=== PATIENT | male | born 1955 | race Caucasian/White ===

== ENCOUNTER 2021-06-22 07:47 | Outpatient (CLI) | payer MEDICARE, SELFPAY ==
--- NOTE | ~2021-06-22 | CT_ITS ---
EXAMINATION: CTA abd aorta runoff EXAM DATE: 06/22/2021 08:42 INDICATION: Peripheral vascular disease. Bilateral leg pain, claudication. TECHNIQUE: Spiral CTA abd aorta runoff was performed following intravenous injection of 150 mL Omnipa que 350. Axial, coronal and sagittal images were reviewed. Maximum intensity projection 3-D reconstr uctions of the arteries were created by the technologist on dedicated workstation. The dose-length product (DLP) for this examination was 1179.05 mGy-cm. The exposure was tailored according to patien t size (auto mA exposure control), and iterative reconstruction (ASIR) was used as additional dose re duction technique. There is no prior study for comparison. FINDINGS: There are 2 left renal arteries. No renal artery, SMA or BELÉN stenosis. 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 Mild aortic arterial sclerosis. No a bdominal aortic aneurysm. Mild scattered arterial sclerosis of the superficial femoral and popliteal arteries. There is severe right anterior tibial scattered arterial sclerosis distally, and moderate t o severe left anterior tibial arterial sclerosis distally, but three-vessel runoff bilaterally. Incidental findings: Small right inguinal fat-containing hernia. Mildly enhancing bladder mucosa and mildly diffusely thickened wall, probably chronic cystitis. If there are acute symptoms consider urin alysis. Prostate normal in size. Corpora cavernosum and spongiosum calcifications. Cholelithiasis. No rmal appendix. IMPRESSION: 1. Anterior tibial predominant arteriosclerosis right greater than left, with three-vessel runoff bi laterally. No significant above-knee stenosis. 2. Chronic or possibly acute on chronic cystitis. 3. Small right inguinal hernia. 4. Cholelithiasis. Reviewed, dictated and finalized at location A. GLUE MACHINE TENDER IMPRESSION: 1. Anterior tibial predominant arteriosclerosis right greater than left, with three-vessel runoff bilaterally. No significant above-knee stenosis. 2. Chronic or possibly acute on chronic cystitis. 3. Small right inguinal hernia. 4. Cholelithiasis.
[2021-06-22 08:35] LABS: Estimated Glomerular Filt Rate > 60
== END 2021-06-22 07:48 | disposition home or self-care (01) ==
LOC: ANHIMG 07:50
PROVIDERS: PCP Internal Medicine; Visit Provider Internal Medicine
DX: I73.9 Peripheral vascular disease, unspecified (principal); M79.662 Pain in left lower leg; M79.661 Pain in right lower leg; N30.20 Other chronic cystitis without hematuria; K40.90 Unilateral inguinal hernia, without obstruction or gangrene, not specified as recurrent; K80.20 Calculus of gallbladder without cholecystitis without obstruction
CPT/HCPCS: 75635; Q9967

== ENCOUNTER 2024-01-25 08:01 | Outpatient (CLI) | payer MEDICARE, SELFPAY ==
--- NOTE | ~2024-01-25 | NM_ITS ---
EXAMINATION: NM barry stress w perfusion DATE: 01/25/2024 10:29 INDICATION: Abnormal electrocardiogram TECHNIQUE: Rest images were obtained following intravenous administration of 11 mCi Tc99m tetrofosmin (Myoview). The patient was infused intravenously with Lexiscan (Regadenoson). Then, 34 mCi Tc99m tet rofosmin (Myoview) was administered intravenously, and stress images were obtained. Data was reconstr ucted into short axis and horizontal and vertical long axis SPECT images. Gated SPECT images were als o obtained. COMPARISON: None. FINDINGS: There is no definite reversible or fixed perfusion abnormality to suggest ischemia or infar ction. There is normal left ventricular chamber size, wall motion and ejection fraction. Left ventr icular ejection fraction measures >70%. IMPRESSION: 1. Normal myocardial perfusion at rest and during stress. 2. Left ventricular ejection fraction measuring >70%. Reviewed, dictated and finalized at location A.
--- NOTE | 2024-01-25 08:07 | EST_ITS ---
Patient Info Name: Dylan Noel Age: 68 years : 1955 Gender: Male Ht: 65 in Wt: 184 lbs BSA: 1.98 m2 HR: 75 bpm BP: 135 / 63 mmHg Exam Date: 01/25/2024 9:16 AM Exam Location: Echo Lab Patient Status: Outpatient Admit Date: 01/25/2024 Staff Ordering Physician: Armando Larios MD Attending Provider: Armando Larios MD Exercise Technologist: Sherlyn Hou [facility] Exercise Physician: Drake Bergeron DO Exam Type: CA stress barry w NM Study Info A regadenoson stress test was performed. Summary 1. 1. Negative lexiscan stress test for ischemic ST changes by ECG criteria. 2. 2. Stable hemodynamics throughout the test. 3. 3. Nuclear scan to follow and will be reported separately. Please correlate with it. 4. 4. Patient informed of the above results. Protocol: Lexiscan Stress ECG Details Stage: REST Duration (min): 2 min : 33 sec HR (bpm): 76 SBP (mmHg): 135 DBP (mmHg): 63 Stage: REST Duration (min): 11 min : 29 sec HR (bpm): 75 SBP (mmHg): 135 DBP (mmHg): 63 Stage: STAGE 1 Duration (min): 1 min : 0 sec HR (bpm): 79 SBP (mmHg): 135 DBP (mmHg): 65 Stage: RECOVERY Duration (min): 1 min : 0 sec HR (bpm): 91 SBP (mmHg): 135 DBP (mmHg): 65 Stage: RECOVERY Duration (min): 2 min : 0 sec HR (bpm): 86 SBP (mmHg): 135 DBP (mmHg): 65 Stage: RECOVERY Duration (min): 3 min : 0 sec HR (bpm): 86 SBP (mmHg): 120 DBP (mmHg): 54 Stage: RECOVERY Duration (min): 3 min : 12 sec HR (bpm): 86 SBP (mmHg): 120 DBP (mmHg): 54 Rest HR: 75 bpm Peak HR: 92 bpm Rest Sys BP: 135 mmHg Peak Sys BP: 135 mmHg Max Pred HR: 150 bpm % Max Pred HR: 61 % Target HR: 128 bpm Max RPP: 12,420 bpm*mmHg Termination Reason: Completed protocol Cardiac Symptoms: None Total Time: 1 min : 0 sec Rest Lutz BP: 63 mmHg Peak Lutz BP: 65 mmHg Total Dose: 0.4 mg Resting ECG Sinus rhythm, PVC's, LAFB. Stress ECG No ST changes. Arrhythmias None. Report Signatures
== END 2024-01-25 08:02 | disposition home or self-care (01) ==
LOC: ANHCARD 08:05
PROVIDERS: PCP Internal Medicine; Visit Provider Internal Medicine
DX: R06.09 Other forms of dyspnea (principal); R94.31 Abnormal electrocardiogram [ECG] [EKG]
CPT/HCPCS: 78452; 93017; A9502; J2785

== ENCOUNTER 2024-07-06 10:08 | Observation (INO) | payer MEDICARE, SELFPAY ==
[2024-07-06] VITALS (9 sets, daily range): BP systolic 111–125; BP diastolic 50–65; PULSE 75–92; RESP 16–18; TEMP 35.8–36.7; O2SAT 90–100; BMI 31.1
--- NOTE | ~2024-07-06 | US_ITS ---
EXAM: RENAL ULTRASOUND HISTORY: acute kidney injury COMPARISON: Reference is made to a CTA of the abdomen dated 06/22/2021 FINDINGS: RIGHT KIDNEY: 11.6 x 5.7 x 5.3 cm. The parenchyma of the right kidney is unremarkable in echogenicity. No hydronephrosis or bulky renal calculi. LEFT KIDNEY: 10.6 x 5.5 x 5.4 cm The parenchyma of the left kidney is unremarkable in echogenicity. No hydronephrosis. Echogenic focus within the lower pole of the left kidney measuring 6 mm, likely corresponding to a CT A in 2021 which demonstrated an 8 mm left renal nonobstructing calcification. BLADDER: The bladder is distended, and otherwise unremarkable. A left ureteral jet was visualized. Despite prolonged interrogation, the right ureteral jet was not elicited. IMPRESSION: Left renal calculus. Reviewed, dictated and finalized at location A. [facility] SYSTEM ADMINISTRATOR IMPRESSION: Left renal calculus.
--- NOTE | ~2024-07-06 | XR_ITS ---
EXAMINATION: XR foot LT min 3V DATE: 07/06/2024 12:29 INDICATION: Lateral sided diabetic foot and severe at the left foot. TECHNIQUE: Dorsoplantar, oblique and lateral views of the left foot were obtained. COMPARISON: None. FINDINGS: Bone alignment is normal. No fracture. No cortical erosions, osteolysis or periosteal reaction to sug gest osteomyelitis. Mild polyarticular osteoarthritis at the calcaneocuboid, first metatarsophalangea l and multiple tarsometatarsal and interphalangeal joints. Small plantar calcaneal spur. There is asy mmetric mild soft tissue swelling about the lateral side of the foot. IMPRESSION: 1. 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 No acute osseous abnormality. Reviewed, dictated and finalized at location A. [place]
--- OUTSIDE RECORDS SUMMARY | 2024-07-06 10:09 | XMS_ITS | Continuity of Care Document ---
Author Organization [facility] Address [id number] [place] [address] [place] [address] Phone Care Team Providers Care Seo Strategist Name Role Phone Ed Grimm DO Unavailable Unavailable Advance Directives Directive Yes / No Effective Date File Name No Information Encounters Encounter Description Practice Location Reason(s) For Visit Diagnoses Date Provider Providers Copied on Encounter [facility], [id number] [place] [address] [address], [place], [place], [id number], tel:[phone] [facility] No Information Sirisha Romeo. [address] [facility], [place], [address], [place]. tel:[phone] Referring Provider: Armando Larios MD , [address] [address] [address], [place], [address]. tel:[phone] Family History Family Member Type Diagnosis Age At Onset No Information Payers Payer name Insurance type Covered libertarian ID Authoriza tion(s) No Information Social History [...]
--- OUTSIDE RECORDS SUMMARY | 2024-07-06 10:09 | XMS_ITS | Clinical Summary ---
Author Organization [facility] Address [address] [place] [address] Care Team Providers Care Long Goods Drier Name Role Phone Armando Larios MD Primary Care Provider [phone] Allergies No known active allergies Medications atorvastatin (LIPITOR) 20 mg tablet 2 Active ciprofloxacin (CIPRO) 500 mg tablet Take 500 mg by mouth every 12 (twelve) hours for 10 days 2 Active HumuLIN 70/30 100 unit/mL vial for injection 2 Active insulin syringe-needle U-100 0.5 mL 31 gauge x 5/16 syringe USE 1 SYRINGE TWICE DAILY 2 Active verapamil SR (CALAN SR) 180 mg CR tablet 2 Active losartan-hydroC HLOROthiazide (HYZAAR) 100-12.5 mg per tablet Take 1 tablet by mouth daily Active aspirin 81 mg enteric coated tablet Take 81 mg by mouth daily Active metFORMIN (GLUCOPHAGE) 1,000 mg tablet Take 1,000 mg by mouth 2 (two) times a day with meals Active empagliflozin (JARDIANCE) 25 mg tabletIndicatio ns:type 2 diabetes mellitus 25 mg Active semaglutide (RYBELSUS) 7 mg tablet Take 6 mg by mouth brand advocate before breakfast Active valsartan-hydro chlorothiazide (DIOVAN-HCT) 320-12.5 mg per tablet 2 Active omega 8-zrp-xpw-fish oil 1,200 (144-216) mg capsule Take by mouth Active Active Problems Problem Noted Date Diagnosed Date Atherosclerosis of [place] marianela of both lower extremities with intermittent claudication 07/19/2021 Assessment & Plan (10/17/2021 10:07 AM CDT): Patient is not having claudication symptoms except at long distances and says if he takes an enough water he does not have any symptoms at all. He can follow up as needed. Assessment & Plan (07/19/2021 9:51 AM SOLDER MAKING SUPERVISOR): Patient has peripheral arterial disease and likely falsely elevated ABIs due to noncompressible vessels. Does however have palpable pulses. His CT scan suggests scattered blockages but had does have flow all the way to his feet. Plan will be to have him follow up in 3 months with a repeat arterial Doppler. He is currently on an aspirin and a statin and is not a smoker. Mixed hyperlipidemia 07/19/2021 Assessment & Plan (10/17/2021 10:08 AM CDT): Followed by his PCP and chronic and stable. I recommend he continue his atorvastatin. Assessment & Plan (07/19/2021 9:53 AM SOLDER MAKING SUPERVISOR): Followed by his PCP chronic and stable. I recommend he continue his atorvastatin for lipid lowering medication which will also help with his peripheral arterial disease. Primary hypertension 07/19/2021 Assessment & Plan (10/17/2021 10:09 AM CDT): Followed by his PCP and chronic and stable. I recommend he continue his verapamil for blood pressure medication. Assessment & Plan (07/19/2021 9:53 AM SOLDER MAKING SUPERVISOR): Followed by his PCP chronic and stable. I recommend he continue his verapamil for blood pressure medication. Surgical History Surgery Date Site/Laterality Comments TONSILLECTOMY Family History Medical History Relation Name Comments No Known Problems Daughter Diabetes Father Heart disease Father Hypertension Father No Known Problems Maternal Grandfather Cancer Maternal Grandmother Diabetes Mother Heart disease Mother Hypertension Mother Stroke Paternal Grandfather No Known Problems Paternal Grandmother Diabetes Sister Relation Name Status Comments Daughter Father Maternal Grandfather Maternal Grandmother Mother Paternal Grandfather Paternal Grandmother Sister Social History Tobacco Use Types Packs/Day Years Used Date Smoking Tobacco: Never Smokeless Tobacco: Never Personal Safety Answer Date Recorded Getting School Help Needed Not on file 05/30 Sex and Gender Information Value Date Recorded Sex Assigned at Not on file Legal Sex Male 5:29 PM SOLDER MAKING SUPERVISOR Gender Identity Not on file Sexual Orientation Not on file Obstetrics History Last Filed Vital Signs Vital Sign Reading Time Taken Comments Blood Pressure 120/71 10/17/2021 8:46 AM CDT Pulse 81 10/17/2021 8:46 AM CDT Temperature - - Respiratory Rate - - Oxygen Saturation - - Inhaled Oxygen Concentration - - Weight 81.2 kg (179 lb) 10/17/2021 8:46 AM CDT Height 167.6 cm (5' 6 ) 10/17/2021 8:46 AM CDT Body Mass Index 28.89 10/17/2021 8:46 AM CDT Plan of Treatment Health Maintenance Due Date Last Done Comments Colon Cancer Screening-Colonoscopy 1955 Depression Screening 1955 Fall Risk Assessment 1955 Hepatitis C Screening 1955 DTaP/Tdap/Td Vaccine (1 - Tdap) 1964 Hepatitis B Screening 08/10/1971 Zoster Vaccine (1 of 2) 08/10/2003 Abdominal Aortic Aneurysm (A AA) Screen 2018 Pneumococcal vaccine 65+ (1 of 1 - PCV) 2018 Well Visit 65+ 2018 Covid-19 Vaccine ( season) 2024 04/29/2021, 08/31/2020, 08/10/2020 Influenza Vaccine (#1) 2024 Insurance [facility] HMO REF [facility] H[facility] REF Care Teams Long Goods Drier Relationship Specialty Start Date End Date Armando Larios MD [address] [facility] [address] [place], [place] [id number] PCP - General Internal Medicine 07/07/21
--- OUTSIDE RECORDS SUMMARY | 2024-07-06 10:09 | XMS_ITS | Clinical Summary ---
Author Organization [facility] Address [address] [place] [address] Care Team Providers Care Special Deputy Sheriff Name Role Phone Armando Larios MD Primary Care Provider [phone] Social History Tobacco Use Types Packs/Day Years Used Date Smoking Tobacco: Never Assessed Sex and Gender Information Value Date Recorded Sex Assigned at Not on file Legal Sex Male 11:55 AM ACROBATIC RIGGER Gender Identity Not on file Sexual Orientation Not on file Plan of Treatment Health Maintenance Due Date Last Done Comments Colorectal Cancer Screening Colonoscopy (10 Years) 1955 Hepatitis C 08/10/1971 DTaP, Tdap and Td Vaccines ( 1 - Tdap) 1972 Zoster Vaccines (1 of 2) 08/10/2003 Annual Medicare Wellness Visit 2018 Pneumococcal Vaccine: 65+ Years (1 of 1 - PCV) 2018 COVID-19 Vaccine (4 - 2023-2 5 season) 2024 04/29/2021, 08/31/2020, 08/10/2020 Influenza Adult (#1) 2024 RSV Immunization or 60+ Years (1 - 1-dose 75+ series) 2028 Meningococcal B Vaccine Aged Out No l onger eligible based on patient's age to complete this topic Meningococcal Vaccine Aged Out No arturo alpesh eligible based on patient's age to complete this topic RSV Immunizations Under 20 Months Aged Out No longer eligible b ased on patient's age to complete this topic Insurance [facility] Care Teams Special Deputy Sheriff Relationship Specialty Start Date End Date Armando Larios MD [address] [place] [address] PCP - General INTERNAL MEDICINE 04/26/21
--- OUTSIDE RECORDS SUMMARY | 2024-07-06 10:09 | XMS_ITS | Referral Summary ---
Author Organization [facility] Address [address] [place] [address] Care Team Providers Care Supervisor Photostat Name Role Phone Armando Larios MD Primary Care Provider [phone] Allergies No known active allergies Medications atorvastatin [...] mg tablet Take 6 mg by mouth drafter seismograph before breakfast Active valsartan-hydro chlorothiazide (DIOVAN-HCT) 320-12.5 mg per tablet 2 Active omega 2-ofd-hum-fish oil 1,200 (144-216) mg capsule Take by mouth Active Active Problems Problem Noted Date Diagnosed Date Atherosclerosis of lower [place] ar marianela of both lower extremities with intermittent claudication 07/19/2021 Assessment & Plan (10/17/2021 10:07 AM CDT): Patient is not having claudication symptoms except at long distances and says if he takes an enough water he does not have any symptoms at all. He can follow up as needed. Assessment & Plan (07/19/2021 9:51 AM DESK CLERK): Patient has peripheral arterial disease and likely [...] atorvastatin. Assessment & Plan (07/19/2021 9:53 AM DESK CLERK): Followed by his PCP chronic and stable. I recommend he continue his atorvastatin for lipid lowering medication which will also help with his peripheral arterial disease. Primary hypertension 07/19/2021 Assessment & Plan (10/17/2021 10:09 AM CDT): Followed by his PCP and chronic and stable. I recommend he continue his verapamil for blood pressure medication. Assessment & Plan (07/19/2021 9:53 AM DESK CLERK): Followed by his PCP chronic and stable. I recommend he continue his verapamil for blood pressure medication. Social History Tobacco Use Types Packs/Day Years Used Date Smoking Tobacco: Never Smokeless Tobacco: Never Personal Safety Answer Date Recorded Getting School Help Needed Not on file 05/30 Sex and Gender Information Value Date Recorded Sex Assigned at Not on file Legal Sex Male 5:29 PM DESK CLERK Gender Identity Not on file Sexual Orientation Not on file Last Filed Vital Signs Vital Sign Reading [...] 10/17/2021 8:46 AM CDT Plan of Treatment Not on file Insurance [facility] Address: [address] [address] [place] [address] [facility] Address[facility] [address] [address] [place] [address] Care Teams Supervisor Photostat Relationship Specialty Start Date End Date Armando Larios MD [address] [facility] [address] [facility] [address] [place] [address] PCP - General Internal Medicine 07/07/21
--- OUTSIDE RECORDS SUMMARY | 2024-07-06 10:29 | XMS_ITS | Continuity of Care Document ---
Author Organization [facility] Address [address] [place] [address] [place] [address] Phone Care Team Providers Care Clay Machine Operator Name Role Phone Ed Grimm DO Unavailable Unavailable Advance Directives Directive Yes / No Effective Date File Name No Information Encounters Encounter Description Practice Location Reason(s) For Visit Diagnoses Date Provider Providers Copied on Encounter [facility], [address] [place] [address] [address], [place], [place], [id number], tel:[phone] [facility] No Information Sirisha Romeo. [email or web address] [facility], [place], [address], [place]. tel:[phone] Referring Provider: Armando Larios MD , [address] [address] [address], [place], [address]. tel:[phone] Family History Family Member Type Diagnosis Age At Onset No Information Payers Payer name Insurance type Covered green party ID Authoriza tion(s) No Information Social [...]
--- NOTE | 2024-07-06 11:14 | ED_ITS ---
HPI - General Adult General Chief complaint: Extremity Problem,Nontraumatic Stated complaint: left foot pain Time Seen by Provider: 07/06/24 10:19 History of Present Illness HPI narrative: 68-year-old male with history of type 2 diabetes presenting the emergency department for evaluation for a worsening infection to his left foot. Patient states approximately 3 weeks ago started having infection secondary to some calluses on his left foot. Patient was started on antibiotics on 06/26 and patient did complete his entire dose of Bactrim. Patient states that the infection did began to improve after being on the Bactrim for a day or so but over the course of the last week it has continued to worsen. Patient did complete his Bactrim today. Patient denies any associated nausea vomiting diarrhea, body aches fatigue. Patient does complain of worsening left lateral foot pain erythema and tenderness. Patient states he is very active and is on his feet and work boots all day. Related Data Home Medications ?Medication ?Instructions ?Recorded ?Confirmed ?Last Taken ?Type aspirin 81 mg tablet,delayed 81 mg PO DAILY 07/08/19 07/06/24 07/06/24 History release (Adult Low Dose Aspirin) omega-3 fatty acids 1,000 mg 4,000 mg PO DAILY 07/08/19 07/06/24 07/06/24 History capsule (Fish Oil Concentrate) cholecalciferol (vitamin D3) 50 50 mcg PO DAILY 09/21/22 07/06/24 07/06/24 History mcg (2,000 unit) capsule semaglutide 3 mg tablet (Rybelsus) 6 mg PO DAILY 01/16/23 07/06/24 07/06/24 History empagliflozin 25 mg tablet 25 mg PO DAILY 03/13/24 07/06/24 07/06/24 History (Jardiance) linagliptin 5 mg tablet (Tradjenta) 5 mg PO QAM 03/13/24 07/06/24 07/06/24 History atorvastatin 10 mg tablet 5 mg PO DAILY 07/06/24 07/06/24 07/06/24 History Allergies Allergy/AdvReac Type Severity Reaction Status Date / Time No Known Allergies Allergy Unknown Verified 07/06/24 14:57 Review of Systems 2 Review of Systems: All systems reviewed & are unremarkable except as noted in HPI and below PMFSH Past Medical History Medical History (Updated 07/06/24 @ 15:06 by Alyssa Mc PA-C) Chronic kidney disease Peripheral vascular disease Mixed hyperlipidemia Insulin dependent type 2 diabetes mellitus BMI 31.0-31.9,adult Vitamin D deficiency Hearing loss Vitreous hemorrhage of left eye Abnormal ankle brachial index (LAMAR) Benign essential hypertension Surgical History Surgical History (Updated 07/06/24 @ 15:03 by Alyssa Mc PA-C) History of bilateral cataract extraction (2022) Social History Social History (Updated 07/06/24 @ 15:04 by Alyssa Mc PA-C) Social History: Surrogate medical decision maker: Karrie Noel, spouse ([phone]). Code status: Full code. Smoking status: Never smoker Second hand tobacco smoke exposure: No Alcohol intake: never Substance use: never Do You Feel Safe in your Home?: Yes Lack of Transportation: No Lack of Food: Never True Current Housing: I Have Housing Concerned About Future Housing: No Difficulty Paying Gas/Electric Bills: No Difficulty Paying for Meds: No Currently Unemployed: No Education: High School Diploma/GED Difficulty w/ Childcare or Family Care: No Spiritual care concerns: No Exam 2 Narrative: APPEARANCE: Well appearing, no pain, no distress, well-nourished. HEAD: normocephalic, atraumatic. EYES: PERRLA/EOMI, conjunctivae clear. NOSE: Normal no drainage EARS:TMS clear with good light reflex. THROAT: Pharynx clear, no exudate. NECK: Supple. No adenopathy, no masses. RESPIRATORY: Airway patent, respirations nonlabored. Clear to auscultation bilaterally, no rales, rhonchi, wheezing. CARDIOVASCULAR: Regular rate and rhythm without murmurs rubs or gallops. ABDOMINAL: Soft, nontender, nondistended, normal bowel sounds MUSCULOSKELETAL: Moves all extremities. Strength/ROM intact, No edema, No calf tenderness. NEURO: Alert. Cranial nerves II through XII intact. Grossly intact SKIN: Erythema of left lateral foot at both the heel and just lateral to the ball of the left foot. No purulent discharge, mild erythema Course Vital Signs Vital signs: Vital Signs Temperature 97.8 F 07/06/24 10:09 Pulse Rate 83 07/06/24 10:09 Respiratory Rate 16 07/06/24 10:09 Blood Pressure 125/56 L 07/06/24 10:09 Pulse Oximetry 100 07/06/24 10:09 Oxygen Delivery Room Air 07/06/24 10:09 Temperature 96.5 F L 07/06/24 15:00 Pulse Rate 82 07/06/24 15:00 Respiratory Rate 18 07/06/24 15:00 Blood Pressure 111/56 L 07/06/24 15:00 Pulse Oximetry 100 07/06/24 15:00 Oxygen Delivery Room Air 07/06/24 10:09 Medical Decision Making MDM Narrative Medical decision making narrative: 68-year-old male presents emergency department for evaluation for worsening diabetic foot ulcer. Patient does have type 2 diabetes and history of diabetic ulcers. Patient had been on Bactrim for the course of the last week but states that the infection continues to worsen. Patient did not want to try antibiotics for home and preferred to be admitted for this. Patient did fail outpatient treatment. Patient did have mild BRIANNE worsened than his chronic kidney disease. Patient had a mild hyperkalemia. Patient was treated by a L IV fluids. Patient was started on cefepime vanc and Flagyl, blood cultures are pending. Case was discussed with hospitalist patient was accepted. Patient was placed on telemetry due to potassium. Repeat BMP is ordered for 3:00 p.m.. Differential Diagnosis Differential Diagnosis: Osteomyelitis, abscess, diabetic ulcer Vital Signs Vital Signs: Vital Signs Temperature 97.8 F 07/06/24 10:09 Pulse Rate 83 07/06/24 10:09 Respiratory Rate 16 07/06/24 10:09 Blood Pressure 125/56 L 07/06/24 10:09 Pulse Oximetry 100 07/06/24 10:09 Oxygen Delivery Room Air 07/06/24 10:09 Temperature 96.5 F L 07/06/24 15:00 Pulse Rate 82 07/06/24 15:00 Respiratory Rate 18 07/06/24 15:00 Blood Pressure 111/56 L 07/06/24 15:00 Pulse Oximetry 100 07/06/24 15:00 Oxygen Delivery Room Air 07/06/24 10:09 Lab Data Lab results reviewed: Yes I reviewed the patient's lab results. 07/06/24 11:42 07/06/24 15:25 Labs: Lab Results 07/06/24 Range/Units 11:42 WBC 8.9 (4.5-10.0) K/mm3 RBC 4.93 (4.6-6.20) M/mm3 Hgb 14.9 (14.0-18.0) g/dL Hct 43.9 (42.0-52.0) % MCV 89.0 (80-100) fl MCH 30.2 (26-34) pg MCHC 33.9 (32-36) g/dl RDW 13.0 (11.5-14.5) % Plt Count 281 (150-375) k/mm3 MPV 9.4 (7.4-10.4) fl Immature Gran % (Auto) 0.7 H (0-0.5) % Neut % (Auto) 67.4 (45.5-73.1) % Lymph % (Auto) 20.4 (18.3-44.2) % [place] % (Auto) 9.0 H (2.6-8.5) % Eos % (Auto) 1.7 (0-4.4) % Baso % (Auto) 0.8 (0.2-1.2) % Lymph # (Auto) 1.81 (0.9-3.2) K/mm3 [place] # (Auto) 0.8 H (0.1-0.6) K/mm3 Eos # (Auto) 0.2 (0-0.3) K/mm3 Baso # (Auto) 0.1 (0.0-0.1) K/mm3 Abs Immat Gran (auto) 0.06 H (0.00-0.031) K/mm3 Absolute Neuts (auto) 6.0 (1.3-6.7) K/mm3 Absolute Nucleated RBC 0.000 (0.0-0.012) K/mm3 Nucleated RBC % 0.0 (0.0-0.2) % PT 13.7 (11.1-14.7) Seconds INR 1.0 APTT 28.5 (22.3-36.8) Seconds Sodium 134 L (137-145) mmol/L Potassium 5.3 H (3.4-5.0) mmol/L Chloride 105 (98-107) mmol/L Carbon Dioxide 15 L (22-30) mmol/L Anion Gap 14 H (4-12) mmol/L BUN 41 H (9-20) mg/dL Creatinine 1.77 H (0.7-1.3) mg/dL Estim Creat Clear Calc 34 ml/min Estimated GFR 38 L (59 - ) Glucose 154 H (65-110) mg/dL Hemoglobin A1c 7.2 H (<5.7) % Calcium 9.6 (8.4-10.2) mg/dL Magnesium 2.6 H (1.6-2.3) mg/dL Total Bilirubin 0.9 (0.2-1.3) mg/dL AST 21 (17-59) U/L ALT 21 (6-50) U/L Alkaline Phosphatase 116 (38-126) U/L Total Protein 8.0 (6.3-8.2) g/dL Albumin 4.2 (3.5-5.1) g/dL Imaging Data Radiologist's impression: Impressions Foot X-Ray 07/06/24 12:38 IMPRESSION: 1. 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 No acute osseous abnormality. Discharge Plan Discharge Clinical Impression: Diabetic foot ulcer, BRIANNE (acute kidney injury), Acute hyperkalemia Patient Disposition: Still a Patient Condition: Stable
[2024-07-06 11:52] LABS: Basophils Absolute Auto 0.1 K/mm3 (0.0-0.1); Basophils Percent Auto 0.8 % (0.2-1.2); Eosinophils Absolute Auto 0.2 K/mm3 (0-0.3); Eosinophils Percent Auto 1.7 % (0-4.4); Hematocrit 43.9 % (42.0-52.0); Hemoglobin 14.9 g/dL (14.0-18.0); Immature Granulocyte Absolute 0.06 K/mm3 (0.00-0.031); Immature Granulocyte Percent A 0.7 % (0-0.5); Lymphocytes Absolute Auto 1.81 K/mm3 (0.9-3.2); Lymphocytes Percent Auto 20.4 % (18.3-44.2); Mean Corpuscular HGB Conc 33.9 g/dl (32-36); Mean Corpuscular Hemoglobin 30.2 pg (26-34); Mean Platelet Volume 9.4 fl (7.4-10.4); Monocytes Absolute Auto 0.8 K/mm3 (0.1-0.6); Neutrophils Percent Auto 67.4 % (45.5-73.1); Platelet Count Result 281 k/mm3 (150-375); Red Blood Count 4.93 M/mm3 (4.6-6.20); White Blood Count 8.9 K/mm3 (4.5-10.0)
[2024-07-06] MEDS: CEFEPIME 2 GM/NS 50 ML 2 GM/50 ML BAG IVPB (11:59)
[2024-07-06 12:03] LABS: Alanine Aminotransferase 21 U/L (6-50); Albumin Level 4.2 g/dL (3.5-5.1); Alkaline Phosphatase 116 U/L (38-126); Anion Gap 14 mmol/L (4-12); Aspartate Amino Transferase 21 U/L (17-59); Bilirubin,Total 0.9 mg/dL (0.2-1.3); Blood Urea Nitrogen 41 mg/dL (9-20); Calcium 9.6 mg/dL (8.4-10.2); Carbon Dioxide 15 mmol/L (22-30); Chloride 105 mmol/L (98-107); Estimated CRCL calculation 34 ml/min; Estimated Glomerular Filt Rate 38; Glucose 154 mg/dL (65-110); Potassium 5.3 mmol/L (3.4-5.0); Prothrombin Time 13.7 Seconds (11.1-14.7); Sodium 134 mmol/L (137-145)
[2024-07-06 12:04] LABS: Partial Thromboplastin Time 28.5 Seconds (22.3-36.8)
[2024-07-06 12:36] LABS: Hemoglobin A1C 7.2 % (<5.7)
[2024-07-06] MEDS: metroNIDAZOLE 500 MG/ISO 100ML 500 MG/100 ML BAG 100 MG IVPB ×2 (12:40→21:21)
--- NOTE | 2024-07-06 13:02 | ECG_ITS ---
Test Date: 2024-07-06 13:15:21 Measurements Intervals [place] Rate: 79 P: 81 OR: 177 QRS: -65 QRSD: 117 T: 80 QT: 370 QTc: 425 Interpretive Statements SINUS RHYTHM LEFT ANTERIOR FASCICULAR BLOCK ABNORMAL ECG No previous ECG available for comparison Electronically Signed On 07-06-2024 14:30:14 [employer] by Drake Bergeron D.O.
[2024-07-06 13:12] LABS: Magnesium 2.6 mg/dL (1.6-2.3)
[2024-07-06] MEDS: SODIUM CHLORIDE 0.9% IV 1,000 ML 999 ML IV CONT (13:40)
[2024-07-06] MEDS: VANCOMYCIN 2,000 MG/NS 500 ML BAG 250 MG IVPB (13:54)
--- NOTE | 2024-07-06 14:20 | P.HP_ITS ---
H&P: HPI History of Present Illness Date/Time: 07/06/24 14:20 Chief Complaint: Worsening left foot infection. Narrative: This is a 68-year-old male with insulin-dependent type 2 diabetes mellitus, hypertension, hyperlipidemia, and peripheral vascular disease who presented to the emergency department for evaluation of worsening left foot infection. The patient provides the following history. Several weeks ago he developed redness and tenderness around a callus on his left foot and he was prescribed Bactrim on 06/26/2024 for suspected infection. Initially he noted some improvement however over the last several days he has noticed increasing erythema and tenderness at the site. Today he finished his last dose of Bactrim. Otherwise he feels fine and he denies fever, chills, sweats, nausea, and vomiting. In the ED: He was afebrile on arrival with stable vital signs. Labs were significant for sodium of 134, potassium 5.3, carbon dioxide 15, anion gap 14, BUN 41, creatinine 1.77, glucose 154. Left foot x-ray showed no acute osseous abnormality. He received cefepime, metronidazole, and vancomycin and he is being admitted in this setting for further treatment of an infected diabetic foot wound. Review of Systems Review of Systems: 12 systems were reviewed and are negativ e except for as per HPI. [facility] Past Medical History Medical History Chronic kidney disease Peripheral vascular disease Mixed hyperlipidemia Insulin dependent type 2 diabetes mellitus BMI 31.0-31.9,adult Vitamin D deficiency Hearing loss Vitreous hemorrhage of left eye Abnormal ankle brachial index (LAMAR) Benign essential hypertension Surgical History Surgical History History of bilateral cataract extraction (2022) Social History Social History Social History: Surrogate medical decision maker: Karrie Noel, spouse ([phone]). Code status: Full code. Smoking status: Never smoker Second hand tobacco smoke exposure: No Alcohol intake: never Substance use: never Do You Feel Safe in your Home?: Yes Lack of Transportation: No Lack of Food: Never True Current Housing: I Have Housing Concerned About Future Housing: No Difficulty Paying Gas/Electric Bills: No Difficulty Paying for Meds: No Currently Unemployed: No Education: High School Diploma/GED Difficulty w/ Childcare or Family Care: No Spiritual care concerns: No Meds Home Medications and Allergies Home Medications ?Medication ?Instructions ?Recorded ?Confirmed ?Type aspirin 81 mg tablet,delayed 81 mg PO DAILY 07/08/19 07/06/24 History release (Adult Low Dose Aspirin) omega-3 fatty acids 1,000 mg 4,000 mg PO DAILY 07/08/19 07/06/24 History capsule (Fish Oil Concentrate) cholecalciferol (vitamin D3) 50 50 mcg PO DAILY 09/21/22 07/06/24 History mcg (2,000 unit) capsule insulin syringe-needle U-100 1 mL #100 ea 01/02/23 07/06/24 Rx 31 gauge x 5/16 semaglutide 3 mg tablet (Rybelsus) 6 mg PO DAILY 01/16/23 07/06/24 History insulin syringe-needle U-100 0.5 #200 ea 06/21/23 07/06/24 Rx mL 31 gauge x 5/16 metformin 1,000 mg tablet See Rx Instructions .Route 12/07/23 07/06/24 Rx .COMPLEX #200 tabs valsartan 320 See Rx Instructions .Route 02/07/24 07/06/24 Rx mg-hydrochlorothiazide 12.5 mg .COMPLEX #100 tabs tablet empagliflozin 25 mg tablet 25 mg PO DAILY 03/13/24 07/06/24 History (Jardiance) linagliptin 5 mg tablet (Tradjenta) 5 mg PO QAM 03/13/24 07/06/24 History insulin human U-100 NPH-regulr See Rx Instructions .Route 05/22/24 07/06/24 Rx 70-30 mix 100 unit/mL subcutaneous .COMPLEX #70 mL susp (Humulin 70/30 U-100 Insulin) atorvastatin 10 mg tablet 5 mg PO DAILY 07/06/24 07/06/24 History Allergies Allergy/AdvReac Type Severity Reaction Status Date / Time No Known Allergies Allergy Unknown Verified 07/06/24 14:57 Vital Signs Vital Signs - 24 hr 07/06/24 10:09 07/06/24 11:54 07/06/24 13:30 Temperature 97.8 F Pulse Rate 83 79 75 Respiratory Rate 16 16 16 Blood Pressure 125/56 L 114/50 L 115/65 Pulse Oximetry 100 99 99 Oxygen Delivery Room Air Exam Narrative: General: Well-developed, nontoxic-appearing male supine in bed in no acute distress. Weight: 82.4 kg. BMI: 31.2. HEENT: PERRL, EOMI. Sclera anicteric. Oral mucosa moist. Oropharynx clear. Neck: Supple. Respiratory: Lungs are clear to auscultation bilaterally. Cardiovascular: Regular rate and rhythm with S1-S2. Gastrointestinal: Abdomen is soft, nontender, and nondistended with positive bowel sounds. Skin: Warm and dry. There are to regions on the lateral left foot, 1 near the ball of the foot and the other near the heel, with mild erythema and some fissuring. The 1 nearest the 5th toe has a dry eschar with surrounding erythema with mild tenderness to palpation and warmth. Extremities: No cyanosis, clubbing, or edema. Pedal pulses diminished but palpable. Neurological: Alert. Cranial nerves 2-12 are grossly intact. No gross focal deficits to casual conversation. Psychiatric: Pleasant and cooperative with normal mood and affect. Judgment and insight intact. H&P: Results Labs Labs: Short CBC 07/06/24 Range/Units 11:42 WBC 8.9 (4.5-10.0) K/mm3 Hgb 14.9 (14.0-18.0) g/dL Hct 43.9 (42.0-52.0) % Plt Count 281 (150-375) k/mm3 BMP 07/06/24 11:42 Sodium 134 L Potassium 5.3 H Chloride 105 Carbon Dioxide 15 L BUN 41 H Creatinine 1.77 H Glucose 154 H Calcium 9.6 Liver Function 07/06/24 Range/Units 11:42 Total Bilirubin 0.9 (0.2-1.3) mg/dL AST 21 (17-59) U/L ALT 21 (6-50) U/L Alkaline Phosphatase 116 (38-126) U/L Albumin 4.2 (3.5-5.1) g/dL Imaging Foot X-Ray 07/06/24 12:38 IMPRESSION: 1. 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 No acute osseous abnormality. Assessment and Plan Assessment and plan (1) Cellulitis in diabetic foot: Code(s): E11.628 - Type 2 diabetes mellitus with other skin complications; L03.119 - Cellulitis of unspecified part of limb Status: Acute (2) Diabetic foot ulcer: Code(s): E11.621 - Type 2 diabetes mellitus with foot ulcer; L97.509 - Non-pressure chronic ulcer of other part of unspecified foot with unspecified severity Status: Acute (3) Acute kidney injury: Code(s): N17.9 - Acute kidney failure, unspecified Status: Acute (4) Hyperkalemia: Code(s): E87.5 - Hyperkalemia Status: Acute (5) Insulin dependent type 2 diabetes mellitus: Code(s): E11.9 - Type 2 diabetes mellitus without complications; Z79.4 - joint terminal attack controller (current) use of insulin Status: Acute (6) Peripheral vascular disease: Code(s): I73.9 - Peripheral vascular disease, unspecified Status: Acute (7) Benign essential hypertension: Code(s): I10 - Essential (primary) hypertension Status: Acute (8) Mixed hyperlipidemia: Code(s): E78.2 - Mixed hyperlipidemia Status: Acute Plan The patient presented to the emergency department for evaluation of a worsening left diabetic foot infection despite having completed a course of Bactrim as detailed in HPI. Labs, imaging, EKG, and all reports were personally reviewed. He reports initial improvement for the 1st couple of days after starting Bactrim however the infection is now getting worse. Radiographs did not show evidence of osteomyelitis. He has been started on cefepime, metronidazole, and vancomycin per antibiotic stewardship recommendations. He has no peripheral vascular disease and will need outpatient follow-up with vascular surgery. He has acute on chronic kidney injury of unclear etiology. Possibly related to Bactrim. Renal ultrasound ordered. Bladder scan to rule out urinary retention. All medications will be renally dosed and nephrotoxic agents will be avoided. Potassium should improve with fluids and a repeat BMP is pending this evening. Blood pressures have been stable. Continue basal insulin. Initiate sliding scale insulin, Accu- Cheks, and hypoglycemic protocol. Hemoglobin A1c today was 7.2%. Findings and treatment plan were discussed with the patient. Questions were solicited and answered to satisfaction. The patient's medical management will be taken over by the hospitalist team in a.m. Quality VTE Prophylaxis VTE prophylaxis: pharmacologic ordered Hospitalist [facility] Advance Care Plan I have confirmed that the patient's Advanced Care Plan is present, code status is documented, or surrogate decision maker is listed in patient medical record.: Yes Medication Reconciliation I have utilized all available resources to obtain, update and review the patients current medications (includes all prescriptions, OTC, herbals, cannabis, and nutritional supplements).: Yes
--- NOTE | 2024-07-06 14:35 | ADMGEN ---
This patient, Dylan Noel, was admitted to [facility] Surg Room 322-02. Patient/family oriented to hospital policies and general routines including ID bracelet, bed and alarms, visiting hours, pain management, procedures, bathroom and other care routines, personal items, smoking policy, room service/diet, and visiting hours. Information on how to activate the Rapid Response Team has been discussed. Patient/Family are encouraged to report perceived risks to care and to ask questions if they do not understand what they are told or what they should do.
[2024-07-06 16:00] LABS: Anion Gap 12 mmol/L (4-12); Blood Urea Nitrogen 38 mg/dL (9-20); Calcium 9.2 mg/dL (8.4-10.2); Carbon Dioxide 16 mmol/L (22-30); Chloride 108 mmol/L (98-107); Estimated CRCL calculation 37 ml/min; Estimated Glomerular Filt Rate 43; Glucose 88 mg/dL (65-110); Potassium 5.3 mmol/L (3.4-5.0); Sodium 136 mmol/L (137-145)
[2024-07-06 16:04] LABS: Erythrocyte Sedimentation Rate 25 mm/hr (0-20)
[2024-07-06 16:14] LABS: CRP < 0.5 mg/dL (<1.0)
[2024-07-06 17:01] LABS: Glucose Point of Care 88 mg/dl (65-105)
[2024-07-06] MEDS: LACTATED RINGERS 1,000 ML 100 ML IV CONT (17:44)
[2024-07-06 18:02] LABS: Add Urine Microscopic? NO; Appearance Urine Clear (Clear); Bilirubin Urine Negative (Negative); Blood Urine Negative (Negative); Color Urine Yellow (Yellow); Glucose Urine UA 3+ mg/dL (Negative); Ketones Urine Negative (Negative); Leukocyte Esterase Ur Negative LEU/UL (Negative); Nitrate Urine Negative (Negative); Protein Urine Negative (Negative); Specific Grav Ur 1.014 (1.001-1.035); Urobilinogen Urine 0.2 mg/dL (<2.0); pH Urine 5.5 (5.0-9.0)
[2024-07-06 18:11] LABS: Creatinine Urine 37.9 mg/dL
[2024-07-06 18:14] LABS: Eosinophil Urine None Seen % (None Seen); Urine Eos QC 2nd Tech Confirmed
[2024-07-06 18:16] LABS: Potassium Urine Random 20.4 meq/L; Sodium Urine Random 76 meq/L
[2024-07-06 18:17] LABS: Creatinine Urine 37.8 mg/dL; Total Protein Urine Random 9 mg/dL; Ur Ttl Prot Creatinine Ratio 0.24 mg/mg (0-0.20)
[2024-07-06] MEDS: CEFEPIME 1 GM/NS 50 ML 1 GM/50 ML BAG IVPB (20:24)
[2024-07-06 21:23] LABS: Fractional Inspired Oxygen 21 %; HCO3 VBG 17.4 mEq/l (24.0-30.0); PO2 VBG 51.4 mmHg (35.0-45.0)
[2024-07-06 21:25] LABS: Device ROOM AIR
[2024-07-06 21:26] LABS: PCO2 VBG 27.6 mmHg (42.0-48.0); pH VBG 7.417 (7.300-7.400)
[2024-07-06 21:34] LABS: Anion Gap 10 mmol/L (4-12); Blood Urea Nitrogen 34 mg/dL (9-20); Calcium 9.2 mg/dL (8.4-10.2); Carbon Dioxide 18 mmol/L (22-30); Chloride 106 mmol/L (98-107); Estimated CRCL calculation 39 ml/min; Estimated Glomerular Filt Rate 45; Glucose 173 mg/dL (65-110); Potassium 5.4 mmol/L (3.4-5.0); Sodium 134 mmol/L (137-145)
[2024-07-06 21:40] LABS: Beta-Hydroxybutyrate/Acetoacetate 0.12 mmol/L (0.02-0.27)
[2024-07-06 22:42] LABS: Glucose Point of Care 165 mg/dl (65-105)
[2024-07-07] VITALS (9 sets, daily range): BP systolic 87–120; BP diastolic 44–58; PULSE 66–86; RESP 18; TEMP 37.1–37.2; O2SAT 98–100
[2024-07-07 01:10] LABS: Glucose Point of Care 164 mg/dl (65-105)
[2024-07-07] MEDS: metroNIDAZOLE 500 MG/ISO 100ML 500 MG/100 ML BAG 100 MG IVPB ×3 (06:17→21:26)
[2024-07-07 06:55] LABS: Hematocrit 42.3 % (42.0-52.0); Hemoglobin 13.9 g/dL (14.0-18.0); Mean Corpuscular HGB Conc 32.9 g/dl (32-36); Mean Corpuscular Hemoglobin 29.8 pg (26-34); Mean Corpuscular Volume 90.6 fl (80-100); Mean Platelet Volume 9.3 fl (7.4-10.4); Platelet Count Result 263 k/mm3 (150-375); Red Blood Count 4.67 M/mm3 (4.6-6.20); Red Cell Distribution Width 13.2 % (11.5-14.5); White Blood Count 6.9 K/mm3 (4.5-10.0)
[2024-07-07 07:04] LABS: Anion Gap 11 mmol/L (4-12); Blood Urea Nitrogen 31 mg/dL (9-20); Calcium 9.2 mg/dL (8.4-10.2); Carbon Dioxide 16 mmol/L (22-30); Chloride 107 mmol/L (98-107); Estimated CRCL calculation 42 ml/min; Estimated Glomerular Filt Rate 48; Glucose 159 mg/dL (65-110); Magnesium 2.5 mg/dL (1.6-2.3); Potassium 5.5 mmol/L (3.4-5.0); Sodium 134 mmol/L (137-145)
[2024-07-07 07:51] LABS: Glucose Point of Care 152 mg/dl (65-105)
--- NOTE | 2024-07-07 08:31 | P.PNIM_ITS ---
Progress Note: A&P Assessment and Plan (1) Cellulitis in diabetic foot: Code(s): E11.628 - Type 2 diabetes mellitus with other skin complications; L03.119 - Cellulitis of unspecified part of limb Status: Acute Assessment and Plan: Patient developed redness and tenderness around a callus on his left foot. Failed outpatient management with Bactrim on 06/26/2024 for suspected infection. Initially had improvement however he noticed increasing erythema and tenderness at the site. Completed Bactrim on 07/06. 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 No acute osseous abnormality. - Antibiotics: vancomycin, cefepime and flagyl started on 07/06 - Blood cultures obtained on 07/06: pending - Gentle IV fluids resuscitation - Monitor vital signs, I&Os, neuro status and patient is a fall risk - Monitor serum electrolytes, CBC, cultures, WBC and temp curve (2) Diabetic foot ulcer: Code(s): E11.621 - Type 2 diabetes mellitus with foot ulcer; L97.509 - Non-pressure chronic ulcer of other part of unspecified foot with unspecified severity Status: Acute Assessment and Plan: See plan above #1 (3) Acute kidney injury: Code(s): N17.9 - Acute kidney failure, unspecified Status: Acute Assessment and Plan: BUN/Cr 41/1.77 with GFR 38 on admission. Baseline appears WNL. - BUN/Cr 31/1.44 on am labs - IV LR 100 ml/hr - Renal US: Left renal calculus - Renally dose medications - Avoid nephrotoxic medications - Monitor I/O (4) Hyperkalemia: Code(s): E87.5 - Hyperkalemia Status: Acute Assessment and Plan: K 5.4 on admission - K 5.5 on am labs, repeat K - Valsartan-HCTZ on hold, blood pressures remain stable - LR IV 100 ml/hr - Tele - Monitor (5) Insulin dependent type 2 diabetes mellitus: Code(s): E11.9 - Type 2 diabetes mellitus without complications; Z79.4 - custodial (current) use of insulin Status: Acute Assessment and Plan: - hypoglycemia protocol - POC blood glucose ACHS - home medication - semaglutide 6 mg daily, metformin 1000 mg, linagliptin 5 mg daily, NPH 70-30 mix 35 units BID - correct regimen ordered - NPH 35 units BID and SSI TIDWM - A1C 7.2 (6) Peripheral vascular disease: Code(s): I73.9 - Peripheral vascular disease, unspecified Status: Acute Assessment and Plan: He has peripheral vascular disease and will need outpatient follow-up with vascular surgery. (7) Benign essential hypertension: Code(s): I10 - Essential (primary) hypertension Status: Acute Assessment and Plan: Chronic - holding valsartan-HCTZ secondary to hyperkalemia - blood pressures remain stable, continue to monitor (8) Mixed hyperlipidemia: Code(s): E78.2 - Mixed hyperlipidemia Status: Acute Assessment and Plan: Chronic continue atorvastatin 5 mg daily Time Spent With Patient Time with patient: 25 - 35 minutes Subjective Date/time seen: 07/07/24 08:31 Interval history: 68-year-old male with insulin-dependent type 2 diabetes mellitus, hypertension, hyperlipidemia, and peripheral vascular disease who presented to the emergency department for evaluation of worsening left foot infection. Patient is pleasant lying comfortably in bed. He states that his leg is feeling better today. He has no other complaints denying chest pain, shortness of breath, palpitations, nausea/vomiting and abdominal pain. Review of Systems Review of Systems: All systems reviewed & are unremarkable except as noted in HPI and below Exam Narrative: AF HR 67 RR 18 SpO2 100 BP 103/56 General: male in no acute respiratory distress who is nontoxic appearing, lying semi recumbent in bed. HEENT: Normocephalic. Atraumatic. Extraocular movement intact. Sclera clear and anicteric. No facial asymmetry. Chest: Lungs are clear to auscultation bilaterally. No wheezes or crackles. CV: Heart was regular rate and rhythm. S1/S2. No murmurs, gallops, or rubs. Abd: Abdomen was soft. Nontender. Nondistended. Positive bowel sounds. No organomegaly or masses. Ext: No clubbing, cyanosis. Two wounds to the lateral left foot with the largest being near the 5th toe and the other at the heel with slight tenderness to the area. No discharge. 2+ DP pulses bilaterally. Neuro: Patient is alert and oriented x4. Speech is clear. Skin: Warm and dry. No rashes noted. Objective Data Vital Signs Vital Signs: Vital Signs - 24 hr 07/06/24 10:09 07/06/24 11:54 07/06/24 13:30 Temperature 97.8 F Pulse Rate 83 79 75 Respiratory Rate 16 16 16 Blood Pressure 125/56 L 114/50 L 115/65 Pulse Oximetry 100 99 99 Oxygen Delivery Room Air Fraction of Inspired Oxygen 07/06/24 15:00 07/06/24 16:00 07/06/24 17:18 Temperature 96.5 F L Pulse Rate 82 80 Respiratory Rate 18 Blood Pressure 111/56 L Pulse Oximetry 100 Oxygen Delivery Room Air Fraction of Inspired Oxygen 07/06/24 20:00 07/06/24 20:32 07/06/24 20:32 Temperature Pulse Rate 81 92 Respiratory Rate 18 Blood Pressure Pulse Oximetry 90 Oxygen Delivery Room Air Fraction of Inspired Oxygen 21 07/06/24 20:42 07/06/24 22:00 07/07/24 00:00 Temperature 98.1 F Pulse Rate 90 81 76 Respiratory Rate 18 16 Blood Pressure 114/60 Pulse Oximetry 98 Oxygen Delivery Fraction of Inspired Oxygen 07/07/24 04:00 07/07/24 06:00 Temperature 98.9 F Pulse Rate 71 67 Respiratory Rate 18 Blood Pressure 103/56 L Pulse Oximetry 100 Oxygen Delivery Fraction of Inspired Oxygen Intake/Output Intake/Output: Intake & Output 07/04/24 07/05/24 07/06/24 07/07/24 23:59 23:59 23:59 23:59 Intake Total 540 300 Output Total 600 Balance -60 300 Meds/Results Medications: Active Medications Generic Name Dose Route Start Last Admin Trade Name Freq PRN Reason Stop Dose Admin Acetaminophen 650 mg 07/06/24 14:55 Acetaminophen 325 Mg Tablet PO Q6H PRN Mild Pain (1-3) or Fever Aspirin 81 mg 07/07/24 09:00 Aspirin 81 Mg Enteric Tablet PO DAILY [facility] Atorvastatin Calcium 5 mg 07/07/24 09:00 Atorvastatin 5 Mg Tablet PO DAILY [facility] Dextrose 12.5 gm 07/06/24 14:55 Dextrose 50% 25 Gm/50 Ml Syringe IV PUSH PRN PRN Hypoglycemia Protocol Empagliflozin 25 mg 07/07/24 09:00 Empagliflozin 25 Mg Tablet PO DAILY [facility] Enoxaparin Sodium 40 mg 07/07/24 09:00 Enoxaparin 40 Mg/0.4 Ml Syringe SUB-Q DAILY [facility] Fish Oil 4 gm 07/07/24 09:00 Parnell 3 Polyunsat Fatty Acids 1 Gm Cap PO DAILY [facility] Glucagon 1 mg 07/06/24 14:55 Glucagon For Inj 1 Mg Vial IM PRN PRN Hypoglycemia Protocol Glucose 15 gm 07/06/24 14:55 Glucose Oral Gel 15 Gm Of Glucse In 37.5 Gm Tube PO PRN PRN Hypoglycemia Protocol Cefepime HCl 1 gm in 50 mls @ 100 mls/hr 07/06/24 21:00 07/06/24 20:54 Maxipime 1 Gm/Ns 50 Ml IVPB Infused Q12H PATRICK Infusion Metronidazole 500 mg in 100 mls @ 100 mls/hr 07/06/24 22:00 07/07/24 06:17 Flagyl 500 Mg/Iso Soln 100 Ml IVPB 100 mls/hr Q8H PATRICK Administration Vancomycin HCl 1,500 mg in 500 mls @ 250 mls/hr 07/08/24 02:00 Vancomycin 1,500 Mg/Ns 500 Ml IVPB Q36H PATRICK Dextrose 1,000 mls @ 100 mls/hr 07/06/24 14:55 Dextrose 5% 1,000 Ml IVPB PRN PRN Hypoglycemia Protocol Lactated Ringer's 1,000 mls @ 100 mls/hr 07/06/24 17:00 07/07/24 06:20 Lr - Lactated Ringers Iv IV CONT Not Given .Q10H PATRICK Insulin Aspart 3 - 6 units 07/06/24 17:00 07/06/24 16:58 Insulin Aspart (*Bkc) 100 Units/Ml SUB-Q Not Given TIDWM [facility] Protocol Insulin Aspart 1 - 3 units 07/06/24 21:00 07/06/24 20:41 Insulin Aspart (*Bkc) 100 Units/Ml SUB-Q Not Given HS [facility] Protocol Insulin Human Isoph/Insulin Regular 35 units 07/07/24 09:00 Insulin Human Isophan/Regular 70/30 (*Bkc) 100 Units/Ml SUB-Q BID [facility] Miscellaneous Information 1 each 07/06/24 00:01 Rybelsus Is Nonformulary. Can He Use Home Supply? XX 08/05/24 00:00 CLARIFY [facility] Non-Formulary Medication 6 mg 07/07/24 09:00 Semaglutide [Rybelsus] PO 08/06/24 08:59 DAILY [facility] Sitagliptin Phosphate 100 mg 07/07/24 09:00 Sitagliptin Phosphate 100 Mg Tablet PO QAM PATRICK Vitamin D 2,000 units 07/07/24 09:00 Cholecalciferol 1,000 Units Tablet PO DAILY [facility] Radiology Results: ITS Impressions Foot X-Ray 07/06/24 12:38 IMPRESSION: 1. 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 No acute osseous abnormality. Renal Ultrasound 07/06/24 19:18 IMPRESSION: Left renal calculus. Labs Labs: Laboratory Results - last 24 hr 07/06/24 07/06/24 07/06/24 11:42 15:25 16:48 WBC 8.9 RBC 4.93 Hgb 14.9 Hct 43.9 MCV 89.0 MCH 30.2 MCHC 33.9 RDW 13.0 Plt Count 281 MPV 9.4 Immature Gran % (Auto) 0.7 H Neut % (Auto) 67.4 Lymph % (Auto) 20.4 [place] % (Auto) 9.0 H Eos % (Auto) 1.7 Baso % (Auto) 0.8 Lymph # (Auto) 1.81 [place] # (Auto) 0.8 H Eos # (Auto) 0.2 Baso # (Auto) 0.1 Abs Immat Gran (auto) 0.06 H Absolute Neuts (auto) 6.0 Absolute Nucleated RBC 0.000 Nucleated RBC % 0.0 ESR 25 H PT 13.7 INR 1.0 APTT 28.5 VBG pH VBG pCO2 VBG pO2 VBG HCO3 O2 Delivery Device O2 Liters/Min FiO2 Sodium 134 L 136 L Potassium 5.3 H 5.3 H Chloride 105 108 H Carbon Dioxide 15 L 16 L Anion Gap 14 H 12 BUN 41 H 38 H Creatinine 1.77 H 1.60 H Estim Creat Clear Calc 34 37 Estimated GFR 38 L 43 L Glucose 154 H 88 POC Capillary Glucose 88 Hemoglobin A1c 7.2 H Calcium 9.6 9.2 Magnesium 2.6 H Total Bilirubin 0.9 AST 21 ALT 21 Alkaline Phosphatase 116 C-Reactive Protein < 0.5 Total Protein 8.0 Albumin 4.2 Beta-Hydroxybutyrate/Acetoacetate Urine Color Urine Appearance Urine pH Ur Specific [place] Urine Protein Urine Glucose (UA) Urine Ketones Ur Blood (Man) Urine Nitrate Urine Bilirubin Urine Urobilinogen Leukocyte Esterase Rfl Urine Eosinophils U Random Total Protein Ur Random Sodium Ur Random Potassium Urine Creatinine Protein/Creat Ratio 2 07/06/24 07/06/2425 17:51 17:51 21:18 WBC RBC Hgb Hct MCV MCH MCHC RDW Plt Count MPV Immature Gran % (Auto) Neut % (Auto) Lymph % (Auto) [place] % (Auto) Eos % (Auto) Baso % (Auto) Lymph # (Auto) [place] # (Auto) Eos # (Auto) Baso # (Auto) Abs Immat Gran (auto) Absolute Neuts (auto) Absolute Nucleated RBC Nucleated RBC % ESR PT INR APTT VBG pH 7.417 H* VBG pCO2 27.6 L* VBG pO2 51.4 H VBG HCO3 17.4 L O2 Delivery Device Room air O2 Liters/Min Not Reportable FiO2 21 Sodium Potassium Chloride Carbon Dioxide Anion Gap BUN Creatinine Estim Creat Clear Calc Estimated GFR Glucose POC Capillary Glucose Hemoglobin A1c Calcium Magnesium Total Bilirubin AST ALT Alkaline Phosphatase C-Reactive Protein Total Protein Albumin Beta-Hydroxybutyrate/Acetoacetate Urine Color Yellow Urine Appearance Clear Urine pH 5.5 Ur Specific [place] 1.014 Urine Protein Negative Urine Glucose (UA) 3+ H Urine Ketones Negative Ur Blood (Man) Negative Urine Nitrate Negative Urine Bilirubin Negative Urine Urobilinogen 0.2 Leukocyte Esterase Rfl Negative Urine Eosinophils None seen U Random Total Protein 9 Ur Random Sodium 76 Ur Random Potassium 20.4 Urine Creatinine 37.9 37.8 Protein/Creat Ratio 2 0.24 H 07/06/24 07/06/24 07/07/24 21:20 21:37 01:08 WBC RBC Hgb Hct MCV MCH MCHC RDW Plt Count MPV Immature Gran % (Auto) Neut % (Auto) Lymph % (Auto) [place] % (Auto) Eos % (Auto) Baso % (Auto) Lymph # (Auto) [place] # (Auto) Eos # (Auto) Baso # (Auto) Abs Immat Gran (auto) Absolute Neuts (auto) Absolute Nucleated RBC Nucleated RBC % ESR PT INR APTT VBG pH VBG pCO2 VBG pO2 VBG HCO3 O2 Delivery Device O2 Liters/Min FiO2 Sodium 134 L Potassium 5.4 H Chloride 106 Carbon Dioxide 18 L Anion Gap 10 BUN 34 H Creatinine 1.53 H Estim Creat Clear Calc 39 Estimated GFR 45 L Glucose 173 H POC Capillary Glucose 165 H 164 H Hemoglobin A1c Calcium 9.2 Magnesium Total Bilirubin AST ALT Alkaline Phosphatase C-Reactive Protein Total Protein Albumin Beta-Hydroxybutyrate/Acetoacetate 0.12 Urine Color Urine Appearance Urine pH Ur Specific [place] Urine Protein Urine Glucose (UA) Urine Ketones Ur Blood (Man) Urine Nitrate Urine Bilirubin Urine Urobilinogen Leukocyte Esterase Rfl Urine Eosinophils U Random Total Protein Ur Random Sodium Ur Random Potassium Urine Creatinine Protein/Creat Ratio 2 07/07/24 07/07/24 06:27 07:43 WBC 6.9 RBC 4.67 Hgb 13.9 L Hct 42.3 MCV 90.6 MCH 29.8 MCHC 32.9 RDW 13.2 Plt Count 263 MPV 9.3 Immature Gran % (Auto) Neut % (Auto) Lymph % (Auto) [place] % (Auto) Eos % (Auto) Baso % (Auto) Lymph # (Auto) [place] # (Auto) Eos # (Auto) Baso # (Auto) Abs Immat Gran (auto) Absolute Neuts (auto) Absolute Nucleated RBC Nucleated RBC % ESR PT INR APTT VBG pH VBG pCO2 VBG pO2 VBG HCO3 O2 Delivery Device O2 Liters/Min FiO2 Sodium 134 L Potassium 5.5 H Chloride 107 Carbon Dioxide 16 L Anion Gap 11 BUN 31 H Creatinine 1.44 H Estim Creat Clear Calc 42 Estimated GFR 48 L Glucose 159 H POC Capillary Glucose 152 H Hemoglobin A1c Calcium 9.2 Magnesium 2.5 H Total Bilirubin AST ALT Alkaline Phosphatase C-Reactive Protein Total Protein Albumin Beta-Hydroxybutyrate/Acetoacetate Urine Color Urine Appearance Urine pH Ur Specific [place] Urine Protein Urine Glucose (UA) Urine Ketones Ur Blood (Man) Urine Nitrate Urine Bilirubin Urine Urobilinogen Leukocyte Esterase Rfl Urine Eosinophils U Random Total Protein Ur Random Sodium Ur Random Potassium Urine Creatinine Protein/Creat Ratio 2 Quality VTE Prophylaxis VTE prophylaxis: pharmacologic ordered
[2024-07-07] MEDS: OMEGA 3 POLYUNSAT FATTY ACIDS 1 GM CAP 4 GM PO (10:07)
[2024-07-07] MEDS: ASPIRIN 81 MG ENTERIC TABLET PO (10:08)
[2024-07-07] MEDS: CHOLECALCIFEROL 1,000 UNITS TABLET 2000 UNITS PO (10:08)
[2024-07-07] MEDS: EMPAGLIFLOZIN 25 MG TABLET PO (10:08)
[2024-07-07] MEDS: ATORVASTATIN 5 MG TABLET PO (10:09)
[2024-07-07] MEDS: CEFEPIME 1 GM/NS 50 ML 1 GM/50 ML BAG IVPB ×2 (10:09→20:29)
[2024-07-07] MEDS: SITagliptin PHOSPHATE 100 MG TABLET PO (10:09)
[2024-07-07] MEDS: ENOXAPARIN 40 MG/0.4 ML SYRINGE SUB-Q (10:09)
[2024-07-07] MEDS: INSULIN HUMAN ISOPHAN/REGULAR 70/30 (*BKC) 100 UNITS/ML 35 UNITS SUB-Q ×2 (10:10→17:48)
[2024-07-07 11:27] LABS: Glucose Point of Care 196 mg/dl (65-105)
[2024-07-07 16:31] LABS: Glucose Point of Care 135 mg/dl (65-105)
[2024-07-07 20:35] LABS: Glucose Point of Care 119 mg/dl (65-105)
[2024-07-08] VITALS: PULSE 69
[2024-07-08] MEDS: LACTATED RINGERS 1,000 ML 100 ML IV CONT (00:59)
[2024-07-08] MEDS: VANCOMYCIN 1,500 MG/NS 500 ML 1,500 MG/500 ML BAG 250 MG IVPB (03:01)
[2024-07-08 04:00] VITALS: PULSE 76
[2024-07-08] MEDS: metroNIDAZOLE 500 MG/ISO 100ML 500 MG/100 ML BAG 100 MG IVPB ×2 (05:30→14:06)
[2024-07-08 06:00] VITALS: BP 103/51; PULSE 72; RESP 16; TEMP 36.7; O2SAT 99
[2024-07-08 08:00] VITALS: PULSE 77
[2024-07-08] MEDS: ATORVASTATIN 5 MG TABLET PO (08:09)
[2024-07-08] MEDS: EMPAGLIFLOZIN 25 MG TABLET PO (08:09)
[2024-07-08] MEDS: CHOLECALCIFEROL 1,000 UNITS TABLET 2000 UNITS PO (08:09)
[2024-07-08] MEDS: OMEGA 3 POLYUNSAT FATTY ACIDS 1 GM CAP 4 GM PO (08:09)
[2024-07-08] MEDS: ASPIRIN 81 MG ENTERIC TABLET PO (08:09)
[2024-07-08] MEDS: SITagliptin PHOSPHATE 100 MG TABLET PO (08:10)
[2024-07-08] MEDS: ENOXAPARIN 40 MG/0.4 ML SYRINGE SUB-Q (08:17)
[2024-07-08] MEDS: CEFEPIME 1 GM/NS 50 ML 1 GM/50 ML BAG IVPB (08:20)
[2024-07-08] MEDS: INSULIN HUMAN ISOPHAN/REGULAR 70/30 (*BKC) 100 UNITS/ML 35 UNITS SUB-Q (08:26)
[2024-07-08 08:32] LABS: Glucose Point of Care 138 mg/dl (65-105)
[2024-07-08 08:50] LABS: Estimated CRCL calculation 50 ml/min; Estimated Glomerular Filt Rate 60
[2024-07-08 09:04] LABS: Hematocrit 42.5 % (42.0-52.0); Hemoglobin 13.9 g/dL (14.0-18.0); Mean Corpuscular HGB Conc 32.7 g/dl (32-36); Mean Corpuscular Hemoglobin 29.6 pg (26-34); Mean Corpuscular Volume 90.6 fl (80-100); Mean Platelet Volume 9.4 fl (7.4-10.4); Platelet Count Result 251 k/mm3 (150-375); Red Blood Count 4.69 M/mm3 (4.6-6.20); Red Cell Distribution Width 13.1 % (11.5-14.5); White Blood Count 6.6 K/mm3 (4.5-10.0)
[2024-07-08 09:16] LABS: Alanine Aminotransferase 17 U/L (6-50); Albumin Level 3.6 g/dL (3.5-5.1); Alkaline Phosphatase 92 U/L (38-126); Anion Gap 9 mmol/L (4-12); Aspartate Amino Transferase 19 U/L (17-59); Bilirubin,Total 1.1 mg/dL (0.2-1.3); Blood Urea Nitrogen 23 mg/dL (9-20); Calcium 9.2 mg/dL (8.4-10.2); Carbon Dioxide 20 mmol/L (22-30); Chloride 106 mmol/L (98-107); Estimated CRCL calculation 52 ml/min; Estimated Glomerular Filt Rate > 60; Glucose 139 mg/dL (65-110); Potassium 4.9 mmol/L (3.4-5.0); Sodium 135 mmol/L (137-145)
[2024-07-08 11:00] VITALS: BP 143/62
[2024-07-08 11:49] LABS: Glucose Point of Care 136 mg/dl (65-105)
--- NOTE | 2024-07-08 13:43 | P.DS_ITS ---
DS: Admitting Diagnosis Discharge Date 07/08/2023 Admitting Diagnosis Cellulitis and diabetic foot diabetic foot ulcer acute kidney injury hyperkalemia insulin-dependent type 2 diabetes PVD hypertension hyperlipidemia DS: Discharge Diagnosis Discharge Diagnosis (1) Cellulitis in diabetic foot: Code(s): E11.628 - Type 2 diabetes mellitus with other skin complications; L03.119 - Cellulitis of unspecified part of limb Status: Acute (2) Diabetic foot ulcer: Code(s): E11.621 - Type 2 diabetes mellitus with foot ulcer; L97.509 - Non-pressure chronic ulcer of other part of unspecified foot with unspecified severity Status: Acute (3) Acute kidney injury: Code(s): N17.9 - Acute kidney failure, unspecified Status: Acute (4) Hyperkalemia: Code(s): E87.5 - Hyperkalemia Status: Acute (5) Insulin dependent type 2 diabetes mellitus: Code(s): E11.9 - Type 2 diabetes mellitus without complications; Z79.4 - jail (current) use of insulin Status: Acute (6) Peripheral vascular disease: Code(s): I73.9 - Peripheral vascular disease, unspecified Status: Acute Assessment and Plan: He has peripheral vascular disease and will need outpatient follow-up with vascular surgery. (7) Benign essential hypertension: Code(s): I10 - Essential (primary) hypertension Status: Acute (8) Mixed hyperlipidemia: Code(s): E78.2 - Mixed hyperlipidemia Status: Acute DS: Summary Hospital Course Reason for hospitalization: Cellulitis and diabetic foot diabetic foot ulcer acute kidney injury hyperkalemia insulin-dependent type 2 diabetes PVD hypertension hyperlipidemia Hospital Course: 68-year-old male with insulin-dependent type 2 diabetes mellitus, hypertension, hyperlipidemia, and peripheral vascular disease who presented to the hospital for evaluation of worsening left foot infection. Patient developed redness and tenderness around a callus on his left foot. Failed outpatient management with Bactrim on 06/26/2024 for suspected infection. Initially had improvement however he noticed increasing erythema and tenderness at the site. Completed Bactrim on 07/06. Foot XR showed mild polyarticular osteoarthritis in the foot. No acute osse ous abnormality. Blood cultures obtained and patient started on IV antibiotics. Wound continued to improve and patient transitioned to oral antibiotics at time of discharge. On admission patient was noted to have an BRIANNE and be hyperkalemic. Both resolved with fluids. Patients valsartan-HCTZ was placed on hold for the BRIANNE and hyperkalemia, blood pressures remained stable without this medication. Valsartan dose was decreased at time of discharge. Discussed with patient that he needs to monitor his blood pressures at home and discuss this medication with his PCP at follow up. He stated understanding. At time of discharge patient has no complaints denying chest pain, shortness of breath, palpitations, nausea/vomiting and abdominal pain. He states that his foot is feeling much better and he is able to ambulate fine. Patient discharged home with family in a stable condition. He is to follow up with his PCP in 1 week. Status at Discharge Functional status at discharge: uses cane/walker Time Spent with Patient Time attestation: Total time spent providing and/or coordinating discharge services: Time spent: Greater than 30 minutes Exam Narrative: AF HR 88 RR 18 SpO2 100 BP 120/67 General: male in no acute respiratory distress who is nontoxic appearing, lying semi recumbent in bed. HEENT: Normocephalic. Atraumatic. Extraocular movement intact. Sclera clear and anicteric. No facial asymmetry. Chest: Lungs are clear to auscultation bilaterally. No wheezes or crackles. CV: Heart was regular rate and rhythm. S1/S2. No murmurs, gallops, or rubs. Abd: Abdomen was soft. Nontender. Nondistended. Positive bowel sounds. No organomegaly or masses. Ext: No clubbing, cyanosis. Two wounds to the lateral left foot with the largest being near the 5th toe and the other at the heel with slight tenderness to the area. No discharge. Improved redness. 2+ DP pulses bilaterally. Neuro: Patient is alert and oriented x4. Speech is clear. Skin: Warm and dry. No rashes noted. DS: Data Data Completed and Pending Completed studies during hospitalization: foot xr renal us Labs on day of discharge: Labs from last 24 hours 07/08/24 07/08/24 07/08/24 11:26 08:25 08:23 WBC 6.6 RBC 4.69 Hgb 13.9 L Hct 42.5 MCV 90.6 MCH 29.6 MCHC 32.7 RDW 13.1 Plt Count 251 MPV 9.4 Sodium 135 L Potassium 4.9 Chloride 106 Carbon Dioxide 20 L Anion Gap 9 BUN 23 H Creatinine 1.19 1.14 Estim Creat Clear Calc 50 52 Estimated GFR 60 > 60 Glucose 139 H POC Capillary Glucose 136 H Calcium 9.2 Total Bilirubin 1.1 AST 19 ALT 17 Alkaline Phosphatase 92 Total Protein 6.0 L Albumin 3.6 07/08/24 07/07/24 07/07/24 08:21 20:17 16:27 WBC RBC Hgb Hct MCV MCH MCHC RDW Plt Count MPV Sodium Potassium Chloride Carbon Dioxide Anion Gap BUN Creatinine Estim Creat Clear Calc Estimated GFR Glucose POC Capillary Glucose 138 H 119 H 135 H Calcium Total Bilirubin AST ALT Alkaline Phosphatase Total Protein Albumin 07/07/24 14:46 WBC RBC Hgb Hct MCV MCH MCHC RDW Plt Count MPV Sodium Potassium 5.0 Chloride Carbon Dioxide Anion Gap BUN Creatinine Estim Creat Clear Calc Estimated GFR Glucose POC Capillary Glucose Calcium Total Bilirubin AST ALT Alkaline Phosphatase Total Protein Albumin Preliminary micro results at discharge 07/06/24 11:55 Blood Culture - Preliminary Blood 07/06/24 11:42 Blood Culture - Preliminary Blood Discharge Plan Discharge Attending physician on discharge: Sky Licea Discharging Clinician: Radha Mckinnon Anticipated Discharge Date/Time: 07/08/24 13:24 Patient Disposition: Home, Self-Care Activity: as tolerated Diet: as tolerated, heart healthy and diabetic Discharge Instructions: Discharge disposition: Patient admitted to the hospital for a diabetic foot ulcer with cellulitis Take medications as prescribed, continue medications even if feeling better Doxycycline twice a day to start tonight Augmentin twice a day to start to night Attached is information on these medications Follow up with primary care provider Patient was noted to have a high potassium level which resolved during inpatient stay Obtain a blood draw in 1 week to reassess potassium level Continue valsartan-hydrochlorothiazide, dose has been decreased secondary to lower blood pressures during admission Monitor blood pressures, discuss dose changes with primary care provider Take caution while standing, rising, or moving Change positions slowly taking a break between each position change If you standing feel dizzy sit back down and take a break Monitor blood glucose levels Encouraged to continue with yearly vaccinations Return to the emergency department if he developed sudden shortness of breath, chest pain, nausea, vomiting, upset stomach or intractable diarrhea Return to the emergency department if you develop fever greater than 101.5 Follow-up with the primary care physician within 1-2 weeks Thank you for [facility] for your healthcare needs Patient Instructions: Antibiotic Form, Doxycycline (By mouth), Amoxicillin/Clavulanate Potassium (By mouth), Cellulitis (ED), Foot Ulcers in a Person with Diabetes (DC) Patient Language: Swedish Stand Alone Forms: General Discharge Information Follow-up/Referrals: Armando Larios MD [Primary Care Provider] - 1 Week Discharge Medications: New amoxicillin-pot clavulanate 875-125 mg tablet 1 tablet PO Q12H Qty: 15 0RF doxycycline hyclate 100 mg tablet,delayed release (DR/EC) 100 mg PO BID Qty: 15 0RF valsartan-hydrochlorothiazide 160-12.5 mg tablet 1 tablet PO DAILY Qty: 30 0RF Continued aspirin [Adult Low Dose Aspirin] 81 mg tablet,delayed release (DR/EC) 81 mg PO DAILY omega-3 fatty acids [Fish Oil Concentrate] 1,000 mg capsule 4,000 mg PO DAILY atorvastatin 10 mg tablet 5 mg PO DAILY Rx Instructions: 5mg daily cholecalciferol (vitamin D3) 50 mcg (2,000 unit) capsule 50 mcg PO DAILY (DME) insulin syringe-needle U-100 1 mL 31 gauge x 5/16 syringe See Rx Instructions .Route Qty: 100 1RF Rx Instructions: As directed Rybelsus 3 mg tablet 6 mg PO DAILY (DME) insulin syringe-needle U-100 0.5 mL 31 gauge x 5/16 syringe See Rx Instructions .ROUTE .COMPLEX Qty: 200 3RF Dose Instruction: USE DIRECTED TO INJECT INSULIN Rx Instructions: USE DIRECTED TO INJECT INSULIN metformin 1,000 mg tablet See Rx Instructions .ROUTE .COMPLEX Qty: 200 2RF Dose Instruction: TAKE 1 TABLET BY MOUTH TWICE DAILY Rx Instructions: TAKE 1 TABLET BY MOUTH TWICE DAILY Tradjenta 5 mg tablet 5 mg PO QAM Rx Instructions: pt. receives samples from office Jardiance 25 mg tablet 25 mg PO DAILY Humulin 70/30 U-100 Insulin 100 unit/mL (70-30) suspension See Rx Instructions .ROUTE .COMPLEX Qty: 70 1RF Dose Instruction: INJECT SUBCUTANEOUSLY 35 UNITS TWICE DAILY Rx Instructions: INJECT SUBCUTANEOUSLY 35 UNITS TWICE DAILY Held valsartan-hydrochlorothiazide 320-12.5 mg tablet See Rx Instructions .ROUTE .COMPLEX Qty: 100 0RF Hold Instructions: Resume on 07/26/24. Hold until follow up with PCP Dose Instruction: TAKE 1 TABLET BY MOUTH DAILY Rx Instructions: TAKE 1 TABLET BY MOUTH DAILY Other Ambulatory Orders: Basic Metabolic Panel (Routine) Timeframe: 1 Week Location: Determined by Patient Ordered By: Radha Mckinnon Date of admission: 07/06/24 12:55 Primary Care Provider: Armando Larios Admitting Provider: Juan Miguel Frias Attending physician on admission: Juan Miguel Frias Condition: Stable Hospitalist MIPS Heart Failure (Exclusion) Patient has history of Heart Transplant or Left Ventricular Assistive Device?: No IF YES, STOP HERE Heart Failure (Qualifier) Patient has current or prior documentation of LVEF less than or equal to 40%, or mod/servere depressed LVSF?: No IF NO, STOP HERE
[2024-07-08 14:00] VITALS: BP 120/67; PULSE 88; RESP 18; TEMP 36; O2SAT 100
== END 2024-07-08 16:10 | disposition home or self-care (01) ==
LOC: ANHED 12:44 → ANH3MEDSUR 07-08 08:55
PROVIDERS: Physician Assistant; Student in an Organized Health Care Education/Training Program; Admitting Provider Internal Medicine; Emergency Provider Emergency Medicine; PCP Internal Medicine; Visit Provider General Practice
DX: E11.621 Type 2 diabetes mellitus with foot ulcer (principal); L97.529 Non-pressure chronic ulcer of other part of left foot with unspecified severity; E11.628 Type 2 diabetes mellitus with other skin complications; L03.116 Cellulitis of left lower limb; N17.9 Acute kidney failure, unspecified; E87.5 Hyperkalemia; E11.22 Type 2 diabetes mellitus with diabetic chronic kidney disease; I12.9 Hypertensive chronic kidney disease with stage 1 through stage 4 chronic kidney disease, or unspecified chronic kidney disease; N18.9 Chronic kidney disease, unspecified; E11.51 Type 2 diabetes mellitus with diabetic peripheral angiopathy without gangrene; E78.2 Mixed hyperlipidemia; M19.072 Primary osteoarthritis, left ankle and foot; Z79.4 Long term (current) use of insulin; Z79.82 Long term (current) use of aspirin; Z79.84 Long term (current) use of oral hypoglycemic drugs; Z79.899 Other long term (current) drug therapy; Z98.42 Cataract extraction status, left eye; Z98.41 Cataract extraction status, right eye
CPT/HCPCS: 36415; 73630; 76775; 80048; 80053; 81003; 82010; 82565; 82570; 82803; 82948; 83036; 83735; 84132; 84133; 84156; 84300; 85025; 85027; 85610; 85652; 85730; 85999; 86140; 87040; 93005; 94640; 96365; 96366; 96367; 96372; 99285; A9270; G0378; J0692; J1650; J1815; J1836; J3370; J7030; J7120

== ENCOUNTER 2024-08-09 08:44 | Emergency (ER) | payer MEDICARE, SELFPAY ==
--- NOTE | ~2024-08-09 | XR_ITS ---
Left foot Technique: AP, oblique, and lateral views were obtained. Clinical History: Wound Findings: No acute fracture or dislocation is seen. Osseous alignment is anatomic. Joint spaces are p reserved without erosive or degenerative change. Soft tissues are unremarkable. Impression: Unremarkable left foot radiographs. Reviewed, dictated and finalized at location . Impression: Unremarkable left foot radiographs.
--- OUTSIDE RECORDS SUMMARY | 2024-08-09 08:47 | XMS_ITS | Referral Summary ---
Author Organization [facility] Address [address] [place] [address] Care Team Providers Care Heel Edge Inker Machine Name Role Phone Armando Larios MD Primary Care Provider [phone] Allergies No known active allergies Medications atorvastatin [...] mg tablet Take 6 mg by mouth display specialist before breakfast Active valsartan-hydro chlorothiazide (DIOVAN-HCT) 320-12.5 mg per tablet 2 Active omega 5-qbj-oxg-fish oil 1,200 (144-216) mg capsule Take by mouth Active Active Problems Problem Noted Date Diagnosed Date Atherosclerosis of [place] of both lower extremities with intermittent claudication 07/19/2021 Assessment & Plan (10/17/2021 10:07 AM CDT): Patient is not having claudication symptoms except at long distances and says if he takes an enough water he does not have any symptoms at all. He can follow up as needed. Assessment & Plan (07/19/2021 9:51 AM EARLY INTERVENTIONIST): Patient has peripheral arterial disease and likely [...] atorvastatin. Assessment & Plan (07/19/2021 9:53 AM EARLY INTERVENTIONIST): Followed by his PCP chronic and stable. I recommend he continue his atorvastatin for lipid lowering medication which will also help with his peripheral arterial disease. Primary hypertension 07/19/2021 Assessment & Plan (10/17/2021 10:09 AM CDT): Followed by his PCP and chronic and stable. I recommend he continue his verapamil for blood pressure medication. Assessment & Plan (07/19/2021 9:53 AM EARLY INTERVENTIONIST): Followed by his PCP chronic and stable. I recommend he continue his verapamil for blood pressure medication. Social History Tobacco Use Types Packs/Day Years Used Date Smoking Tobacco: Never Smokeless Tobacco: Never Personal Safety Answer Date Recorded Getting School Help Needed Not on file 05/30 Sex and Gender Information Value Date Recorded Sex Assigned at Not on file Legal Sex Male 5:29 PM EARLY INTERVENTIONIST Gender Identity Not on file Sexual Orientation [...] Plan of Treatment Not on file Insurance [facility] MEDIC[facility] Address: [address] [address] [place] [address] [facility] MEDICARE Address: [address] [address] [place] [address] Care Teams Heel Edge Inker Machine Relationship Specialty Start Date End Date Armando Larios MD [address] [facility] [address] [place] [address] PCP - General Internal Medicine 07/07/21
--- OUTSIDE RECORDS SUMMARY | 2024-08-09 08:47 | XMS_ITS | Continuity of Care Document ---
Author Organization [facility] Address [address] [place] [address] [place] [address] Phone Care Team Providers Care Supervisor Machine Setter Name Role Phone Ed Grimm DO Unavailable Unavailable Advance Directives Directive Yes / No Effective Date File Name No Information Encounters Encounter Description Practice Location Reason(s) For Visit Diagnoses Date Provider Providers Copied on Encounter [facility], [address], [place], [place], [id number], tel:[phone] [facility] No Information Sirisha Romeo. [address] [facility], [place], [address], [place]. tel:[phone] Referring Provider: Armando Larios MD , [address] [address] [address], [place], [address]. tel:[phone] Family History Family Member Type Diagnosis Age [...]
--- OUTSIDE RECORDS SUMMARY | 2024-08-09 08:47 | XMS_ITS | Clinical Summary ---
Author Organization [facility] Address [address] [place] [address] Care Team Providers Care Compound Finisher Name Role Phone Armando Larios MD Primary Care Provider [phone] Social History Tobacco Use Types Packs/Day Years Used Date Smoking Tobacco: Never Assessed Sex and Gender Information Value Date Recorded Sex Assigned at Not on file Legal Sex Male 11:55 AM CREDIT ASSOCIATE Gender Identity Not on file Sexual Orientation [...] patient's age to complete this topic Insurance [facility] Care Teams Compound Finisher Relationship Specialty Start Date End Date Armando Larios MD [address] [place] [address] PCP - General INTERNAL MEDICINE 04/26/21
--- OUTSIDE RECORDS SUMMARY | 2024-08-09 08:47 | XMS_ITS | Clinical Summary ---
Author Organization [facility] Address [address] [place] [address] Care Team Providers Care Cylinder Machine Operator Name Role Phone Armando Larios MD Primary Care Provider [phone] Allergies No known active allergies Medications atorvastatin [...] mg tablet Take 6 mg by mouth offset press assistant before breakfast Active valsartan-hydro chlorothiazide (DIOVAN-HCT) 320-12.5 mg per tablet 2 Active omega 7-rbd-xug-fish oil 1,200 (144-216) mg capsule Take by mouth Active Active Problems Problem Noted Date Diagnosed Date Atherosclerosis of [place] ar marianela of both lower extremities with intermittent claudication 07/19/2021 Assessment & Plan (10/17/2021 10:07 AM CDT): Patient is not having claudication symptoms except at long distances and says if he takes an enough water he does not have any symptoms at all. He can follow up as needed. Assessment & Plan (07/19/2021 9:51 AM FIRE SAFETY MANAGER): Patient has peripheral arterial disease and likely [...] atorvastatin. Assessment & Plan (07/19/2021 9:53 AM FIRE SAFETY MANAGER): Followed by his PCP chronic and stable. I recommend he continue his atorvastatin for lipid lowering medication which will also help with his peripheral arterial disease. Primary hypertension 07/19/2021 Assessment & Plan (10/17/2021 10:09 AM CDT): Followed by his PCP and chronic and stable. I recommend he continue his verapamil for blood pressure medication. Assessment & Plan (07/19/2021 9:53 AM FIRE SAFETY MANAGER): Followed by his PCP chronic and stable. [...] on file Legal Sex Male 5:29 PM FIRE SAFETY MANAGER Gender Identity Not on file Sexual Orientation [...] - Tdap) 1964 Hepatitis B Screening 08/10/1971 Pneumococcal vaccine 65+ (1 of 1 - PCV) 08/10/2003 Zoster Vaccine (1 of 2) 08/10/2003 Abdominal Aortic Aneurysm (A AA) Screen 2018 Well Visit 65+ 2018 Covid-19 Vaccine ( season) 2024 04/29/2021, 08/31/2020, 08/10/2020 Influenza Vaccine (#1) 2024 Insurance [facility] REF [facility] Care Teams Cylinder Machine Operator Relationship Specialty Start Date End Date Armando Larios MD [address] [facility] [address] [place], [place] [id number] PCP - General Internal Medicine 07/07/21
[2024-08-09 09:03] VITALS: BP 115/59; PULSE 91; RESP 20; TEMP 36.7; O2SAT 100
--- OUTSIDE RECORDS SUMMARY | 2024-08-09 11:00 | XMS_ITS | Continuity of Care Document ---
Author Organization [facility] Address [address] [place] [address] [place] [address] Phone Care Team Providers Care Property Insurance Claims Examiner Name Role Phone Ed Grimm DO Unavailable Unavailable Advance Directives Directive Yes / No Effective Date File Name No Information Encounters Encounter Description Practice Location Reason(s) For Visit Diagnoses Date Provider Providers Copied on Encounter [facility], [address], [place], [place], [id number], tel:[phone] [facility] No Information Sirisha Romeo. [address] [facility], [place], [address], [place]. tel:[phone] Referring Provider: Armando Larios MD , [address] [address] [address], [place], [address]. tel:[phone] Family History Family Member Type Diagnosis Age [...]
--- OUTSIDE RECORDS SUMMARY | 2024-08-09 11:00 | XMS_ITS | Clinical Summary ---
Author Organization [facility] Address [address] [place] [address] Care Team Providers Care Counseling Services Director Name Role Phone Armando Larios MD Primary Care Provider [phone] Social History Tobacco Use Types Packs/Day Years Used Date Smoking Tobacco: Never Assessed Sex and Gender Information Value Date Recorded Sex Assigned at Not on file Legal Sex Male 11:55 AM BLIND HANGER Gender Identity Not on file Sexual Orientation [...] patient's age to complete this topic Insurance [facility] Care Teams Counseling Services Director Relationship Specialty Start Date End Date Armando Larios MD [address] [place] [address] PCP - General INTERNAL MEDICINE 04/26/21
--- OUTSIDE RECORDS SUMMARY | 2024-08-09 11:00 | XMS_ITS | Referral Summary ---
Author Organization [facility] Address [address] [place] [address] Care Team Providers Care Drum Sander Name Role Phone Armando Larios MD Primary Care Provider [phone] Allergies No known active allergies Medications atorvastatin [...] mg tablet Take 6 mg by mouth health tech before breakfast Active valsartan-hydro chlorothiazide (DIOVAN-HCT) 320-12.5 mg per tablet 2 Active omega 9-lqs-oik-fish oil 1,200 (144-216) mg capsule Take by mouth Active Active Problems Problem Noted Date Diagnosed Date Atherosclerosis of [place] ar marianela of both lower extremities with intermittent claudication 07/19/2021 Assessment & Plan (10/17/2021 10:07 AM CDT): Patient is not having claudication symptoms except at long distances and says if he takes an enough water he does not have any symptoms at all. He can follow up as needed. Assessment & Plan (07/19/2021 9:51 AM CABLE INSPECTOR): Patient has peripheral arterial disease and likely [...] atorvastatin. Assessment & Plan (07/19/2021 9:53 AM CABLE INSPECTOR): Followed by his PCP chronic and stable. I recommend he continue his atorvastatin for lipid lowering medication which will also help with his peripheral arterial disease. Primary hypertension 07/19/2021 Assessment & Plan (10/17/2021 10:09 AM CDT): Followed by his PCP and chronic and stable. I recommend he continue his verapamil for blood pressure medication. Assessment & Plan (07/19/2021 9:53 AM CABLE INSPECTOR): Followed by his PCP chronic and stable. I recommend he continue his verapamil for blood pressure medication. Social History Tobacco Use Types Packs/Day Years Used Date Smoking Tobacco: Never Smokeless Tobacco: Never Personal Safety Answer Date Recorded Getting School Help Needed Not on file 05/30 Sex and Gender Information Value Date Recorded Sex Assigned at Not on file Legal Sex Male 5:29 PM CABLE INSPECTOR Gender Identity Not on file Sexual Orientation [...] Plan of Treatment Not on file [facility] Care Teams Drum Sander Relationship Specialty Start Date End Date Armando Larios MD [address] [facility] [address] [facility] [address] [place] [address] PCP - General Internal Medicine 07/07/21
--- OUTSIDE RECORDS SUMMARY | 2024-08-09 11:00 | XMS_ITS | Clinical Summary ---
Author Organization [facility] Address [address] [place] [address] Care Team Providers Care Paint Trimmer Pipe Bowls Name Role Phone Armando Larios MD Primary Care Provider [phone] Allergies No known active allergies Medications atorvastatin [...] mg tablet Take 6 mg by mouth journeyman wireman before breakfast Active valsartan-hydro chlorothiazide (DIOVAN-HCT) 320-12.5 mg per tablet 2 Active omega 0-exz-eil-fish oil 1,200 (144-216) mg capsule Take by mouth Active Active Problems Problem Noted Date Diagnosed Date Atherosclerosis of [place] ar marianela of both lower extremities with intermittent claudication 07/19/2021 Assessment & Plan (10/17/2021 10:07 AM CDT): Patient is not having claudication symptoms except at long distances and says if he takes an enough water he does not have any symptoms at all. He can follow up as needed. Assessment & Plan (07/19/2021 9:51 AM DIGITAL SALES PLANNER): Patient has peripheral arterial disease and likely [...] atorvastatin. Assessment & Plan (07/19/2021 9:53 AM DIGITAL SALES PLANNER): Followed by his PCP chronic and stable. I recommend he continue his atorvastatin for lipid lowering medication which will also help with his peripheral arterial disease. Primary hypertension 07/19/2021 Assessment & Plan (10/17/2021 10:09 AM CDT): Followed by his PCP and chronic and stable. I recommend he continue his verapamil for blood pressure medication. Assessment & Plan (07/19/2021 9:53 AM DIGITAL SALES PLANNER): Followed by his PCP chronic and stable. [...] on file Legal Sex Male 5:29 PM DIGITAL SALES PLANNER Gender Identity Not on file Sexual Orientation [...] 08/31/2020, 08/10/2020 Influenza Vaccine (#1) [address] [facility] HMO REF [facility] MEDIC[facility] Address: [address] [address] [place] [address] [facility] HMO REF [facility] MEDICARE Address: [address] [address] [place] [address] Care Teams Paint Trimmer Pipe Bowls Relationship Specialty Start Date End Date Armando Larios MD [address] [facility] [address] MED[address]INE [place], [place] [id number] PCP - General Internal Medicine 07/07/21
[2024-08-09 11:01] VITALS: BP 128/64; PULSE 70; RESP 16; O2SAT 98
[2024-08-09 11:26] LABS: Basophils Absolute Auto 0.1 K/mm3 (0.0-0.1); Basophils Percent Auto 0.7 % (0.2-1.2); Eosinophils Absolute Auto 0.1 K/mm3 (0-0.3); Eosinophils Percent Auto 1.8 % (0-4.4); Hemoglobin 14.5 g/dL (14.0-18.0); Immature Granulocyte Absolute 0.03 K/mm3 (0.00-0.031); Immature Granulocyte Percent A 0.4 % (0-0.5); Lymphocytes Absolute Auto 1.54 K/mm3 (0.9-3.2); Lymphocytes Percent Auto 21.1 % (18.3-44.2); Mean Corpuscular Hemoglobin 30.2 pg (26-34); Mean Corpuscular Volume 91.7 fl (80-100); Mean Platelet Volume 9.4 fl (7.4-10.4); Monocytes Absolute Auto 0.8 K/mm3 (0.1-0.6); Monocytes Percent Auto 10.7 % (2.6-8.5); Neutrophils Absolute Auto 4.8 K/mm3 (1.3-6.7); Neutrophils Percent Auto 65.3 % (45.5-73.1); Platelet Count Result 210 k/mm3 (150-375); Red Cell Distribution Width 13.1 % (11.5-14.5); White Blood Count 7.3 K/mm3 (4.5-10.0)
[2024-08-09 11:38] LABS: Alanine Aminotransferase 23 U/L (6-50); Albumin Level 4.2 g/dL (3.5-5.1); Alkaline Phosphatase 117 U/L (38-126); Anion Gap 10 mmol/L (4-12); Aspartate Amino Transferase 25 U/L (17-59); Bilirubin,Total 1.5 mg/dL (0.2-1.3); Blood Urea Nitrogen 29 mg/dL (9-20); CRP < 0.5 mg/dL (<1.0); Calcium 9.8 mg/dL (8.4-10.2); Carbon Dioxide 21 mmol/L (22-30); Chloride 106 mmol/L (98-107); Estimated CRCL calculation 52 ml/min; Estimated Glomerular Filt Rate > 60; Glucose 174 mg/dL (65-110); Potassium 5.1 mmol/L (3.4-5.0); Sodium 137 mmol/L (137-145)
--- NOTE | 2024-08-09 11:38 | ED.EXTPRO ---
HPI - Extremity Problem General Chief complaint: Extremity Problem,Nontraumatic Stated complaint: left foot injury Time Seen by Provider: 08/09/24 10:53 History of Present Illness HPI Narrative: 69-year-old male with a past medical history with insulin-dependent diabetes and peripheral vascular disease. He presents to the emergency room today for left leg pain. He states that yesterday in the middle the night during the store when he lost power he stubbed his foot in the middle night and has been having swelling since. Denies any fever chills. Did not fall or injure himself otherwise. No head trauma. 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 He was recently admitted last month for diabetic foot wound and cellulitis and has completed the antibiotic course at that time. Related Data Home Medications ?Medication ?Instructions ?Recorded ?Confirmed ?Last Taken ?Type aspirin 81 mg tablet,delayed 81 mg PO DAILY 07/08/19 07/10/24 07/06/24 History release (Adult Low Dose Aspirin) omega-3 fatty acids 1,000 mg 4,000 mg PO DAILY 07/08/19 07/10/24 07/06/24 History capsule (Fish Oil Concentrate) cholecalciferol (vitamin D3) 50 50 mcg PO DAILY 09/21/22 07/10/24 07/06/24 History mcg (2,000 unit) capsule semaglutide 3 mg tablet (Rybelsus) 6 mg PO DAILY 01/16/23 07/10/24 07/06/24 History empagliflozin 25 mg tablet 25 mg PO DAILY 03/13/24 07/10/24 07/06/24 History (Jardiance) linagliptin 5 mg tablet (Tradjenta) 5 mg PO QAM 03/13/24 07/10/24 07/06/24 History atorvastatin 10 mg tablet 5 mg PO DAILY 07/06/24 07/10/24 07/06/24 History Allergies Allergy/AdvReac Type Severity Reaction Status Date / Time amoxicillin AdvReac Severe Hives Verified 08/09/24 08:45 clavulanic acid (From AdvReac Severe Hives Verified 08/09/24 08:45 Augmentin) Penicillins AdvReac Severe Hives Verified 08/09/24 08:45 Review of Systems Review of Systems: [facility] Past Medical History Medical History Chronic kidney disease Peripheral vascular disease Mixed hyperlipidemia Insulin dependent type 2 diabetes mellitus BMI 31.0-31.9,adult Vitamin D deficiency Hearing loss Vitreous hemorrhage of left eye Abnormal ankle brachial index (LAMAR) Benign essential hypertension Surgical History Surgical History History of bilateral cataract extraction (2022) Social History Social History Social History: Surrogate medical decision maker: Karrie Noel, spouse ([phone]). Code status: Full code. Smoking status: Never smoker Second hand tobacco smoke exposure: No Alcohol intake: never Substance use: never Do You Feel Safe in your Home?: Yes Lack of Transportation: No Lack of Food: Never True Current Housing: I Have Housing Concerned About Future Housing: No Difficulty Paying Gas/Electric Bills: No Difficulty Paying for Meds: No Currently Unemployed: No Education: High School Diploma/GED Difficulty w/ Childcare or Family Care: No Spiritual care concerns: No Exam Narrative: GENERAL: [Well-appearing, well-nourished, and in no acute distress.] HEAD: [Normocephalic, atraumatic.] EYES: [PERRLA and EOMI.] ENT: Nares clear, no rhinorrhea or epistaxis. Mucous membranes moist. NECK: Supple. CHEST: [Clear to auscultation. No respiratory distress.] HEART: [Regular rate and rhythm]. No murmur heard. [Normal peripheral pulses.] ABDOMEN: [Soft, nondistended], [nontender], [No rigidity or guarding] EXTREMITIES: Normal range of motion. Plantar and dorsiflexion are full. No edema. SKIN: Left lateral aspect of the foot has chronic appearing ulcerations x2 1 near the heel and 1 near the left 5th MTP, without any active purulence, drainage or warmth, no tenderness to touch. They appear chronic without any active signs of cellulitis or overlying skin infection. NEURO: [No focal deficits]. Alert and oriented [x3.] PSYCH: [Normal mood and affect.] Course Vital Signs Vital signs: Vital Signs Temperature 36.7 C 08/09/24 09:03 Pulse Rate 91 08/09/24 09:03 Respiratory Rate 20 08/09/24 09:03 Blood Pressure 115/59 L 08/09/24 09:03 Pulse Oximetry 100 08/09/24 09:03 Oxygen Delivery Room Air 08/09/24 09:03 Temperature 36.7 C 08/09/24 09:03 Pulse Rate 70 08/09/24 11:01 Respiratory Rate 16 08/09/24 11:01 Blood Pressure 128/64 08/09/24 11:01 Pulse Oximetry 98 08/09/24 11:01 Oxygen Delivery Room Air 08/09/24 09:03 MDM - Extremity (Nontraumatic) MDM Narrative Medical decision making narrative: 69-year-old male with a past medical history including insulin-dependent diabetes and chronic diabetic foot ulcerations. Was recently admitted to the hospital for diabetic foot wounds in complete a course of antibiotics including Bactrim and was discharged home with outpatient follow-up in podiatry follow-up. Patient has been doing well. Overnight he stubbed his left foot into an object while they lost power at home and he has been having some pain in that foot since. Did not take anything prior to arrival. He otherwise appears well not any acute distress. His chronic appearing ulcerations do not appear infected, no swelling in the leg, no warmth, tenderness, erythema, drainage. He has full range of motion of the ankle and toes. Suspicion presently for minor injury from hitting his foot against furniture, occult fracture, low suspicion infectious pathology or related to his ulcerations on that foot. Will obtain x-rays, CRP, ESR, CBC and CMP and re-evaluated. He is hemodynamically stable with no tachycardia or fever. Workup shows no leukocytosis or platelet elevation. Normal hemoglobin. Electrolytes are largely unremarkable, baseline creatinine. Glucose within acceptable limits. Unremarkable LFTs. Negative C reactive protein. Mildly elevated ESR. Left foot x-ray without any acute findings. Patient does not have any signs of an active infection or any injury. He can be safely discharged home at this time with recommendations for Tylenol ibuprofen for pain control and referral back to his [employer] business for outpatient evaluation. Lab Data 08/09/24 11:20 08/09/24 11:20 Labs: Lab Results 08/09/24 08/09/24 Range/Units 11:20 12:15 WBC 7.3 (4.5-10.0) K/mm3 RBC 4.80 (4.6-6.20) M/mm3 Hgb 14.5 (14.0-18.0) g/dL Hct 44.0 (42.0-52.0) % MCV 91.7 (80-100) fl MCH 30.2 (26-34) pg MCHC 33.0 (32-36) g/dl RDW 13.1 (11.5-14.5) % Plt Count 210 (150-375) k/mm3 MPV 9.4 (7.4-10.4) fl Immature Gran % (Auto) 0.4 (0-0.5) % Neut % (Auto) 65.3 (45.5-73.1) % Lymph % (Auto) 21.1 (18.3-44.2) % [place] % (Auto) 10.7 H (2.6-8.5) % Eos % (Auto) 1.8 (0-4.4) % Baso % (Auto) 0.7 (0.2-1.2) % Lymph # (Auto) 1.54 (0.9-3.2) K/mm3 [place] # (Auto) 0.8 H (0.1-0.6) K/mm3 Eos # (Auto) 0.1 (0-0.3) K/mm3 Baso # (Auto) 0.1 (0.0-0.1) K/mm3 Abs Immat Gran (auto) 0.03 (0.00-0.031) K/mm3 Absolute Neuts (auto) 4.8 (1.3-6.7) K/mm3 Absolute Nucleated RBC 0.000 (0.0-0.012) K/mm3 Nucleated RBC % 0.0 (0.0-0.2) % ESR Cancelled 29 H Sodium 137 (137-145) mmol/L Potassium 5.1 H (3.4-5.0) mmol/L Chloride 106 (98-107) mmol/L Carbon Dioxide 21 L (22-30) mmol/L Anion Gap 10 (4-12) mmol/L BUN 29 H (9-20) mg/dL Creatinine 1.15 (0.7-1.3) mg/dL Estim Creat Clear Calc 52 ml/min Estimated GFR > 60 (59 - ) Glucose 174 H (65-110) mg/dL Calcium 9.8 (8.4-10.2) mg/dL Total Bilirubin 1.5 H (0.2-1.3) mg/dL AST 25 (17-59) U/L ALT 23 (6-50) U/L Alkaline Phosphatase 117 (38-126) U/L C-Reactive Protein < 0.5 (<1.0) mg/dL Total Protein 8.0 (6.3-8.2) g/dL Albumin 4.2 (3.5-5.1) g/dL Discharge Plan Discharge Clinical Impression: Injury of foot, History of diabetic ulcer of foot Patient Disposition: Home, Self-Care Condition: Stable Instructions: Antibiotic Form, Foot Care for People with Diabetes (DC), Chronic Wounds (ED) Additional Instructions: Your x-ray shows no acute injury or fracture. No signs of bone infection. Your ulcers appear chronic and do not appear actively infected. Recommendations are for Tylenol ibuprofen for any pain control. Follow-up with your foot doctor outpatient. Return with any new or worsening concerns at any time. Patient Language: Estonian Prescriptions: No Action aspirin [Adult Low Dose Aspirin] 81 mg tablet,delayed release (DR/EC) 81 mg PO DAILY omega-3 fatty acids [Fish Oil Concentrate] 1,000 mg capsule 4,000 mg PO DAILY atorvastatin 10 mg tablet 5 mg PO DAILY Rx Instructions: 5mg daily cholecalciferol (vitamin D3) 50 mcg (2,000 unit) capsule 50 mcg PO DAILY (DME) insulin syringe-needle U-100 1 mL 31 gauge x 5/16 syringe See Rx Instructions .Route Qty: 100 1RF Rx Instructions: As directed Rybelsus 3 mg tablet 6 mg PO DAILY (DME) insulin syringe-needle U-100 0.5 mL 31 gauge x 5/16 syringe See Rx Instructions .ROUTE .COMPLEX Qty: 200 3RF Dose Instruction: USE DIRECTED TO INJECT INSULIN Rx Instructions: USE DIRECTED TO INJECT INSULIN metformin 1,000 mg tablet See Rx Instructions .ROUTE .COMPLEX Qty: 200 2RF Dose Instruction: TAKE 1 TABLET BY MOUTH TWICE DAILY Rx Instructions: TAKE 1 TABLET BY MOUTH TWICE DAILY Tradjenta 5 mg tablet 5 mg PO QAM Rx Instructions: pt. receives samples from office Jardiance 25 mg tablet 25 mg PO DAILY Humulin 70/30 U-100 Insulin 100 unit/mL (70-30) suspension See Rx Instructions .ROUTE .COMPLEX Qty: 70 1RF Dose Instruction: INJECT SUBCUTANEOUSLY 35 UNITS TWICE DAILY Rx Instructions: INJECT SUBCUTANEOUSLY 35 UNITS TWICE DAILY valsartan-hydrochlorothiazide 320-12.5 mg tablet See Rx Instructions .ROUTE .COMPLEX Qty: 100 1RF Dose Instruction: TAKE 1 TABLET BY MOUTH DAILY Rx Instructions: TAKE 1 TABLET BY MOUTH DAILY doxycycline hyclate 100 mg tablet,delayed release (DR/EC) 100 mg PO BID Qty: 14 0RF hydroxyzine HCl 25 mg tablet 25 mg PO QID Qty: 30 0RF prednisone 20 mg tablet 40 mg PO DAILY Qty: 6 0RF methylprednisolone [Medrol (Trevor)] 4 mg tablets,dose pack See Rx Instructions PO PER PKG DIR Qty: 21 0RF Rx Instructions: PO PER PKG DIR Follow-up/Referrals: Armando Larios MD [Primary Care Provider] - Time of Disposition: 14:14
[2024-08-09 13:22] LABS: Erythrocyte Sedimentation Rate 29 mm/hr (0-20)
--- NOTE | 2024-08-09 15:17 | PC.NURSE ---
Dr. Paulino at bedside updating pt. and family.
[2024-08-09 15:29] VITALS: BP 122/67; PULSE 75; RESP 16; O2SAT 95
== END 2024-08-09 15:32 | disposition home or self-care (01) ==
PROVIDERS: Emergency Provider Student in an Organized Health Care Education/Training Program; PCP Internal Medicine
DX: S99.922A Unspecified injury of left foot, initial encounter (principal); E11.621 Type 2 diabetes mellitus with foot ulcer; L97.429 Non-pressure chronic ulcer of left heel and midfoot with unspecified severity; E11.51 Type 2 diabetes mellitus with diabetic peripheral angiopathy without gangrene; I73.9 Peripheral vascular disease, unspecified; E11.22 Type 2 diabetes mellitus with diabetic chronic kidney disease; I12.9 Hypertensive chronic kidney disease with stage 1 through stage 4 chronic kidney disease, or unspecified chronic kidney disease; N18.9 Chronic kidney disease, unspecified; E78.2 Mixed hyperlipidemia; E55.9 Vitamin D deficiency, unspecified; Z98.42 Cataract extraction status, left eye; Z98.41 Cataract extraction status, right eye; Z79.82 Long term (current) use of aspirin; Z79.4 Long term (current) use of insulin; Z79.84 Long term (current) use of oral hypoglycemic drugs; W22.8XXA Striking against or struck by other objects, initial encounter
CPT/HCPCS: 36415; 73630; 80053; 85025; 85652; 86140; 99283

== ENCOUNTER 2025-01-12 07:51 | Inpatient (IN) | payer MEDICARE, SELFPAY ==
[2025-01-12] VITALS (19 sets, daily range): BP systolic 92–124; BP diastolic 47–76; PULSE 91–173; RESP 12–20; TEMP 36.4–36.6; O2SAT 95–100; BMI 30.1
--- NOTE | 2025-01-12 | ECHO_ITS ---
Patient Info Name: Dylan Noel Age: 69 years : 1955 Gender: Male Ht: 66 in Wt: 186 lbs BSA: 2.01 m2 HR: 115 bpm BP: 121 / 70 mmHg Technical Quality: Good Exam Date: 01/12/2025 3:32 PM Patient Status: I Admit Date: 01/12/2025 Exam Type: CA echo doppler color flow Complete two-dimensional, color flow and Doppler transthoracic echocardiogram is performed. Staff Referring Physician: Juan Miguel Frias Ampoule Filler: Polly Hernandez Attending Provider: Sky Licea Summary 1. Complete two-dimensional, color flow and Doppler transthoracic echocardiogram is performed. 2. Left ventricular systolic function is normal, estimated at 60-65. 3. There is mildly increased left ventricular wall thickness. 4. Left atrial chamber dimension is mildly enlarged. 5. There is mild mitral valve regurgitation. 6. There is mild tricuspid valve regurgitation. 7. No pulmonary hypertension, estimated pulmonary arterial systolic pressure is 23 mmHg. Left Ventricle Left ventricular chamber dimension is normal. Left ventricular systolic function is normal, estimated at 60-65. There is mildly increased left ventricular wall thickness. Left ventricular septal wall motion is normal. The left ventricular diastolic function is abnormal. Right Ventricle Right ventricular chamber dimension is normal. Right ventricular systolic function is normal. Left Atria Left atrial chamber dimension is mildly enlarged. Right Atria Right atrial chamber dimension is normal. Aortic Valve The aortic valve is trileaflet. There is mild aortic valve sclerosis. There is no aortic valve stenosis. There is no aortic valve regurgitation. Pulmonic Valve The pulmonic valve is normal. There is no pulmonic valve stenosis. There is no pulmonic regurgitation. Mitral Valve The mitral valve has normal leaflets. There is no mitral valve stenosis. There is mild mitral valve regurgitation. There is mild mitral valve calcification. Tricuspid Valve The tricuspid valve leaflets are normal. There is no significant tricuspid valve stenosis. There is mild tricuspid valve regurgitation. No pulmonary hypertension, estimated pulmonary arterial systolic pressure is 23 mmHg. Pericardium/Pleural The pericardium appears normal. There is no pericardial effusion. Inferior Vena Cava Normal inferior vena cava with >50% collapse upon inspiration consistent with normal right atrial pressure, 5 mmHg. Aorta The aortic root size at the sinus of Valsalva is normal. The prox ascending aorta size is normal. Left Ventricular Outflow Tract Name Value Normal LVOT 2D LVOT Diameter 2.0 cm LVOT Doppler LVOT Peak Velocity 72 cm/s LVOT Peak Gradient 2 mmHg LVOT Mean Gradient 1 mmHg LVOT VTI 15 cm LVOT VTI/AV VTI Ratio 0.8 LVOT Stroke Volume 44 ml LVOT CO 9.6 l/min LVOT CI 4.8 l/min/m2 Pulmonic Valve Name Value Normal PV Doppler PV Peak Velocity 51 cm/s PV Peak Gradient 1 mmHg Mitral Valve Name Value Normal MV Diastolic Function MV E Peak Velocity 115 cm/s MV A Peak Velocity 4 cm/s MV E/A 25.8 MV Decel Time (PW) 172 ms MV Annular TDI MV E/e' (Septal) 11.0 MV E/e' (Lateral) 11.0 MV E/e' (Average) 11.0 Tricuspid Valve Name Value Normal TV Regurgitation Doppler TR Peak Velocity 210 cm/s TR Peak Gradient 18 mmHg Estimated PAP/RSVP RA Pressure 5 mmHg <=5 PA Systolic Pressure 23 mmHg <36 RV Systolic Pressure 23 mmHg <36 Aorta Name Value Normal Ascending Aorta Ao Root Diameter (MM) 3.2 cm Ao Root Diam Index (MM) 1.6 cm/m2 Aortic Valve Name Value Normal AV Doppler AV Peak Velocity 93 cm/s AV Peak Gradient 3 mmHg AV Mean Gradient 2 mmHg AV VTI 18 cm AV Area (Cont Eq VTI) 2.4 cm2 >=3.0 AV Area (Cont Eq Rakan) 2.3 cm2 AV DI (Rakan) 0.78 AV Regurgitation 2D LVOT Area 3.0 cm2 Ventricles Name Value Normal LV Dimensions 2D/MM IVS Diastolic Thickness (2D) 1.0 cm 0.6-1.0 LVID Diastole (2D) 4.3 cm 4.2-5.8 LVIW Diastolic Thickness (2D) 1.0 cm 0.6-1.0 LVID Systole (2D) 2.7 cm 2.5-4.0 LVOT Diameter 2.0 cm LV Mass (2D Cubed) 142.15 g 88.00-224.00 LV Mass Index (2D Cubed) 71 g/m2 49-115 Relative Wall Thickness (2D) 0.46 <=0.42 LV Fractional Shortening/Ejection Fraction 2D/MM LV Fractional Shortening (2D) 37 % 25-43 LV EF (2D Teichholz) 67 % LV Diastolic Volume (4C MOD) 68 ml LV EF (4C MOD) 52 % LV Diastolic Volume (2C MOD) 71 ml LV EF (2C MOD) 55 % LV Diastolic Volume (BP MOD) 71 ml 62-150 LV Diastolic Volume Index (BP MOD) 35 ml/m2 34-74 LV Systolic Volume (BP MOD) 34 ml 21-61 LV Systolic Volume Index (BP MOD) 17 ml/m2 11-31 LV EF (BP MOD) 52 % 52-72 LV Diastolic Length (4C) 7.1 cm LV Systolic Length (4C) 5.7 cm LV Stroke Volume (4C MOD) 36 ml RV Dimensions 2D/MM RVID Diastole (2D) 3.7 cm 2.1-3.5 Atria Name Value Normal LA Dimensions LA Dimension (MM) 4.2 cm 3.0-4.0 LA Volume (4C A-L) 63 ml LA Volume (BP A-L) 58 ml RA Dimensions RA Systolic Major [place] Length (4C) 5.2 cm 2.1-2.7 RA Area (4C) 20.1 cm2 <=18.0 Report Signatures
--- NOTE | ~2025-01-12 | US_ITS ---
US renal BI 01/12/2025 21:18 Procedure: Realtime transabdominal ultrasound of the kidneys and bladder. Indication: Renal failure Comparison: CTA chest dated 01/12/2025 Findings: There are multiple echogenic foci in the right kidney with areas of shadowing, suspicious f or nonobstructing nephrolithiasis. No hydronephrosis or renal mass. The right kidney measures 12.2 cm and left kidney measures 12.2 cm. Bladder within normal limits. Impression: 1: Possible right nephrolithiasis. Otherwise, unremarkable renal ultrasound. Reviewed, dictated and finalized at location A. Impression: 1: Possible right nephrolithiasis. Otherwise, unremarkable renal ultrasound.
--- NOTE | ~2025-01-12 | XR_ITS ---
EXAMINATION: XR chest 1V portable DATE: 01/12/2025 09:35 INDICATION: Arrhythmia TECHNIQUE: frontal view of the chest was obtained. COMPARISON: None FINDINGS: The lungs are clear with no focal airspace opacities, pulmonary edema, pleural effusion or pneumothor ax. The cardiomediastinal silhouette is normal. Mild thoracic spondylosis. IMPRESSION: 1. No acute cardiopulmonary disease. Reviewed, dictated and finalized at location A.
--- NOTE | ~2025-01-12 | XR_ITS ---
XR foot LT 2V 01/17/2025 17:54 Indication: Sores on foot. Diabetes. Procedure: 2 views left foot Comparison: 08/09/2024 Findings: No fracture, subluxation or dislocation. Lisfranc joint intact. There are vascular calcifications. No abnormalities to suggest osteomyelitis. Impression: 1: No acute bone or joint abnormality. Reviewed, dictated and finalized at location O. Impression: 1: No acute bone or joint abnormality.
--- NOTE | ~2025-01-12 | CT_ITS ---
EXAMINATION: CTA chest PE protocol DATE: 01/12/2025 10:46 CDT INDICATION: Shortness of breath with exertion. New A. fib TECHNIQUE: Computed tomographic angiography (CTA) of the chest was performed with intravenous contras t. The dose-length product was 617.17 mGy-cm. Maximum intensity projection 3D-reconstructions of the aorta and other arteries were constructed by the technologist on a separate workstation. COMPARISON: None. FINDINGS: There is a 1.9 cm low-density lesion in the left thyroid lobe. A thyroid ultrasound is recommended. No enlarged mediastinal or hilar lymph nodes. Heart is mildly enlarged. There are coronary artery abbe cifications. Thoracic aorta is not aneurysmal. No pulmonary embolism. Tracheobronchial tree is patent. No pneumothorax. No pleural effusion. No pulmonary mass. Mild multil evel degenerative change scattered throughout the visualized spine. IMPRESSION: 1. No pulmonary embolus identified. 2. No focal pulmonary consolidation. 3. No pulmonary mass. 4. There is a 1.9 cm low-density lesion in the left thyroid lobe. A thyroid ultrasound is recommended . Reviewed, dictated and finalized at location A. IMPRESSION: 1. No pulmonary embolus identified. 2. No focal pulmonary consolidation. 3. No pulmonary mass. 4. There is a 1.9 cm low-density lesion in the left thyroid lobe. A thyroid ult rasound is recommended.
--- OUTSIDE RECORDS SUMMARY | 2025-01-12 07:58 | XMS_ITS | Clinical Summary ---
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 Gender Identity Not on file Sexual Orientation Not on file Plan of Treatment Health Maintenance Due Date Last Done Comments Colorectal Cancer Screening Colonoscopy (10 Years) 1955 Hepatitis C 08/10/1971 DTaP, Tdap and Td Vaccines ( 1 - Tdap) 1972 Pneumococcal Vaccine: 50+ Years (1 of 1 - PCV) 08/10/2003 Zoster Vaccines (1 of 2) 08/10/2003 Annual Medicare Wellness Visit 2018 COVID-19 Vaccine (4 - 2023-2 5 season) 2024 04/29/2021, 08/31/2020, 08/10/2020 RSV Immunization or 60+ Years (1 - [...] patient's age to complete this topic Insurance [facility] Care Teams Material Dispatcher Relationship Specialty Start Date End Date Armando Larios MD [address] - [facility] [address] [place] [address] PCP - General INTERNAL MEDICINE 04/26/21
--- OUTSIDE RECORDS SUMMARY | 2025-01-12 07:58 | XMS_ITS | Clinical Summary ---
Author Organization [facility] Address [address] [place] [address] Care Team Providers Care Automobile Service Station Attendant Name Role Phone Armando Larios MD Primary Care Provider [phone] Allergies No known active allergies Medications atorvastatin [...] mg tablet Take 6 mg by mouth mounter saxophones before breakfast Active valsartan-hydro chlorothiazide (DIOVAN-HCT) 320-12.5 mg per tablet 2 Active omega 8-lez-whe-fish oil 1,200 (144-216) mg capsule Take by mouth Active Active Problems Problem Noted Date Diagnosed Date Atherosclerosis of [place] ar marianela of both lower extremities with intermittent claudication 07/19/2021 Assessment & Plan (10/17/2021 10:07 AM CDT): Patient is not having claudication symptoms except at long distances and says if he takes an enough water he does not have any symptoms at all. He can follow up as needed. Assessment & Plan (07/19/2021 9:51 AM WOOLEN SUITING SHRINKER): Patient has peripheral arterial disease and likely [...] atorvastatin. Assessment & Plan (07/19/2021 9:53 AM WOOLEN SUITING SHRINKER): Followed by his PCP chronic and stable. I recommend he continue his atorvastatin for lipid lowering medication which will also help with his peripheral arterial disease. Primary hypertension 07/19/2021 Assessment & Plan (10/17/2021 10:09 AM CDT): Followed by his PCP and chronic and stable. I recommend he continue his verapamil for blood pressure medication. Assessment & Plan (07/19/2021 9:53 AM WOOLEN SUITING SHRINKER): Followed by his PCP chronic and stable. [...] on file Legal Sex Male 5:29 PM WOOLEN SUITING SHRINKER Gender Identity Not on file Sexual Orientation [...] 8:46 AM CDT Height 167.6 cm (5' 6) 10/17/2021 8:46 AM CDT Body Mass Index [...] 2024 04/29/2021, 08/31/2020, 08/10/2020 Influenza Vaccine (#1) 2025 Insurance [facility] MDCR HMO REF [facility] MDCR HMO REF Care Teams Automobile Service Station Attendant Relationship Specialty Start Date End Date Armando Larios MD [address] [facility] [address] MEDICINE [place], [place] [id number] PCP - General Internal Medicine 07/07/21
--- OUTSIDE RECORDS SUMMARY | 2025-01-12 07:58 | XMS_ITS | Continuity of Care Document ---
Author Organization [facility] Address [address] [place] [address] [place] [address] Phone Care Team Providers Care Svp Monetization Name Role Phone Ed Grimm DO Unavailable Unavailable Advance Directives Directive Yes / No Effective Date File Name No Information Encounters Encounter Description Practice Location Reason(s) For Visit Diagnoses Date Provider Providers Copied on Encounter [facility], [address] [place] [address] [address], [place], [place], [id number], tel:[phone] [facility] (formerly [facility])[3] No Information Sirisha Romeo. [address] [facility], [place], [address], [place]. tel:[phone] Referring Provider: Armando Larios MD , [address] [address] [address], [place], [address]. tel:[phone] Family History Family Member Type Diagnosis Age At Onset No Information Payers Payer name Insurance type Covered democrat ID Authoriza tion(s) No Information Social History [...]
--- NOTE | 2025-01-12 08:09 | ECG_ITS ---
Test Date: 2025-01-12 08:01:22 Measurements Intervals [place] Rate: 166 P: 0 [place]: 0 QRS: -67 QRSD: 107 T: 87 QT: 258 QTc: 429 Interpretive Statements ATRIAL FIBRILLATION WITH RAPID VENTRICULAR RESPONSE LEFT ANTERIOR FASCICULAR BLOCK BORDERLINE ST-T WAVE ABNORMALITY- HIGH LATERAL LEADS ABNORMAL ECG Compared to ECG 07/06/2024 13:15:21 Sinus rhythm no longer present Electronically Signed On 01-12-2025 08:41:39 CDT by Drake Bergeron D.O.
[2025-01-12 08:45] LABS: Hematocrit 40.7 % (42.0-52.0); Hemoglobin 13.4 g/dL (14.0-18.0); Immature Granulocyte Percent A 0.9 % (0-0.5); Lymphocytes Absolute Auto 1.45 K/mm3 (0.9-3.2); Mean Corpuscular HGB Conc 32.9 g/dl (32-36); Mean Corpuscular Hemoglobin 29.0 pg (26-34); Mean Corpuscular Volume 88.1 fl (80-100); Nucleated Red Blood Cells Absolute Auto 0.000 K/mm3 (0.0-0.012); Nucleated Red Blood Cells Perc 0.0 % (0.0-0.2); Platelet Count Result 285 k/mm3 (150-375); Red Blood Count 4.62 M/mm3 (4.6-6.20); White Blood Count 9.6 K/mm3 (4.5-10.0)
--- OUTSIDE RECORDS SUMMARY | 2025-01-12 08:54 | XMS_ITS | Continuity of Care Document ---
Author Organization [facility] Address [address] [place] [address] [place] [address] Phone Care Team Providers Care Talend Developer Name Role Phone Ed Grimm DO Unavailable Unavailable Advance Directives Directive Yes / No Effective Date File Name No Information Encounters Encounter Description Practice Location Reason(s) For Visit Diagnoses Date Provider Providers Copied on Encounter [facility], [address] [place] [address] [address], [place], [place], [id number], tel:[phone] [facility] No Information Sirisha Romeo. [address] [facility], [place], [address], [place]. tel:[phone] Referring Provider: Armando Larios MD , [address] [address] [address], [place], [address]. tel:[phone] Family History Family Member Type Diagnosis Age [...]
--- OUTSIDE RECORDS SUMMARY | 2025-01-12 08:54 | XMS_ITS | Clinical Summary ---
Author Organization [facility] Address [address] [place] [address] Care Team Providers Care Supervisor Lead Burning Name Role Phone Armando Larios MD Primary Care Provider [phone] Allergies No known active allergies Medications atorvastatin [...] mg tablet Take 6 mg by mouth software systems architect before breakfast Active valsartan-hydro chlorothiazide (DIOVAN-HCT) 320-12.5 mg per tablet 2 Active omega 2-mkn-qdw-fish oil 1,200 (144-216) mg capsule Take by mouth Active Active Problems Problem Noted Date Diagnosed Date Atherosclerosis of [place] ar marianela of both lower extremities with intermittent claudication 07/19/2021 Assessment & Plan (10/17/2021 10:07 AM CDT): Patient is not having claudication symptoms except at long distances and says if he takes an enough water he does not have any symptoms at all. He can follow up as needed. Assessment & Plan (07/19/2021 9:51 AM SPIRAL BINDER): Patient has peripheral arterial disease and likely [...] atorvastatin. Assessment & Plan (07/19/2021 9:53 AM SPIRAL BINDER): Followed by his PCP chronic and stable. I recommend he continue his atorvastatin for lipid lowering medication which will also help with his peripheral arterial disease. Primary hypertension 07/19/2021 Assessment & Plan (10/17/2021 10:09 AM CDT): Followed by his PCP and chronic and stable. I recommend he continue his verapamil for blood pressure medication. Assessment & Plan (07/19/2021 9:53 AM SPIRAL BINDER): Followed by his PCP chronic and stable. [...] on file Legal Sex Male 5:29 PM SPIRAL BINDER Gender Identity Not on file Sexual Orientation [...] 08/31/2020, 08/10/2020 Influenza Vaccine (#1) 2025 Insurance [facility] MDCR HMO REF [facility] Address: [address] [address] [place] [address] [facility] MDCR HMO REF [facility] Address: [address] [address] [place] [address] Care Teams Supervisor Lead Burning Relationship Specialty Start Date End Date Armando Larios MD [address] [facility] [address] INTER[address] MEDICINE [place], [place] [phone] PCP - General Internal Medicine 07/07/21
--- OUTSIDE RECORDS SUMMARY | 2025-01-12 08:54 | XMS_ITS | Clinical Summary ---
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
[2025-01-12 08:55] LABS: INR 1.2; Prothrombin Time 14.8 Seconds (11.1-14.7)
[2025-01-12 08:56] LABS: Alanine Aminotransferase 23 U/L (6-50); Albumin Level 4.2 g/dL (3.5-5.1); Alkaline Phosphatase 97 U/L (38-126); Anion Gap 10 mmol/L (4-12); Aspartate Amino Transferase 29 U/L (17-59); Bilirubin,Total 1.2 mg/dL (0.2-1.3); Blood Urea Nitrogen 45 mg/dL (9-20); Calcium 10.0 mg/dL (8.4-10.2); Carbon Dioxide 14 mmol/L (22-30); Chloride 106 mmol/L (98-107); Estimated CRCL calculation 34 ml/min; Estimated Glomerular Filt Rate 36; Glucose 287 mg/dL (65-110); Magnesium 1.8 mg/dL (1.6-2.3); Partial Thromboplastin Time 28.7 Seconds (22.3-36.8); Potassium 5.6 mmol/L (3.4-5.0); Sodium 130 mmol/L (137-145); Total Protein 7.8 g/dL (6.3-8.2)
[2025-01-12 09:17] LABS: Troponin I < 0.012 ng/mL (0.000-0.034)
[2025-01-12] MEDS: dilTIAZem 100 MG/100 ML 100 MG/100 ML BAG 10 MG IV CONT (09:23)
[2025-01-12 09:26] LABS: Thyroid Stimulating Hormone Reflex 1.600 uIU/mL (0.465-4.68)
[2025-01-12 09:45] LABS: NT Pro B Type Natriuretic Pept 361 pg/mL (19.9-100)
[2025-01-12] MEDS: SODIUM CHLORIDE 0.9% IV 1,000 ML 999 ML IV CONT (09:47)
[2025-01-12] MEDS: CALCIUM GLUCONATE 1,000 MG/10 ML VIAL 1000 MG IV PUSH (09:48)
--- NOTE | 2025-01-12 10:13 | ED.RECABL ---
HPI - Recheck/Abnormal Lab/Rx General Chief Complaint: Recheck/Abnormal Lab/Rx Stated Complaint: sob w/ exertion, sent from pcp office Time Seen by Provider: 01/12/25 08:14 Source: patient and RN notes reviewed Mode of arrival: ambulatory Limitations: no limitations History of Present Illness HPI narrative: This is a 69 year old male who who presents from PCP for evaluation of new onset tachycardia. Nursing report that he was having routine follow up and he was found to have heart rate 180. Nursing triage reports shortness of breath on exertion. PAtient denies heart racing, dizziness, lightheadedness, nausea, vomiting, chest pain or shortness of breath. HE denies history of arrhythmia Symptoms since prior visit: no new symptoms Related Data Home Medications ?Medication ?Instructions ?Recorded ?Confirmed ?Last Taken ?Type aspirin 81 mg tablet,delayed 81 mg PO DAILY 07/08/19 01/12/25 07/06/24 History release (Adult Low Dose Aspirin) omega-3 fatty acids 1,000 mg 4,000 mg PO DAILY 07/08/19 01/12/25 07/06/24 History capsule (Fish Oil Concentrate) cholecalciferol (vitamin D3) 50 50 mcg PO DAILY 09/21/22 01/12/25 07/06/24 History mcg (2,000 unit) capsule semaglutide 3 mg tablet (Rybelsus) 6 mg PO DAILY 01/16/23 01/12/25 07/06/24 History empagliflozin 25 mg tablet 25 mg PO DAILY 03/13/24 01/12/25 07/06/24 History (Jardiance) silver sulfadiazine 1 % topical 1 applic topical BID 08/25/24 01/12/25 Unknown History cream (Silvadene) sitagliptin phosphate 100 mg 100 mg PO DAILY 08/25/24 01/12/25 Unknown History tablet (Januvia) cilostazol 100 mg tablet 100 mg PO DAILY 01/12/25 01/12/25 Unknown History tacrolimus 0.1 % topical ointment 1 applic topical Q12H 01/12/25 01/12/25 Unknown History Allergies Allergy/AdvReac Type Severity Reaction Status Date / Time amoxicillin AdvReac Severe Hives Verified 01/12/25 08:09 clavulanic acid (From AdvReac Severe Hives Verified 01/12/25 08:09 Augmentin) Penicillins AdvReac Severe Hives Verified 01/12/25 08:09 REPLACED BY [facility] Past Medical History Medical History BMI 29.0-29.9,adult Chronic kidney disease Peripheral vascular disease Mixed hyperlipidemia Insulin dependent type 2 diabetes mellitus BMI 31.0-31.9,adult Vitamin D deficiency Hearing loss Vitreous hemorrhage of left eye Abnormal ankle brachial index (LAMAR) Benign essential hypertension Surgical History Surgical History History of bilateral cataract extraction (2022) Family History Family History Mother Diabetes mellitus Hemochromatosis Father Diabetes mellitus Myocardial infarct Social History Social History Social History: Surrogate medical decision maker: Karrie Noel, spouse ([phone]). Code status: Full code. Smoking status: Never smoker Second hand tobacco smoke exposure: No Alcohol intake: never Substance use: never Do You Feel Safe in your Home?: Yes Lack of Transportation: No Lack of Food: Never True Current Housing: I Have Housing Concerned About Future Housing: No Difficulty Paying Gas/Electric Bills: No Difficulty Paying for Meds: No Currently Unemployed: No Education: High School Diploma/GED Difficulty w/ Childcare or Family Care: No Spiritual care concerns: No Exam Const: General: no acute distress and alert Nutritional Appearance: well nourished Orientation/consciousness: patient oriented x3 HENMT: Head: normal to inspection Eyes: EOM: EOMs intact bilaterally Resp: Effort & Inspection: normal respiratory effort Auscultation: clear to auscultation bilaterally Cardio: Rate: tachycardic Rhythm: abnormal rhythm Heart sounds: no murmurs GI: GI Palp: Yes Soft to palpation, No Tenderness to palpation present (GI), No Guarding due to palpation present (GI) and No Rigid due to palpation Auscultation: normal bowel sounds Skin: General skin exam: normal color Neuro: General: patient oriented x3, moves all extremities and CN's II-XI intact bilaterally Extrem: General: no pedal edema Psych: Mental Status: mental status grossly normal Affect: normal affect Attitude: cooperative Course Reevaluation(s) Reevaluation #1: I discussed with patient and family that he will need to be admitted to hospital for rate control of AFib which is new Date: 01/12/25 Time: 10:50 Consultations Consultation #1: I spoke with DR. Layton of cardiology. He recommend giving IV Fluids, digoxin 0.5mg IV once and they will consult Date: 01/12/25 Time: 10:21 Consultation #2: I spoke with hospitalist who accepts to IMU Date: 01/12/25 Time: 18:37 Vital Signs Vital signs: Vital Signs Temperature 97.6 F 01/12/25 08:05 Pulse Rate 155 H 01/12/25 08:05 Respiratory Rate 15 01/12/25 08:05 Blood Pressure 124/76 01/12/25 08:05 Pulse Oximetry 99 01/12/25 08:05 Oxygen Delivery Room Air 01/12/25 08:05 Temperature 97.8 F 01/12/25 16:00 Pulse Rate 106 H 01/12/25 18:00 Respiratory Rate 20 01/12/25 16:00 Blood Pressure 110/73 01/12/25 16:00 Pulse Oximetry 100 01/12/25 16:00 Oxygen Delivery Room Air 01/12/25 08:05 MDM - Recheck/Abnormal Lab/Rx MDM Narrative Medical decision making narrative: Patient sent in for afib with RVR. Patient asymptomatic. EKG and labs ordered. I ordered 10 mg IV diltiazem. No improvement so another 20 mg IV ordered with infusion. Patient's labs returned with elevated 1.8 creatinine potassium 5.6 . Patient was started on IV fluids. He had no improvement in heart rate so I consulted Reciprocating Drill Operator, Dr. Layton. He recommended giving dose of digoxin given patients BP decreased on diltiazem. He also agrees with IV fluids. Digoxin 0.5 mg IV ordered and diltiazem infusion discontinued. Patient is asymptomatic still. He is being admitted to IMU. Lovenox ordered. CTA negative for PE Medical Records Attestation: I reviewed the patient's medical records. Lab Data Attestation: I reviewed the patient's lab results. 01/12/25 08:35 01/12/25 13:31 Labs: Lab Results 01/12/25 01/12/25 Range/Units 08:35 13:31 WBC 9.6 (4.5-10.0) K/mm3 RBC 4.62 (4.6-6.20) M/mm3 Hgb 13.4 L (14.0-18.0) g/dL Hct 40.7 L (42.0-52.0) % MCV 88.1 (80-100) fl MCH 29.0 (26-34) pg MCHC 32.9 (32-36) g/dl RDW 14.4 (11.5-14.5) % Plt Count 285 (150-375) k/mm3 MPV 9.5 (7.4-10.4) fl Immature Gran % (Auto) 0.9 H (0-0.5) % Neut % (Auto) 73.4 H (45.5-73.1) % Lymph % (Auto) 15.1 L (18.3-44.2) % [place] % (Auto) 8.9 H (2.6-8.5) % Eos % (Auto) 1.1 (0-4.4) % Baso % (Auto) 0.6 (0.2-1.2) % Lymph # (Auto) 1.45 (0.9-3.2) K/mm3 [place] # (Auto) 0.9 H (0.1-0.6) K/mm3 Eos # (Auto) 0.1 (0-0.3) K/mm3 Baso # (Auto) 0.1 (0.0-0.1) K/mm3 Abs Immat Gran (auto) 0.09 H (0.00-0.031) K/mm3 Absolute Neuts (auto) 7.0 H (1.3-6.7) K/mm3 Absolute Nucleated RBC 0.000 (0.0-0.012) K/mm3 Nucleated RBC % 0.0 (0.0-0.2) % PT 14.8 H (11.1-14.7) Seconds INR 1.2 APTT 28.7 (22.3-36.8) Seconds Sodium 130 L 132 L (137-145) mmol/L Potassium 5.6 H 5.3 H (3.4-5.0) mmol/L Chloride 106 107 (98-107) mmol/L Carbon Dioxide 14 L 16 L (22-30) mmol/L Anion Gap 10 9 (4-12) mmol/L BUN 45 H D 41 H (9-20) mg/dL Creatinine 1.84 H 1.62 H (0.7-1.3) mg/dL Estim Creat Clear Calc 34 39 ml/min Estimated GFR 36 L 42 L (59 - ) Glucose 287 H 213 H (65-110) mg/dL Hemoglobin A1c Pending Calcium 10.0 9.8 (8.4-10.2) mg/dL Magnesium 1.8 (1.6-2.3) mg/dL Total Bilirubin 1.2 (0.2-1.3) mg/dL AST 29 (17-59) U/L ALT 23 (6-50) U/L Alkaline Phosphatase 97 (38-126) U/L Troponin I < 0.012 (0.000-0.034) ng/mL NT-Pro-B Natriuret Pep 361 H (19.9-100) pg/mL Total Protein 7.8 (6.3-8.2) g/dL Albumin 4.2 (3.5-5.1) g/dL TSH (Reflex) 1.600 (0.465-4.68) uIU/mL Imaging Data Radiologist's impression: ITS Impressions Chest X-Ray 01/12/25 09:40 IMPRESSION: 1. No acute cardiopulmonary disease. Chest CTA 01/12/25 10:45 IMPRESSION: 1. No pulmonary embolus identified. 2. No focal pulmonary consolidation. 3. No pulmonary mass. 4. There is a 1.9 cm low-density lesion in the left thyroid lobe. A thyroid ultrasound is recommended. ECG Data EKG #1: Attestation: I personally reviewed and interpreted this ECG as follows: ECG completion date: 01/12/25 ECG completion time: 08:01 EKG Interpretation: tachycardia (166), atrial fibrillation and left axis Discharge Plan Discharge Clinical Impression: Atrial fibrillation with rapid ventricular response Patient Disposition: Still a Patient Condition: Serious
[2025-01-12] MEDS: DIGOXIN INJ 250 MCG/ML 2 ML AMP (*BKC) 500 MCG IV PUSH (11:04)
[2025-01-12] MEDS: ENOXAPARIN 80 MG/0.8 ML SYRINGE SUB-Q (11:08)
[2025-01-12] MEDS: SODIUM CHLORIDE 0.9% IV 1,000 ML 125 ML IV CONT ×2 (12:52→21:42)
--- NOTE | 2025-01-12 13:49 | PC.NURSE ---
This patient, Dylan Noel, was admitted to IMU Room 210-01 at 1221. Patient/family oriented to hospital policies and general routines including ID bracelet, bed and alarms, visiting hours, pain management, procedures, bathroom and other care routines, personal items, smoking policy, room service/diet, and visiting hours. Information on how to activate the Rapid Response Team has been discussed. Patient/Family are encouraged to report perceived risks to care and to ask questions if they do not understand what they are told or what they should do.
[2025-01-12 14:06] LABS: Anion Gap 9 mmol/L (4-12); Blood Urea Nitrogen 41 mg/dL (9-20); Calcium 9.8 mg/dL (8.4-10.2); Carbon Dioxide 16 mmol/L (22-30); Chloride 107 mmol/L (98-107); Estimated CRCL calculation 39 ml/min; Estimated Glomerular Filt Rate 42; Glucose 213 mg/dL (65-110); Potassium 5.3 mmol/L (3.4-5.0); Sodium 132 mmol/L (137-145)
[2025-01-12] MEDS: METOPROLOL TARTRATE 25 MG TABLET PO ×2 (14:23→21:38)
--- NOTE | 2025-01-12 14:26 | PM.IMHP ---
H&P: HPI History of Present Illness Date/Time: 01/12/25 14:26 Chief Complaint: Elevated heart rate Narrative: This is a 69-year-old male who presents from the PCPs office for evaluation of elevated heart rate. He went in for annual wellness checkup today when he was found to have a heart rate of 180. He was referred to ED for evaluation. He reports no other symptoms no chest pain shortness of breath. In the ED he was noted to be tachycardic up to 100 and 50s. Laboratory workup revealed WBC of 9.6 hemoglobin of 13.4 platelet of 285 sodium of 130 potassium 5.6 chloride 106 bicarbonate 14 BUN 45 creatinine 1.84 his baseline is 1.2 blood glucose of 287. Calcium 10.0 magnesium 1.8 LFTs were normal troponin was negative with less than 0.012 BNP was 361. TSH was normal at 1.6. EKG showed atrial fibrillation with rapid ventricular response A received a dose of IV Cardizem. Blood pressure dropped to 90s. Due to persistent elevation of the heart rate he received a dose of IV digoxin. He has been admitted in this setting for further treatment. Review of Systems Review of Systems: - CONSTITUTIONAL: Denies weight loss, fever and chills. - HEENT: Denies changes in vision and hearing - RESPIRATORY: Denies SOB and cough. - CV: Denies palpitations and CP. - GI: Denies abdominal pain, nausea, vomiting and diarrhea. - : Denies dysuria and urinary frequency. - MSK: Denies myalgia and joint pain. - SKIN: Denies rash and pruritus. - NEUROLOGICAL: Denies headache and syncope. - PSYCHIATRIC: Denies recent changes in mood. Denies anxiety and depression. [facility] Past Medical History Medical History (Updated 01/12/25 @ 14:33 by Juan Miguel Frias MD) BMI 29.0-29.9,adult Chronic kidney disease Peripheral vascular disease Mixed hyperlipidemia Insulin dependent type 2 diabetes mellitus BMI 31.0-31.9,adult Vitamin D deficiency Hearing loss Vitreous hemorrhage of left eye Abnormal ankle brachial index (LAMAR) Benign essential hypertension Surgical History Surgical History History of bilateral cataract extraction (2022) Family History Family History (Updated 01/12/25 @ 13:02 by Tammi Burnett RN) Mother Diabetes mellitus Hemochromatosis Father Diabetes mellitus Myocardial infarct Social History Social History Social History: Surrogate medical decision maker: Karrie Noel, spouse ([phone]). Code status: Full code. Smoking status: Never smoker Second hand tobacco smoke exposure: No Alcohol intake: never Substance use: never Do You Feel Safe in your Home?: Yes Lack of Transportation: No Lack of Food: Never True Current Housing: I Have Housing Concerned About Future Housing: No Difficulty Paying Gas/Electric Bills: No Difficulty Paying for Meds: No Currently Unemployed: No Education: High School Diploma/GED Difficulty w/ Childcare or Family Care: No Spiritual care concerns: No Meds Home Medications and Allergies Home Medications ?Medication ?Instructions ?Recorded ?Confirmed ?Type aspirin 81 mg tablet,delayed 81 mg PO DAILY 07/08/19 01/12/25 History release (Adult Low Dose Aspirin) omega-3 fatty acids 1,000 mg 4,000 mg PO DAILY 07/08/19 01/12/25 History capsule (Fish Oil Concentrate) cholecalciferol (vitamin D3) 50 50 mcg PO DAILY 09/21/22 01/12/25 History mcg (2,000 unit) capsule insulin syringe-needle U-100 1 mL #100 ea 01/02/23 01/12/25 Rx 31 gauge x /16 semaglutide 3 mg tablet (Rybelsus) 6 mg PO DAILY 01/16/23 01/12/25 History empagliflozin 25 mg tablet 25 mg PO DAILY 03/13/24 01/12/25 History (Jardiance) valsartan 320 See Rx Instructions .Route 08/14/24 01/12/25 Rx mg-hydrochlorothiazide 12.5 mg .COMPLEX #100 tabs tablet doxycycline hyclate 100 mg 100 mg PO BID #14 tabs 08/25/24 01/12/25 Rx tablet,delayed release silver sulfadiazine 1 % topical 1 applic topical BID 08/25/24 01/12/25 History cream (Silvadene) sitagliptin phosphate 100 mg 100 mg PO DAILY 08/25/24 01/12/25 History tablet (Januvia) blood-glucose sensor ([place] G7 #1 ea 09/29/24 01/12/25 Rx Sensor device) blood-glucose,permit review assistant,cont #1 ea 09/29/24 01/12/25 Rx (Dexcom G7 Under Ground Miner) metformin 1,000 mg tablet See Rx Instructions .Route 10/08/24 01/12/25 Rx .COMPLEX #200 tabs insulin human U-100 NPH-regulr See Rx Instructions .Route 10/29/24 01/12/25 Rx 70-30 mix 100 unit/mL subcutaneous .COMPLEX #70 mL susp (Humulin 70/30 U-100 Insulin) atorvastatin 10 mg tablet 5 mg (1/2 x 10 mg) PO DAILY #90 12/01/24 01/12/25 Rx tabs insulin syringe-needle U-100 0.5 #200 ea 12/02/24 01/12/25 Rx mL 31 gauge x 16 cilostazol 100 mg tablet 100 mg PO DAILY 01/12/25 01/12/25 History tacrolimus 0.1 % topical ointment 1 applic topical Q12H 01/12/25 01/12/25 History Allergies Allergy/AdvReac Type Severity Reaction Status Date / Time amoxicillin AdvReac Severe Hives Verified 01/12/25 08:09 clavulanic acid (From AdvReac Severe Hives Verified 01/12/25 08:09 Augmentin) Penicillins AdvReac Severe Hives Verified 01/12/25 08:09 Vital Signs Vital Signs - 24 hr 01/12/25 08:05 01/12/25 08:11 01/12/25 08:12 Temperature 97.6 F Pulse Rate 155 H 173 H Respiratory Rate 15 12 Blood Pressure 124/76 Pulse Oximetry 99 100 Oxygen Delivery Room Air 01/12/25 09:09 01/12/25 09:23 01/12/25 10:20 Temperature Pulse Rate 151 H 123 H 132 H Respiratory Rate 13 19 Blood Pressure 122/66 122/66 92/47 L Pulse Oximetry 97 98 Oxygen Delivery 01/12/25 11:04 01/12/25 11:04 01/12/25 11:04 Temperature Pulse Rate 135 H 130 H 120 H Respiratory Rate 13 Blood Pressure 93/54 L 93/54 L Pulse Oximetry 99 Oxygen Delivery 01/12/25 11:40 01/12/25 11:41 01/12/25 12:12 Temperature 97.8 F Pulse Rate 143 H 147 H 137 H Respiratory Rate 13 12 Blood Pressure 106/58 L 106/58 L 105/58 L Pulse Oximetry 97 100 Oxygen Delivery 01/12/25 12:25 Temperature 97.5 F L Pulse Rate 124 H Respiratory Rate 16 Blood Pressure 121/70 Pulse Oximetry 100 Oxygen Delivery Exam Narrative: GENERAL: The patient is well developed, not in acute distress HEENT: Nonicteric sclerae, PERRLA, EOMI. Oropharynx clear. Moist mucous membranes. Conjunctivae appear well perfused. CHEST: Chest wall is nontender. HEART: Tachycardic irregularly regular rhythm on the monitor without murmur, rubs, or gallops LUNGS: Clear to auscultation bilaterally. no respiratory distress ABDOMEN: Soft, positive bowel sounds, non-tender, no organomegaly. SKIN: No rash, no excessive bruising, petechiae, or purpura. NEUROLOGIC: Cranial nerves II-XII intact, alert and oriented x 3, no gross motor deficits EXTREMITIES: no edema, cyanosis or clubbing H&P: Results Labs Labs: Short CBC 01/12/25 Range/Units 08:35 WBC 9.6 (4.5-10.0) K/mm3 Hgb 13.4 L (14.0-18.0) g/dL Hct 40.7 L (42.0-52.0) % Plt Count 285 (150-375) k/mm3 BMP 01/12/25 01/12/25 08:35 13:31 Sodium 130 L 132 L Potassium 5.6 H 5.3 H Chloride 106 107 Carbon Dioxide 14 L 16 L BUN 45 H D 41 H Creatinine 1.84 H 1.62 H Glucose 287 H 213 H Calcium 10.0 9.8 Cardiac Enzymes 01/12/25 Range/Units 08:35 Troponin I < 0.012 (0.000-0.034) ng/mL Liver Function 01/12/25 Range/Units 08:35 Total Bilirubin 1.2 (0.2-1.3) mg/dL AST 29 (17-59) U/L ALT 23 (6-50) U/L Alkaline Phosphatase 97 (38-126) U/L Albumin 4.2 (3.5-5.1) g/dL Assessment and Plan Assessment and plan (1) Benign essential hypertension: Code(s): I10 - Essential (primary) hypertension Status: Acute (2) PVD (peripheral vascular disease): Code(s): I73.9 - Peripheral vascular disease, unspecified Status: Acute (3) Type 2 diabetes mellitus with diabetic neuropathy, unspecified: Qualifiers: Diabetes mellitus assistant terminal manager insulin use: with assistant terminal manager use Qualified Code(s): E11.40 - Type 2 diabetes mellitus with diabetic neuropathy, unspecified; Z79.4 - superintendent container terminal (current) use of insulin Code(s): E11.40 - Type 2 diabetes mellitus with diabetic neuropathy, unspecified Status: Acute (4) Vitamin D deficiency: Code(s): E55.9 - Vitamin D deficiency, unspecified Status: Acute (5) BRIANNE (acute kidney injury): Code(s): N17.9 - Acute kidney failure, unspecified Status: Acute (6) Acute hyperkalemia: Code(s): E87.5 - Hyperkalemia Status: Acute (7) Atrial fibrillation with rapid ventricular response: Code(s): I48.91 - Unspecified atrial fibrillation Status: Acute Plan This is a 69-year-old male who presents from the PCPs office for evaluation of elevated heart rate. He went in for annual wellness checkup today when he was found to have a heart rate of 180. He was referred to ED for evaluation. He reports no other symptoms no chest pain shortness of breath. In the ED he was noted to be tachycardic up to 100 and 50s. Laboratory workup revealed WBC of 9.6 hemoglobin of 13.4 platelet of 285 sodium of 130 potassium 5.6 chloride 106 bicarbonate 14 BUN 45 creatinine 1.84 his baseline is 1.2 blood glucose of 287. Calcium 10.0 magnesium 1.8 LFTs were normal troponin was negative with less than 0.012 BNP was 361. TSH was normal at 1.6. EKG showed atrial fibrillation with rapid ventricular response A received a dose of IV Cardizem. Blood pressure dropped to 90s. Due to persistent elevation of the heart rate he received a dose of IV digoxin. He has been admitted in this setting for further treatment. Newly diagnosed atrial fibrillation with rapid ventricular rate cardiology on board. Received IV Cardizem and IV digoxin in the ER. Further management per Cardiology. His chads Vasc score is at least 4. He will need long-term anticoagulation BRIANNE on CKD stage 3 creatinine 1.8 baseline 1.2 continue IV fluids Hyponatremia likely dehydration continue to monitor within normal saline Hyperkalemia will give a dose of Lokelma Metabolic acidosis start bicarb oral Type 2 diabetes on insulin. SSI check A1c Hypertension cold medication Peripheral vascular disease Vitamin-D deficiency Code status full code DVT prophylaxis Lovenox received full dose in the ER Hospitalist MIPS Advance Care Plan I have confirmed that the patient's Advanced Care Plan is present, code status is documented, or surrogate decision maker is listed in patient medical record.: Yes Medication Reconciliation I have utilized all available resources to obtain, update and review the patients current medications (includes all prescriptions, OTC, herbals, cannabis, and nutritional supplements).: Yes
[2025-01-12] MEDS: SODIUM ZIRCONIUM CYCLOSILICATE 10 GM POWD.PACK PO (14:36)
[2025-01-12] MEDS: SODIUM BICARBONATE TAB 650 MG TABLET PO ×2 (14:36→21:38)
--- OUTSIDE RECORDS SUMMARY | 2025-01-12 14:48 | XMS_ITS | Clinical Summary ---
Author Organization [facility] Address [address] [place] [address] Care Team Providers Care Embossing Machine Tender Name Role Phone Armando Larios MD Primary Care Provider [phone] Allergies No known active allergies Medications atorvastatin [...] mg tablet Take 6 mg by mouth state federal relations deputy director before breakfast Active valsartan-hydro chlorothiazide (DIOVAN-HCT) 320-12.5 mg per tablet 2 Active omega 0-awl-ctn-fish oil 1,200 (144-216) mg capsule Take by mouth Active Active Problems Problem Noted Date Diagnosed Date Atherosclerosis of [place] of both lower extremities with intermittent claudication 07/19/2021 Assessment & Plan (10/17/2021 10:07 AM CDT): Patient is not having claudication symptoms except at long distances and says if he takes an enough water he does not have any symptoms at all. He can follow up as needed. Assessment & Plan (07/19/2021 9:51 AM LABEL SEWER): Patient has peripheral arterial disease and likely [...] atorvastatin. Assessment & Plan (07/19/2021 9:53 AM LABEL SEWER): Followed by his PCP chronic and stable. I recommend he continue his atorvastatin for lipid lowering medication which will also help with his peripheral arterial disease. Primary hypertension 07/19/2021 Assessment & Plan (10/17/2021 10:09 AM CDT): Followed by his PCP and chronic and stable. I recommend he continue his verapamil for blood pressure medication. Assessment & Plan (07/19/2021 9:53 AM LABEL SEWER): Followed by his PCP chronic and stable. [...] on file Legal Sex Male 5:29 PM LABEL SEWER Gender Identity Not on file Sexual Orientation [...] 08/31/2020, 08/10/2020 Influenza Vaccine (#1) 2025 Insurance [facility] [employer] HMO REF [facility] [employer] HMO REF Care Teams Embossing Machine Tender Relationship Specialty Start Date End Date Armando Larios MD [address] [facility] [address] [place], [place] [id number] PCP - General Internal Medicine 07/07/21
--- OUTSIDE RECORDS SUMMARY | 2025-01-12 14:48 | XMS_ITS | Clinical Summary ---
Author Organization [facility] Address [address] [place] [id number] Care Team Providers Care Link Trainer Teacher Name Role Phone Armando Larios MD Primary Care Provider Social History Tobacco Use Types Packs/Day Years Used Date Smoking Tobacco: Never Assessed Sex and Gender Information Value Date Recorded Sex Assigned at Not on file Legal Sex Male 11:55 AM NURSE ORTHO Gender Identity Not on file Sexual Orientation [...] patient's age to complete this topic Insurance [facility] Care Teams Link Trainer Teacher Relationship Specialty Start Date End Date Armando Larios MD [address] - [facility] [address] [place] [address] PCP - General INTERNAL MEDICINE 04/26/21
--- NOTE | 2025-01-12 15:00 | P.CONCA_ITS ---
<Statement entered by Viri Layton MD - 01/16/25 10:46> The service was provided by the the nurse practitioner independently. i was available in the hospital in case I was needed Assessment and Plan Assessment and plan (1) Atrial fibrillation with rapid ventricular response: Code(s): I48.91 - Unspecified atrial fibrillation Status: Acute Assessment and Plan: Presents with atrial fibrillation with rapid ventricular response. This is a new diagnosis. I discussed the diagnosis of atrial fibrillation including pathophysiology, management strategies, risks/complications of atrial fibrillation. Discussed rate control versus rhythm control. He is not overly enthusiastic about undergoing BIGG/DCCV. Therefore, for the time being we are going to proceed with rate control. * Will start diltiazem drip at 5 milligrams/hour * P.r.n. Lopressor for persistent tachycardia greater than 120 BPM * He has a CHADS2 Vasc score of at least 4 (age, hypertension, diabetes, peripheral vascular disease). Anticoagulation is indicated. He has been given therapeutic dose Lovenox. Can be shifted to though act, Xarelto 20 mg daily starting tomorrow. * If we have difficulty controlling his heart rate, will proceed with bigg/DCCV tomorrow. Will keep him NPO after midnight tonight for the possibility of proceeding with this tomorrow. * Check echocardiogram * TSH is normal * Check ApneaLink (2) Benign essential hypertension: Code(s): I10 - Essential (primary) hypertension Status: Acute Assessment and Plan: Blood pressure goal. (3) Mixed hyperlipidemia: Code(s): E78.2 - Mixed hyperlipidemia Status: Acute Assessment and Plan: Continue statin. History of Present Illness History of Present Illness Consult date/time: 01/12/25 15:00 Requesting physician: Zoe Cleary MD Consult reason: atrial fibrillation Reason For Visit: Afib With RVR Narrative: Dylan Noel is a 69-year-old male with type 2 diabetes mellitus, hypertension, hyperlipidemia, chronic kidney disease. This is a patient who was sent to the emergency department from his primary care doctor's office because of tachycardia. He presented to his primary care doctor's office for a routine wellness visit. He was found to be tachycardic. In the emergency department here, he was found to be in atrial fibrillation with rapid ventricular response. Patient denies having any symptoms whatsoever. He denies any palpitations, chest pain, shortness of breath, syncope, or presyncope. He has been given digoxin, diltiazem, and metoprolol and remains tachycardic with a heart rate in the 120s to 140s. At the time of my visit he remains asymptomatic and is lying comfortably in bed without complaints. Review of Systems 2 Review of Systems: All systems reviewed & are unremarkable except as noted in HPI and below PMFSH Past Medical History Medical History BMI 29.0-29.9,adult Chronic kidney disease Peripheral vascular disease Mixed hyperlipidemia Insulin dependent type 2 diabetes mellitus BMI 31.0-31.9,adult Vitamin D deficiency Hearing loss Vitreous hemorrhage of left eye Abnormal ankle brachial index (LAMAR) Benign essential hypertension Surgical History Surgical History History of bilateral cataract extraction (2022) Family History Family History Mother Diabetes mellitus Hemochromatosis Father Diabetes mellitus Myocardial infarct Social History Social History Social History: Surrogate medical decision maker: Karrie Noel, spouse ([phone]). Code status: Full code. Smoking status: Never smoker Second hand tobacco smoke exposure: No Alcohol intake: never Substance use: never Do You Feel Safe in your Home?: Yes Lack of Transportation: No Lack of Food: Never True Current Housing: I Have Housing Concerned About Future Housing: No Difficulty Paying Gas/Electric Bills: No Difficulty Paying for Meds: No Currently Unemployed: No Education: High School Diploma/GED Difficulty w/ Childcare or Family Care: No Spiritual care concerns: No Meds Home Medications and Allergies Home Medications ?Medication ?Instructions ?Recorded ?Confirmed ?Type aspirin 81 mg tablet,delayed 81 mg PO DAILY 07/08/19 01/12/25 History release (Adult Low Dose Aspirin) omega-3 fatty acids 1,000 mg 4,000 mg PO DAILY 07/08/19 01/12/25 History capsule (Fish Oil Concentrate) cholecalciferol (vitamin D3) 50 50 mcg PO DAILY 09/21/22 01/12/25 History mcg (2,000 unit) capsule insulin syringe-needle U-100 1 mL #100 ea 01/02/23 01/12/25 Rx 31 gauge x 516 semaglutide 3 mg tablet (Rybelsus) 6 mg PO DAILY 01/16/23 01/12/25 History empagliflozin 25 mg tablet 25 mg PO DAILY 03/13/24 01/12/25 History (Jardiance) valsartan 320 See Rx Instructions .Route 08/14/24 01/12/25 Rx mg-hydrochlorothiazide 12.5 mg .COMPLEX #100 tabs tablet doxycycline hyclate 100 mg 100 mg PO BID #14 tabs 08/25/24 01/12/25 Rx tablet,delayed release silver sulfadiazine 1 % topical 1 applic topical BID 08/25/24 01/12/25 History cream (Silvadene) sitagliptin phosphate 100 mg 100 mg PO DAILY 08/25/24 01/12/25 History tablet (Januvia) blood-glucose sensor (Dexcom G7 #1 ea 09/29/24 01/12/25 Rx Sensor device) blood-glucose,human resources officer,cont #1 ea 09/29/24 01/12/25 Rx (Dexcom G7 Moving Picture Producer) metformin 1,000 mg tablet See Rx Instructions .Route 10/08/24 01/12/25 Rx .COMPLEX #200 tabs insulin human U-100 NPH-regulr See Rx Instructions .Route 10/29/24 01/12/25 Rx 70-30 mix 100 unit/mL subcutaneous .COMPLEX #70 mL susp (Humulin 70/30 U-100 Insulin) atorvastatin 10 mg tablet 5 mg (1/2 x 10 mg) PO DAILY #90 12/01/24 01/12/25 Rx tabs insulin syringe-needle U-100 0.5 #200 ea 12/02/24 01/12/25 Rx mL 31 gauge x 16 cilostazol 100 mg tablet 100 mg PO DAILY 01/12/25 01/12/25 History tacrolimus 0.1 % topical ointment 1 applic topical Q12H 01/12/25 01/12/25 History Allergies Allergy/AdvReac Type Severity Reaction Status Date / Time amoxicillin AdvReac Severe Hives Verified 01/12/25 08:09 clavulanic acid (From AdvReac Severe Hives Verified 01/12/25 08:09 Augmentin) Penicillins AdvReac Severe Hives Verified 01/12/25 08:09 Vital Signs Vital Signs - 24 hr 01/12/25 08:05 01/12/25 08:11 01/12/25 08:12 Temperature 36.4 C Pulse Rate 155 H 173 H Respiratory Rate 15 12 Blood Pressure 124/76 Pulse Oximetry 99 100 Oxygen Delivery Room Air 01/12/25 09:09 01/12/25 09:23 01/12/25 10:20 Temperature Pulse Rate 151 H 123 H 132 H Respiratory Rate 13 19 Blood Pressure 122/66 122/66 92/47 L Pulse Oximetry 97 98 Oxygen Delivery 01/12/25 11:04 01/12/25 11:04 01/12/25 11:04 Temperature Pulse Rate 135 H 130 H 120 H Respiratory Rate 13 Blood Pressure 93/54 L 93/54 L Pulse Oximetry 99 Oxygen Delivery 01/12/25 11:40 01/12/25 11:41 01/12/25 12:12 Temperature 36.6 C Pulse Rate 143 H 147 H 137 H Respiratory Rate 13 12 Blood Pressure 106/58 L 106/58 L 105/58 L Pulse Oximetry 97 100 Oxygen Delivery 01/12/25 12:25 Temperature 36.4 C L Pulse Rate 124 H Respiratory Rate 16 Blood Pressure 121/70 Pulse Oximetry 100 Oxygen Delivery Exam 2 Const: General: comfortable, no acute distress, alert and awake O rientation/consciousness: patient oriented x3 HENMT: Head: normal to inspection Eyes: General: appearance normal, both eyes and all related structures P upils: Equal, round and reactive pupils present Neck: Neck: normal visual inspection, supple and no JVD Carotids: normal carotid upstroke Resp: Effort & Inspection: normal respiratory effort Auscultation: clear to auscultation bilaterally Cardio: Rate: tachycardic Rhythm: abnormal rhythm irregularly irregular Heart sounds: S1 normal heart sound present, S2 normal heart sound present and no murmurs GI: Auscultation: normal bowel sounds Skin: General skin exam: normal color Neuro: General: patient oriented x3 Cranial nerves: Yes Equal, round and reactive pupils present Extrem: General: normal to inspection Psych: Appearance: grossly normal Mental Status: mental status grossly normal Results Labs and Meds 01/12/25 08:35 01/12/25 13:31 Lab results: Cardiac Enzymes 01/12/25 Range/Units 08:35 AST 29 (17-59) U/L Troponin I < 0.012 (0.000-0.034) ng/mL Coagulation 01/12/25 Range/Units 08:35 PT 14.8 H (11.1-14.7) Seconds APTT 28.7 (22.3-36.8) Seconds CBC 01/12/25 Range/Units 08:35 WBC 9.6 (4.5-10.0) K/mm3 RBC 4.62 (4.6-6.20) M/mm3 Hgb 13.4 L (14.0-18.0) g/dL Hct 40.7 L (42.0-52.0) % Plt Count 285 (150-375) k/mm3 Lymph # (Auto) 1.45 (0.9-3.2) K/mm3 [place] # (Auto) 0.9 H (0.1-0.6) K/mm3 Eos # (Auto) 0.1 (0-0.3) K/mm3 Baso # (Auto) 0.1 (0.0-0.1) K/mm3 Comprehensive Metabolic Panel 01/12/25 01/12/25 Range/Units 08:35 13:31 Sodium 130 L 132 L (137-145) mmol/L Potassium 5.6 H 5.3 H (3.4-5.0) mmol/L Chloride 106 107 (98-107) mmol/L Carbon Dioxide 14 L 16 L (22-30) mmol/L BUN 45 H D 41 H (9-20) mg/dL Creatinine 1.84 H 1.62 H (0.7-1.3) mg/dL Glucose 287 H 213 H (65-110) mg/dL Calcium 10.0 9.8 (8.4-10.2) mg/dL AST 29 (17-59) U/L ALT 23 (6-50) U/L Alkaline Phosphatase 97 (38-126) U/L Total Protein 7.8 (6.3-8.2) g/dL Albumin 4.2 (3.5-5.1) g/dL Intake and Output 01/11/25 01/12/25 01/12/25 23:59 07:59 15:59 Intake Total 1016.8 Balance 1016.8 Intake: IV 1016.8 Sodium Chloride 0.9% IV 1,000 1000 ml @ 999 mls/hr IV CONT .Q1H1M STA Rx#:[id number] dilTIAZem 100 MG/100 ML 100 mg 16.8 In 100 ml @ 10 MG/HR 10 mls/hr IV CONT .Q10H STA Rx#:[id number] Patient Weight 01/12/25 23:59 Weight 84.6 kg
--- OUTSIDE RECORDS SUMMARY | 2025-01-12 15:37 | XMS_ITS | Clinical Summary ---
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 He can follow up as needed. Assessment & Plan (07/19/2021 9:51 AM TARPER): Patient has peripheral arterial disease and likely [...] atorvastatin. Assessment & Plan (07/19/2021 9:53 AM TARPER): Followed by his PCP chronic and stable. I recommend he continue his atorvastatin for lipid lowering medication which will also help with his peripheral arterial disease. Primary hypertension 07/19/2021 Assessment & Plan (10/17/2021 10:09 AM CDT): Followed by his PCP and chronic and stable. I recommend he continue his verapamil for blood pressure medication. Assessment & Plan (07/19/2021 9:53 AM TARPER): Followed by his PCP chronic and stable. [...] on file Legal Sex Male 5:29 PM TARPER Gender Identity Not on file Sexual Orientation [...] 08/31/2020, 08/10/2020 Influenza Vaccine (#1) 2025 Insurance [facility] H[facility] Address: [address] [address] [place] [address] [facility] H[facility] Address: [address] [address] [place] [address] Care Teams Imaging Aide Relationship Specialty Start Date End Date Armando Larios MD [address] [facility] [[email or web address]] [address] [place], [place] [id number] PCP - General Internal Medicine 07/07/21
--- OUTSIDE RECORDS SUMMARY | 2025-01-12 15:37 | XMS_ITS | Continuity of Care Document ---
Author Organization [facility] Address [address] [place] [address] [place] [address] Phone Care Team Providers Care Transfer Coordinator Name Role Phone dE Grimm DO Unavailable Unavailable Advance Directives Directive Yes / No Effective Date File Name No Information Encounters Encounter Description Practice Location Reason(s) For Visit Diagnoses Date Provider Providers Copied on Encounter [facility], [id number] [place] [address] [address], [place], [place], [id number], tel:[phone] [facility] No Information Sirisha Romeo. [address] [address] [facility], [place], [address], [place]. tel:[phone] Referring Provider: Armando Larios MD , [address] [address] [address], [place], [address]. tel:[phone] Family History Family Member Type Diagnosis Age [...]
--- OUTSIDE RECORDS SUMMARY | 2025-01-12 15:37 | XMS_ITS | Continuity of Care Document ---
Author Organization [facility] Address [id number] [place] [address] [place] [address] Phone Care Team Providers Care Music Industry Intern Name Role Phone Ed Grimm DO Unavailable Unavailable Advance Directives Directive Yes / No Effective Date File Name No Information Encounters Encounter Description Practice Location Reason(s) For Visit Diagnoses Date Provider Providers Copied on Encounter [facility], [id number] [place] [address] [address], [place], [place], [id number], tel:[phone] [facility] No Information Sirisha Romeo. [address] [facility], [place], [address], [place]. tel:[phone] Referring Provider: Armando Larios MD , [address] [address] [address], [place], [address]. tel:[phone] Family History Family Member Type Diagnosis Age [...]
[2025-01-12] MEDS: INSULIN HUMAN ISOPHAN/REGULAR 70/30 (*BKC) 100 UNITS/ML 28 UNITS SUB-Q (17:16)
[2025-01-12] MEDS: SILVER SULFADIAZINE 1% CR 50 GM JAR (*BKC) 1 APPLIC TOPICAL (17:17)
[2025-01-12] MEDS: INSULIN ASPART (*BKC) 100 UNITS/ML SUB-Q ×2 (17:21→21:47)
[2025-01-12 19:05] LABS: Hemoglobin A1C 6.7 % (<5.7)
[2025-01-12] MEDS: ENOXAPARIN 100 MG/ML SYRINGE 85 MG SUB-Q (21:38)
[2025-01-13] VITALS (19 sets, daily range): BP systolic 92–120; BP diastolic 41–78; PULSE 82–138; RESP 12–20; TEMP 36.4–36.8; O2SAT 96–100
[2025-01-13] MEDS: DEXTROSE 50% 25 GM/50 ML SYRINGE IV PUSH (01:13)
[2025-01-13] MEDS: METOPROLOL TARTRATE 25 MG TABLET PO ×3 (05:31→21:32)
[2025-01-13] MEDS: SODIUM CHLORIDE 0.9% IV 1,000 ML 125 ML IV CONT (06:04)
[2025-01-13 06:38] LABS: Hematocrit 39.1 % (42.0-52.0); Hemoglobin 12.9 g/dL (14.0-18.0); Immature Granulocyte Percent A 0.5 % (0-0.5); Lymphocytes Absolute Auto 1.46 K/mm3 (0.9-3.2); Mean Corpuscular HGB Conc 33.0 g/dl (32-36); Mean Corpuscular Hemoglobin 28.9 pg (26-34); Mean Corpuscular Volume 87.5 fl (80-100); Nucleated Red Blood Cells Absolute Auto 0.000 K/mm3 (0.0-0.012); Nucleated Red Blood Cells Perc 0.0 % (0.0-0.2); Platelet Count Result 251 k/mm3 (150-375); Red Blood Count 4.47 M/mm3 (4.6-6.20); White Blood Count 8.1 K/mm3 (4.5-10.0)
[2025-01-13 07:00] LABS: Alanine Aminotransferase 18 U/L (6-50); Albumin Level 3.5 g/dL (3.5-5.1); Alkaline Phosphatase 69 U/L (38-126); Anion Gap 7 mmol/L (4-12); Aspartate Amino Transferase 22 U/L (17-59); Bilirubin,Total 1.2 mg/dL (0.2-1.3); Blood Urea Nitrogen 28 mg/dL (9-20); Calcium 9.1 mg/dL (8.4-10.2); Carbon Dioxide 19 mmol/L (22-30); Chloride 110 mmol/L (98-107); Estimated CRCL calculation 52 ml/min; Estimated Glomerular Filt Rate > 60; Glucose 80 mg/dL (65-110); Magnesium 1.8 mg/dL (1.6-2.3); Potassium 4.3 mmol/L (3.4-5.0); Sodium 136 mmol/L (137-145); Total Protein 6.6 g/dL (6.3-8.2)
--- NOTE | 2025-01-13 08:25 | PM.IMPN ---
Progress Note: A&P Assessment and Plan (1) Benign essential hypertension: Code(s): I10 - Essential (primary) hypertension Status: Acute (2) PVD (peripheral vascular disease): Code(s): I73.9 - Peripheral vascular disease, unspecified Status: Acute (3) Type 2 diabetes mellitus with diabetic neuropathy, unspecified: Qualifiers: Diabetes mellitus exterminator insulin use: with custodial use Qualified Code(s): E11.40 - Type 2 diabetes mellitus with diabetic neuropathy, unspecified; Z79.4 - MCFP (current) use of insulin Code(s): E11.40 - Type 2 diabetes mellitus with diabetic neuropathy, unspecified Status: Acute (4) Vitamin D deficiency: Code(s): E55.9 - Vitamin D deficiency, unspecified Status: Acute (5) BRIANNE (acute kidney injury): Code(s): N17.9 - Acute kidney failure, unspecified Status: Acute (6) Acute hyperkalemia: Code(s): E87.5 - Hyperkalemia Status: Acute (7) Atrial fibrillation with rapid ventricular response: Code(s): I48.91 - Unspecified atrial fibrillation Status: Acute Plan This is a 69-year-old male who presents from the PCPs office for evaluation of elevated heart rate. He went in for annual wellness checkup today when he was found to have a heart rate of 180. He was referred to ED for evaluation. He reports no other symptoms no chest pain shortness of breath. In the ED he was noted to be tachycardic up to 100 and 50s. Laboratory workup revealed WBC of 9.6 hemoglobin of 13.4 platelet of 285 sodium of 130 potassium 5.6 chloride 106 bicarbonate 14 BUN 45 creatinine 1.84 his baseline is 1.2 blood glucose of 287. Calcium 10.0 magnesium 1.8 LFTs were normal troponin was negative with less than 0.012 BNP was 361. TSH was normal at 1.6. EKG showed atrial fibrillation with rapid ventricular response A received a dose of IV Cardizem. Blood pressure dropped to 90s. Due to persistent elevation of the heart rate he received a dose of IV digoxin. He has been admitted in this setting for further treatment. Newly diagnosed atrial fibrillation with rapid ventricular rate cardiology on board. Received IV Cardizem and IV digoxin in the ER. Further management per Cardiology. His chads Vasc score is at least 4. He will need long-term anticoagulation was placed on Lovenox twice a day. Currently on metoprolol per Cardiology. Tentative DAPHNE with cardioversion planned BRIANNE on CKD stage 3 creatinine 1.8 baseline 1.2 resolved with IV fluids. Stop IV fluids today Hyponatremia likely dehydration continue to monitor within normal saline. Resolved Hyperkalemia will give a dose of Lokelma and normalized today Metabolic acidosis start bicarb oral Type 2 diabetes on insulin. SSI A1c at 6.7. Will hold 70 30 Hypertension cold medication Peripheral vascular disease Vitamin-D deficiency Code status full code DVT prophylaxis Lovenox received full dose in the ER plan to switch to Xarelto Subjective Date/time seen: 01/13/25 08:25 Interval history: Heart rate fluctuating. Still in AFib. Denies any shortness of breath or chest pain. Blood sugar lowered to this a.m.. Exam Narrative: GENERAL: The patient is well developed, not in acute distress HEENT: Nonicteric sclerae, PERRLA, EOMI. Oropharynx clear. Moist mucous membranes. Conjunctivae appear well perfused. CHEST: Chest wall is nontender. HEART: Tachycardic irregularly regular rhythm on the monitor without murmur, rubs, or gallops LUNGS: Clear to auscultation bilaterally. no respiratory distress ABDOMEN: Soft, positive bowel sounds, non-tender, no organomegaly. SKIN: No rash, no excessive bruising, petechiae, or purpura. NEUROLOGIC: Cranial nerves II-XII intact, alert and oriented x 3, no gross motor deficits EXTREMITIES: no edema, cyanosis or clubbing Objective Data Vital Signs Vital Signs: Vital Signs - 24 hr 01/12/25 09:09 01/12/25 09:23 01/12/25 10:20 Temperature Pulse Rate 151 H 123 H 132 H Respiratory Rate 13 19 Blood Pressure 122/66 122/66 92/47 L Pulse Oximetry 97 98 Oxygen Delivery Fraction of Inspired Oxygen 01/12/25 11:04 01/12/25 11:04 01/12/25 11:04 Temperature Pulse Rate 135 H 130 H 120 H Respiratory Rate 13 Blood Pressure 93/54 L 93/54 L Pulse Oximetry 99 Oxygen Delivery Fraction of Inspired Oxygen 01/12/25 11:40 01/12/25 11:41 01/12/25 12:12 Temperature 97.8 F Pulse Rate 143 H 147 H 137 H Respiratory Rate 13 12 Blood Pressure 106/58 L 106/58 L 105/58 L Pulse Oximetry 97 100 Oxygen Delivery Fraction of Inspired Oxygen 01/12/25 12:25 01/12/25 14:00 01/12/25 16:00 Temperature 97.5 F L 97.8 F Pulse Rate 124 H 102 H 103 H Respiratory Rate 16 20 Blood Pressure 121/70 110/73 Pulse Oximetry 100 100 Oxygen Delivery Fraction of Inspired Oxygen 01/12/25 16:00 01/12/25 18:00 01/12/25 20:00 Temperature 97.8 F Pulse Rate 93 106 H 118 H Respiratory Rate 20 Blood Pressure 113/61 Pulse Oximetry 100 Oxygen Delivery Fraction of Inspired Oxygen 01/12/25 20:00 01/12/25 21:38 01/12/25 22:00 Temperature Pulse Rate 123 H 120 H 115 H Respiratory Rate Blood Pressure Pulse Oximetry Oxygen Delivery Fraction of Inspired Oxygen 01/12/25 22:03 01/12/25 23:51 01/13/25 00:00 Temperature 98 F Pulse Rate 91 120 H Respiratory Rate 20 Blood Pressure 120/74 Pulse Oximetry 95 98 Oxygen Delivery Room Air Fraction of Inspired Oxygen 21 01/13/25 02:00 01/13/25 04:00 01/13/25 05:00 Temperature 98 F Pulse Rate 113 H 122 H 138 H Respiratory Rate 20 Blood Pressure 120/63 Pulse Oximetry 100 Oxygen Delivery Fraction of Inspired Oxygen 01/13/25 05:31 01/13/25 06:00 01/13/25 08:00 Temperature 97.5 F L Pulse Rate 136 H 115 H 104 H Respiratory Rate 16 Blood Pressure 108/78 Pulse Oximetry 100 Oxygen Delivery Fraction of Inspired Oxygen Intake/Output Intake/Output: Intake & Output 01/10/25 01/11/25 01/12/25 01/13/25 23:59 23:59 23:59 23:59 Intake Total 2646.8 1000 Balance 2646.8 1000 Meds/Results Medications: Active Medications Generic Name Dose Route Start Last Admin Trade Name Freq PRN Reason Stop Dose Admin Aspirin 81 mg 01/13/25 09:00 Aspirin 81 Mg Enteric Tablet PO DAILY [facility] Atorvastatin Calcium 5 mg 01/13/25 09:00 Atorvastatin 5 Mg Tablet PO DAILY [facility] Cilostazol 100 mg 01/13/25 06:30 01/13/25 05:32 Cilostazol 100 Mg Tablet PO 100 mg DAILY@0630 PATRICK Administration Dextrose 12.5 gm 01/12/25 14:34 01/13/25 01:13 Dextrose 50% 25 Gm/50 Ml Syringe IV PUSH 12.5 gm PRN PRN Administration Hypoglycemia Protocol Empagliflozin 25 mg 01/13/25 09:00 Empagliflozin 25 Mg Tablet PO DAILY [facility] Enoxaparin Sodium 85 mg 01/12/25 22:00 01/12/25 21:38 Enoxaparin 100 Mg/Ml Syringe SUB-Q 85 mg Q12HR PATRICK Administration Fish Oil 4 gm 01/13/25 09:00 [place] 3 Polyunsat Fatty Acids 1 Gm Cap PO DAILY PATRICK Glucagon 1 mg 01/12/25 14:34 Glucagon For Inj 1 Mg Vial IM PRN PRN Hypoglycemia Protocol Glucose 15 gm 01/12/25 14:34 Glucose Oral Gel 15 Gm Of Glucse In 37.5 Gm Tube PO PRN PRN Hypoglycemia Protocol Sodium Chloride 1,000 mls @ 125 mls/hr 01/12/25 11:25 01/13/25 06:04 Normal Saline Iv IV CONT 125 mls/hr .Q8H PATRICK Administration Dextrose 1,000 mls @ 100 mls/hr 01/12/25 14:34 Dextrose 5% 1,000 Ml IVPB PRN PRN Hypoglycemia Protocol Insulin Aspart 2 - 5 units 01/12/25 17:00 01/12/25 17:21 Insulin Aspart (*Bkc) 100 Units/Ml SUB-Q 3 units TIDWM PATRICK Administration Protocol Insulin Aspart 1 - 2 units 01/12/25 21:00 01/12/25 21:47 Insulin Aspart (*Bkc) 100 Units/Ml SUB-Q 1 units HS [facility] Administration Protocol Insulin Human Isoph/Insulin Regular 28 units 01/12/25 16:30 01/13/25 07:51 Insulin Human Isophan/Regular 70/30 (*Bkc) 100 Units/Ml SUB-Q Not Given BIDAC [facility] Metoprolol Tartrate 5 mg 01/12/25 15:06 Metoprolol Tartrate Inj 5 Mg/5 Ml Vial IV PUSH Q2H PRN Tachycardia Metoprolol Tartrate 25 mg 01/12/25 22:00 01/13/25 05:31 Metoprolol Tartrate 25 Mg Tablet PO 25 mg Q8HR PATRICK Administration Miscellaneous Information 1 each 01/12/25 00:01 D/C Doxycycline? External Med History Shows This Was Filled On 07/10/24 Qty #10 For 5 Day XX 02/11/25 00:00 CLARIFY [facility] Miscellaneous Information 1 each 01/12/25 00:01 Ivannasus Is Nonformulary. Can He Use Home Supply? XX 02/11/25 00:00 CLARIFY [facility] Miscellaneous Information 1 each 01/12/25 00:01 Silver Sulfadiazine Order Needs Site Of Application XX 02/11/25 00:00 CLARIFY [facility] Non-Formulary Medication 100 mg 01/12/25 17:00 Doxycycline Hyclate PO 02/11/25 16:59 BID PATRICK Non-Formulary Medication 6 mg 01/13/25 09:00 Semaglutide [Rybelsus] PO 02/12/25 08:59 DAILY [facility] Ondansetron HCl 4 mg 01/12/25 11:23 Ondansetron Inj 4 Mg/2 Ml Vial IV PUSH Q4H PRN Nausea Perflutren Lipid Microsphere 0 ml 01/12/25 15:12 Perflutren Lipid Microspheres 1.5 Ml Vial Diluted To 10 Ml Total Volume IV PUSH 01/15/25 15:12 ONCE PRN adequate visualization Protocol Silver Sulfadiazine 1 applic 01/12/25 17:00 01/12/25 17:17 Silver Sulfadiazine 1% Cr 50 Gm Jar (*Bkc) TOPICAL 1 applic BID PATRICK Administration Sitagliptin Phosphate 100 mg 01/13/25 09:00 Sitagliptin Phosphate 100 Mg Tablet PO DAILY [facility] Sodium Bicarbonate 650 mg 01/12/25 14:25 01/12/25 21:38 Sodium Bicarbonate Tab 650 Mg Tablet PO 650 mg Q12HR [facility] Administration Tacrolimus 1 applic 01/12/25 21:00 01/12/25 21:39 Tacrolimus 0.1% 30 Gm Ointment TOPICAL Not Given Q12H [facility] Vitamin D 50 mcg 01/13/25 09:00 Cholecalciferol (Vitamin D3) 25 Mcg (1,000 Units) Tablet PO DAILY [facility] Radiology Results: ITS Impressions Chest X-Ray 01/12/25 09:40 IMPRESSION: 1. No acute cardiopulmonary disease. Chest CTA 01/12/25 10:45 IMPRESSION: 1. No pulmonary embolus identified. 2. No focal pulmonary consolidation. 3. No pulmonary mass. 4. There is a 1.9 cm low-density lesion in the left thyroid lobe. A thyroid ultrasound is recommended. Renal Ultrasound 01/12/25 21:32 Impression: 1: Possible right nephrolithiasis. Otherwise, unremarkable renal ultrasound. Labs Labs: Laboratory Results - last 24 hr 01/12/25 01/12/25 01/12/25 08:35 13:31 16:46 WBC 9.6 RBC 4.62 Hgb 13.4 L Hct 40.7 L MCV 88.1 MCH 29.0 MCHC 32.9 RDW 14.4 Plt Count 285 MPV 9.5 Immature Gran % (Auto) 0.9 H Neut % (Auto) 73.4 H Lymph % (Auto) 15.1 L [place] % (Auto) 8.9 H Eos % (Auto) 1.1 Baso % (Auto) 0.6 Lymph # (Auto) 1.45 [place] # (Auto) 0.9 H Eos # (Auto) 0.1 Baso # (Auto) 0.1 Abs Immat Gran (auto) 0.09 H Absolute Neuts (auto) 7.0 H Absolute Nucleated RBC 0.000 Nucleated RBC % 0.0 PT 14.8 H INR 1.2 APTT 28.7 Sodium 130 L 132 L Potassium 5.6 H 5.3 H Chloride 106 107 Carbon Dioxide 14 L 16 L Anion Gap 10 9 BUN 45 H D 41 H Creatinine 1.84 H 1.62 H Estim Creat Clear Calc 34 39 Estimated GFR 36 L 42 L Glucose 287 H 213 H POC Capillary Glucose 273 H Hemoglobin A1c 6.7 H Calcium 10.0 9.8 Magnesium 1.8 Total Bilirubin 1.2 AST 29 ALT 23 Alkaline Phosphatase 97 Troponin I < 0.012 NT-Pro-B Natriuret Pep 361 H Total Protein 7.8 Albumin 4.2 TSH (Reflex) 1.600 01/12/25 01/13/25 01/13/25 20:16 01:02 01:31 WBC RBC Hgb Hct MCV MCH MCHC RDW Plt Count MPV Immature Gran % (Auto) Neut % (Auto) Lymph % (Auto) [place] % (Auto) Eos % (Auto) Baso % (Auto) Lymph # (Auto) [place] # (Auto) Eos # (Auto) Baso # (Auto) Abs Immat Gran (auto) Absolute Neuts (auto) Absolute Nucleated RBC Nucleated RBC % PT INR APTT Sodium Potassium Chloride Carbon Dioxide Anion Gap BUN Creatinine Estim Creat Clear Calc Estimated GFR Glucose POC Capillary Glucose 213 H 51 L* 109 H Hemoglobin A1c Calcium Magnesium Total Bilirubin AST ALT Alkaline Phosphatase Troponin I NT-Pro-B Natriuret Pep Total Protein Albumin TSH (Reflex) 01/13/25 01/13/25 01/13/25 05:31 06:23 08:05 WBC 8.1 RBC 4.47 L Hgb 12.9 L Hct 39.1 L MCV 87.5 MCH 28.9 MCHC 33.0 RDW 14.2 Plt Count 251 MPV 9.2 Immature Gran % (Auto) 0.5 Neut % (Auto) 68.9 Lymph % (Auto) 18.0 L [place] % (Auto) 9.5 H Eos % (Auto) 2.2 Baso % (Auto) 0.9 Lymph # (Auto) 1.46 [place] # (Auto) 0.8 H Eos # (Auto) 0.2 Baso # (Auto) 0.1 Abs Immat Gran (auto) 0.04 H Absolute Neuts (auto) 5.6 Absolute Nucleated RBC 0.000 Nucleated RBC % 0.0 PT INR APTT Sodium 136 L Potassium 4.3 Chloride 110 H Carbon Dioxide 19 L Anion Gap 7 BUN 28 H D Creatinine 1.17 Estim Creat Clear Calc 52 Estimated GFR > 60 Glucose 80 POC Capillary Glucose 82 89 Hemoglobin A1c Calcium 9.1 Magnesium 1.8 Total Bilirubin 1.2 AST 22 ALT 18 Alkaline Phosphatase 69 Troponin I NT-Pro-B Natriuret Pep Total Protein 6.6 Albumin 3.5 TSH (Reflex)
[2025-01-13] MEDS: ATORVASTATIN 5 MG TABLET PO (08:51)
[2025-01-13] MEDS: ENOXAPARIN 100 MG/ML SYRINGE 85 MG SUB-Q ×2 (08:51→21:32)
[2025-01-13] MEDS: OMEGA 3 POLYUNSAT FATTY ACIDS 1 GM CAP 4 GM PO (08:52)
[2025-01-13] MEDS: CHOLECALCIFEROL (VITAMIN D3) 25 MCG (1,000 UNITS) TABLET 50 MCG PO (08:53)
[2025-01-13] MEDS: ASPIRIN 81 MG ENTERIC TABLET PO (08:53)
[2025-01-13] MEDS: TACROLIMUS 0.1% 30 GM OINTMENT 1 APPLIC TOPICAL (08:54)
[2025-01-13] MEDS: EMPAGLIFLOZIN 25 MG TABLET PO (08:54)
[2025-01-13] MEDS: SILVER SULFADIAZINE 1% CR 50 GM JAR (*BKC) 1 APPLIC TOPICAL (08:54)
[2025-01-13] MEDS: SODIUM BICARBONATE TAB 650 MG TABLET PO ×2 (08:57→21:33)
--- NOTE | 2025-01-13 09:26 | P.PNCA_ITS ---
<Statement entered by Viri Layton MD - 01/16/25 10:45> The service was provided by the the nurse practitioner independently. i was available in the hospital in case I was needed Progress Note: A&P Assessment and Plan (1) Atrial fibrillation with rapid ventricular response: Code(s): I48.91 - Unspecified atrial fibrillation <SHO Hernandez - Last Filed: 01/13/25 09:30> Status: Acute <SHO Hernandez - Last Filed: 01/13/25 09:30> Assessment and Plan: Presents with atrial fibrillation with rapid ventricular response. This is a new diagnosis. I discussed the diagnosis of atrial fibrillation including pathophysiology, management strategies, risks/complications of atrial fibri llation. Discussed rate control versus rhythm control. Heart rate remains uncontrolled, therefore will proceed with DAPHNE/DCCV today. * He has a CHADS2 Vasc score of at least 4 (age, hypertension, diabetes, peripheral vascular disease). Anticoagulation is indicated. He has been given therapeutic dose Lovenox. Can be shifted to though act, Xarelto 20 mg daily starting tonight * Further recommendations to follow DAPHNE/DCCV today * Echo pending * ApneaLink with AHI 26. Needs outpatient sleep study. <SHO Hernandez - Last Filed: 01/13/25 09:30> (2) Benign essential hypertension: Code(s): I10 - Essential (primary) hypertension <SHO Hernandez - Last Filed: 01/13/25 09:30> Status: Acute <SHO Hernandez - Last Filed: 01/13/25 09:30> Assessment and Plan: Blood pressure goal. <SHO Hernandez - Last Filed: 01/13/25 09:30> (3) Mixed hyperlipidemia: Code(s): E78.2 - Mixed hyperlipidemia <SHO Hernandez - Last Filed: 01/13/25 09:30> Status: Acute <SHO Hernandez - Last Filed: 01/13/25 09:30> Assessment and Plan: Continue statin. <SHO Hernandez - Last Filed: 01/13/25 09:30> Subjective Date/time seen: 01/13/25 09:26 <SHO Hernandez - Last Filed: 01/13/25 09:30> Interval history: Cardiology follow up visit Remains in atrial fibrillation with rapid ventricular response. He remains asymptomatic. <SHO Hernandez - Last Filed: 01/13/25 09:30> Review of Systems Review of Systems: - CONSTITUTIONAL: Denies weight loss, fe gerald and chills. - HEENT: Denies changes in vision and he aring - RESPIRATORY: Denies SOB and cough. - CV: Denies palpitations and CP. - GI: Denies abdominal pain, nausea, vom iting and diarrhea. - : Denies dysuria and urinary frequen cy. - MSK: Denies myalgia and joint pain. - SKIN: Denies rash and pruritus. - NEUROLOGICAL: Denies headache and sync ope. - PSYCHIATRIC: Denies recent changes in mood. Denies anxiety and depression. <Viri Layton MD - Last Filed: 01/16/25 08:43> All systems reviewed & are unremarkable except as noted in HPI and below <SHO Hernandez - Last Filed: 01/13/25 09:30> Exam Narrative: GENERAL: The patient is well developed, not in acute distress HEENT: Nonicteric sclerae, PERRLA, EOMI. Oropharynx clear. Moist mucous membranes. Conjunctivae appear well perfused. CHEST: Chest wall is nontender. HEART: Tachycardic irregularly regular rhythm on the monitor without murmur, rubs, or gallops LUNGS: Clear to auscultation bilaterally. no respiratory distress ABDOMEN: Soft, positive bowel sounds, non-tender, no organomegaly. SKIN: No rash, no excessive bruising, petechiae, or purpura. NEUROLOGIC: Cranial nerves II-XII intact, alert and oriented x 3, no gross motor deficits EXTREMITIES: no edema, cyanosis or clubbing <Viri Layton MD - Last Filed: 01/16/25 08:43> Const: General: comfortable, no acute distress, alert and awake <SHO Hernandez - Last Filed: 01/13/25 09:30> Orientation/consciousness: patient oriented x3 <WALI HernandezC - Last Filed: 01/13/25 09:30> HENMT: Head: normal to inspection <WALI HernandezC - Last Filed: 01/13/25 09:30> Eyes: General: appearance normal, both eyes and all related structures <WALI HernandezC - Last Filed: 01/13/25 09:30> Pupils: Equal, round and reactive pupils present <WALI HernandezC - Last Filed: 01/13/25 09:30> Neck: Neck: normal visual inspection, supple and no JVD <WALI Hernandez - Last Filed: 01/13/25 09:30> Carotids: normal carotid upstroke <SHO Hernandez - Last Filed: 01/13/25 09:30> Resp: Effort & Inspection: normal respiratory effort <WALI Hernandez C - Last Filed: 01/13/25 09:30> Auscultation: clear to auscultation bilaterally <SHO Hernandez - Last Filed: 01/13/25 09:30> Cardio: Rate: tachycardic <SHO Hernandez - Last Filed: 01/13/25 09:30> Rhythm: abnormal rhythm irregularly irregular <SHO Hernandez - Last Filed: 01/13/25 09:30> Heart sounds: S1 normal heart sound present, S2 normal heart sound present and no murmurs <SHO Hernandez - Last Filed: 01/13/25 09:30> GI: Auscultation: normal bowel sounds <SHO Hernandez - Last Filed: 01/13/25 09:30> Skin: General skin exam: normal color <SHO Hernandez - Last Filed: 01/13/25 09:30> Neuro: General: patient oriented x3 <SHO Hernandez - Last Filed: 01/13/25 09:30> Cranial nerves: Yes Equal, round and reactive pupils present <SHO Hernandez - Last Filed: 01/13/25 09:30> Extrem: General: normal to inspection <SHO Hernandez - Last Filed: 01/13/25 09:30> Psych: Appearance: grossly normal <SHO Hernandez - Last Filed: 01/13/25 09:30> Mental Status: mental status grossly normal <SHO Hernandez - Last Filed: 01/13/25 09:30> Objective Data Vital Signs Vital Signs: Vital Signs - 24 hr 01/12/25 10:20 01/12/25 11:04 01/12/25 11:04 Temperature Pulse Rate 132 H 135 H 130 H Respiratory Rate 19 13 Blood Pressure 92/47 L 93/54 L Pulse Oximetry 98 99 Oxygen Delivery Fraction of Inspired Oxygen 01/12/25 11:04 01/12/25 11:40 01/12/25 11:41 Temperature Pulse Rate 120 H 143 H 147 H Respiratory Rate 13 Blood Pressure 93/54 L 106/58 L 106/58 L Pulse Oximetry 97 Oxygen Delivery Fraction of Inspired Oxygen 01/12/25 12:12 01/12/25 12:25 01/12/25 14:00 Temperature 36.6 C 36.4 C L Pulse Rate 137 H 124 H 102 H Respiratory Rate 12 16 Blood Pressure 105/58 L 121/70 Pulse Oximetry 100 100 Oxygen Delivery Fraction of Inspired Oxygen 01/12/25 16:00 01/12/25 16:00 01/12/25 18:00 Temperature 36.6 C Pulse Rate 103 H 93 106 H Respiratory Rate 20 Blood Pressure 110/73 Pulse Oximetry 100 Oxygen Delivery Fraction of Inspired Oxygen 01/12/25 20:00 01/12/25 20:00 01/12/25 21:38 Temperature 36.6 C Pulse Rate 118 H 123 H 120 H Respiratory Rate 20 Blood Pressure 113/61 Pulse Oximetry 100 Oxygen Delivery Fraction of Inspired Oxygen 01/12/25 22:00 01/12/25 22:03 01/12/25 23:51 Temperature 36.6 C Pulse Rate 115 H 91 Respiratory Rate 20 Blood Pressure 120/74 Pulse Oximetry 95 98 Oxygen Delivery Room Air Fraction of Inspired Oxygen 21 01/13/25 00:00 01/13/25 02:00 01/13/25 04:00 Temperature Pulse Rate 120 H 113 H 122 H Respiratory Rate Blood Pressure Pulse Oximetry Oxygen Delivery Fraction of Inspired Oxygen 01/13/25 05:00 01/13/25 05:31 01/13/25 06:00 Temperature 36.6 C Pulse Rate 138 H 136 H 115 H Respiratory Rate 20 Blood Pressure 120/63 Pulse Oximetry 100 Oxygen Delivery Fraction of Inspired Oxygen 01/13/25 08:00 Temperature 36.4 C L Pulse Rate 104 H Respiratory Rate 16 Blood Pressure 108/78 Pulse Oximetry 100 Oxygen Delivery Fraction of Inspired Oxygen <SHO Hernandez - Last Filed: 01/13/25 09:30> Intake/Output Intake/Output: Intake & Output 01/10/25 01/11/25 01/12/25 01/13/25 23:59 23:59 23:59 23:59 Intake Total 2646.8 1000 Balance 2646.8 1000 <SHO Hernandez - Last Filed: 01/13/25 09:30> Meds/Results Medications: Active Medications Generic Name Dose Route Start Last Admin Trade Name Freq PRN Reason Stop Dose Admin Aspirin 81 mg 01/13/25 09:00 01/13/25 08:53 Aspirin 81 Mg Enteric Tablet PO 81 mg DAILY PATRICK Administration Atorvastatin Calcium 5 mg 01/13/25 09:00 01/13/25 08:51 Atorvastatin 5 Mg Tablet PO 5 mg DAILY PATRICK Administration Cilostazol 100 mg 01/13/25 06:30 01/13/25 05:32 Cilostazol 100 Mg Tablet PO 100 mg DAILY@0630 PATRICK Administration Dextrose 12.5 gm 01/12/25 14:34 01/13/25 01:13 Dextrose 50% 25 Gm/50 Ml Syringe IV PUSH 12.5 gm PRN PRN Administration Hypoglycemia Protocol Empagliflozin 25 mg 01/13/25 09:00 01/13/25 08:54 Empagliflozin 25 Mg Tablet PO 25 mg DAILY PATRICK Administration Enoxaparin Sodium 85 mg 01/12/25 22:00 01/13/25 08:51 Enoxaparin 100 Mg/Ml Syringe SUB-Q 85 mg Q12HR PATRICK Administration Fish Oil 4 gm 01/13/25 09:00 01/13/25 08:52 [place] 3 Polyunsat Fatty Acids 1 Gm Cap PO 4 gm DAILY PATRICK Administration Glucagon 1 mg 01/12/25 14:34 Glucagon For Inj 1 Mg Vial IM PRN PRN Hypoglycemia Protocol Glucose 15 gm 01/12/25 14:34 Glucose Oral Gel 15 Gm Of Glucse In 37.5 Gm Tube PO PRN PRN Hypoglycemia Protocol Sodium Chloride 1,000 mls @ 125 mls/hr 01/12/25 11:25 01/13/25 06:04 Normal Saline Iv IV CONT 125 mls/hr .Q8H PATRICK Administration Dextrose 1,000 mls @ 100 mls/hr 01/12/25 14:34 Dextrose 5% 1,000 Ml IVPB PRN PRN Hypoglycemia Protocol Insulin Aspart 2 - 5 units 01/12/25 17:00 01/13/25 08:38 Insulin Aspart (*Bkc) 100 Units/Ml SUB-Q Not Given TIDWM [facility] Protocol Insulin Aspart 1 - 2 units 01/12/25 21:00 01/12/25 21:47 Insulin Aspart (*Bkc) 100 Units/Ml SUB-Q 1 units HS PATRICK Administration Protocol Insulin Human Isoph/Insulin Regular 28 units 01/12/25 16:30 01/13/25 07:51 Insulin Human Isophan/Regular 70/30 (*Bkc) 100 Units/Ml SUB-Q Not Given BIDAC [facility] Metoprolol Tartrate 5 mg 01/12/25 15:06 Metoprolol Tartrate Inj 5 Mg/5 Ml Vial IV PUSH Q2H PRN Tachycardia Metoprolol Tartrate 25 mg 01/12/25 22:00 01/13/25 05:31 Metoprolol Tartrate 25 Mg Tablet PO 25 mg Q8HR PATRICK Administration Miscellaneous Information 1 each 01/12/25 00:01 D/C Doxycycline? External Med History Shows This Was Filled On 07/10/24 Qty #10 For 5 Day XX 02/11/25 00:00 CLARIFY [facility] Miscellaneous Information 1 each 01/12/25 00:01 Rybelsus Is Nonformulary. Can He Use Home Supply? XX 02/11/25 00:00 CLARIFY [facility] Miscellaneous Information 1 each 01/12/25 00:01 Silver Sulfadiazine Order Needs Site Of Application XX 02/11/25 00:00 CLARIFY PATRICK Non-Formulary Medication 100 mg 01/12/25 17:00 Doxycycline Hyclate PO 02/11/25 16:59 BID PATRICK Non-Formulary Medication 6 mg 01/13/25 09:00 Semaglutide [Rybelsus] PO 02/12/25 08:59 DAILY PATRICK Ondansetron HCl 4 mg 01/12/25 11:23 Ondansetron Inj 4 Mg/2 Ml Vial IV PUSH Q4H PRN Nausea Perflutren Lipid Microsphere 0 ml 01/12/25 15:12 Perflutren Lipid Microspheres 1.5 Ml Vial Diluted To 10 Ml Total Volume IV PUSH 01/15/25 15:12 ONCE PRN adequate visualization Protocol Silver Sulfadiazine 1 applic 01/12/25 17:00 01/13/25 08:54 Silver Sulfadiazine 1% Cr 50 Gm Jar (*Bkc) TOPICAL 1 applic BID PATRICK Administration Sitagliptin Phosphate 100 mg 01/13/25 09:00 01/13/25 08:53 Sitagliptin Phosphate 100 Mg Tablet PO 100 mg DAILY PATRICK Administration Sodium Bicarbonate 650 mg 01/12/25 14:25 01/13/25 08:57 Sodium Bicarbonate Tab 650 Mg Tablet PO 650 mg Q12HR PATRICK Administration Tacrolimus 1 applic 01/12/25 21:00 01/13/25 08:54 Tacrolimus 0.1% 30 Gm Ointment TOPICAL 1 applic Q12H PATRICK Administration Vitamin D 50 mcg 01/13/25 09:00 01/13/25 08:53 Cholecalciferol (Vitamin D3) 25 Mcg (1,000 Units) Tablet PO 50 mcg DAILY PATRICK Administration <SHO Hernandez - Last Filed: 01/13/25 09:30> Radiology Results: ITS Impressions Chest X-Ray 01/12/25 09:40 IMPRESSION: 1. No acute cardiopulmonary disease. Chest CTA 01/12/25 10:45 IMPRESSION: 1. No pulmonary embolus identified. 2. No focal pulmonary consolidation. 3. No pulmonary mass. 4. There is a 1.9 cm low-density lesion in the left thyroid lobe. A thyroid ultrasound is recommended. Renal Ultrasound 01/12/25 21:32 Impression: 1: Possible right nephrolithiasis. Otherwise, unremarkable renal ultrasound. <SHO Hernandez - Last Filed: 01/13/25 09:30> Labs Labs: Laboratory Results - last 24 hr 01/12/25 01/12/25 01/12/25 08:35 13:31 16:46 WBC RBC Hgb Hct MCV MCH MCHC RDW Plt Count MPV Immature Gran % (Auto) Neut % (Auto) Lymph % (Auto) [place] % (Auto) Eos % (Auto) Baso % (Auto) Lymph # (Auto) [place] # (Auto) Eos # (Auto) Baso # (Auto) Abs Immat Gran (auto) Absolute Neuts (auto) Absolute Nucleated RBC Nucleated RBC % Sodium 132 L Potassium 5.3 H Chloride 107 Carbon Dioxide 16 L Anion Gap 9 BUN 41 H Creatinine 1.62 H Estim Creat Clear Calc 39 Estimated GFR 42 L Glucose 213 H POC Capillary Glucose 273 H Hemoglobin A1c 6.7 H Calcium 9.8 Magnesium Total Bilirubin AST ALT Alkaline Phosphatase NT-Pro-B Natriuret Pep 361 H Total Protein Albumin TSH (Reflex) 1.600 01/12/25 01/13/25 01/13/25 20:16 01:02 01:31 WBC RBC Hgb Hct MCV MCH MCHC RDW Plt Count MPV Immature Gran % (Auto) Neut % (Auto) Lymph % (Auto) [place] % (Auto) Eos % (Auto) Baso % (Auto) Lymph # (Auto) [place] # (Auto) Eos # (Auto) Baso # (Auto) Abs Immat Gran (auto) Absolute Neuts (auto) Absolute Nucleated RBC Nucleated RBC % Sodium Potassium Chloride Carbon Dioxide Anion Gap BUN Creatinine Estim Creat Clear Calc Estimated GFR Glucose POC Capillary Glucose 213 H 51 L* 109 H Hemoglobin A1c Calcium Magnesium Total Bilirubin AST ALT Alkaline Phosphatase NT-Pro-B Natriuret Pep Total Protein Albumin TSH (Reflex) 01/13/25 01/13/25 01/13/25 05:31 06:23 08:05 WBC 8.1 RBC 4.47 L Hgb 12.9 L Hct 39.1 L MCV 87.5 MCH 28.9 MCHC 33.0 RDW 14.2 Plt Count 251 MPV 9.2 Immature Gran % (Auto) 0.5 Neut % (Auto) 68.9 Lymph % (Auto) 18.0 L [place] % (Auto) 9.5 H Eos % (Auto) 2.2 Baso % (Auto) 0.9 Lymph # (Auto) 1.46 [place] # (Auto) 0.8 H Eos # (Auto) 0.2 Baso # (Auto) 0.1 Abs Immat Gran (auto) 0.04 H Absolute Neuts (auto) 5.6 Absolute Nucleated RBC 0.000 Nucleated RBC % 0.0 Sodium 136 L Potassium 4.3 Chloride 110 H Carbon Dioxide 19 L Anion Gap 7 BUN 28 H D Creatinine 1.17 Estim Creat Clear Calc 52 Estimated GFR > 60 Glucose 80 POC Capillary Glucose 82 89 Hemoglobin A1c Calcium 9.1 Magnesium 1.8 Total Bilirubin 1.2 AST 22 ALT 18 Alkaline Phosphatase 69 NT-Pro-B Natriuret Pep Total Protein 6.6 Albumin 3.5 TSH (Reflex) <Glo Reagan [employer] - Last Filed: 01/13/25 09:30>
[2025-01-13] MEDS: dilTIAZem 100 MG/100 ML 100 MG/100 ML BAG IV CONT (11:07)
--- NOTE | 2025-01-13 11:46 | PC.NURSE ---
Per patient and family request, train planner contacted to see the patient for further education on Dexcom monitor. The patient family state they can have the monitor here tonight or definitely tomorrow and ask that he/she come and see them tomorrow 01/14/2025. This RN did leave a message with the educator to see the patient tomorrow.
--- NOTE | 2025-01-13 13:55 | PHAR ---
The patient's home med of Rybelsus 3mg (dose = 6mg) has been verified.
[2025-01-13] MEDS: DOXYCYCLINE HYCLATE 100 MG TABLET PO ×2 (14:36→21:33)
[2025-01-13] MEDS: INSULIN ASPART (*BKC) 100 UNITS/ML SUB-Q (15:55)
[2025-01-13] MEDS: INSULIN HUMAN ISOPHAN/REGULAR 70/30 (*BKC) 100 UNITS/ML 28 UNITS SUB-Q (15:57)
[2025-01-14] VITALS (34 sets, daily range): BP systolic 73–141; BP diastolic 40–95; PULSE 77–137; RESP 12–20; TEMP 36.4–36.7; O2SAT 96–100
--- NOTE | 2025-01-14 | ECHO_ITS ---
Patient Info Name: Dylan Noel Age: 69 years : 1955 Gender: Male HR: 122 bpm Technical Quality: Good Exam Date: 01/14/2025 7:35 AM Patient Status: I Admit Date: 01/13/2025 Exam Type: CA echo transesophageal Complete two-dimensional, color flow and Doppler transesophageal study is performed. Staff Referring Physician: Juan Miguel Frias Switchboard Operator Supervisor: Polly Hernandez Attending Provider: Sky Licea Recommendations * Cancel cardioversion. * AV maria d agents for rate control. * repeat DAPHNE after 4-6 weeks of anticoagulation. Report Signatures
[2025-01-14] MEDS: SODIUM CHLORIDE 0.9% IV 500 ML IV CONT (01:14)
[2025-01-14 03:54] LABS: Hematocrit 39.0 % (42.0-52.0); Hemoglobin 12.7 g/dL (14.0-18.0); Immature Granulocyte Percent A 0.7 % (0-0.5); Lymphocytes Absolute Auto 1.75 K/mm3 (0.9-3.2); Mean Corpuscular HGB Conc 32.6 g/dl (32-36); Mean Corpuscular Hemoglobin 28.5 pg (26-34); Mean Corpuscular Volume 87.6 fl (80-100); Nucleated Red Blood Cells Absolute Auto 0.000 K/mm3 (0.0-0.012); Nucleated Red Blood Cells Perc 0.0 % (0.0-0.2); Platelet Count Result 229 k/mm3 (150-375); Red Blood Count 4.45 M/mm3 (4.6-6.20); White Blood Count 7.6 K/mm3 (4.5-10.0)
[2025-01-14 04:10] LABS: Alanine Aminotransferase 19 U/L (6-50); Albumin Level 3.3 g/dL (3.5-5.1); Alkaline Phosphatase 71 U/L (38-126); Anion Gap 6 mmol/L (4-12); Aspartate Amino Transferase 24 U/L (17-59); Bilirubin,Total 0.9 mg/dL (0.2-1.3); Blood Urea Nitrogen 24 mg/dL (9-20); Calcium 9.1 mg/dL (8.4-10.2); Carbon Dioxide 19 mmol/L (22-30); Chloride 110 mmol/L (98-107); Estimated CRCL calculation 48 ml/min; Estimated Glomerular Filt Rate 56; Glucose 124 mg/dL (65-110); Magnesium 1.9 mg/dL (1.6-2.3); Potassium 4.0 mmol/L (3.4-5.0); Sodium 135 mmol/L (137-145); Total Protein 6.2 g/dL (6.3-8.2)
[2025-01-14] MEDS: METOPROLOL TARTRATE 25 MG TABLET PO ×3 (05:07→17:20)
--- NOTE | 2025-01-14 07:56 | PC.NURSE ---
This RN spoke with Dr. Layton for clarification of medications to be given this AM. Give cardiac medications as well as the Lovenox. Hold all other medications until after procedure.
--- NOTE | 2025-01-14 08:07 | PM.IMPN ---
Progress Note: A&P Assessment and Plan (1) Benign essential hypertension: Code(s): I10 - Essential (primary) hypertension Status: Acute (2) PVD (peripheral vascular disease): Code(s): I73.9 - Peripheral vascular disease, unspecified Status: Acute (3) Type 2 diabetes mellitus with diabetic neuropathy, unspecified: Qualifiers: Diabetes mellitus termite treater insulin use: with custodial use Qualified Code(s): E11.40 - Type 2 diabetes mellitus with diabetic neuropathy, unspecified; Z79.4 - [facility] (current) use of insulin Code(s): E11.40 - Type 2 diabetes mellitus with diabetic neuropathy, unspecified Status: Acute (4) Vitamin D deficiency: Code(s): E55.9 - Vitamin D deficiency, unspecified Status: Acute (5) BRIANNE (acute kidney injury): Code(s): N17.9 - Acute kidney failure, unspecified Status: Acute (6) Acute hyperkalemia: Code(s): E87.5 - Hyperkalemia Status: Acute (7) Atrial fibrillation with rapid ventricular response: Code(s): I48.91 - Unspecified atrial fibrillation Status: Acute Plan This is a 69-year-old male who presents from the PCPs office for evaluation of elevated heart rate. He went in for annual wellness checkup today when he was found to have a heart rate of 180. He was referred to ED for evaluation. He reports no other symptoms no chest pain shortness of breath. In the ED he was noted to be tachycardic up to 100 and 50s. Laboratory workup revealed WBC of 9.6 hemoglobin of 13.4 platelet of 285 sodium of 130 potassium 5.6 chloride 106 bicarbonate 14 BUN 45 creatinine 1.84 his baseline is 1.2 blood glucose of 287. Calcium 10.0 magnesium 1.8 LFTs were normal troponin was negative with less than 0.012 BNP was 361. TSH was normal at 1.6. EKG showed atrial fibrillation with rapid ventricular response A received a dose of IV Cardizem. Blood pressure dropped to 90s. Due to persistent elevation of the heart rate he received a dose of IV digoxin. He has been admitted in this setting for further treatment. Newly diagnosed atrial fibrillation with rapid ventricular rate cardiology on board. Received IV Cardizem and IV digoxin in the ER. Further management per Cardiology. His chads Vasc score is at least 4. He will need long-term anticoagulation was placed on Lovenox twice a day. Currently on metoprolol per Cardiology. Tentative DAPHNE with cardioversion planned for today. BRIANNE on CKD stage 3 creatinine 1.8 baseline 1.2 resolved with IV fluids. Stop IV fluids Hyponatremia likely dehydration continue to monitor within normal saline. Resolved Hyperkalemia will give a dose of Lokelma and normalized today Metabolic acidosis start bicarb oral Type 2 diabetes on insulin. SSI A1c at 6.7. Will hold 70 30 Hypertension cold medication Peripheral vascular disease Vitamin-D deficiency Code status full code DVT prophylaxis Lovenox received full dose in the ER plan to switch to Xarelto Subjective Date/time seen: 01/14/25 08:07 Interval history: no overnight events, patient remains on afib with rvr. patient denies any sob or chest pain. Review of Systems Review of Systems: All systems reviewed & are unremarkable except as noted in HPI and below Exam Narrative: GENERAL: The patient is well developed, not in acute distress HEENT: Nonicteric sclerae, PERRLA, EOMI. Oropharynx clear. Moist mucous membranes. Conjunctivae appear well perfused. CHEST: Chest wall is nontender. HEART: Tachycardic irregularly regular rhythm on the monitor without murmur, rubs, or gallops LUNGS: Clear to auscultation bilaterally. no respiratory distress ABDOMEN: Soft, positive bowel sounds, non-tender, no organomegaly. SKIN: No rash, no excessive bruising, petechiae, or purpura. NEUROLOGIC: Cranial nerves II-XII intact, alert and oriented x 3, no gross motor deficits EXTREMITIES: no edema, cyanosis or clubbing Objective Data Vital Signs Vital Signs: Vital Signs - 24 hr 01/13/25 10:00 01/13/25 11:07 01/13/25 11:27 Temperature 98.1 F Pulse Rate 137 H 137 H 137 H Respiratory Rate 12 Blood Pressure 103/73 103/73 Pulse Oximetry 100 Oxygen Delivery Fraction of Inspired Oxygen 01/13/25 12:00 01/13/25 12:00 01/13/25 14:00 Temperature 97.7 F Pulse Rate 130 H 130 H 117 H Respiratory Rate 12 16 Blood Pressure 110/73 Pulse Oximetry 100 98 Oxygen Delivery Room Air Fraction of Inspired Oxygen 21 01/13/25 14:00 01/13/25 14:37 01/13/25 14:39 Temperature Pulse Rate 120 H 131 H 131 H Respiratory Rate Blood Pressure 98/55 L Pulse Oximetry Oxygen Delivery Fraction of Inspired Oxygen 01/13/25 16:00 01/13/25 16:00 01/13/25 16:00 Temperature 98.2 F Pulse Rate 127 H 129 H 129 H Respiratory Rate 12 12 Blood Pressure 102/50 L Pulse Oximetry 96 96 Oxygen Delivery Room Air Fraction of Inspired Oxygen 21 01/13/25 18:00 01/13/25 18:00 01/13/25 20:00 Temperature 98.1 F 98.0 F Pulse Rate 104 H 115 H 100 Respiratory Rate 20 20 Blood Pressure 92/49 L 100/41 L Pulse Oximetry 100 98 Oxygen Delivery Fraction of Inspired Oxygen 01/13/25 20:00 01/13/25 20:00 01/13/25 21:32 Temperature Pulse Rate 120 H 108 H 103 H Respiratory Rate Blood Pressure 100/41 L Pulse Oximetry Oxygen Delivery Fraction of Inspired Oxygen 01/13/25 22:00 01/13/25 22:00 01/13/25 22:00 Temperature Pulse Rate 90 82 118 H Respiratory Rate 20 Blood Pressure 96/62 L 96/62 L Pulse Oximetry 98 Oxygen Delivery Fraction of Inspired Oxygen 01/14/25 00:00 01/14/25 00:00 01/14/25 00:00 Temperature Pulse Rate 81 100 Respiratory Rate Blood Pressure 79/48 L 73/48 L Pulse Oximetry Oxygen Delivery Fraction of Inspired Oxygen 01/14/25 00:09 01/14/25 00:15 01/14/25 00:35 Temperature 97.8 F Pulse Rate 77 86 Respiratory Rate 20 Blood Pressure 73/58 L 84/45 L 79/53 L Pulse Oximetry 100 Oxygen Delivery Fraction of Inspired Oxygen 01/14/25 00:37 01/14/25 02:00 01/14/25 02:00 Temperature Pulse Rate 88 102 H 82 Respiratory Rate 20 20 Blood Pressure 73/58 L 97/53 L Pulse Oximetry 98 98 Oxygen Delivery Room Air Fraction of Inspired Oxygen 01/14/25 03:37 01/14/25 04:00 01/14/25 05:07 Temperature 97.7 F Pulse Rate 111 H 92 110 H Respiratory Rate 20 Blood Pressure 86/44 L Pulse Oximetry 96 Oxygen Delivery Fraction of Inspired Oxygen 01/14/25 05:11 01/14/25 06:00 01/14/25 07:40 Temperature 97.7 F Pulse Rate 115 H 130 H Respiratory Rate 16 Blood Pressure 97/41 L 119/75 Pulse Oximetry 100 Oxygen Delivery Fraction of Inspired Oxygen Intake/Output Intake/Output: Intake & Output 01/11/25 01/12/25 01/13/25 01/14/25 23:59 23:59 23:59 23:59 Intake Total 2646.8 2012.7 512.9 Balance 2646.8 7 512.9 Meds/Results Medications: Active Medications Generic Name Dose Route Start Last Admin Trade Name Freq PRN Reason Stop Dose Admin Aspirin 81 mg 01/13/25 09:00 01/13/25 08:53 Aspirin 81 Mg Enteric Tablet PO 81 mg DAILY PATRICK Administration Atorvastatin Calcium 5 mg 01/13/25 09:00 01/13/25 08:51 Atorvastatin 5 Mg Tablet PO 5 mg DAILY PATRICK Administration Cilostazol 100 mg 01/13/25 06:30 01/14/25 05:07 Cilostazol 100 Mg Tablet PO 100 mg DAILY@0630 PATRICK Administration Dextrose 12.5 gm 01/12/25 14:34 01/13/25 01:13 Dextrose 50% 25 Gm/50 Ml Syringe IV PUSH 12.5 gm PRN PRN Administration Hypoglycemia Protocol Doxycycline Hyclate 100 mg 01/13/25 13:00 01/13/25 21:33 Doxycycline Hyclate 100 Mg Tablet PO 100 mg Q12HR PATRICK Administration Empagliflozin 25 mg 01/13/25 09:00 01/13/25 08:54 Empagliflozin 25 Mg Tablet PO 25 mg DAILY PATRICK Administration Enoxaparin Sodium 85 mg 01/12/25 22:00 01/13/25 21:32 Enoxaparin 100 Mg/Ml Syringe SUB-Q 85 mg Q12HR PATRICK Administration Fish Oil 4 gm 01/13/25 09:00 01/13/25 08:52 [place] 3 Polyunsat Fatty Acids 1 Gm Cap PO 4 gm DAILY PATRICK Administration Glucagon 1 mg 01/12/25 14:34 Glucagon For Inj 1 Mg Vial IM PRN PRN Hypoglycemia Protocol Glucose 15 gm 01/12/25 14:34 Glucose Oral Gel 15 Gm Of Glucse In 37.5 Gm Tube PO PRN PRN Hypoglycemia Protocol Dextrose 1,000 mls @ 100 mls/hr 01/12/25 14:34 Dextrose 5% 1,000 Ml IVPB PRN PRN Hypoglycemia Protocol Insulin Aspart 2 - 5 units 01/12/25 17:00 01/13/25 15:55 Insulin Aspart (*Bkc) 100 Units/Ml SUB-Q 2 units TIDWM PATRICK Administration Protocol Insulin Aspart 1 - 2 units 01/12/25 21:00 01/13/25 23:10 Insulin Aspart (*Bkc) 100 Units/Ml SUB-Q Not Given HS PATRICK Protocol Insulin Human Isoph/Insulin Regular 28 units 01/12/25 16:30 01/13/25 15:57 Insulin Human Isophan/Regular 70/30 (*Bkc) 100 Units/Ml SUB-Q 28 units BIDAC PATRICK Administration Metoprolol Tartrate 5 mg 01/12/25 15:06 Metoprolol Tartrate Inj 5 Mg/5 Ml Vial IV PUSH Q2H PRN Tachycardia Metoprolol Tartrate 25 mg 01/12/25 22:00 01/14/25 05:07 Metoprolol Tartrate 25 Mg Tablet PO 25 mg Q8HR PATRICK Administration Non-Formulary Medication 0 mg 01/13/25 13:55 01/13/25 14:31 Semaglutide [Rybelsus] PO 02/12/25 13:54 Not Given DAILY PATRICK Ondansetron HCl 4 mg 01/12/25 11:23 Ondansetron Inj 4 Mg/2 Ml Vial IV PUSH Q4H PRN Nausea Perflutren Lipid Microsphere 0 ml 01/12/25 15:12 Perflutren Lipid Microspheres 1.5 Ml Vial Diluted To 10 Ml Total Volume IV PUSH 01/15/25 15:12 ONCE PRN adequate visualization Protocol Sitagliptin Phosphate 100 mg 01/13/25 09:00 01/13/25 08:53 Sitagliptin Phosphate 100 Mg Tablet PO 100 mg DAILY PATRICK Administration Sodium Bicarbonate 650 mg 01/12/25 14:25 01/13/25 21:33 Sodium Bicarbonate Tab 650 Mg Tablet PO 650 mg Q12HR PATRICK Administration Tacrolimus 1 applic 01/12/25 21:00 01/13/25 23:11 Tacrolimus 0.1% 30 Gm Ointment TOPICAL Not Given Q12H PATRICK Vitamin D 50 mcg 01/13/25 09:00 01/13/25 08:53 Cholecalciferol (Vitamin D3) 25 Mcg (1,000 Units) Tablet PO 50 mcg DAILY PATRICK Administration Radiology Results: ITS Impressions Chest X-Ray 01/12/25 09:40 IMPRESSION: 1. No acute cardiopulmonary disease. Chest CTA 01/12/25 10:45 IMPRESSION: 1. No pulmonary embolus identified. 2. No focal pulmonary consolidation. 3. No pulmonary mass. 4. There is a 1.9 cm low-density lesion in the left thyroid lobe. A thyroid ultrasound is recommended. Renal Ultrasound 01/12/25 21:32 Impression: 1: Possible right nephrolithiasis. Otherwise, unremarkable renal ultrasound. Labs Labs: Laboratory Results - last 24 hr 01/13/25 01/13/25 01/13/25 08:05 11:29 15:25 WBC RBC Hgb Hct MCV MCH MCHC RDW Plt Count MPV Immature Gran % (Auto) Neut % (Auto) Lymph % (Auto) [place] % (Auto) Eos % (Auto) Baso % (Auto) Lymph # (Auto) [place] # (Auto) Eos # (Auto) Baso # (Auto) Abs Immat Gran (auto) Absolute Neuts (auto) Absolute Nucleated RBC Nucleated RBC % Sodium Potassium Chloride Carbon Dioxide Anion Gap BUN Creatinine Estim Creat Clear Calc Estimated GFR Glucose POC Capillary Glucose 89 101 216 H Calcium Magnesium Total Bilirubin AST ALT Alkaline Phosphatase Total Protein Albumin 01/13/25 01/14/25 01/14/25 19:42 03:48 07:23 WBC 7.6 RBC 4.45 L Hgb 12.7 L Hct 39.0 L MCV 87.6 MCH 28.5 MCHC 32.6 RDW 14.1 Plt Count 229 MPV 8.9 Immature Gran % (Auto) 0.7 H Neut % (Auto) 61.8 Lymph % (Auto) 22.9 [place] % (Auto) 11.0 H Eos % (Auto) 2.7 Baso % (Auto) 0.9 Lymph # (Auto) 1.75 [place] # (Auto) 0.8 H Eos # (Auto) 0.2 Baso # (Auto) 0.1 Abs Immat Gran (auto) 0.05 H Absolute Neuts (auto) 4.7 Absolute Nucleated RBC 0.000 Nucleated RBC % 0.0 Sodium 135 L Potassium 4.0 Chloride 110 H Carbon Dioxide 19 L Anion Gap 6 BUN 24 H Creatinine 1.27 Estim Creat Clear Calc 48 Estimated GFR 56 L Glucose 124 H POC Capillary Glucose 232 H 119 H Calcium 9.1 Magnesium 1.9 Total Bilirubin 0.9 AST 24 ALT 19 Alkaline Phosphatase 71 Total Protein 6.2 L Albumin 3.3 L
[2025-01-14] MEDS: ENOXAPARIN 100 MG/ML SYRINGE 85 MG SUB-Q ×2 (08:13→21:05)
[2025-01-14] MEDS: EMPAGLIFLOZIN 25 MG TABLET PO (08:13)
[2025-01-14] MEDS: ASPIRIN 81 MG ENTERIC TABLET PO (08:13)
--- NOTE | 2025-01-14 08:16 | PC.NURSE ---
Pt to cleaning laborer for DAPHNE w/ Cardioversion. Family at bedside
--- NOTE | 2025-01-14 08:30 | ECG_ITS ---
Test Date: 2025-01-14 08:22:38 Measurements Intervals Pep Rate: 110 P: 0 DC: 0 QRS: -59 QRSD: 113 T: 95 QT: 319 QTc: 432 Interpretive Statements ATRIAL FIBRILLATION WITH RAPID VENTRICULAR RESPONSE LEFT ANTERIOR FASCICULAR BLOCK BORDERLINE ST-T WAVE ABNORMALITY- HIGH LATERAL LEADS ABNORMAL ECG Compared to ECG 01/12/2025 08:01:22 HEART RATE HAS DECREASED Electronically Signed On 01-14-2025 08:58:37 CDT by Drake Bergeron D.O.
[2025-01-14] MEDS: fentaNYL CITRATE INJ (*CRX) 100 MCG/2 ML VIAL 50 MCG IV PUSH (09:05)
[2025-01-14] MEDS: MIDAZOLAM HCL (*CRX) 2 MG/2 ML VIAL IV PUSH (09:05)
[2025-01-14] MEDS: ATORVASTATIN 5 MG TABLET PO (11:09)
[2025-01-14] MEDS: OMEGA 3 POLYUNSAT FATTY ACIDS 1 GM CAP 4 GM PO (11:10)
[2025-01-14] MEDS: CHOLECALCIFEROL (VITAMIN D3) 25 MCG (1,000 UNITS) TABLET 50 MCG PO (11:10)
[2025-01-14] MEDS: SODIUM BICARBONATE TAB 650 MG TABLET PO ×2 (11:10→21:05)
[2025-01-14] MEDS: DOXYCYCLINE HYCLATE 100 MG TABLET PO ×2 (11:10→21:05)
[2025-01-14] MEDS: DIGOXIN INJ 250 MCG/ML 2 ML AMP (*BKC) 500 MCG IV PUSH ×2 (11:11→17:20)
[2025-01-14] MEDS: SEMAGLUTIDE 3 MG PO (11:12)
[2025-01-14] MEDS: [UNRECOGNIZED DRUG - OTHER] PO (11:12)
--- NOTE | 2025-01-14 16:56 | WPDTEECHO ---
DAPHNE TransEsophageal Echocardiogram Date of procedure: 01/14/25 Procedure Type: Transthoracic echocardiogram Diagnosis: Atrial fibrillation with RVR Indications: Controlled atrial fibrillation with RVR Image Quality: Fair Findings: -smoke in the left atrium and left atrial appendage -lower loss at the in the left atrial appendage -suspected thrombus in the left atrial appendage Conclusions: -cancel cardioversion -continue rate control with AV maria d blocking agents -continue anticoagulation, can be transitioned to on oral DOAC -REPEAT DAPHNE IN 4-6 WEEKS FOR A REPEAT ATTEMPT AT CARDIOVERSION IF STILL IN ATRIAL FIBRILLATION
[2025-01-14] MEDS: INSULIN HUMAN ISOPHAN/REGULAR 70/30 (*BKC) 100 UNITS/ML 28 UNITS SUB-Q (17:20)
[2025-01-15] VITALS (23 sets, daily range): BP systolic 101–138; BP diastolic 49–79; PULSE 80–133; RESP 14–18; TEMP 36.6–37; O2SAT 97–100
[2025-01-15] MEDS: METOPROLOL TARTRATE 25 MG TABLET PO ×5 (00:07→23:07)
--- NOTE | 2025-01-15 08:32 | P.PNIM_ITS ---
Progress Note: A&P Assessment and Plan (1) Benign essential hypertension: Code(s): I10 - Essential (primary) hypertension Status: Acute (2) PVD (peripheral vascular disease): Code(s): I73.9 - Peripheral vascular disease, unspecified Status: Acute (3) Type 2 diabetes mellitus with diabetic neuropathy, unspecified: Qualifiers: Diabetes mellitus exterminator termite insulin use: with custodial use Qualified Code(s): E11.40 - Type 2 diabetes mellitus with diabetic neuropathy, unspecified; Z79.4 - senior living (current) use of insulin Code(s): E11.40 - Type 2 diabetes mellitus with diabetic neuropathy, unspecified Status: Acute (4) Vitamin D deficiency: Code(s): E55.9 - Vitamin D deficiency, unspecified Status: Acute (5) BRIANNE (acute kidney injury): Code(s): N17.9 - Acute kidney failure, unspecified Status: Acute (6) Acute hyperkalemia: Code(s): E87.5 - Hyperkalemia Status: Acute (7) Atrial fibrillation with rapid ventricular response: Code(s): I48.91 - Unspecified atrial fibrillation Status: Acute Plan This is a 69-year-old male who presents from the PCPs office for evaluation of elevated heart rate. He went in for annual wellness checkup today when he was found to have a heart rate of 180. He was referred to ED for evaluation. He reports no other symptoms no chest pain shortness of breath. In the ED he was noted to be tachycardic up to 100 and 50s. Laboratory workup revealed WBC of 9.6 hemoglobin of 13.4 platelet of 285 sodium of 130 potassium 5.6 chloride 106 bicarbonate 14 BUN 45 creatinine 1.84 his baseline is 1.2 blood glucose of 287. Calcium 10.0 magnesium 1.8 LFTs were normal troponin was negative with less than 0.012 BNP was 361. TSH was normal at 1.6. EKG showed atrial fibrillation with rapid ventricular response A received a dose of IV Cardizem. Blood pressure dropped to 90s. Due to persistent elevation of the heart rate he received a dose of IV digoxin. He has been admitted in this setting for further treatment. Newly diagnosed atrial fibrillation with rapid ventricular rate cardiology on board. Received IV Cardizem and IV digoxin in the ER. Further management per Cardiology. His chads Vasc score is at least 4. He will need long-term anticoagulation was placed on Lovenox twice a day. Currently on metoprolol per Cardiology. Underwent DAPHNE 01/14/2025 which showed smoking left atrium and left atrial appendage suspected thrombus in left atrial appendage. Plan DAPHNE in 4-6 weeks for repeat attempt at cardioversion if still in atrial fibrillation. BRIANNE on CKD stage 3 creatinine 1.8 baseline 1.2 resolved with IV fluids. Stop IV fluids Hyponatremia likely dehydration continue to monitor within normal saline. Resolved Hyperkalemia will give a dose of Lokelma and normalized Metabolic acidosis start bicarb oral Type 2 diabetes on insulin. SSI A1c at 6.7. Will hold 70 30 Hypertension: Home Medication. Valsartan hydrochlorothiazide on hold Peripheral vascular disease Vitamin-D deficiency Code status full code DVT prophylaxis Lovenox received full dose in the ER plan to switch to Xarelto Subjective Date/time seen: 01/15/25 08:32 Interval history: DAPHNE finding reviewed. No other complaints. Still in AFib with RVR. Discussed with the nursing staff. Review of Systems Review of Systems: All systems reviewed & are unremarkable except as noted in HPI and below Exam Narrative: GENERAL: The patient is well developed, not in acute distress HEENT: Nonicteric sclerae, PERRLA, EOMI. Oropharynx clear. Moist mucous membranes. Conjunctivae appear well perfused. CHEST: Chest wall is nontender. HEART: Tachycardic irregularly regular rhythm on the monitor without murmur, rubs, or gallops LUNGS: Clear to auscultation bilaterally. no respiratory distress ABDOMEN: Soft, positive bowel sounds, non-tender, no organomegaly. SKIN: No rash, no excessive bruising, petechiae, or purpura. NEUROLOGIC: Cranial nerves II-XII intact, alert and oriented x 3, no gross motor deficits EXTREMITIES: no edema, cyanosis or clubbing Objective Data Vital Signs Vital Signs: Vital Signs - 24 hr 01/14/25 09:00 01/14/25 09:05 01/14/25 09:10 Temperature Pulse Rate 114 H 105 H 111 H Respiratory Rate 14 14 13 Blood Pressure 115/75 97/68 L 112/78 Pulse Oximetry 99 100 99 Oxygen Delivery Oxygen Flow Rate 2 2 2 Fraction of Inspired Oxygen 01/14/25 09:15 01/14/25 09:30 01/14/25 09:45 Temperature Pulse Rate 123 H 121 H 112 H Respiratory Rate 14 13 16 Blood Pressure 97/64 L 81/55 L 95/53 L Pulse Oximetry 96 96 96 Oxygen Delivery Room Air Room Air Room Air Oxygen Flow Rate Fraction of Inspired Oxygen 01/14/25 10:00 01/14/25 10:00 01/14/25 10:30 Temperature Pulse Rate 116 H 108 H 101 H Respiratory Rate 15 15 Blood Pressure 90/55 L 90/63 L Pulse Oximetry 96 97 Oxygen Delivery Room Air Room Air Oxygen Flow Rate Fraction of Inspired Oxygen 01/14/25 11:11 01/14/25 11:42 01/14/25 12:00 Temperature 97.5 F L Pulse Rate 132 H 116 H 116 H Respiratory Rate 16 16 Blood Pressure 111/72 Pulse Oximetry 100 100 Oxygen Delivery Room Air Oxygen Flow Rate Fraction of Inspired Oxygen 01/14/25 12:00 01/14/25 14:00 01/14/25 14:02 Temperature Pulse Rate 118 H 114 H 136 H Respiratory Rate Blood Pressure Pulse Oximetry Oxygen Delivery Oxygen Flow Rate Fraction of Inspired Oxygen 01/14/25 14:02 01/14/25 16:00 01/14/25 16:00 Temperature 98.1 F Pulse Rate 108 H 108 H Respiratory Rate 12 12 Blood Pressure 141/95 H 115/51 L Pulse Oximetry 96 96 Oxygen Delivery Room Air Oxygen Flow Rate Fraction of Inspired Oxygen 01/14/25 16:00 01/14/25 17:20 01/14/25 17:20 Temperature Pulse Rate 104 H 135 H 135 H Respiratory Rate Blood Pressure Pulse Oximetry Oxygen Delivery Oxygen Flow Rate Fraction of Inspired Oxygen 01/14/25 17:24 01/14/25 18:00 01/14/25 20:00 Temperature 98.0 F Pulse Rate 104 H 101 H Respiratory Rate 14 Blood Pressure 112/62 95/40 L Pulse Oximetry 100 Oxygen Delivery Oxygen Flow Rate Fraction of Inspired Oxygen 01/14/25 20:00 01/14/25 20:00 01/14/25 21:30 Temperature Pulse Rate 92 118 H Respiratory Rate Blood Pressure Pulse Oximetry 98 96 Oxygen Delivery Room Air Room Air Oxygen Flow Rate Fraction of Inspired Oxygen 21 01/14/25 22:00 01/14/25 23:53 01/15/25 00:00 Temperature Pulse Rate 87 85 108 H Respiratory Rate Blood Pressure Pulse Oximetry 98 Oxygen Delivery Room Air Oxygen Flow Rate Fraction of Inspired Oxygen 01/15/25 00:07 01/15/25 00:23 01/15/25 02:00 Temperature 98 F Pulse Rate 90 94 104 H Respiratory Rate 14 Blood Pressure 107/52 L Pulse Oximetry 98 Oxygen Delivery Oxygen Flow Rate Fraction of Inspired Oxygen 01/15/25 03:58 01/15/25 04:00 01/15/25 04:00 Temperature 98 F Pulse Rate 94 92 86 Respiratory Rate 14 Blood Pressure 138/77 Pulse Oximetry 97 98 Oxygen Delivery Room Air Oxygen Flow Rate Fraction of Inspired Oxygen 01/15/25 05:29 01/15/25 06:00 01/15/25 07:34 Temperature 98.1 F Pulse Rate 108 H 89 123 H Respiratory Rate 18 Blood Pressure 132/79 Pulse Oximetry 99 Oxygen Delivery Oxygen Flow Rate Fraction of Inspired Oxygen Intake/Output Intake/Output: Intake & Output 01/12/25 01/13/25 01/14/25 01/15/25 23:59 23:59 23:59 23:59 Intake Total 2646.8 2012.7 992.9 Balance 2646.8 2012.7 992.9 Meds/Results Medications: Active Medications Generic Name Dose Route Start Last Admin Trade Name Freq PRN Reason Stop Dose Admin Aspirin 81 mg 01/13/25 09:00 01/14/25 08:13 Aspirin 81 Mg Enteric Tablet PO 81 mg DAILY PATRICK Administration Atorvastatin Calcium 5 mg 01/13/25 09:00 01/14/25 11:09 Atorvastatin 5 Mg Tablet PO 5 mg DAILY PATRICK Administration Cilostazol 100 mg 01/13/25 06:30 01/15/25 05:29 Cilostazol 100 Mg Tablet PO 100 mg DAILY@0630 PATRICK Administration Dextrose 12.5 gm 01/12/25 14:34 01/13/25 01:13 Dextrose 50% 25 Gm/50 Ml Syringe IV PUSH 12.5 gm PRN PRN Administration Hypoglycemia Protocol Doxycycline Hyclate 100 mg 01/13/25 13:00 01/14/25 21:05 Doxycycline Hyclate 100 Mg Tablet PO 100 mg Q12HR PATRICK Administration Empagliflozin 25 mg 01/13/25 09:00 01/14/25 08:13 Empagliflozin 25 Mg Tablet PO 25 mg DAILY PATRICK Administration Enoxaparin Sodium 85 mg 01/12/25 22:00 01/14/25 21:05 Enoxaparin 100 Mg/Ml Syringe SUB-Q 85 mg Q12HR PATRICK Administration Fish Oil 4 gm 01/13/25 09:00 01/14/25 11:10 [place] 3 Polyunsat Fatty Acids 1 Gm Cap PO 4 gm DAILY PATRICK Administration Glucagon 1 mg 01/12/25 14:34 Glucagon For Inj 1 Mg Vial IM PRN PRN Hypoglycemia Protocol Glucose 15 gm 01/12/25 14:34 Glucose Oral Gel 15 Gm Of Glucse In 37.5 Gm Tube PO PRN PRN Hypoglycemia Protocol Dextrose 1,000 mls @ 100 mls/hr 01/12/25 14:34 Dextrose 5% 1,000 Ml IVPB PRN PRN Hypoglycemia Protocol Insulin Aspart 2 - 5 units 01/12/25 17:00 01/15/25 08:02 Insulin Aspart (*Bkc) 100 Units/Ml SUB-Q Not Given TIDWM PATRICK Protocol Insulin Aspart 1 - 2 units 01/12/25 21:00 01/14/25 20:08 Insulin Aspart (*Bkc) 100 Units/Ml SUB-Q Not Given HS [facility] Protocol Insulin Human Isoph/Insulin Regular 28 units 01/12/25 16:30 01/15/25 08:02 Insulin Human Isophan/Regular 70/30 (*Bkc) 100 Units/Ml SUB-Q Not Given BIDAC [facility] Metoprolol Tartrate 5 mg 01/12/25 15:06 Metoprolol Tartrate Inj 5 Mg/5 Ml Vial IV PUSH Q2H PRN Tachycardia Metoprolol Tartrate 25 mg 01/14/25 18:00 01/15/25 05:29 Metoprolol Tartrate 25 Mg Tablet PO 25 mg Q6HR [facility] Administration Non-Formulary Medication 0 mg 01/13/25 13:55 01/14/25 11:12 Semaglutide [Rybelsus] PO 02/12/25 13:54 6 mg DAILY [facility] Administration Ondansetron HCl 4 mg 01/12/25 11:23 Ondansetron Inj 4 Mg/2 Ml Vial IV PUSH Q4H PRN Nausea Perflutren Lipid Microsphere 0 ml 01/12/25 15:12 Perflutren Lipid Microspheres 1.5 Ml Vial Diluted To 10 Ml Total Volume IV PUSH 01/15/25 15:12 ONCE PRN adequate visualization Protocol Sitagliptin Phosphate 100 mg 01/13/25 09:00 01/14/25 08:13 Sitagliptin Phosphate 100 Mg Tablet PO 100 mg DAILY PATRICK Administration Sodium Bicarbonate 650 mg 01/12/25 14:25 01/14/25 21:05 Sodium Bicarbonate Tab 650 Mg Tablet PO 650 mg Q12HR PATRICK Administration Tacrolimus 1 applic 01/12/25 21:00 01/15/25 04:44 Tacrolimus 0.1% 30 Gm Ointment TOPICAL Not Given Q12H PATRICK Vitamin D 50 mcg 01/13/25 09:00 01/14/25 11:10 Cholecalciferol (Vitamin D3) 25 Mcg (1,000 Units) Tablet PO 50 mcg DAILY PATRICK Administration Radiology Results: ITS Impressions Chest X-Ray 01/12/25 09:40 IMPRESSION: 1. No acute cardiopulmonary disease. Chest CTA 01/12/25 10:45 IMPRESSION: 1. No pulmonary embolus identified. 2. No focal pulmonary consolidation. 3. No pulmonary mass. 4. There is a 1.9 cm low-density lesion in the left thyroid lobe. A thyroid ultrasound is recommended. Renal Ultrasound 01/12/25 21:32 Impression: 1: Possible right nephrolithiasis. Otherwise, unremarkable renal ultrasound. Labs Labs: Laboratory Results - last 24 hr 01/14/25 01/14/25 01/14/25 11:08 16:07 19:41 POC Capillary Glucose 106 H 175 H 197 H 01/15/25 07:32 POC Capillary Glucose 125 H
[2025-01-15] MEDS: DOXYCYCLINE HYCLATE 100 MG TABLET PO ×2 (08:54→20:17)
[2025-01-15] MEDS: ATORVASTATIN 5 MG TABLET PO (08:54)
[2025-01-15] MEDS: EMPAGLIFLOZIN 25 MG TABLET PO (08:54)
[2025-01-15] MEDS: OMEGA 3 POLYUNSAT FATTY ACIDS 1 GM CAP 4 GM PO (08:54)
[2025-01-15] MEDS: SODIUM BICARBONATE TAB 650 MG TABLET PO ×2 (08:54→20:17)
[2025-01-15] MEDS: ENOXAPARIN 100 MG/ML SYRINGE 85 MG SUB-Q ×2 (08:54→20:17)
[2025-01-15] MEDS: CHOLECALCIFEROL (VITAMIN D3) 25 MCG (1,000 UNITS) TABLET 50 MCG PO (08:54)
[2025-01-15] MEDS: ASPIRIN 81 MG ENTERIC TABLET PO (08:54)
[2025-01-15] MEDS: SEMAGLUTIDE 3 MG PO (08:55)
[2025-01-15] MEDS: [UNRECOGNIZED DRUG - OTHER] PO (08:55)
[2025-01-15] MEDS: TACROLIMUS 0.1% 30 GM OINTMENT 1 APPLIC TOPICAL (08:55)
--- NOTE | 2025-01-15 10:06 | P.PNCA_ITS ---
Progress Note: A&P Assessment and Plan (1) Atrial fibrillation with rapid ventricular response: Code(s): I48.91 - Unspecified atrial fibrillation Status: Acute Assessment and Plan: * He has a CHADS2 Vasc score of at least 4 (age, hypertension, diabetes, peripheral vascular disease). Continue anticoagulation * ApneaLink with AHI 26. Needs outpatient sleep study. * Continue metoprolo,25 QID- Will give onde of IV digoxin today as weel * Dig level in the morning (2) Benign essential hypertension: Code(s): I10 - Essential (primary) hypertension Status: Acute Assessment and Plan: Blood pressure goal. (3) Mixed hyperlipidemia: Code(s): E78.2 - Mixed hyperlipidemia Status: Acute Assessment and Plan: Continue statin. Subjective Date/time seen: 01/15/25 10:06 Interval history: DAPHNE finding reviewed. No other complaints. Still in AFib, rate still not controlled Exam Const: General: comfortable, no acute distress, alert and awake Orientation/consciousness: patient oriented x3 HENMT: Head: normal to inspection Eyes: General: appearance normal, both eyes and all related structures Pupils: Equal, round and reactive pupils present Neck: Neck: normal visual inspection, supple and no JVD Carotids: normal carotid upstroke Resp: Effort & Inspection: normal respiratory effort Auscultation: clear to auscultation bilaterally Cardio: Rate: tachycardic Rhythm: abnormal rhythm irregularly irregular Heart sounds: S1 normal heart sound present, S2 normal heart sound present and no murmurs GI: Auscultation: normal bowel sounds Skin: General skin exam: normal color Neuro: General: patient oriented x3 Cranial nerves: Yes Equal, round and reactive pupils present Extrem: General: normal to inspection Psych: Appearance: grossly normal Mental Status: mental status grossly normal Objective Data Vital Signs Vital Signs: Vital Signs - 24 hr 01/14/25 10:30 01/14/25 11:11 01/14/25 11:42 Temperature 36.4 C L Pulse Rate 101 H 132 H 116 H Respiratory Rate 15 16 Blood Pressure 90/63 L 111/72 Pulse Oximetry 97 100 Oxygen Delivery Room Air Fraction of Inspired Oxygen 01/14/25 12:00 01/14/25 12:00 01/14/25 14:00 Temperature Pulse Rate 116 H 118 H 114 H Respiratory Rate 16 Blood Pressure Pulse Oximetry 100 Oxygen Delivery Room Air Fraction of Inspired Oxygen 01/14/25 14:02 01/14/25 14:02 01/14/25 16:00 Temperature 36.7 C Pulse Rate 136 H 108 H Respiratory Rate 12 Blood Pressure 141/95 H 115/51 L Pulse Oximetry 96 Oxygen Delivery Fraction of Inspired Oxygen 01/14/25 16:00 01/14/25 16:00 01/14/25 17:20 Temperature Pulse Rate 108 H 104 H 135 H Respiratory Rate 12 Blood Pressure Pulse Oximetry 96 Oxygen Delivery Room Air Fraction of Inspired Oxygen 01/14/25 17:20 01/14/25 17:24 01/14/25 18:00 Temperature Pulse Rate 135 H 104 H Respiratory Rate Blood Pressure 112/62 Pulse Oximetry Oxygen Delivery Fraction of Inspired Oxygen 01/14/25 20:00 01/14/25 20:00 01/14/25 20:00 Temperature 36.7 C Pulse Rate 101 H 92 118 H Respiratory Rate 14 Blood Pressure 95/40 L Pulse Oximetry 100 98 Oxygen Delivery Room Air Fraction of Inspired Oxygen 01/14/25 21:30 01/14/25 22:00 01/14/25 23:53 Temperature Pulse Rate 87 85 Respiratory Rate Blood Pressure Pulse Oximetry 96 98 Oxygen Delivery Room Air Room Air Fraction of Inspired Oxygen 21 01/15/25 00:00 01/15/25 00:07 01/15/25 00:23 Temperature 36.6 C Pulse Rate 108 H 90 94 Respiratory Rate 14 Blood Pressure 107/52 L Pulse Oximetry 98 Oxygen Delivery Fraction of Inspired Oxygen 01/15/25 02:00 01/15/25 03:58 01/15/25 04:00 Temperature 36.6 C Pulse Rate 104 H 94 92 Respiratory Rate 14 Blood Pressure 138/77 Pulse Oximetry 97 98 Oxygen Delivery Room Air Fraction of Inspired Oxygen 01/15/25 04:00 01/15/25 05:29 01/15/25 06:00 Temperature Pulse Rate 86 108 H 89 Respiratory Rate Blood Pressure Pulse Oximetry Oxygen Delivery Fraction of Inspired Oxygen 01/15/25 07:34 Temperature 36.7 C Pulse Rate 123 H Respiratory Rate 18 Blood Pressure 132/79 Pulse Oximetry 99 Oxygen Delivery Fraction of Inspired Oxygen Intake/Output Intake/Output: Intake & Output 01/12/25 01/13/25 01/14/25 01/15/25 23:59 23:59 23:59 23:59 Intake Total 2646.8 2012.7 992.9 240 Balance 2646.8 7 992.9 240 Meds/Results Medications: Active Medications Generic Name Dose Route Start Last Admin Trade Name Antoni PRN Reason Stop Dose Admin Aspirin 81 mg 01/13/25 09:00 01/15/25 08:54 Aspirin 81 Mg Enteric Tablet PO 81 mg DAILY PATRICK Administration Atorvastatin Calcium 5 mg 01/13/25 09:00 01/15/25 08:54 Atorvastatin 5 Mg Tablet PO 5 mg DAILY PATRICK Administration Cilostazol 100 mg 01/13/25 06:30 01/15/25 05:29 Cilostazol 100 Mg Tablet PO 100 mg DAILY@0630 PATRICK Administration Dextrose 12.5 gm 01/12/25 14:34 01/13/25 01:13 Dextrose 50% 25 Gm/50 Ml Syringe IV PUSH 12.5 gm PRN PRN Administration Hypoglycemia Protocol Doxycycline Hyclate 100 mg 01/13/25 13:00 01/15/25 08:54 Doxycycline Hyclate 100 Mg Tablet PO 100 mg Q12HR PATRICK Administration Empagliflozin 25 mg 01/13/25 09:00 01/15/25 08:54 Empagliflozin 25 Mg Tablet PO 25 mg DAILY PATRICK Administration Enoxaparin Sodium 85 mg 01/12/25 22:00 01/15/25 08:54 Enoxaparin 100 Mg/Ml Syringe SUB-Q 85 mg Q12HR PATRIKC Administration Fish Oil 4 gm 01/13/25 09:00 01/15/25 08:54 [place] 3 Polyunsat Fatty Acids 1 Gm Cap PO 4 gm DAILY PATRICK Administration Glucagon 1 mg 01/12/25 14:34 Glucagon For Inj 1 Mg Vial IM PRN PRN Hypoglycemia Protocol Glucose 15 gm 01/12/25 14:34 Glucose Oral Gel 15 Gm Of Glucse In 37.5 Gm Tube PO PRN PRN Hypoglycemia Protocol Dextrose 1,000 mls @ 100 mls/hr 01/12/25 14:34 Dextrose 5% 1,000 Ml IVPB PRN PRN Hypoglycemia Protocol Insulin Aspart 2 - 5 units 01/12/25 17:00 01/15/25 08:02 Insulin Aspart (*Bkc) 100 Units/Ml SUB-Q Not Given TIDWM PATRICK Protocol Insulin Aspart 1 - 2 units 01/12/25 21:00 01/14/25 20:08 Insulin Aspart (*Bkc) 100 Units/Ml SUB-Q Not Given HS PATRICK Protocol Insulin Human Isoph/Insulin Regular 28 units 01/12/25 16:30 01/15/25 08:02 Insulin Human Isophan/Regular 70/30 (*Bkc) 100 Units/Ml SUB-Q Not Given On Hold: 01/15/25 08:35 BIDAC PATRICK Metoprolol Tartrate 5 mg 01/12/25 15:06 Metoprolol Tartrate Inj 5 Mg/5 Ml Vial IV PUSH Q2H PRN Tachycardia Metoprolol Tartrate 25 mg 01/14/25 18:00 01/15/25 05:29 Metoprolol Tartrate 25 Mg Tablet PO 25 mg Q6HR PATRICK Administration Non-Formulary Medication 0 mg 01/13/25 13:55 01/15/25 08:55 Semaglutide [Rybelsus] PO 02/12/25 13:54 3 mg DAILY PATRICK Administration Ondansetron HCl 4 mg 01/12/25 11:23 Ondansetron Inj 4 Mg/2 Ml Vial IV PUSH Q4H PRN Nausea Perflutren Lipid Microsphere 0 ml 01/12/25 15:12 Perflutren Lipid Microspheres 1.5 Ml Vial Diluted To 10 Ml Total Volume IV PUSH 01/15/25 15:12 ONCE PRN adequate visualization Protocol Sitagliptin Phosphate 100 mg 01/13/25 09:00 01/15/25 08:54 Sitagliptin Phosphate 100 Mg Tablet PO 100 mg DAILY PATRICK Administration Sodium Bicarbonate 650 mg 01/12/25 14:25 01/15/25 08:54 Sodium Bicarbonate Tab 650 Mg Tablet PO 650 mg Q12HR PATRICK Administration Tacrolimus 1 applic 01/12/25 21:00 01/15/25 08:55 Tacrolimus 0.1% 30 Gm Ointment TOPICAL 1 applic Q12H PATRICK Administration Vitamin D 50 mcg 01/13/25 09:00 01/15/25 08:54 Cholecalciferol (Vitamin D3) 25 Mcg (1,000 Units) Tablet PO 50 mcg DAILY PATRICK Administration Radiology Results: ITS Impressions Chest X-Ray 01/12/25 09:40 IMPRESSION: 1. No acute cardiopulmonary disease. Chest CTA 01/12/25 10:45 IMPRESSION: 1. No pulmonary embolus identified. 2. No focal pulmonary consolidation. 3. No pulmonary mass. 4. There is a 1.9 cm low-density lesion in the left thyroid lobe. A thyroid ultrasound is recommended. Renal Ultrasound 01/12/25 21:32 Impression: 1: Possible right nephrolithiasis. Otherwise, unremarkable renal ultrasound. Labs Labs: Laboratory Results - last 24 hr 01/14/25 01/14/25 01/14/25 11:08 16:07 19:41 POC Capillary Glucose 106 H 175 H 197 H 01/15/25 07:32 POC Capillary Glucose 125 H
[2025-01-15] MEDS: DIGOXIN INJ 250 MCG/ML 2 ML AMP (*BKC) 500 MCG IV PUSH (10:52)
[2025-01-15] MEDS: INSULIN ASPART (*BKC) 100 UNITS/ML SUB-Q ×2 (11:52→16:54)
[2025-01-16] VITALS (21 sets, daily range): BP systolic 111–151; BP diastolic 57–98; PULSE 77–135; RESP 16–18; TEMP 36.6–36.8; O2SAT 95–100
[2025-01-16 04:15] LABS: Hematocrit 41.4 % (42.0-52.0); Hemoglobin 13.3 g/dL (14.0-18.0); Immature Granulocyte Percent A 0.8 % (0-0.5); Lymphocytes Absolute Auto 1.49 K/mm3 (0.9-3.2); Mean Corpuscular HGB Conc 32.1 g/dl (32-36); Mean Corpuscular Hemoglobin 28.6 pg (26-34); Mean Corpuscular Volume 89.0 fl (80-100); Nucleated Red Blood Cells Absolute Auto 0.000 K/mm3 (0.0-0.012); Nucleated Red Blood Cells Perc 0.0 % (0.0-0.2); Platelet Count Result 218 k/mm3 (150-375); Red Blood Count 4.65 M/mm3 (4.6-6.20); White Blood Count 7.5 K/mm3 (4.5-10.0)
[2025-01-16 04:23] LABS: Alanine Aminotransferase 37 U/L (6-50); Albumin Level 3.5 g/dL (3.5-5.1); Alkaline Phosphatase 82 U/L (38-126); Anion Gap 8 mmol/L (4-12); Aspartate Amino Transferase 42 U/L (17-59); Bilirubin,Total 1.5 mg/dL (0.2-1.3); Blood Urea Nitrogen 24 mg/dL (9-20); Calcium 9.0 mg/dL (8.4-10.2); Carbon Dioxide 19 mmol/L (22-30); Chloride 105 mmol/L (98-107); Estimated CRCL calculation 47 ml/min; Estimated Glomerular Filt Rate 54; Glucose 207 mg/dL (65-110); Magnesium 1.9 mg/dL (1.6-2.3); Potassium 4.4 mmol/L (3.4-5.0); Sodium 132 mmol/L (137-145); Total Protein 6.6 g/dL (6.3-8.2)
[2025-01-16 04:31] LABS: Digoxin 2.3 ng/mL (0.8-2.0)
[2025-01-16] MEDS: METOPROLOL TARTRATE 25 MG TABLET PO (05:37)
--- NOTE | 2025-01-16 08:44 | P.PNCA_ITS ---
<Statement entered by Viri Layton MD - 01/16/25 10:44> The service was provided by the the nurse practitioner independently. i was available in case I was needed Progress Note: A&P Assessment and Plan (1) Atrial fibrillation with rapid ventricular response: Code(s): I48.91 - Unspecified atrial fibrillation Status: Acute Assessment and Plan: Presents with atrial fibrillation with rapid ventricular response. This is a new diagnosis. I discussed the diagnosis of atrial fibrillation including pathophysiology, management strategies, risks/complications of atrial fibrillation. Discussed rate control versus rhythm control. Heart rate remains uncontrolled, therefore will proceed with DAPHNE/DCCV today. * He has a CHADS2 Vasc score of at least 4 (age, hypertension, diabetes, kevin pheral vascular disease). Anticoagulation is indicated. He has been given therapeutic dose Lovenox. Can be shifted to though act, Xarelto 20 mg daily starting tonight * Further recommendations to follow DAPHNE/DCCV today * Echo pending * ApneaLink with AHI 26. Needs outpatient sleep study. (2) Benign essential hypertension: Code(s): I10 - Essential (primary) hypertension Status: Acute Assessment and Plan: Blood pressure goal. (3) Mixed hyperlipidemia: Code(s): E78.2 - Mixed hyperlipidemia Status: Acute Assessment and Plan: Continue statin. Subjective Date/time seen: 01/16/25 08:44 Interval history: DAPHNE finding reviewed. No other complaints. Still in AFib, rate still not controlled Review of Systems Review of Systems: - CONSTITUTIONAL: Denies weight loss, fe gerald and chills. - HEENT: Denies changes in vision and he aring - RESPIRATORY: Denies SOB and cough. - CV: Denies palpitations and CP. - GI: Denies abdominal pain, nausea, vom iting and diarrhea. - : Denies dysuria and urinary frequen cy. - MSK: Denies myalgia and joint pain. - SKIN: Denies rash and pruritus. - NEUROLOGICAL: Denies headache and sync ope. - PSYCHIATRIC: Denies recent changes in mood. Denies anxiety and depression. All systems reviewed & are unremarkable except as noted in HPI and below Exam Narrative: GENERAL: The patient is well developed, not in acute distress HEENT: Nonicteric sclerae, PERRLA, EOMI. Oropharynx clear. Moist mucous membranes. Conjunctivae appear well perfused. CHEST: Chest wall is nontender. HEART: Tachycardic irregularly regular rhythm on the monitor without murmur, rubs, or gallops LUNGS: Clear to auscultation bilaterally. no respiratory distress ABDOMEN: Soft, positive bowel sounds, non-tender, no organomegaly. SKIN: No rash, no excessive bruising, petechiae, or purpura. NEUROLOGIC: Cranial nerves II-XII intact, alert and oriented x 3, no gross motor deficits EXTREMITIES: no edema, cyanosis or clubbing Objective Data Vital Signs Vital Signs: Vital Signs - 24 hr 01/15/25 10:00 01/15/25 10:52 01/15/25 11:31 Temperature 36.8 C Pulse Rate 119 H 104 H 101 H Respiratory Rate 16 Blood Pressure 106/51 L Pulse Oximetry 98 Oxygen Delivery 01/15/25 12:00 01/15/25 12:00 01/15/25 12:00 Temperature Pulse Rate 113 H 120 H 107 H Respiratory Rate 16 Blood Pressure Pulse Oximetry 97 Oxygen Delivery Room Air 01/15/25 14:00 01/15/25 16:00 01/15/25 16:00 Temperature 36.7 C Pulse Rate 115 H 106 H 108 H Respiratory Rate 18 18 Blood Pressure 101/65 Pulse Oximetry 97 98 Oxygen Delivery Room Air 01/15/25 16:00 01/15/25 16:55 01/15/25 18:00 Temperature Pulse Rate 133 H 117 H 103 H Respiratory Rate Blood Pressure Pulse Oximetry Oxygen Delivery 01/15/25 20:00 01/15/25 20:00 01/15/25 20:00 Temperature 37.0 C Pulse Rate 112 H 98 117 H Respiratory Rate 16 18 Blood Pressure 112/49 L Pulse Oximetry 98 98 Oxygen Delivery Room Air 01/15/25 22:00 01/15/25 23:07 01/15/25 23:11 Temperature Pulse Rate 98 109 H 80 Respiratory Rate 18 Blood Pressure Pulse Oximetry 98 Oxygen Delivery Room Air 01/15/25 23:58 01/16/25 00:00 01/16/25 02:00 Temperature 36.9 C Pulse Rate 104 H 126 H 108 H Respiratory Rate 18 Blood Pressure 121/67 Pulse Oximetry 100 Oxygen Delivery 01/16/25 03:41 01/16/25 03:56 01/16/25 04:00 Temperature 36.6 C Pulse Rate 93 101 H 94 Respiratory Rate 18 18 Blood Pressure 133/69 Pulse Oximetry 98 99 Oxygen Delivery Room Air 01/16/25 05:37 01/16/25 06:00 01/16/25 07:21 Temperature 36.6 C Pulse Rate 135 H 98 96 Respiratory Rate 18 Blood Pressure 111/63 Pulse Oximetry 100 Oxygen Delivery Intake/Output Intake/Output: Intake & Output 01/13/25 01/14/25 01/15/25 01/16/25 23:59 23:59 23:59 23:59 Intake Total 2012.7 992.9 1270 790 Output Total 1 Balance 2012.7 992.9 1270 789 Meds/Results Medications: Active Medications Generic Name Dose Route Start Last Admin Trade Name Freq PRN Reason Stop Dose Admin Aspirin 81 mg 01/13/25 09:00 01/15/25 08:54 Aspirin 81 Mg Enteric Tablet PO 81 mg DAILY PATRICK Administration Atorvastatin Calcium 5 mg 01/13/25 09:00 01/15/25 08:54 Atorvastatin 5 Mg Tablet PO 5 mg DAILY PATRICK Administration Cilostazol 100 mg 01/13/25 06:30 01/16/25 05:37 Cilostazol 100 Mg Tablet PO 100 mg DAILY@0630 PATRICK Administration Dextrose 12.5 gm 01/12/25 14:34 01/13/25 01:13 Dextrose 50% 25 Gm/50 Ml Syringe IV PUSH 12.5 gm PRN PRN Administration Hypoglycemia Protocol Doxycycline Hyclate 100 mg 01/13/25 13:00 01/15/25 20:17 Doxycycline Hyclate 100 Mg Tablet PO 100 mg Q12HR PATRICK Administration Empagliflozin 25 mg 01/13/25 09:00 01/15/25 08:54 Empagliflozin 25 Mg Tablet PO 25 mg DAILY PATRICK Administration Enoxaparin Sodium 85 mg 01/12/25 22:00 01/15/25 20:17 Enoxaparin 100 Mg/Ml Syringe SUB-Q 85 mg Q12HR PATRICK Administration Fish Oil 4 gm 01/13/25 09:00 01/15/25 08:54 [place] 3 Polyunsat Fatty Acids 1 Gm Cap PO 4 gm DAILY PATRICK Administration Glucagon 1 mg 01/12/25 14:34 Glucagon For Inj 1 Mg Vial IM PRN PRN Hypoglycemia Protocol Glucose 15 gm 01/12/25 14:34 Glucose Oral Gel 15 Gm Of Glucse In 37.5 Gm Tube PO PRN PRN Hypoglycemia Protocol Dextrose 1,000 mls @ 100 mls/hr 01/12/25 14:34 Dextrose 5% 1,000 Ml IVPB PRN PRN Hypoglycemia Protocol Insulin Aspart 2 - 5 units 01/12/25 17:00 01/16/25 08:18 Insulin Aspart (*Bkc) 100 Units/Ml SUB-Q Not Given TIDWM [facility] Protocol Insulin Aspart 1 - 2 units 01/12/25 21:00 01/15/25 22:02 Insulin Aspart (*Bkc) 100 Units/Ml SUB-Q Not Given HS [facility] Protocol Insulin Human Isoph/Insulin Regular 28 units 01/12/25 16:30 01/15/25 08:02 Insulin Human Isophan/Regular 70/30 (*Bkc) 100 Units/Ml SUB-Q Not Given On Hold: 01/15/25 08:35 BIDAC [facility] Metoprolol Tartrate 5 mg 01/12/25 15:06 Metoprolol Tartrate Inj 5 Mg/5 Ml Vial IV PUSH Q2H PRN Tachycardia Metoprolol Tartrate 50 mg 01/16/25 09:00 Metoprolol Tartrate 50 Mg Tab PO Q12HR [facility] Non-Formulary Medication 0 mg 01/13/25 13:55 01/15/25 08:55 Semaglutide [Rybelsus] PO 02/12/25 13:54 3 mg DAILY [facility] Administration Ondansetron HCl 4 mg 01/12/25 11:23 Ondansetron Inj 4 Mg/2 Ml Vial IV PUSH Q4H PRN Nausea Sitagliptin Phosphate 100 mg 01/13/25 09:00 01/15/25 08:54 Sitagliptin Phosphate 100 Mg Tablet PO 100 mg DAILY [facility] Administration Sodium Bicarbonate 650 mg 01/12/25 14:25 01/15/25 20:17 Sodium Bicarbonate Tab 650 Mg Tablet PO 650 mg Q12HR [facility] Administration Tacrolimus 1 applic 01/12/25 21:00 01/15/25 22:02 Tacrolimus 0.1% 30 Gm Ointment TOPICAL Not Given Q12H [facility] Vitamin D 50 mcg 01/13/25 09:00 01/15/25 08:54 Cholecalciferol (Vitamin D3) 25 Mcg (1,000 Units) Tablet PO 50 mcg DAILY PATRICK Administration Radiology Results: ITS Impressions Chest X-Ray 01/12/25 09:40 IMPRESSION: 1. No acute cardiopulmonary disease. Chest CTA 08/18/25 10:45 IMPRESSION: 1. No pulmonary embolus identified. 2. No focal pulmonary consolidation. 3. No pulmonary mass. 4. There is a 1.9 cm low-density lesion in the left thyroid lobe. A thyroid ultrasound is recommended. Renal Ultrasound 01/12/25 21:32 Impression: 1: Possible right nephrolithiasis. Otherwise, unremarkable renal ultrasound. Labs Labs: Laboratory Results - last 24 hr 01/15/25 01/15/25 01/15/25 11:21 16:05 19:45 WBC RBC Hgb Hct MCV MCH MCHC RDW Plt Count MPV Immature Gran % (Auto) Neut % (Auto) Lymph % (Auto) [place] % (Auto) Eos % (Auto) Baso % (Auto) Lymph # (Auto) [place] # (Auto) Eos # (Auto) Baso # (Auto) Abs Immat Gran (auto) Absolute Neuts (auto) Absolute Nucleated RBC Nucleated RBC % Sodium Potassium Chloride Carbon Dioxide Anion Gap BUN Creatinine Estim Creat Clear Calc Estimated GFR Glucose POC Capillary Glucose 254 H 223 H 291 H Calcium Magnesium Total Bilirubin AST ALT Alkaline Phosphatase Total Protein Albumin Digoxin 01/15/25 01/16/25 01/16/25 22:47 03:58 07:29 WBC 7.5 RBC 4.65 Hgb 13.3 L Hct 41.4 L MCV 89.0 MCH 28.6 MCHC 32.1 RDW 13.5 Plt Count 218 MPV 9.6 Immature Gran % (Auto) 0.8 H Neut % (Auto) 66.5 Lymph % (Auto) 19.9 [place] % (Auto) 10.2 H Eos % (Auto) 1.9 Baso % (Auto) 0.7 Lymph # (Auto) 1.49 [place] # (Auto) 0.8 H Eos # (Auto) 0.1 Baso # (Auto) 0.1 Abs Immat Gran (auto) 0.06 H Absolute Neuts (auto) 5.0 Absolute Nucleated RBC 0.000 Nucleated RBC % 0.0 Sodium 132 L Potassium 4.4 Chloride 105 Carbon Dioxide 19 L Anion Gap 8 BUN 24 H Creatinine 1.31 H Estim Creat Clear Calc 47 Estimated GFR 54 L Glucose 207 H POC Capillary Glucose 214 H 197 H Calcium 9.0 Magnesium 1.9 Total Bilirubin 1.5 H AST 42 ALT 37 Alkaline Phosphatase 82 Total Protein 6.6 Albumin 3.5 Digoxin 2.3 H*
[2025-01-16] MEDS: OMEGA 3 POLYUNSAT FATTY ACIDS 1 GM CAP 4 GM PO (09:21)
[2025-01-16] MEDS: DOXYCYCLINE HYCLATE 100 MG TABLET PO ×2 (09:22→20:52)
[2025-01-16] MEDS: ENOXAPARIN 100 MG/ML SYRINGE 85 MG SUB-Q (09:22)
[2025-01-16] MEDS: METOPROLOL TARTRATE 50 MG TAB PO ×2 (09:22→20:52)
[2025-01-16] MEDS: ASPIRIN 81 MG ENTERIC TABLET PO (09:22)
[2025-01-16] MEDS: ATORVASTATIN 5 MG TABLET PO (09:23)
[2025-01-16] MEDS: EMPAGLIFLOZIN 25 MG TABLET PO (09:23)
[2025-01-16] MEDS: CHOLECALCIFEROL (VITAMIN D3) 25 MCG (1,000 UNITS) TABLET 50 MCG PO (09:23)
[2025-01-16] MEDS: SODIUM BICARBONATE TAB 650 MG TABLET PO ×2 (09:23→20:53)
[2025-01-16] MEDS: [UNRECOGNIZED DRUG - OTHER] PO (09:29)
[2025-01-16] MEDS: SEMAGLUTIDE 3 MG PO (09:29)
--- NOTE | 2025-01-16 11:41 | ECG_ITS ---
Test Date: 2025-01-16 12:11:46 Measurements Intervals [place] Rate: 105 P: 0 HI: 0 QRS: -62 QRSD: 114 T: 99 QT: 316 QTc: 418 Interpretive Statements ATRIAL FIBRILLATION WITH RAPID VENTRICULAR RESPONSE LEFT ANTERIOR FASCICULAR BLOCK ST-T WAVE ABNORMALITY IN HIGH LATERAL LEADS- CONSIDER ISCHEMIA ABNORMAL ECG Compared to ECG 01/14/2025 08:22:38 POSSIBLE ISCHEMIA NOW PRESENT Electronically Signed On 01-16-2025 12:54:35 CDT by Drake Bergeron D.O.
[2025-01-16] MEDS: INSULIN ASPART (*BKC) 100 UNITS/ML SUB-Q ×3 (11:48→20:52)
--- NOTE | 2025-01-16 18:55 | P.PNIM_ITS ---
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 Qualified Code(s): E11.40 - Type 2 diabetes mellitus with diabetic neuropathy, unspecified; Z79.4 - nursing home (current) use of insulin Code(s): E11.40 - Type 2 diabetes mellitus with diabetic neuropathy, unspecified Status: Acute Assessment and Plan: A1c 01/12/2025, 6.7 % Continue Jardiance, and Alisa SSI, POCT, hyperglycemia protocol he will continue his Rybelsus if he brings it here (4) Vitamin D deficiency: Code(s): E55.9 - Vitamin D deficiency, unspecified Status: Acute (5) BRIANNE (acute kidney injury): Code(s): N17.9 - Acute kidney failure, unspecified Status: Acute Assessment and Plan: Likely secondary to prerenal Improved Continue to monitor (6) Acute hyperkalemia: Code(s): E87.5 - Hyperkalemia Status: Acute Assessment and Plan: Resolved (7) Atrial fibrillation with rapid ventricular response: Code(s): I48.91 - Unspecified atrial fibrillation Status: Acute Assessment and Plan: FADY VASc score 4 Switch Lovenox to Xarelto tonight Continue metoprolol 50 mg b.i.d. (8) Elevated digoxin level: Code(s): R78.89 - Finding of other specified substances, not normally found in blood Status: Acute Assessment and Plan: Dig today is 2.3, discontinue dig check in the AM Subjective Date/time seen: 01/16/25 18:55 Interval history: Patient is doing well. He denies chest tightness. he has more energy now. He is not getting winded easily anymore. Exam HENMT: Mouth: Normal oral and palatal mucosa present Eyes: Pupils: Yes Equal, round and reactive pupils present Neck: General: Yes full ROM Chest: Palpation/Inspection: normal inspection of the chest Resp: Effort/Inspection: normal respiratory effort and able to speak in complete sentences Auscultation: clear to auscultation bilaterally Cardio: Jugular Venous Distension: no JVD Rhythm: other (Afib, rate controlled) Heart Sounds: Yes S1 normal heart sound present and Yes S2 normal heart sound present Peripheral Pulses: Peripheral pulses 2+ throughout GI: Auscultation: normal bowel sounds Palpation/Percussion: Yes non-tender and Yes no guarding Skin: Other: Spider vein Objective Data Vital Signs Vital Signs: Vital Signs - 24 hr 01/15/25 20:00 01/15/25 20:00 01/15/25 20:00 Temperature 37.0 C Pulse Rate 112 H 98 117 H Respiratory Rate 16 18 Blood Pressure 112/49 L Pulse Oximetry 98 98 Oxygen Delivery Room Air 01/15/25 22:00 01/15/25 23:07 01/15/25 23:11 Temperature Pulse Rate 98 109 H 80 Respiratory Rate 18 Blood Pressure Pulse Oximetry 98 Oxygen Delivery Room Air 01/15/25 23:58 01/16/25 00:00 01/16/25 02:00 Temperature 36.9 C Pulse Rate 104 H 126 H 108 H Respiratory Rate 18 Blood Pressure 121/67 Pulse Oximetry 100 Oxygen Delivery 01/16/25 03:41 01/16/25 03:56 01/16/25 04:00 Temperature 36.6 C Pulse Rate 93 101 H 94 Respiratory Rate 18 18 Blood Pressure 133/69 Pulse Oximetry 98 99 Oxygen Delivery Room Air 01/16/25 05:37 01/16/25 06:00 01/16/25 07:21 Temperature 36.6 C Pulse Rate 135 H 98 96 Respiratory Rate 18 Blood Pressure 111/63 Pulse Oximetry 100 Oxygen Delivery 01/16/25 08:00 01/16/25 08:00 01/16/25 10:00 Temperature Pulse Rate 124 H 106 H Respiratory Rate Blood Pressure Pulse Oximetry Oxygen Delivery Room Air 01/16/25 11:34 01/16/25 12:00 01/16/25 12:00 Temperature 36.7 C Pulse Rate 108 H 110 H Respiratory Rate 16 Blood Pressure 125/70 Pulse Oximetry 100 Oxygen Delivery Room Air 01/16/25 14:00 01/16/25 15:30 01/16/25 16:00 Temperature 36.8 C Pulse Rate 114 H 101 H Respiratory Rate 18 Blood Pressure 118/60 Pulse Oximetry 98 Oxygen Delivery Room Air 01/16/25 16:00 01/16/25 18:00 Temperature Pulse Rate 103 H 105 H Respiratory Rate Blood Pressure Pulse Oximetry Oxygen Delivery Intake/Output Intake/Output: Intake & Output 01/13/25 01/14/25 01/15/25 01/16/25 23:59 23:59 23:59 23:59 Intake Total 2012.7 992.9 1270 2370 Output Total 1 Balance 2012.7 992.9 1270 2369 Meds/Results Medications: Active Medications Generic Name Dose Route Start Last Admin Trade Name Freq PRN Reason Stop Dose Admin Aspirin 81 mg 01/13/25 09:00 01/16/25 09:22 Aspirin 81 Mg Enteric Tablet PO 81 mg DAILY PATRICK Administration Atorvastatin Calcium 5 mg 01/13/25 09:00 01/16/25 09:23 Atorvastatin 5 Mg Tablet PO 5 mg DAILY PATRICK Administration Cilostazol 100 mg 01/13/25 06:30 01/16/25 05:37 Cilostazol 100 Mg Tablet PO 100 mg DAILY@0630 PATRICK Administration Dextrose 12.5 gm 01/12/25 14:34 01/13/25 01:13 Dextrose 50% 25 Gm/50 Ml Syringe IV PUSH 12.5 gm PRN PRN Administration Hypoglycemia Protocol Doxycycline Hyclate 100 mg 01/13/25 13:00 01/16/25 09:22 Doxycycline Hyclate 100 Mg Tablet PO 100 mg Q12HR PATRICK Administration Empagliflozin 25 mg 01/13/25 09:00 01/16/25 09:23 Empagliflozin 25 Mg Tablet PO 25 mg DAILY PATRICK Administration Enoxaparin Sodium 85 mg 01/12/25 22:00 01/16/25 09:22 Enoxaparin 100 Mg/Ml Syringe SUB-Q 85 mg Q12HR PATRICK Administration Fish Oil 4 gm 01/13/25 09:00 01/16/25 09:21 [place] 3 Polyunsat Fatty Acids 1 Gm Cap PO 4 gm DAILY PATRICK Administration Glucagon 1 mg 01/12/25 14:34 Glucagon For Inj 1 Mg Vial IM PRN PRN Hypoglycemia Protocol Glucose 15 gm 01/12/25 14:34 Glucose Oral Gel 15 Gm Of Glucse In 37.5 Gm Tube PO PRN PRN Hypoglycemia Protocol Dextrose 1,000 mls @ 100 mls/hr 01/12/25 14:34 Dextrose 5% 1,000 Ml IVPB PRN PRN Hypoglycemia Protocol Insulin Aspart 2 - 5 units 01/12/25 17:00 01/16/25 16:52 Insulin Aspart (*Bkc) 100 Units/Ml SUB-Q 3 units TIDWM PATRICK Administration Protocol Insulin Aspart 1 - 2 units 01/12/25 21:00 01/15/25 22:02 Insulin Aspart (*Bkc) 100 Units/Ml SUB-Q Not Given HS PATRICK Protocol Insulin Human Isoph/Insulin Regular 28 units 01/12/25 16:30 01/15/25 08:02 Insulin Human Isophan/Regular 70/30 (*Bkc) 100 Units/Ml SUB-Q Not Given On Hold: 01/15/25 08:35 BIDAC PATRICK Metoprolol Tartrate 5 mg 01/12/25 15:06 Metoprolol Tartrate Inj 5 Mg/5 Ml Vial IV PUSH Q2H PRN Tachycardia Metoprolol Tartrate 50 mg 01/16/25 09:00 01/16/25 09:22 Metoprolol Tartrate 50 Mg Tab PO 50 mg Q12HR [facility] Administration Non-Formulary Medication 0 mg 01/13/25 13:55 01/16/25 09:29 Semaglutide [Rybelsus] PO 02/12/25 13:54 6 mg DAILY [facility] Administration Ondansetron HCl 4 mg 01/12/25 11:23 Ondansetron Inj 4 Mg/2 Ml Vial IV PUSH Q4H PRN Nausea Sitagliptin Phosphate 100 mg 01/13/25 09:00 01/16/25 09:23 Sitagliptin Phosphate 100 Mg Tablet PO 100 mg DAILY [facility] Administration Sodium Bicarbonate 650 mg 01/12/25 14:25 01/16/25 09:23 Sodium Bicarbonate Tab 650 Mg Tablet PO 650 mg Q12HR [facility] Administration Tacrolimus 1 applic 01/12/25 21:00 01/16/25 09:24 Tacrolimus 0.1% 30 Gm Ointment TOPICAL Not Given Q12H [facility] Vitamin D 50 mcg 01/13/25 09:00 01/16/25 09:23 Cholecalciferol (Vitamin D3) 25 Mcg (1,000 Units) Tablet PO 50 mcg DAILY PATRICK Administration Radiology Results: ITS Impressions Chest X-Ray 01/12/25 09:40 IMPRESSION: 1. No acute cardiopulmonary disease. Chest CTA 01/12/25 10:45 IMPRESSION: 1. No pulmonary embolus identified. 2. No focal pulmonary consolidation. 3. No pulmonary mass. 4. There is a 1.9 cm low-density lesion in the left thyroid lobe. A thyroid ultrasound is recommended. Renal Ultrasound 01/12/25 21:32 Impression: 1: Possible right nephrolithiasis. Otherwise, unremarkable renal ultrasound. Labs Labs: Laboratory Results - last 24 hr 01/15/25 01/15/25 01/16/25 19:45 22:47 03:58 WBC 7.5 RBC 4.65 Hgb 13.3 L Hct 41.4 L MCV 89.0 MCH 28.6 MCHC 32.1 RDW 13.5 Plt Count 218 MPV 9.6 Immature Gran % (Auto) 0.8 H Neut % (Auto) 66.5 Lymph % (Auto) 19.9 [place] % (Auto) 10.2 H Eos % (Auto) 1.9 Baso % (Auto) 0.7 Lymph # (Auto) 1.49 [place] # (Auto) 0.8 H Eos # (Auto) 0.1 Baso # (Auto) 0.1 Abs Immat Gran (auto) 0.06 H Absolute Neuts (auto) 5.0 Absolute Nucleated RBC 0.000 Nucleated RBC % 0.0 Sodium 132 L Potassium 4.4 Chloride 105 Carbon Dioxide 19 L Anion Gap 8 BUN 24 H Creatinine 1.31 H Estim Creat Clear Calc 47 Estimated GFR 54 L Glucose 207 H POC Capillary Glucose 291 H 214 H Calcium 9.0 Magnesium 1.9 Total Bilirubin 1.5 H AST 42 ALT 37 Alkaline Phosphatase 82 Total Protein 6.6 Albumin 3.5 Digoxin 2.3 H* 01/16/25 01/16/25 01/16/25 07:29 11:18 15:52 WBC RBC Hgb Hct MCV MCH MCHC RDW Plt Count MPV Immature Gran % (Auto) Neut % (Auto) Lymph % (Auto) [place] % (Auto) Eos % (Auto) Baso % (Auto) Lymph # (Auto) [place] # (Auto) Eos # (Auto) Baso # (Auto) Abs Immat Gran (auto) Absolute Neuts (auto) Absolute Nucleated RBC Nucleated RBC % Sodium Potassium Chloride Carbon Dioxide Anion Gap BUN Creatinine Estim Creat Clear Calc Estimated GFR Glucose POC Capillary Glucose 197 H 254 H 287 H Calcium Magnesium Total Bilirubin AST ALT Alkaline Phosphatase Total Protein Albumin Digoxin Quality VTE Prophylaxis VTE prophylaxis: pharmacologic ordered (Xarelto)
[2025-01-16] MEDS: RIVAROXABAN 20 MG TABLET PO (20:52)
[2025-01-17] VITALS (19 sets, daily range): BP systolic 103–139; BP diastolic 49–68; PULSE 70–126; RESP 16–20; TEMP 36.3–36.9; O2SAT 95–99
[2025-01-17] MEDS: INSULIN ASPART (*BKC) 100 UNITS/ML SUB-Q ×4 (07:49→20:41)
--- NOTE | 2025-01-17 08:47 | PM.PNCARD ---
Progress Note: A&P Assessment and Plan (1) Atrial fibrillation with rapid ventricular response: Code(s): I48.91 - Unspecified atrial fibrillation Status: Acute Assessment and Plan: -in regards to new diagnosis of AFib with RVR, attempted cardioversion with DAPHNE but was canceled because of left atrial appendage clot. Rate control to be adopted for now. Continue Lovenox therapeutic dosage and transition to oral anticoagulant upon discharge. Continue metoprolol 50 mg b.i.d.. Add diltiazem short-acting 30 mg q.6 hours with holding parameters as heart rate is fast. Echocardiogram during this admission shows normal ejection fraction. Plan outpatient cardioversion in 4 weeks. Ht Check TSH ApneaLink with AHI 26. Needs outpatient sleep study. (2) Benign essential hypertension: Code(s): I10 - Essential (primary) hypertension Status: Acute Assessment and Plan: Blood pressure is controlled. Continue metoprolol. Will add diltiazem. (3) Mixed hyperlipidemia: Code(s): E78.2 - Mixed hyperlipidemia Status: Acute Assessment and Plan: Continue statin. Subjective Date/time seen: Date of service 01/17/25 08:47 Dylan Noel is a 69-year-old male with type 2 diabetes mellitus, hypertension, hyperlipidemia, chronic kidney disease. This is a patient who was sent to the emergency department from his primary care doctor's office because of tachycardia. He presented to his primary care doctor's office for a routine wellness visit. He was found to be tachycardic. In the emergency department here, he was found to be in atrial fibrillation with rapid ventricular response. Patient denies having any symptoms whatsoever. He denies any palpitations, chest pain, shortness of breath, syncope, or presyncope. He has been given digoxin, diltiazem, and metoprolol and remains tachycardic with a heart rate in the 120s to 140s. At the time of my visit he remains asymptomatic and is lying comfortably in bed without complaints. Interval history: DAPHNE finding reviewed. No other complaints. Still in AFib, rate still not controlled Date of service 01/17/2025-resting comfortably in bed. No complaints. AFib not controlled. Heart rates 130s to 140s Review of Systems Review of Systems: - CONSTITUTIONAL: Denies weight loss, fever and chills. - HEENT: Denies changes in vision and hearing - RESPIRATORY: Denies SOB and cough. - CV: Denies palpitations and CP. - GI: Denies abdominal pain, nausea, vomiting and diarrhea. - : Denies dysuria and urinary frequency. - MSK: Denies myalgia and joint pain. - SKIN: Denies rash and pruritus. - NEUROLOGICAL: Denies headache and syncope. - PSYCHIATRIC: Denies recent changes in mood. Denies anxiety and depression. All systems reviewed & are unremarkable except as noted in HPI and below Exam Narrative: GENERAL: The patient is well developed, not in acute distress HEENT: Nonicteric sclerae, PERRLA, EOMI. Oropharynx clear. Moist mucous membranes. Conjunctivae appear well perfused. CHEST: Chest wall is nontender. HEART: Tachycardic irregularly regular rhythm on the monitor without murmur, rubs, or gallops LUNGS: Clear to auscultation bilaterally. no respiratory distress ABDOMEN: Soft, positive bowel sounds, non-tender, no organomegaly. SKIN: No rash, no excessive bruising, petechiae, or purpura. NEUROLOGIC: Cranial nerves II-XII intact, alert and oriented x 3, no gross motor deficits EXTREMITIES: no edema, cyanosis or clubbing Const: General: comfortable, no acute distress, alert and awake Orientation/consciousness: patient oriented x3 HENMT: Head: normal to inspection Eyes: General: appearance normal, both eyes and all related structures Pupils: Equal, round and reactive pupils present Neck: Neck: normal visual inspection, supple and no JVD Carotids: normal carotid upstroke Resp: Effort & Inspection: normal respiratory effort Auscultation: clear to auscultation bilaterally Cardio: Rate: tachycardic Rhythm: abnormal rhythm irregularly irregular Heart sounds: S1 normal heart sound present, S2 normal heart sound present and no murmurs GI: Auscultation: normal bowel sounds Skin: General skin exam: normal color Neuro: General: patient oriented x3 Cranial nerves: Yes Equal, round and reactive pupils present Extrem: General: normal to inspection Psych: Appearance: grossly normal Mental Status: mental status grossly normal Objective Data Vital Signs Vital Signs: Vital Signs - 24 hr 01/16/25 10:00 01/16/25 11:34 01/16/25 12:00 Temperature 36.7 C Pulse Rate 106 H 108 H Respiratory Rate 16 Blood Pressure 125/70 Pulse Oximetry 100 Oxygen Delivery Room Air 01/16/25 12:00 01/16/25 14:00 01/16/25 15:30 Temperature 36.8 C Pulse Rate 110 H 114 H 101 H Respiratory Rate 18 Blood Pressure 118/60 Pulse Oximetry 98 Oxygen Delivery 01/16/25 16:00 01/16/25 16:00 01/16/25 18:00 Temperature Pulse Rate 103 H 105 H Respiratory Rate Blood Pressure Pulse Oximetry Oxygen Delivery Room Air 01/16/25 19:51 01/16/25 20:00 01/16/25 20:45 Temperature 36.7 C Pulse Rate 96 108 H Respiratory Rate 18 Blood Pressure 151/98 H Pulse Oximetry 95 Oxygen Delivery Room Air 01/16/25 20:52 01/16/25 22:00 01/16/25 23:40 Temperature Pulse Rate 133 H 96 Respiratory Rate Blood Pressure Pulse Oximetry Oxygen Delivery Room Air 01/16/25 23:41 01/17/25 00:00 01/17/25 02:00 Temperature 36.6 C Pulse Rate 77 94 91 Respiratory Rate 18 Blood Pressure 134/57 L Pulse Oximetry 99 Oxygen Delivery 01/17/25 03:43 01/17/25 04:00 01/17/25 04:00 Temperature 36.6 C Pulse Rate 82 107 H Respiratory Rate 18 Blood Pressure 116/63 Pulse Oximetry 96 Oxygen Delivery Room Air 01/17/25 07:53 Temperature 36.6 C Pulse Rate 108 H Respiratory Rate 18 Blood Pressure 139/63 Pulse Oximetry 99 Oxygen Delivery Intake/Output Intake/Output: Intake & Output 01/14/25 01/15/25 01/16/25 01/17/25 23:59 23:59 23:59 23:59 Intake Total 992.9 1270 2370 550 Output Total 2 2 Balance 992.9 1270 2368 548 Meds/Results Medications: Active Medications Generic Name Dose Route Start Last Admin Trade Name Freq PRN Reason Stop Dose Admin Aspirin 81 mg 01/13/25 09:00 01/16/25 09:22 Aspirin 81 Mg Enteric Tablet PO 81 mg DAILY PATRICK Administration Atorvastatin Calcium 5 mg 01/13/25 09:00 01/16/25 09:23 Atorvastatin 5 Mg Tablet PO 5 mg DAILY PATRICK Administration Cilostazol 100 mg 01/13/25 06:30 01/17/25 05:46 Cilostazol 100 Mg Tablet PO 100 mg DAILY@0630 PATRICK Administration Dextrose 12.5 gm 01/12/25 14:34 01/13/25 01:13 Dextrose 50% 25 Gm/50 Ml Syringe IV PUSH 12.5 gm PRN PRN Administration Hypoglycemia Protocol Doxycycline Hyclate 100 mg 01/13/25 13:00 01/16/25 20:52 Doxycycline Hyclate 100 Mg Tablet PO 100 mg Q12HR PATRICK Administration Empagliflozin 25 mg 01/13/25 09:00 01/16/25 09:23 Empagliflozin 25 Mg Tablet PO 25 mg DAILY PATRICK Administration Fish Oil 4 gm 01/13/25 09:00 01/16/25 09:21 [place] 3 Polyunsat Fatty Acids 1 Gm Cap PO 4 gm DAILY PATRICK Administration Glucagon 1 mg 01/12/25 14:34 Glucagon For Inj 1 Mg Vial IM PRN PRN Hypoglycemia Protocol Glucose 15 gm 01/12/25 14:34 Glucose Oral Gel 15 Gm Of Glucse In 37.5 Gm Tube PO PRN PRN Hypoglycemia Protocol Dextrose 1,000 mls @ 100 mls/hr 01/12/25 14:34 Dextrose 5% 1,000 Ml IVPB PRN PRN Hypoglycemia Protocol Insulin Aspart 2 - 5 units 01/12/25 17:00 01/17/25 07:49 Insulin Aspart (*Bkc) 100 Units/Ml SUB-Q 2 units TIDWM [facility] Administration Protocol Insulin Aspart 1 - 2 units 01/12/25 21:00 01/16/25 20:52 Insulin Aspart (*Bkc) 100 Units/Ml SUB-Q 2 units HS [facility] Administration Protocol Insulin Glargine 10 units 01/17/25 08:30 Insulin Glargine (*Bkc) 100 Units/Ml SUB-Q HS [facility] Insulin Human Isoph/Insulin Regular 28 units 01/12/25 16:30 01/15/25 08:02 Insulin Human Isophan/Regular 70/30 (*Bkc) 100 Units/Ml SUB-Q Not Given On Hold: 01/15/25 08:35 BIDAC [facility] Metoprolol Tartrate 5 mg 01/12/25 15:06 Metoprolol Tartrate Inj 5 Mg/5 Ml Vial IV PUSH Q2H PRN Tachycardia Metoprolol Tartrate 50 mg 01/16/25 09:00 01/16/25 20:52 Metoprolol Tartrate 50 Mg Tab PO 50 mg Q12HR PATRICK Administration Non-Formulary Medication 0 mg 01/13/25 13:55 01/16/25 09:29 Semaglutide [Rybelsus] PO 02/12/25 13:54 6 mg DAILY PATRICK Administration Ondansetron HCl 4 mg 01/12/25 11:23 Ondansetron Inj 4 Mg/2 Ml Vial IV PUSH Q4H PRN Nausea Rivaroxaban 20 mg 01/16/25 20:00 01/16/25 20:52 Rivaroxaban 20 Mg Tablet PO 20 mg DAILY@1700 PATRICK Administration Sitagliptin Phosphate 100 mg 01/13/25 09:00 01/16/25 09:23 Sitagliptin Phosphate 100 Mg Tablet PO 100 mg DAILY PATRICK Administration Sodium Bicarbonate 650 mg 01/12/25 14:25 01/16/25 20:53 Sodium Bicarbonate Tab 650 Mg Tablet PO 650 mg Q12HR PATRICK Administration Tacrolimus 1 applic 01/12/25 21:00 01/16/25 21:37 Tacrolimus 0.1% 30 Gm Ointment TOPICAL Not Given Q12H [facility] Vitamin D 50 mcg 01/13/25 09:00 01/16/25 09:23 Cholecalciferol (Vitamin D3) 25 Mcg (1,000 Units) Tablet PO 50 mcg DAILY PATRICK Administration Radiology Results: ITS Impressions Chest X-Ray 01/12/25 09:40 IMPRESSION: 1. No acute cardiopulmonary disease. Chest CTA 01/12/25 10:45 IMPRESSION: 1. No pulmonary embolus identified. 2. No focal pulmonary consolidation. 3. No pulmonary mass. 4. There is a 1.9 cm low-density lesion in the left thyroid lobe. A thyroid ultrasound is recommended. Renal Ultrasound 01/12/25 21:32 Impression: 1: Possible right nephrolithiasis. Otherwise, unremarkable renal ultrasound. Labs Labs: Laboratory Results - last 24 hr 01/16/25 01/16/25 01/16/25 11:18 15:52 19:31 POC Capillary Glucose 254 H 287 H 305 H 01/17/25 07:18 POC Capillary Glucose 239 H Quality VTE Prophylaxis VTE prophylaxis: pharmacologic ordered (Xarelto)
[2025-01-17 09:20] LABS: Digoxin 1.1 ng/mL (0.8-2.0)
[2025-01-17] MEDS: SODIUM BICARBONATE TAB 650 MG TABLET PO ×2 (09:32→20:41)
[2025-01-17] MEDS: [UNRECOGNIZED DRUG - OTHER] PO (09:33)
[2025-01-17] MEDS: OMEGA 3 POLYUNSAT FATTY ACIDS 1 GM CAP 4 GM PO (09:33)
[2025-01-17] MEDS: SEMAGLUTIDE 3 MG PO (09:33)
[2025-01-17] MEDS: METOPROLOL TARTRATE 50 MG TAB PO ×2 (09:34→20:41)
[2025-01-17] MEDS: ATORVASTATIN 5 MG TABLET PO (09:34)
[2025-01-17] MEDS: EMPAGLIFLOZIN 25 MG TABLET PO (09:34)
[2025-01-17] MEDS: CHOLECALCIFEROL (VITAMIN D3) 25 MCG (1,000 UNITS) TABLET 50 MCG PO (09:34)
[2025-01-17] MEDS: DOXYCYCLINE HYCLATE 100 MG TABLET PO ×2 (09:34→20:41)
[2025-01-17] MEDS: INSULIN GLARGINE (*BKC) 100 UNITS/ML 10 UNITS SUB-Q ×2 (09:34→20:41)
[2025-01-17] MEDS: ASPIRIN 81 MG ENTERIC TABLET PO (09:34)
--- NOTE | 2025-01-17 15:01 | WNDPHOTO ---
PHOTO ONLY - See Nursing Notes and/ or assessments for documentation.
[2025-01-17] MEDS: RIVAROXABAN 20 MG TABLET PO (17:24)
--- NOTE | 2025-01-17 18:57 | PM.IMPN ---
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 Qualified Code(s): E11.40 - Type 2 diabetes mellitus with diabetic neuropathy, unspecified; Z79.4 - longterm (current) use of insulin Code(s): E11.40 - Type 2 diabetes mellitus with diabetic neuropathy, unspecified Status: Acute Assessment and Plan: A1c 01/12/2025, 6.7 % Continue Maribeth, and Alisa SSI, POCT, hyperglycemia protocol he will continue his Rybelsus if he brings it here (4) Vitamin D deficiency: Code(s): E55.9 - Vitamin D deficiency, unspecified Status: Acute (5) BRIANNE (acute kidney injury): Code(s): N17.9 - Acute kidney failure, unspecified Status: Acute Assessment and Plan: Likely secondary to prerenal Improved Continue to monitor (6) Acute hyperkalemia: Code(s): E87.5 - Hyperkalemia Status: Acute Assessment and Plan: Resolved (7) Atrial fibrillation with rapid ventricular response: Code(s): I48.91 - Unspecified atrial fibrillation Status: Acute Assessment and Plan: FADY VASc score 4 Continue Xarelto 20 mg daily Continue metoprolol 50 mg b.i.d. Cardiology added Cardizem 30 mg q.6 Plan outpatient cardioversion in 4 weeks (8) Elevated digoxin level: Code(s): R78.89 - Finding of other specified substances, not normally found in blood Status: Acute Assessment and Plan: Dig today is 1.1, discontinue dig (9) Diabetic ulcer of left foot: Code(s): E11.621 - Type 2 diabetes mellitus with foot ulcer; L97.529 - Non-pressure chronic ulcer of other part of left foot with unspecified severity Status: Acute Assessment and Plan: Lateral aspect of the 5th toe-dry ulcer, no purulent discharge X-ray foot negative for bone or joint abnormality or no infection Continue daily dressing change with silver nitrate Subjective Date/time seen: 01/17/25 18:57 Interval history: Patient was seen and examined today. He is constipated. Bowel regiment added. Left foot 5th toe ulcer. X-ray negative for acute bone or joint abnormality. Dressing changed daily Exam Narrative: GENERAL: The patient is well developed, not in acute distress HEENT: Nonicteric sclerae, PERRLA, EOMI. Oropharynx clear. Moist mucous membranes. Conjunctivae appear well perfused. CHEST: Chest wall is nontender. HEART: Tachycardic irregularly regular rhythm on the monitor without murmur, rubs, or gallops LUNGS: Clear to auscultation bilaterally. no respiratory distress ABDOMEN: Soft, positive bowel sounds, non-tender, no organomegaly. SKIN: No rash, no excessive bruising, petechiae, or purpura. NEUROLOGIC: Cranial nerves II-XII intact, alert and oriented x 3, no gross motor deficits EXTREMITIES: left foot ulcer, no purulent discharge, no edema, cyanosis or clubbing Objective Data Vital Signs Vital Signs: Vital Signs - 24 hr 01/16/25 19:51 01/16/25 20:00 01/16/25 20:45 Temperature 36.7 C Pulse Rate 96 108 H Respiratory Rate 18 Blood Pressure 151/98 H Pulse Oximetry 95 Oxygen Delivery Room Air 01/16/25 20:52 01/16/25 22:00 01/16/25 23:40 Temperature Pulse Rate 133 H 96 Respiratory Rate Blood Pressure Pulse Oximetry Oxygen Delivery Room Air 01/16/25 23:41 01/17/25 00:00 01/17/25 02:00 Temperature 36.6 C Pulse Rate 77 94 91 Respiratory Rate 18 Blood Pressure 134/57 L Pulse Oximetry 99 Oxygen Delivery 01/17/25 03:43 01/17/25 04:00 01/17/25 04:00 Temperature 36.6 C Pulse Rate 82 107 H Respiratory Rate 18 Blood Pressure 116/63 Pulse Oximetry 96 Oxygen Delivery Room Air 01/17/25 07:53 01/17/25 08:00 01/17/25 08:00 Temperature 36.6 C Pulse Rate 108 H 120 H Respiratory Rate 18 Blood Pressure 139/63 Pulse Oximetry 99 Oxygen Delivery Room Air 01/17/25 09:34 01/17/25 10:00 01/17/25 11:53 Temperature 36.3 C L Pulse Rate 117 H 126 H 70 Respiratory Rate 16 Blood Pressure 121/68 Pulse Oximetry 98 Oxygen Delivery 01/17/25 12:00 01/17/25 12:00 01/17/25 14:00 Temperature Pulse Rate 111 H 91 Respiratory Rate Blood Pressure Pulse Oximetry Oxygen Delivery Room Air 01/17/25 16:00 01/17/25 16:00 01/17/25 16:00 Temperature 36.8 C Pulse Rate 79 92 Respiratory Rate 18 Blood Pressure 113/64 Pulse Oximetry 97 Oxygen Delivery Room Air 01/17/25 18:00 Temperature Pulse Rate 97 Respiratory Rate Blood Pressure Pulse Oximetry Oxygen Delivery Intake/Output Intake/Output: Intake & Output 01/14/25 01/15/25 01/16/25 01/17/25 23:59 23:59 23:59 23:59 Intake Total 992.9 1270 2370 1270 Output Total 2 6 Balance 992.9 1270 2368 1264 Meds/Results Medications: Active Medications Generic Name Dose Route Start Last Admin Trade Name Freq PRN Reason Stop Dose Admin Aspirin 81 mg 01/13/25 09:00 01/17/25 09:34 Aspirin 81 Mg Enteric Tablet PO 81 mg DAILY PATRICK Administration Atorvastatin Calcium 5 mg 01/13/25 09:00 01/17/25 09:34 Atorvastatin 5 Mg Tablet PO 5 mg DAILY PATRICK Administration Cilostazol 100 mg 01/13/25 06:30 01/17/25 05:46 Cilostazol 100 Mg Tablet PO 100 mg DAILY@0630 PATRICK Administration Dextrose 12.5 gm 01/12/25 14:34 01/13/25 01:13 Dextrose 50% 25 Gm/50 Ml Syringe IV PUSH 12.5 gm PRN PRN Administration Hypoglycemia Protocol Diltiazem HCl 30 mg 01/17/25 12:00 01/17/25 17:24 Diltiazem Hcl 60 Mg Tablet PO 30 mg Q6HR PATRICK Administration Doxycycline Hyclate 100 mg 01/13/25 13:00 01/17/25 09:34 Doxycycline Hyclate 100 Mg Tablet PO 100 mg Q12HR PATRICK Administration Empagliflozin 25 mg 01/13/25 09:00 01/17/25 09:34 Empagliflozin 25 Mg Tablet PO 25 mg DAILY PATRICK Administration Fish Oil 4 gm 01/13/25 09:00 01/17/25 09:33 [place] 3 Polyunsat Fatty Acids 1 Gm Cap PO 4 gm DAILY PATRICK Administration Glucagon 1 mg 01/12/25 14:34 Glucagon For Inj 1 Mg Vial IM PRN PRN Hypoglycemia Protocol Glucose 15 gm 01/12/25 14:34 Glucose Oral Gel 15 Gm Of Glucse In 37.5 Gm Tube PO PRN PRN Hypoglycemia Protocol Dextrose 1,000 mls @ 100 mls/hr 01/12/25 14:34 Dextrose 5% 1,000 Ml IVPB PRN PRN Hypoglycemia Protocol Insulin Aspart 2 - 5 units 01/12/25 17:00 01/17/25 16:43 Insulin Aspart (*Bkc) 100 Units/Ml SUB-Q 2 units TIDWM PATRICK Administration Protocol Insulin Aspart 1 - 2 units 01/12/25 21:00 01/16/25 20:52 Insulin Aspart (*Bkc) 100 Units/Ml SUB-Q 2 units HS PATRICK Administration Protocol Insulin Glargine 10 units 01/17/25 08:30 01/17/25 09:34 Insulin Glargine (*Bkc) 100 Units/Ml SUB-Q 10 units HS PATRICK Administration Insulin Human Isoph/Insulin Regular 28 units 01/12/25 16:30 01/15/25 08:02 Insulin Human Isophan/Regular 70/30 (*Bkc) 100 Units/Ml SUB-Q Not Given On Hold: 01/15/25 08:35 BIDAC PATRICK Metoprolol Tartrate 5 mg 01/12/25 15:06 Metoprolol Tartrate Inj 5 Mg/5 Ml Vial IV PUSH Q2H PRN Tachycardia Metoprolol Tartrate 50 mg 01/16/25 09:00 01/17/25 09:34 Metoprolol Tartrate 50 Mg Tab PO 50 mg Q12HR PATRICK Administration (Semaglutide [ 6 mg 01/18/25 05:30 Rybelsus] 3 Mg PO 02/17/25 05:29 Tablet) *Home Supply DAILY@0530 [facility] Ondansetron HCl 4 mg 01/12/25 11:23 Ondansetron Inj 4 Mg/2 Ml Vial IV PUSH Q4H PRN Nausea Polyethylene Glycol 17 gm 01/17/25 17:17 01/17/25 17:24 Polyethylene Glycol 3350 17 Gm Powd.Pack PO 17 gm QAM PRN Administration Constipation Rivaroxaban 20 mg 01/16/25 20:00 01/17/25 17:24 Rivaroxaban 20 Mg Tablet PO 20 mg DAILY@1700 PATRICK Administration Sitagliptin Phosphate 100 mg 01/13/25 09:00 01/17/25 09:32 Sitagliptin Phosphate 100 Mg Tablet PO 100 mg DAILY PATRICK Administration Sodium Bicarbonate 650 mg 01/12/25 14:25 01/17/25 09:32 Sodium Bicarbonate Tab 650 Mg Tablet PO 650 mg Q12HR PATRICK Administration Tacrolimus 1 applic 01/12/25 21:00 01/17/25 09:32 Tacrolimus 0.1% 30 Gm Ointment TOPICAL Not Given Q12H PATRICK Vitamin D 50 mcg 01/13/25 09:00 01/17/25 09:34 Cholecalciferol (Vitamin D3) 25 Mcg (1,000 Units) Tablet PO 50 mcg DAILY PATRICK Administration Radiology Results: ITS Impressions Chest X-Ray 01/12/25 09:40 IMPRESSION: 1. No acute cardiopulmonary disease. Chest CTA 01/12/25 10:45 IMPRESSION: 1. No pulmonary embolus identified. 2. No focal pulmonary consolidation. 3. No pulmonary mass. 4. There is a 1.9 cm low-density lesion in the left thyroid lobe. A thyroid ultrasound is recommended. Renal Ultrasound 01/12/25 21:32 Impression: 1: Possible right nephrolithiasis. Otherwise, unremarkable renal ultrasound. Foot X-Ray 01/17/25 18:14 Impression: 1: No acute bone or joint abnormality. Labs Labs: Laboratory Results - last 24 hr 01/16/25 01/17/25 01/17/25 19:31 07:18 08:52 POC Capillary Glucose 305 H 239 H Digoxin 1.1 01/17/25 01/17/25 11:24 16:21 POC Capillary Glucose 237 H 226 H Digoxin
[2025-01-17 19:04] LABS: Hematocrit 41.6 % (42.0-52.0); Hemoglobin 13.2 g/dL (14.0-18.0); Mean Corpuscular HGB Conc 31.7 g/dl (32-36); Mean Corpuscular Hemoglobin 28.4 pg (26-34); Mean Corpuscular Volume 89.7 fl (80-100); Platelet Count Result 233 k/mm3 (150-375); Red Blood Count 4.64 M/mm3 (4.6-6.20); White Blood Count 7.5 K/mm3 (4.5-10.0)
[2025-01-17 19:11] LABS: Alanine Aminotransferase 40 U/L (6-50); Albumin Level 3.5 g/dL (3.5-5.1); Alkaline Phosphatase 78 U/L (38-126); Anion Gap 7 mmol/L (4-12); Aspartate Amino Transferase 38 U/L (17-59); Bilirubin,Total 1.2 mg/dL (0.2-1.3); Blood Urea Nitrogen 23 mg/dL (9-20); Calcium 8.9 mg/dL (8.4-10.2); Carbon Dioxide 20 mmol/L (22-30); Chloride 105 mmol/L (98-107); Estimated CRCL calculation 47 ml/min; Estimated Glomerular Filt Rate > 60; Glucose 289 mg/dL (65-110); Potassium 4.4 mmol/L (3.4-5.0); Sodium 132 mmol/L (137-145); Total Protein 6.6 g/dL (6.3-8.2)
[2025-01-18] VITALS (10 sets, daily range): BP systolic 106–119; BP diastolic 56–59; PULSE 70–106; RESP 12–20; TEMP 36.5–37.2; O2SAT 99–100
[2025-01-18 05:14] LABS: Thyroid Stimulating Hormone Reflex 3.390 uIU/mL (0.465-4.68)
[2025-01-18] MEDS: SEMAGLUTIDE 3 MG 6 EACH PO (05:40)
--- NOTE | 2025-01-18 07:44 | P.PNCA_ITS ---
Progress Note: A&P Assessment and Plan (1) Atrial fibrillation with rapid ventricular response: Code(s): I48.91 - Unspecified atrial fibrillation Status: Acute Assessment and Plan: -in regards to new diagnosis of AFib with RVR, attempted cardioversion with DAPHNE but was canceled because of left atrial appendage clot. Rate control to be adopted for now. * Continue Xarelto. * Continue metoprolol 50 mg b.i.d.. * Change diltiazem short acting to 120 mg daily. * Echocardiogram during this admission shows normal ejection fraction. * Plan outpatient cardioversion in 4 weeks. Ht * TSH checked during this admission is normal. * ApneaLink with AHI 26. Needs outpatient sleep study. (2) Benign essential hypertension: Code(s): I10 - Essential (primary) hypertension Status: Acute Assessment and Plan: Blood pressure is controlled. Continue metoprolol. Continue diltiazem (3) Mixed hyperlipidemia: Code(s): E78.2 - Mixed hyperlipidemia Status: Acute Assessment and Plan: Continue statin. Subjective Date/time seen: 01/18/25 07:44 Interval history: DAPHNE finding reviewed. No other complaints. Still in AFib, rate still not controlled Date of service 01/17/2025-resting comfortably in bed. No complaints. AFib not controlled. Heart rates 130s to 140s Date of service 01/18/2025- Review of Systems Review of Systems: - CONSTITUTIONAL: Denies weight loss, fe gerald and chills. - HEENT: Denies changes in vision and he aring - RESPIRATORY: Denies SOB and cough. - CV: Denies palpitations and CP. - GI: Denies abdominal pain, nausea, vom iting and diarrhea. - : Denies dysuria and urinary frequen cy. - MSK: Denies myalgia and joint pain. - SKIN: Denies rash and pruritus. - NEUROLOGICAL: Denies headache and sync ope. - PSYCHIATRIC: Denies recent changes in mood. Denies anxiety and depression. All systems reviewed & are unremarkable except as noted in HPI and below Exam Narrative: GENERAL: The patient is well developed, not in acute distress HEENT: Nonicteric sclerae, PERRLA, EOMI. Oropharynx clear. Moist mucous membranes. Conjunctivae appear well perfused. CHEST: Chest wall is nontender. HEART: Tachycardic irregularly regular rhythm on the monitor without murmur, rubs, or gallops LUNGS: Clear to auscultation bilaterally. no respiratory distress ABDOMEN: Soft, positive bowel sounds, non-tender, no organomegaly. SKIN: No rash, no excessive bruising, petechiae, or purpura. NEUROLOGIC: Cranial nerves II-XII intact, alert and oriented x 3, no gross motor deficits EXTREMITIES: no edema, cyanosis or clubbing Const: General: comfortable, no acute distress, alert and awake Orientation/consciousness: patient oriented x3 HENMT: Head: normal to inspection Eyes: General: appearance normal, both eyes and all related structures Pupils: Equal, round and reactive pupils present Neck: Neck: normal visual inspection, supple and no JVD Carotids: normal carotid upstroke Resp: Effort & Inspection: normal respiratory effort Auscultation: clear to auscultation bilaterally Cardio: Rate: tachycardic Rhythm: abnormal rhythm irregularly irregular Heart sounds: S1 normal heart sound present, S2 normal heart sound present and no murmurs GI: Auscultation: normal bowel sounds Skin: General skin exam: normal color Neuro: General: patient oriented x3 Cranial nerves: Yes Equal, round and reactive pupils present Extrem: General: normal to inspection Psych: Appearance: grossly normal Mental Status: mental status grossly normal Objective Data Vital Signs Vital Signs: Vital Signs - 24 hr 01/17/25 07:53 01/17/25 08:00 01/17/25 08:00 Temperature 36.6 C Pulse Rate 108 H 120 H Respiratory Rate 18 Blood Pressure 139/63 Pulse Oximetry 99 Oxygen Delivery Room Air Fraction of Inspired Oxygen 01/17/25 09:34 01/17/25 10:00 01/17/25 11:53 Temperature 36.3 C L Pulse Rate 117 H 126 H 70 Respiratory Rate 16 Blood Pressure 121/68 Pulse Oximetry 98 Oxygen Delivery Fraction of Inspired Oxygen 01/17/25 12:00 01/17/25 12:00 01/17/25 14:00 Temperature Pulse Rate 111 H 91 Respiratory Rate Blood Pressure Pulse Oximetry Oxygen Delivery Room Air Fraction of Inspired Oxygen 01/17/25 16:00 01/17/25 16:00 01/17/25 16:00 Temperature 36.8 C Pulse Rate 79 92 Respiratory Rate 18 Blood Pressure 113/64 Pulse Oximetry 97 Oxygen Delivery Room Air Fraction of Inspired Oxygen 01/17/25 18:00 01/17/25 19:37 01/17/25 19:53 Temperature 36.9 C Pulse Rate 97 96 Respiratory Rate 18 Blood Pressure 103/49 L Pulse Oximetry 97 Oxygen Delivery Room Air Fraction of Inspired Oxygen 01/17/25 20:00 01/17/25 20:41 01/17/25 21:52 Temperature Pulse Rate 99 105 H 115 H Respiratory Rate 20 Blood Pressure Pulse Oximetry 95 Oxygen Delivery Room Air Fraction of Inspired Oxygen 21 01/17/25 21:57 01/17/25 23:31 01/17/25 23:40 Temperature 36.8 C Pulse Rate 86 79 Respiratory Rate 16 Blood Pressure 128/58 L Pulse Oximetry 98 Oxygen Delivery Room Air Fraction of Inspired Oxygen 01/18/25 00:00 01/18/25 02:00 01/18/25 03:13 Temperature Pulse Rate 70 72 Respiratory Rate Blood Pressure Pulse Oximetry Oxygen Delivery Room Air Fraction of Inspired Oxygen 01/18/25 03:34 01/18/25 04:00 01/18/25 06:00 Temperature 36.9 C Pulse Rate 73 78 95 Respiratory Rate 16 Blood Pressure 117/56 L Pulse Oximetry 99 Oxygen Delivery Fraction of Inspired Oxygen 01/18/25 06:28 Temperature Pulse Rate Respiratory Rate Blood Pressure 119/59 L Pulse Oximetry Oxygen Delivery Fraction of Inspired Oxygen Intake/Output Intake/Output: Intake & Output 01/15/25 01/16/25 01/17/25 01/18/25 23:59 23:59 23:59 23:59 Intake Total 1270 2370 1270 300 Output Total 2 6 Balance 1270 2368 1264 300 Meds/Results Medications: Active Medications Generic Name Dose Route Start Last Admin Trade Name Freq PRN Reason Stop Dose Admin Aspirin 81 mg 01/13/25 09:00 01/17/25 09:34 Aspirin 81 Mg Enteric Tablet PO 81 mg DAILY PATRICK Administration Atorvastatin Calcium 5 mg 01/13/25 09:00 01/17/25 09:34 Atorvastatin 5 Mg Tablet PO 5 mg DAILY PATRICK Administration Cilostazol 100 mg 01/13/25 06:30 01/18/25 06:28 Cilostazol 100 Mg Tablet PO 100 mg DAILY@0630 PATRICK Administration Dextrose 12.5 gm 01/12/25 14:34 01/13/25 01:13 Dextrose 50% 25 Gm/50 Ml Syringe IV PUSH 12.5 gm PRN PRN Administration Hypoglycemia Protocol Diltiazem HCl 30 mg 01/18/25 00:00 01/18/25 06:28 Diltiazem Hcl 30 Mg Tablet PO 30 mg Q6HR PATRICK Administration Doxycycline Hyclate 100 mg 01/13/25 13:00 01/17/25 20:41 Doxycycline Hyclate 100 Mg Tablet PO 100 mg Q12HR PATRICK Administration Empagliflozin 25 mg 01/13/25 09:00 01/17/25 09:34 Empagliflozin 25 Mg Tablet PO 25 mg DAILY PATRICK Administration Fish Oil 4 gm 01/13/25 09:00 01/17/25 09:33 [place] 3 Polyunsat Fatty Acids 1 Gm Cap PO 4 gm DAILY PATRICK Administration Glucagon 1 mg 01/12/25 14:34 Glucagon For Inj 1 Mg Vial IM PRN PRN Hypoglycemia Protocol Glucose 15 gm 01/12/25 14:34 Glucose Oral Gel 15 Gm Of Glucse In 37.5 Gm Tube PO PRN PRN Hypoglycemia Protocol Dextrose 1,000 mls @ 100 mls/hr 01/12/25 14:34 Dextrose 5% 1,000 Ml IVPB PRN PRN Hypoglycemia Protocol Insulin Aspart 2 - 5 units 01/12/25 17:00 01/18/25 07:31 Insulin Aspart (*Bkc) 100 Units/Ml SUB-Q Not Given TIDWM [facility] Protocol Insulin Aspart 1 - 2 units 01/12/25 21:00 01/17/25 20:41 Insulin Aspart (*Bkc) 100 Units/Ml SUB-Q 1 units HS PATRICK Administration Protocol Insulin Glargine 10 units 01/17/25 08:30 01/17/25 20:41 Insulin Glargine (*Bkc) 100 Units/Ml SUB-Q 10 units HS [facility] Administration Insulin Human Isoph/Insulin Regular 28 units 01/12/25 16:30 01/15/25 08:02 Insulin Human Isophan/Regular 70/30 (*Bkc) 100 Units/Ml SUB-Q Not Given On Hold: 01/15/25 08:35 BIDAC [facility] Metoprolol Tartrate 5 mg 01/12/25 15:06 Metoprolol Tartrate Inj 5 Mg/5 Ml Vial IV PUSH Q2H PRN Tachycardia Metoprolol Tartrate 50 mg 01/16/25 09:00 01/17/25 20:41 Metoprolol Tartrate 50 Mg Tab PO 50 mg Q12HR PATRICK Administration (Semaglutide [ 6 mg 01/18/25 05:30 01/18/25 05:40 Rybelsus] 3 Mg PO 02/17/25 05:29 6 mg Tablet) *Home Supply DAILY@0530 PATRICK Administration Ondansetron HCl 4 mg 01/12/25 11:23 Ondansetron Inj 4 Mg/2 Ml Vial IV PUSH Q4H PRN Nausea Polyethylene Glycol 17 gm 01/17/25 17:17 01/17/25 17:24 Polyethylene Glycol 3350 17 Gm Powd.Pack PO 17 gm QAM PRN Administration Constipation Rivaroxaban 20 mg 01/16/25 20:00 01/17/25 17:24 Rivaroxaban 20 Mg Tablet PO 20 mg DAILY@1700 PATRICK Administration Sitagliptin Phosphate 100 mg 01/13/25 09:00 01/17/25 09:32 Sitagliptin Phosphate 100 Mg Tablet PO 100 mg DAILY PATRICK Administration Sodium Bicarbonate 650 mg 01/12/25 14:25 01/17/25 20:41 Sodium Bicarbonate Tab 650 Mg Tablet PO 650 mg Q12HR PATRICK Administration Tacrolimus 1 applic 01/12/25 21:00 01/17/25 19:35 Tacrolimus 0.1% 30 Gm Ointment TOPICAL Not Given Q12H PATRICK Vitamin D 50 mcg 01/13/25 09:00 01/17/25 09:34 Cholecalciferol (Vitamin D3) 25 Mcg (1,000 Units) Tablet PO 50 mcg DAILY PATRICK Administration Radiology Results: ITS Impressions Chest X-Ray 01/12/25 09:40 IMPRESSION: 1. No acute cardiopulmonary disease. Chest CTA 01/12/25 10:45 IMPRESSION: 1. No pulmonary embolus identified. 2. No focal pulmonary consolidation. 3. No pulmonary mass. 4. There is a 1.9 cm low-density lesion in the left thyroid lobe. A thyroid ultrasound is recommended. Renal Ultrasound 01/12/25 21:32 Impression: 1: Possible right nephrolithiasis. Otherwise, unremarkable renal ultrasound. Foot X-Ray 01/17/25 18:14 Impression: 1: No acute bone or joint abnormality. Labs Labs: Laboratory Results - last 24 hr 01/17/25 01/17/25 01/17/25 07:18 08:52 11:24 WBC 7.5 RBC 4.64 Hgb 13.2 L Hct 41.6 L MCV 89.7 MCH 28.4 MCHC 31.7 L RDW 13.7 Plt Count 233 MPV 10.2 Sodium 132 L Potassium 4.4 Chloride 105 Carbon Dioxide 20 L Anion Gap 7 BUN 23 H Creatinine 1.17 Estim Creat Clear Calc 47 Estimated GFR > 60 Glucose 289 H POC Capillary Glucose 239 H 237 H Calcium 8.9 Total Bilirubin 1.2 AST 38 ALT 40 Alkaline Phosphatase 78 Total Protein 6.6 Albumin 3.5 TSH (Reflex) Digoxin 1.1 01/17/25 01/17/25 01/18/25 16:21 20:30 03:47 WBC RBC Hgb Hct MCV MCH MCHC RDW Plt Count MPV Sodium Potassium Chloride Carbon Dioxide Anion Gap BUN Creatinine Estim Creat Clear Calc Estimated GFR Glucose POC Capillary Glucose 226 H 269 H Calcium Total Bilirubin AST ALT Alkaline Phosphatase Total Protein Albumin TSH (Reflex) 3.390 Digoxin 01/18/25 07:12 WBC RBC Hgb Hct MCV MCH MCHC RDW Plt Count MPV Sodium Potassium Chloride Carbon Dioxide Anion Gap BUN Creatinine Estim Creat Clear Calc Estimated GFR Glucose POC Capillary Glucose 145 H Calcium Total Bilirubin AST ALT Alkaline Phosphatase Total Protein Albumin TSH (Reflex) Digoxin Quality VTE Prophylaxis VTE prophylaxis: pharmacologic ordered (Xarelto)
[2025-01-18] MEDS: METOPROLOL TARTRATE 50 MG TAB PO (08:43)
[2025-01-18] MEDS: OMEGA 3 POLYUNSAT FATTY ACIDS 1 GM CAP 4 GM PO (08:43)
[2025-01-18] MEDS: SODIUM BICARBONATE TAB 650 MG TABLET PO (08:43)
[2025-01-18] MEDS: ASPIRIN 81 MG ENTERIC TABLET PO (08:44)
[2025-01-18] MEDS: dilTIAZem HCL CD 120 MG CAP.24HR PO (08:44)
[2025-01-18] MEDS: DOXYCYCLINE HYCLATE 100 MG TABLET PO (08:44)
[2025-01-18] MEDS: CHOLECALCIFEROL (VITAMIN D3) 25 MCG (1,000 UNITS) TABLET 50 MCG PO (08:44)
[2025-01-18] MEDS: EMPAGLIFLOZIN 25 MG TABLET PO (08:44)
[2025-01-18] MEDS: ATORVASTATIN 5 MG TABLET PO (08:44)
[2025-01-18] MEDS: INSULIN ASPART (*BKC) 100 UNITS/ML SUB-Q (12:01)
--- NOTE | 2025-01-18 13:13 | P.DS_ITS ---
DS: Admitting Diagnosis Discharge Date 01/18/2025 Admitting Diagnosis A.fib RVR DS: Discharge Diagnosis Discharge Diagnosis Plan Continue taking Xarelto 20 mg daily Follow-up with cardiology in 4 weeks for cardioversion DS: Summary Hospital Course Hospital Course: Dylan Noel is the 70-year-old gentleman with past medical history of insulin- dependent type 2 diabetes, peripheral artery disease is on cilostazol, hypertension who presented from PCP office for generalized weakness and chest tightness, found to be a Afib with RVR. PE was obtained and shows left atrial clot/thrombus. Lovenox started today and switched to Xarelto, metoprolol was initiated however remains A.fib RVR and diltiazem was added. 2D echo was obtained and cardiac function was normal. Patient remained hemodynamically stable, afebrile, heart rate ranging 100-120. Cardiology is okay to discharge patient with metoprolol and diltiazem with outpatient follow-up with [facility] in 4 weeks. There was noted nonhealing diabetic ulcer on the left feet. X-ray of the foot was obtained and did not show any infectious process. Tracing was changed daily. He is following podiatry as outpatient and she will continue to follow. Time Spent with Patient Time attestation: Total time spent providing and/or coordinating discharge services: Exam Narrative: APPEARANCE: No acute distress, nontoxic, resting in ? EYES: EOMI HEENT: Normocephalic, atraumatic, OMM RESPIRATORY: No respiratory distress Clear to auscultation bilaterally with no rhonchi wheezing or rales. CARDIOVASCULAR: Irregularly irregular, S1 and S2 without murmurs rubs or gallops. ABDOMINAL: Soft, nontender, nondistended, no rebound or guarding MUSCULOSKELETAl: range of motion to the left lower extremity is limited due to pain of the left ankle. No bony tenderness throughout either leg and no deformities. NEURO: Awake and alert. Following commands, speech normal, no focal deficits SKIN:: Warm, dry. No rashes lesions or abrasions PSYCHIATRIC: Normal affect/mood, DS: Data Data Completed and Pending Labs on day of discharge: Labs from last 24 hours 01/18/25 01/18/25 01/18/25 11:28 07:12 03:47 WBC RBC Hgb Hct MCV MCH MCHC RDW Plt Count MPV Sodium Potassium Chloride Carbon Dioxide Anion Gap BUN Creatinine Estim Creat Clear Calc Estimated GFR Glucose POC Capillary Glucose 334 H 145 H Calcium Total Bilirubin AST ALT Alkaline Phosphatase Total Protein Albumin TSH (Reflex) 3.390 01/17/25 01/17/25 01/17/25 20:30 16:21 08:52 WBC 7.5 RBC 4.64 Hgb 13.2 L Hct 41.6 L MCV 89.7 MCH 28.4 MCHC 31.7 L RDW 13.7 Plt Count 233 MPV 10.2 Sodium 132 L Potassium 4.4 Chloride 105 Carbon Dioxide 20 L Anion Gap 7 BUN 23 H Creatinine 1.17 Estim Creat Clear Calc 47 Estimated GFR > 60 Glucose 289 H POC Capillary Glucose 269 H 226 H Calcium 8.9 Total Bilirubin 1.2 AST 38 ALT 40 Alkaline Phosphatase 78 Total Protein 6.6 Albumin 3.5 TSH (Reflex) Discharge Plan Discharge Attending physician on discharge: Janice Johnson Consulting providers: Viri Layton Discharging Clinician: Janice Johnson Anticipated Discharge Date/Time: 01/18/25 12:59 Patient Disposition: Home Activity: unlimited Diet: diabetic Wound Care Instructions: keep dressing dry Patient Instructions: Antibiotic Form, Metoprolol (By mouth), Diltiazem (By mouth), Aspirin (By mouth), Cilostazol (By mouth), Rivaroxaban (By mouth), A-fib (Atrial Fibrillation) (DC), Safe Use of Anticoagulants (DC), Transesophageal Echocardiogram (DC) Patient Language: Turkmen Stand Alone Forms: General Discharge Information Follow-up/Referrals: Tommie Ricardo MD [Physician, Cardiology] - 4 Weeks Discharge Medications: New metoprolol tartrate 50 mg Tablet 50 mg PO Q12HR Qty: 90 0RF Xarelto 20 mg Tablet 20 mg PO DAILY@1700 Qty: 60 0RF diltiazem HCl 120 mg Capsule,Extended Release 24 Hr 120 mg PO QAM Qty: 90 0RF Continued Januvia 100 mg tablet 100 mg PO DAILY silver sulfadiazine [Silvadene] 1 % cream 1 applic topical BID Rx Instructions: apply a 1.5 mm thickness aspirin [Adult Low Dose Aspirin] 81 mg tablet,delayed release (DR/EC) 81 mg PO DAILY omega-3 fatty acids [Fish Oil Concentrate] 1,000 mg capsule 4,000 mg PO DAILY cilostazol 100 mg tablet 100 mg PO DAILY Patient Comments: Patient takes this at 0530am. tacrolimus 0.1 % ointment 1 applic TOPICAL Q12H Patient Comments: apply to hands cholecalciferol (vitamin D3) 50 mcg (2,000 unit) capsule 50 mcg PO DAILY (DME) insulin syringe-needle U-100 1 mL 31 gauge x 5/16 syringe See Rx Instructions .Route Qty: 100 1RF Rx Instructions: As directed Rybelsus 3 mg tablet 6 mg PO DAILY Patient Comments: patient takes this at 0530am. Jardiance 25 mg tablet 25 mg PO DAILY (DME) Dexcom G7 Internal Sales Engineer Misc See Rx Instructions .Route Qty: 1 0RF Rx Instructions: As directed metformin 1,000 mg tablet See Rx Instructions .ROUTE .COMPLEX Qty: 200 1RF Dose Instruction: TAKE 1 TABLET BY MOUTH TWICE DAILY Rx Instructions: TAKE 1 TABLET BY MOUTH TWICE DAILY Humulin 70/30 U-100 Insulin 100 unit/mL (70-30) suspension See Rx Instructions .ROUTE .COMPLEX Qty: 70 1RF Dose Instruction: INJECT SUBCUTANEOUSLY 35 UNITS TWICE DAILY Rx Instructions: INJECT SUBCUTANEOUSLY 35 UNITS TWICE DAILY atorvastatin 10 mg tablet 5 mg PO DAILY Qty: 90 0RF Rx Instructions: 5mg daily (DME) insulin syringe-needle U-100 0.5 mL 31 gauge x 5/16 syringe See Rx Instructions .ROUTE .COMPLEX Qty: 200 0RF Dose Instruction: USE DIRECTED TO INJECT INSULIN Rx Instructions: USE DIRECTED TO INJECT INSULIN (DME) Dexcom G7 Sensor Device See Rx Instructions .ROUTE .COMPLEX Qty: 1 0RF Dose Instruction: USE TO MONITOR BLOOD GLUCOSE, REPLACE SENSOR EVERY 10 DAYS Rx Instructions: USE TO MONITOR BLOOD GLUCOSE, REPLACE SENSOR EVERY 10 DAYS Held valsartan-hydrochlorothiazide 320-12.5 mg tablet See Rx Instructions .ROUTE .COMPLEX Qty: 100 1RF Hold Instructions: Resume on 01/31/25. please check your blood pressure and if it is high, take your meds. We did not give you in the hospital so you may not need it. Dose Instruction: TAKE 1 TABLET BY MOUTH DAILY Rx Instructions: TAKE 1 TABLET BY MOUTH DAILY Discontinued doxycycline hyclate 100 mg capsule 100 mg PO Q12H Date of admission: 01/13/25 19:12 Primary Care Provider: Armando Larios Admitting Provider: Sky Licea Attending physician on admission: Sky Licea Condition: Serious
--- NOTE | 2025-01-30 15:50 | PCCDE ---
DM educator placed courtesy follow up call. Spoke with who advised me he's doing well re: blood sugars. Changed the CGM and now using overpatch. Only problem is alarm when at different room. They have problem solved read instructions and realize it had to due to maximum distance. States Limon was very helpful with initiating CGM. Pt followed up with [facility] today. No PCP follow up at this time. Aware of OP opportunity and still considering it when have PCP appt for referral.
== END 2025-01-18 13:37 | disposition home or self-care (01) | DRG 309 ==
LOC: ANHED 08:36 → ANHIMU 13:38
PROVIDERS: Internal Medicine; Internal Medicine Cardiovascular Disease; Internal Medicine Interventional Cardiology; Admitting Provider General Practice; Emergency Provider General Practice; PCP Internal Medicine; Visit Provider Student in an Organized Health Care Education/Training Program
PROC: B24BZZ4 Ultrasonography of Heart with Aorta, Transesophageal (ICD-10-PCS; CPT 93312; principal; 2025-01-14 08:30)
DX: I48.91 Unspecified atrial fibrillation (principal); E87.1 Hypo-osmolality and hyponatremia; N17.9 Acute kidney failure, unspecified; E87.21 Acute metabolic acidosis; E11.42 Type 2 diabetes mellitus with diabetic polyneuropathy; I12.9 Hypertensive chronic kidney disease with stage 1 through stage 4 chronic kidney disease, or unspecified chronic kidney disease; E11.621 Type 2 diabetes mellitus with foot ulcer; L97.529 Non-pressure chronic ulcer of other part of left foot with unspecified severity; I73.9 Peripheral vascular disease, unspecified; E86.0 Dehydration; N18.30 Chronic kidney disease, stage 3 unspecified; E11.22 Type 2 diabetes mellitus with diabetic chronic kidney disease; E78.2 Mixed hyperlipidemia; E55.9 Vitamin D deficiency, unspecified; E87.5 Hyperkalemia; Z79.4 Long term (current) use of insulin
CPT/HCPCS: 36415; 71045; 71275; 73620; 76775; 80048; 80053; 80162; 82948; 83036; 83735; 83880; 84443; 84484; 85025; 85027; 85610; 85730; 93005; 93306; 93312; 93320; 93325; 94762; 96361; 96372; 96374; 96375; 99212; 99285; A9270; G0378; G0463; J0282; J0612; J1160; J1163; J1200; J1650; J1815; J2250; J3010; J7030; J7040; Q9967

== ENCOUNTER 2025-02-18 00:45 | Day surgery (SDC) | payer MEDICARE, SELFPAY ==
--- OUTSIDE RECORDS SUMMARY | 2004-01-11 07:30 | XMS_ITS | Continuity of Care Document ---
Author Organization [facility] Address [id number] [place] [address] [place] [address] Phone Care Team Providers Care Mmi Teacher Name Role Phone Ed Grimm DO Unavailable Unavailable Advance Directives Directive Yes / No Effective Date File Name No Information Encounters Encounter Description Practice Location Reason(s) For Visit Diagnoses Date Provider Providers Copied on Encounter [facility], [address] [place] [address] [address], [place], [place], [id number], tel:[phone] [facility] No Information Sirisha Romeo. [id number] [email or web address] [facility], [place], [address], [place]. tel:[phone] Referring Provider: Armando Larios MD , [address] [address] [address], [place], [address]. tel:[phone] Family History Family Member Type Diagnosis Age At Onset No Information Payers Payer name Insurance type Covered alliance party ID Authoriza tion(s) No Information Social History Type Description Quantity Date Captured Comments Sex Female Smoking Status No Information Chief Complaint And Reason For Visit No Information Reason For Referral Reason For Referral No Information History Of Present Illness Encounter Date Complaint History Of Prese nt Illness No Information Functional Status Date Functional Assessmen t No Information Instructions Date Instruction Additional Infor mation No Information Assessments Type Assessment Date No Information Patient Care Teams Name Effective Dates (start - stop) Status Members No Information
[2025-02-17 09:35] VITALS: BMI 31.3
--- NOTE | 2025-02-18 07:00 | ECG_ITS ---
Test Date: 2025-02-18 07:26:11 Measurements Intervals [place] Rate: 92 P: 0 ME: 0 QRS: -55 QRSD: 110 T: 30 QT: 342 QTc: 425 Interpretive Statements ATRIAL FIBRILLATION LEFT ANTERIOR FASCICULAR BLOCK [QRS AXIS <= -45, QR IN I, RS IN II] ABNORMAL ECG Compared to ECG 01/16/2025 12:11:46 NO DIFFERENCEt Electronically Signed On 02-18-2025 07:38:31 CDT by Marcelino Sheriff M.D.
[2025-02-18 07:31] VITALS: BP 124/80; PULSE 92; RESP 16; TEMP 36.6; O2SAT 95
[2025-02-18 07:56] LABS: Anion Gap 9 mmol/L (4-12); Blood Urea Nitrogen 22 mg/dL (9-20); Calcium 9.2 mg/dL (8.4-10.2); Carbon Dioxide 22 mmol/L (22-30); Chloride 106 mmol/L (98-107); Estimated CRCL calculation 54 ml/min; Estimated Glomerular Filt Rate > 60; Glucose 169 mg/dL (65-110); Magnesium 2.2 mg/dL (1.6-2.3); Potassium 4.3 mmol/L (3.4-5.0); Sodium 137 mmol/L (137-145)
--- NOTE | 2025-02-18 08:12 | WPDMODSED ---
Moderate Sedation Note-Pt Data Patient Data Diagnosis: Persistent atrial fibrillation Present Complaint: None Procedure to be performed/Plan: DC cardioversion Allergies Allergy/AdvReac Type Severity Reaction Status Date / Time amoxicillin AdvReac Severe Hives Verified 01/12/25 08:09 clavulanic acid (From AdvReac Severe Hives Verified 01/12/25 08:09 Augmentin) Penicillins AdvReac Severe Hives Verified 01/12/25 08:09 Home Medications ?Medication ?Instructions ?Recorded ?Confirmed ?Type aspirin 81 mg tablet,delayed 81 mg PO DAILY 07/08/19 02/18/25 History release (Adult Low Dose Aspirin) omega-3 fatty acids 1,000 mg 4,000 mg PO DAILY 07/08/19 02/17/25 History capsule (Fish Oil Concentrate) cholecalciferol (vitamin D3) 50 50 mcg PO DAILY 09/21/22 02/18/25 History mcg (2,000 unit) capsule insulin syringe-needle U-100 1 mL #100 ea 01/02/23 01/12/25 Rx 31 gauge x 5/16 semaglutide 3 mg tablet (Rybelsus) 6 mg PO DAILY 01/16/23 02/17/25 History empagliflozin 25 mg tablet 25 mg PO DAILY 03/13/24 02/17/25 History (Jardiance) silver sulfadiazine 1 % topical 1 applic topical BID 08/25/24 02/17/25 History cream (Silvadene) blood-glucose,market research specialist,cont #1 ea 09/29/24 01/12/25 Rx (Dexcom G7 Embroidery Worker) metformin 1,000 mg tablet See Rx Instructions .Route 10/08/24 02/17/25 Rx .COMPLEX #200 tabs insulin human U-100 NPH-regulr See Rx Instructions .Route 10/29/24 02/17/25 Rx 70-30 mix 100 unit/mL subcutaneous .COMPLEX #70 mL susp (Humulin 70/30 U-100 Insulin) atorvastatin 10 mg tablet 5 mg (1/2 x 10 mg) PO DAILY #90 12/01/24 02/18/25 Rx tabs insulin syringe-needle U-100 0.5 #200 ea 12/02/24 01/12/25 Rx mL 31 gauge x 5/16 cilostazol 100 mg tablet 100 mg PO DAILY 01/12/25 02/18/25 History diltiazem HCl 120 mg capsule,24 120 mg PO QAM #90 caps 01/18/25 02/18/25 Rx hr,extended release metoprolol tartrate 50 mg tablet 50 mg PO Q12HR #90 tabs 01/18/25 02/18/25 Rx rivaroxaban 20 mg tablet (Xarelto) 20 mg PO DAILY@1700 #60 tabs 01/18/25 02/17/25 Rx blood-glucose sensor (Dexcom G7 #10 ea 01/27/25 Rx Sensor device) sitagliptin phosphate 100 mg 100 mg PO DAILY 02/17/25 02/17/25 History tablet (Januvia) Current Medications: Active Medications Sodium Chloride (Normal Saline Iv) 1,000 mls @ 30 mls/hr IV CONT .Q24H PATRICK Sedation/Anesthesia: No previous sedation/anesthesia problems (including family history). [facility] Past Medical History Medical History BMI 29.0-29.9,adult Chronic kidney disease Peripheral vascular disease Mixed hyperlipidemia Insulin dependent type 2 diabetes mellitus BMI 31.0-31.9,adult Vitamin D deficiency Hearing loss Vitreous hemorrhage of left eye Abnormal ankle brachial index (LAMAR) Benign essential hypertension Surgical History Surgical History History of bilateral cataract extraction (2022) Family History Family History Mother Diabetes mellitus Hemochromatosis Father Diabetes mellitus Myocardial infarct Social History Social History Social History: Surrogate medical decision maker: Karrie Nole, spouse ([phone]). Code status: Full code. Smoking status: Never smoker Second hand tobacco smoke exposure: No Alcohol intake: never Substance use: never Substance use type: does not use Do You Feel Safe in your Home?: Yes Lack of Transportation: No Lack of Food: Never True Current Housing: I Have Housing Concerned About Future Housing: No Difficulty Paying Gas/Electric Bills: No Difficulty Paying for Meds: No Currently Unemployed: No Education: High School Diploma/GED Difficulty w/ Childcare or Family Care: No Spiritual care concerns: No Mod Sed Physical Exam Physical Exam Pre Procedural Exam: Normal: Appearance, Neck, Throat, Airway, Lungs, Heart Size, Neuro Exam and Extremities and Variation: Heart Rate and Heart Rhythm (Irregularly irregular) Hours since solid foods: 12 Hours since liquid intake: 12 Mallampati Classification: class II Internal Medicine - PN: Obj Da Vital Signs Vital Signs: Vital Signs - 24 hr 02/18/25 07:31 Temperature 36.6 C Pulse Rate 92 Respiratory Rate 16 Blood Pressure 124/80 Pulse Oximetry 95 Oxygen Delivery Room Air Meds/Results Medications: Active Medications Generic Name Dose Route Start Last Admin Trade Name Freq PRN Reason Stop Dose Admin Sodium Chloride 1,000 mls @ 30 mls/hr 02/18/25 07:00 Normal Saline Iv IV CONT .Q24H PATRICK Labs 02/18/25 07:31 Labs: Laboratory Results - last 24 hr 02/18/25 07:31 Sodium 137 Potassium 4.3 Chloride 106 Carbon Dioxide 22 Anion Gap 9 BUN 22 H Creatinine 1.16 Estim Creat Clear Calc 54 Estimated GFR > 60 Glucose 169 H Calcium 9.2 Magnesium 2.2 ASA Classification/Sedation ASA Classification/Sedation ASA Class: II Emergent: No Risks: Risks, benefits and alternatives explained and patient/family accepted plan for sedation. Patient re-evaluated immediately prior to sedation.
[2025-02-18 08:20] VITALS: BP 139/96; PULSE 126; RESP 14; O2SAT 98
[2025-02-18] MEDS: PROPOFOL IV EMULSION 200 MG/20 ML VIAL 40 MG IV PUSH (08:20)
--- NOTE | 2025-02-18 08:24 | P.PCNCC_ITS ---
Cardiac Cath Procedure Note Date of procedure:: 02/18/25 Performing physician:: Marcelino Sheriff MD Indication:: Persistent atrial fibrillation Brief clinical history:: This is a 69-year-old man recently hospitalized with newly recognized atrial fibrillation. His arrhythmia was of unknown onset. His heart rate was controlled and he was anticoagulated. Philipp showed evidence of thrombus in the left atrial appendage that as a result cardioversion was delayed until sufficient anticoagulation. He is admitted today as an outpatient for that procedure. Procedure Procedure performed:: DC cardioversion Sedation/Medication given:: IV propofol 40 mg Estimated blood loss:: None Procedure note:: Patient was brought to the cardiac laboratory assistant holding area where he was in the postabsorptive state defibrillator patches were placed in the AP position and IV access was established in the right upper extremity. He was then sedated with propofol 1 a bolus of 40 mg provided very good sedation. He was then counter shock in a synchronized fashion delivering 200 joules restoring sinus rhythm. Findings:: As above Conclusion:: Successful uncomplicated DC cardioversion terminating atrial fib restoring sinus rhythm with first-degree AV block. Marcelino Sheriff MD [facility]
[2025-02-18 08:30] VITALS: BP 113/70; PULSE 78; RESP 16; O2SAT 93
--- NOTE | 2025-02-18 08:30 | ECG_ITS ---
Test Date: 2025-02-18 08:22:51 Measurements Intervals [place] Rate: 77 P: 77 TX: 258 QRS: -53 QRSD: 113 T: -2 QT: 389 QTc: 443 Interpretive Statements SINUS RHYTHM WITH FIRST DEGREE AV BLOCK LEFT ANTERIOR FASCICULAR BLOCK [QRS AXIS <= -45, QR IN I, RS IN II] Compared to ECG 02/18/2025 07:26:11 Sinus rhythm restored following cardioversion Electronically Signed On 02-19-2025 12:34:22 CDT by Marcelino Sheriff M.D.
[2025-02-18 08:45] VITALS: BP 121/75; PULSE 80; RESP 15; O2SAT 98
[2025-02-18 09:00] VITALS: BP 121/80; PULSE 78; RESP 14; O2SAT 95
[2025-02-18 09:15] VITALS: BP 123/77; PULSE 77; RESP 16; O2SAT 94
== END 2025-02-18 09:21 | disposition home or self-care (01) ==
PROVIDERS: PCP Internal Medicine; Visit Provider Specialist
PROC: 5A2204Z Restoration of Cardiac Rhythm, Single (ICD-10-PCS; principal; 2025-02-18 08:30)
DX: I48.91 Unspecified atrial fibrillation (principal)
CPT/HCPCS: 36415; 80048; 83735; 92960; J2704; J7030

== ENCOUNTER 2025-03-18 02:13 | Day surgery (SDC) | payer MEDICARE, SELFPAY ==
[2025-03-17 12:31] VITALS: BMI 29.9
[2025-03-18] VITALS (8 sets, daily range): BP systolic 90–116; BP diastolic 55–77; PULSE 72–75; RESP 12–20; O2SAT 99–100; BMI 29.5
--- NOTE | 2025-03-18 08:30 | ECG_ITS ---
Test Date: 2025-03-18 10:19:20 Measurements Intervals [place] Rate: 71 P: 78 MA: 250 QRS: -59 QRSD: 129 T: 12 QT: 414 QTc: 452 Interpretive Statements SINUS RHYTHM WITH FIRST DEGREE AV BLOCK WITH OCCASIONAL SUPRAVENTRICULAR PREMATURE COMPLEXES LEFT ANTERIOR FASCICULAR BLOCK ABNORMAL ECG Compared to ECG 03/18/2025 08:39:50 Atrial flutter no longer present Electronically Signed On 03-18-2025 10:34:24 CDT by Drake Bergeron D.O.
[2025-03-18 09:48] LABS: Anion Gap 6 mmol/L (4-12); Blood Urea Nitrogen 25 mg/dL (9-20); Calcium 9.2 mg/dL (8.4-10.2); Carbon Dioxide 25 mmol/L (22-30); Chloride 105 mmol/L (98-107); Estimated CRCL calculation 51 ml/min; Estimated Glomerular Filt Rate 60; Glucose 189 mg/dL (65-110); Magnesium 2.3 mg/dL (1.6-2.3); Potassium 4.6 mmol/L (3.4-5.0); Sodium 136 mmol/L (137-145)
--- NOTE | 2025-03-18 10:20 | WPDMODSED ---
Moderate Sedation Note-Pt Data Patient Data Diagnosis: Recurrent atrial fibrillation Present Complaint: No complaint Procedure to be performed/Plan: DC cardioversion Allergies Allergy/AdvReac Type Severity Reaction Status Date / Time amoxicillin AdvReac Severe Hives Verified 03/18/25 08:45 clavulanic acid (From AdvReac Severe Hives Verified 03/18/25 08:45 Augmentin) Penicillins AdvReac Severe Hives Verified 03/18/25 08:45 Home Medications ?Medication ?Instructions ?Recorded ?Confirmed ?Type aspirin 81 mg tablet,delayed 81 mg PO DAILY 07/08/19 03/17/25 History release (Adult Low Dose Aspirin) omega-3 fatty acids 1,000 mg 4,000 mg PO DAILY 07/08/19 03/17/25 History capsule (Fish Oil Concentrate) cholecalciferol (vitamin D3) 50 50 mcg PO DAILY 09/21/22 03/17/25 History mcg (2,000 unit) capsule insulin syringe-needle U-100 1 mL #100 ea 01/02/23 03/09/25 Rx 31 gauge x 5/16 semaglutide 3 mg tablet (Rybelsus) 6 mg PO DAILY 01/16/23 03/17/25 History empagliflozin 25 mg tablet 25 mg PO DAILY 03/13/24 03/17/25 History (Jardiance) silver sulfadiazine 1 % topical 1 applic topical BID 08/25/24 03/17/25 History cream (Silvadene) blood-glucose,circular tank cooper,cont #1 ea 09/29/24 03/09/25 Rx (Dexcom G7 Planer Mill Grader) metformin 1,000 mg tablet See Rx Instructions .Route 10/08/24 03/17/25 Rx .COMPLEX #200 tabs insulin human U-100 NPH-regulr See Rx Instructions .Route 10/29/24 03/17/25 Rx 70-30 mix 100 unit/mL subcutaneous .COMPLEX #70 mL susp (Humulin 70/30 U-100 Insulin) atorvastatin 10 mg tablet 5 mg (1/2 x 10 mg) PO DAILY #90 12/01/24 03/17/25 Rx tabs cilostazol 100 mg tablet 100 mg PO DAILY 01/12/25 03/17/25 History metoprolol tartrate 50 mg tablet 50 mg PO Q12HR #90 tabs 01/18/25 03/17/25 Rx rivaroxaban 20 mg tablet (Xarelto) 20 mg PO DAILY@1700 #60 tabs 01/18/25 03/17/25 Rx sitagliptin phosphate 100 mg 100 mg PO DAILY 02/17/25 03/17/25 History tablet (Januvia) blood-glucose sensor (Dexcom G7 #10 ea 03/02/25 03/09/25 Rx Sensor device) insulin syringe-needle U-100 0.5 #200 ea 03/04/25 03/09/25 Rx mL 31 gauge x /16 flecainide 50 mg tablet 50 mg PO Q12H 03/09/25 03/17/25 History furosemide 20 mg tablet (Lasix) 20 mg PO QAM 03/09/25 03/18/25 History valsartan 80 mg tablet 80 mg PO DAILY #90 tabs 03/09/25 03/17/25 Rx diltiazem HCl 120 mg capsule,24 120 mg PO QAM 03/17/25 03/17/25 History hr,extended release Current Medications: Active Medications Sodium Chloride (Normal Saline Iv) 1,000 mls @ 30 mls/hr IV CONT .Q24H PATRICK Sedation/Anesthesia: No previous sedation/anesthesia problems (including family history). [facility] Past Medical History Medical History (Updated 03/09/25 @ 07:38 by Lucie Tripp CMA) Thyroid nodule BMI 29.0-29.9,adult Chronic kidney disease Peripheral vascular disease Mixed hyperlipidemia Insulin dependent type 2 diabetes mellitus BMI 31.0-31.9,adult Vitamin D deficiency Hearing loss Vitreous hemorrhage of left eye Abnormal ankle brachial index (LAMAR) Benign essential hypertension Surgical History Surgical History History of bilateral cataract extraction (2022) Family History Family History Mother Diabetes mellitus Hemochromatosis Father Diabetes mellitus Myocardial infarct Social History Social History Social History: Surrogate medical decision maker: Karrie Noel, spouse ([phone]). Code status: Full code. Smoking status: Never smoker Second hand tobacco smoke exposure: No Alcohol intake: never Substance use: never Substance use type: does not use Do You Feel Safe in your Home?: Yes Lack of Transportation: No Lack of Food: Never True Current Housing: I Have Housing Concerned About Future Housing: No Difficulty Paying Gas/Electric Bills: No Difficulty Paying for Meds: No Currently Unemployed: No Education: High School Diploma/GED Difficulty w/ Childcare or Family Care: No Living arrangements: with family Spiritual care concerns: No Mod Sed Physical Exam Physical Exam Pre Procedural Exam: Normal: Appearance, Throat, Airway, Lungs, Heart Size, Neuro Exam and Extremities and Variation: Heart Rate and Heart Rhythm (Irregularly irregular) Hours since solid foods: 12 Hours since liquid intake: 12 Mallampati Classification: class II Internal Medicine - PN: Obj Da Vital Signs Vital Signs: Vital Signs - 24 hr 03/18/25 10:04 03/18/25 10:15 Respiratory Rate 12 20 Blood Pressure 116/77 Pulse Oximetry 100 100 Oxygen Delivery Nasal Cannula Nasal Cannula Oxygen Flow Rate 2 2 Meds/Results Medications: Active Medications Generic Name Dose Route Start Last Admin Trade Name Freq PRN Reason Stop Dose Admin Sodium Chloride 1,000 mls @ 30 mls/hr 03/18/25 08:30 Normal Saline Iv IV CONT .Q24H PATRICK Labs 03/18/25 09:23 Labs: Laboratory Results - last 24 hr 03/18/25 09:23 Sodium 136 L Potassium 4.6 Chloride 105 Carbon Dioxide 25 Anion Gap 6 BUN 25 H Creatinine 1.20 Estim Creat Clear Calc 51 Estimated GFR 60 Glucose 189 H Calcium 9.2 Magnesium 2.3 ASA Classification/Sedation ASA Classification/Sedation ASA Class: II Emergent: No Risks: Risks, benefits and alternatives explained and patient/family accepted plan for sedation. Patient re-evaluated immediately prior to sedation.
--- NOTE | 2025-03-18 10:21 | P.PCNCC_ITS ---
Cardiac Cath Procedure Note Date of procedure:: 03/18/25 Performing physician:: Marcelino Sheriff MD Indication:: Recurrent atrial fibrillation Brief clinical history:: This is a 69-year-old man with history of paroxysmal atrial fibrillation. In the office he was found to have a asymptomatic recurrence of his arrhythmia. He was started on antiarrhythmic therapy with flecainide and scheduled for a repeat cardioversion this morning. Procedure Procedure performed:: DC cardioversion Sedation/Medication given:: IV propofol total dosage of 60 mg Access site:: Left upper extremity Estimated blood loss:: No blood loss Procedure note:: Patient was brought to the cardiac quality control lab technician holding area where he was in the supine position in the postabsorptive state. Defibrillator patches were placed in AP position. The defibrillator was turned on at 200 joules output in synchronized fashion. He was then sedated with propofol in aliquots a total dosage of 60 mg provided excellent sedation. He was counter shocked in a synchronized fashion with 200 joules restoring normal sinus rhythm. Findings:: As above Conclusion:: Successful uncomplicated DC cardioversion terminating atrial fib restoring sinus rhythm using 200 joules x1 shock Marcelino Sheriff MD [facility]
--- NOTE | 2025-03-18 10:30 | ECG_ITS ---
Test Date: 2025-03-18 08:39:50 Measurements Intervals [place] Rate: 96 P: 0 AR: 0 QRS: -63 QRSD: 122 T: 50 QT: 354 QTc: 448 Interpretive Statements ATRIAL FLUTTER/TACHYCARDIA LEFT ANTERIOR FASCICULAR BLOCK ABNORMAL ECG Compared to ECG 02/18/2025 08:22:51 Sinus rhythm no longer present Electronically Signed On 03-18-2025 09:18:52 CDT by Drake Bergeron D.O.
[2025-03-18] MEDS: PROPOFOL IV EMULSION 200 MG/20 ML VIAL 60 MG IV PUSH (10:36)
== END 2025-03-18 11:36 | disposition home or self-care (01) ==
PROVIDERS: PCP Internal Medicine; Visit Provider Specialist
PROC: 5A2204Z Restoration of Cardiac Rhythm, Single (ICD-10-PCS; principal; 2025-03-18 10:00)
DX: I48.0 Paroxysmal atrial fibrillation (principal)
CPT/HCPCS: 36415; 80048; 83735; 92960; J2704; J7030

== ENCOUNTER 2025-05-13 07:09 | Outpatient (CLI) | payer MEDICARE, SELFPAY ==
--- NOTE | ~2025-05-13 | CT_ITS ---
EXAMINATION: CT abdomen pelvis wo/w con DATE: 05/13/2025 08:15 INDICATION: Renal failure and possible renal stone on prior ultrasound. TECHNIQUE: Computed tomography (CT) of the abdomen and pelvis was performed without intravenous contrast. CT of the abdomen and pelvis was then performed with a total of 130 mL Omnipaque-350 intravenous contrast using a double-bolus technique for simultaneous opacification of the renal parenchyma and renal collecting system. Automated exposure control and iterative reconstruction technique were employed. The dose-length product was 2177.73 mGy-cm. COMPARISON: CT dated 06/22/2021 FINDINGS: Lung bases are clear. Heart size is normal. Atherosclerotic coronary artery calcification. Aortic valve calcific location. No pericardial or pleural effusion. Calcified gallstones in the dependent neck of the normal gallbladder. Liver, spleen, pancreas and bilateral adrenal glands are normal. Normal sy mmetric bilateral renal parenchymal enhancement. 8 mm nonobstructing stone at the lower pole of the left kidney. No other urolithiasis or hydronephrosis. There is diffuse wall thickening. The bladder with subtle stranding in the surrounding fat suspicious for cystitis. Bowels including the appendix are normal. Small bilateral fat-containing inguinal hernias. Extensive penile calcifications consistent with Peyronie's disease. No free intraperitoneal gas or fluid. No pathologically enlarged abdominal or pelvic lymphadenopathy. Severe bilateral facet osteoarthritis at L4-L5. Otherwise mild to moderate scattered degenerative skeletal changes in the spine and pelvis. IMPRESSION: 1. 8 mm nonobstructing left renal stone. 2. Diffuse wall thickening of the bladder with some surrounding inflammatory stranding suspicious for cystitis, either acute or chronic. Correlate with urinalysis. 3. Cholelithiasis. 4. Small bilateral fat-containing inguinal hernias. Reviewed, dictated and finalized at location [facility] IMPRESSION: 1. 8 mm nonobstructing left renal stone. 2. Diffuse wall thickening of the bladder with some surrounding inflammatory st randing suspicious for cystitis, either acute or chronic. Correlate with urinal ysis. 3. Cholelithiasis. 4. Small bilateral fat-containing inguinal hernias.
--- OUTSIDE RECORDS SUMMARY | 2025-05-13 07:12 | XMS_ITS | Clinical Summary ---
Author Organization [facility] at the [facility] Address [address] [place] [address] Care Team Providers Care Slps Name Role Phone Armando Larios MD Primary Care Provider [phone] Allergies Active Allergy Reactions Criticality Noted Date Comments Sulfamethoxazole-Trimethoprim Hives Medium 2024 Clavulanic Acid Hives High 01/12/2025 Penicillins Hives High 01/12/2025 Medications atorvastatin (LIPITOR) 10 mg tablet Take 0.5 tablets (5 mg total) by mouth daily 2 Active HumuLIN 70/30 100 unit/mL vial for injection Inject 35 Units under the skin 2 (two) times a day 2 Active insulin syringe-needle U-100 0.5 mL 31 gauge x 5/16 syringe USE 1 SYRINGE TWICE DAILY 2 Active aspirin 81 mg enteric coated tablet Take 1 tablet (81 mg total) by mouth daily Active metFORMIN (GLUCOPHAGE) 1,000 mg tablet Take 1 tablet (1,000 mg total) by mouth 2 (two) times a day with meals Active empagliflozin (JARDIANCE) 25 mg tabletIndications :type 2 diabetes mellitus Take 1 tablet (25 mg total) by mouth daily Active semaglutide (RYBELSUS) 3 mg tablet Take 2 tablets (6 mg total) by mouth chainstitch hemmer before breakfast Active OMEGA 2-WKP-CGQ-FISH OIL ORAL Take 2 capsules by mouth daily Active Dexcom G7 Sensor device USE TO MONITOR BLOOD GLUCOSE, REPLACE SENSOR EVERY 10 DAYS 5 Active cholecalciferol (VITAMIN D-3) 2000 unit capsule Take 1 capsule (2,000 Units total) by mouth daily 3 Active cilostazoL (PLETAL) 100 mg tablet Take 1 tablet (100 mg total) by mouth daily Active silver sulfadiazine (SILVADENE, SSD) 1 % cream daily 5 Active SITagliptin phosphate (JANUVIA) 100 mg tabletIndications :type 2 diabetes mellitus Take 1 tablet (100 mg total) by mouth daily Active rivaroxaban (XARELTO) 20 mg tabletIndications :atrial fibrillation Take 1 tablet (20 mg total) by mouth daily with dinner 90 tablet 3 5 Active flecainide (TAMBOCOR) 50 mg tablet Take 1 tablet (50 mg total) by mouth 2 (two) times a day 60 tablet 11 5 03/05/20 26 Active metoprolol tartrate (LOPRESSOR) 50 mg immediate release tablet Take 1 tablet (50 mg total) by mouth 2 (two) times a day 180 tablet 3 5 Active dilTIAZem CD/XR/XT (CARDIZEM CD,DILACOR XR) 120 mg 24 hr capsule Take one tab PO daily 90 capsule 1 5 Active furosemide (LASIX) 40 mg tabletIndications :Persistent atrial fibrillation (HCC) Take 0.5 tablets (20 mg total) by mouth daily 45 tablet 3 5 Active Active Problems Problem Noted Date Diagnosed Date Atrial fibrillation with RVR 02/26/2025 Assessment & Plan (02/27/2025 10:33 AM CDT): -Currently heart rate is overall rate controlled status post 5 mg IV Lopressor. -Continue with home metoprolol 50 mg b.i.d. and Cardizem 240 mg daily -no recurrent bleeding. Can resume TODAY. -can dc today. Pt needs outpatient f/u with cardiology and pcp Assessment & Plan (02/26/2025 5:06 PM CDT): -Currently heart rate is overall rate controlled status post 5 mg IV Lopressor. -Continue with home metoprolol 50 mg b.i.d. and Cardizem 240 mg daily -In the setting of previously uncontrolled bleeding from right arm laceration, we will hold Xarelto for today. Can resume tomorrow. -IV Lopressor 5 mg PRN ordered for sustained heart rate greater than 120 -If heart rate remains uncontrolled, we will consult Cardiology Fall (on) (from) other stairs and steps, initial encounter 02/26/2025 Assessment & Plan (02/27/2025 10:33 AM CDT): -Other than contusion on CT facial bone, other imaging (CT head, CT cervical spine, x-ray right hip) are negative -Hemoglobin 13.9. Normotensive -No FND on physical examination. Patient AO x3 and otherwise asymptomatic -Observe off Xarelto for tonight. Can resume today. -no changes in mental status. - PT/OT Assessment & Plan (02/26/2025 5:06 PM CDT): -Other than contusion on CT facial bone, other imaging (CT head, CT cervical spine, x-ray right hip) are negative -Hemoglobin 13.9. Normotensive -No FND on physical examination. Patient AO x3 and otherwise asymptomatic -Observe off Xarelto for tonight. Can resume tomorrow. -If any changes in mental status or neurological examination, obtain stat CT head. - PT/OT Type 2 diabetes mellitus wit hout complication, with long-term current use of insulin 02/26/2025 Assessment & Plan (02/27/2025 10:33 AM CDT): -On metformin, Januvia, Jardiance, and 70/30 Humulin at home -Hold home medications while inpatient -Insulin sliding scale with hypoglycemic protocol -Inpatient blood glucose levels goal 140-180 Assessment & Plan (02/26/2025 5:06 PM CDT): -On metformin, Januvia, Jardiance, and 70/30 Humulin at home -Hold home medications -Insulin sliding scale with hypoglycemic protocol -Inpatient blood glucose levels goal 140-180 Elevated brain natriuretic peptide (BNP) level 1 Assessment & Plan (02/27/2025 10:33 AM CDT): BNP 854 Echo 12/2024 showed EF 60-65% with mildly enlarged left atrial chamber. Patient denies any overt shortness of breath. Does report some TORRES +1 bilateral pitting edema present on physical exam on admission. Now resolved. C/w p.o. Lasix 40 mg daily Patient can follow-up with outpatient bolt sawyer for further evaluation Assessment & Plan (02/26/2025 5:08 PM CDT): BNP 854 Echo 12/2024 showed EF 60-65% with mildly enlarged left atrial chamber. Patient denies any overt shortness of breath. Does report some TORRES +1 bilateral pitting edema present on physical exam Will trial p.o. Lasix 40 mg daily Patient can follow-up with outpatient bolt sawyer for further evaluation Atherosclerosis of [place] of both lower extremities with intermittent claudication 07/19/2021 Assessment & Plan (10/17/2021 10:07 AM CDT): Patient is not having claudication symptoms except at long distances and says if he takes an enough water he does not have any symptoms at all. He can follow up as needed. Assessment & Plan (07/19/2021 9:51 AM PROJECT BUYER): Patient has peripheral arterial disease and likely [...] a statin and is not a smoker. HLD (hyperlipidemia) 07/19/2021 Assessment & Plan (02/27/2025 10:33 AM CDT): Continue with atorvastatin 10 mg daily Assessment & Plan (02/26/2025 5:06 PM CDT): Continue with atorvastatin 10 mg daily Assessment & Plan (10/17/2021 10:08 AM CDT): Followed by his PCP and chronic and stable. I recommend he continue his atorvastatin. Assessment & Plan (07/19/2021 9:53 AM PROJECT BUYER): Followed by his PCP chronic and stable. I recommend he continue his atorvastatin for lipid lowering medication which will also help with his peripheral arterial disease. Primary hypertension 07/19/2021 Assessment & Plan (10/17/2021 10:09 AM CDT): Followed by his PCP and chronic and stable. I recommend he continue his verapamil for blood pressure medication. Assessment & Plan (07/19/2021 9:53 AM PROJECT BUYER): Followed by his PCP chronic and stable. I recommend he continue his verapamil for blood pressure medication. Encounters Date Type Department Care Team Description 03/27/2025 Telephone [facility] Cardiology [address] [place] [address] [place] [phone] Onelia Boss NP Med Refill 03/25/2025 11:15 AM CDT Procedure visit [facility] Cardiology [address] [place] [address] [place] [phone] Atrial fibrillation, unspecified type (HCC) 03/23/2025 Orders Only [facility] Cardiology [address] [place] [address] [place] [phone] Marcelino Sheriff MD 03/16/2025 3:00 PM CDT Procedure visit [facility] Cardiology [address] [place] [address] [place] [phone] Atrial fibrillation with RVR (HCC) 03/16/2025 Telephone [facility] Cardiology [address] [place] [address] [place] [phone] Marcelino Sheriff MD 03/05/2025 Telephone [facility] Cardiology [address] [place] [address] [place] [phone] Onelia Boss NP Med Refill 03/05/2025 Telephone [facility] Cardiology [address] [place] [address] [place] [phone] Onelia Boss NP 03/02/2025 10:00 AM CDT Office Visit [facility] Cardiology [address] [facility] [address] [place] [address] Onelia Boss NP Persistent atrial fibrillation (HCC) (Primary Dx); History of cardioversion; Chronic anticoagulation 02/26/2025 12:56 PM CDT - 02/27/2025 3:11 PM CDT Hospital Encounter [facility] [address] [place] [address] Юлия Ardon MD Okeke, Ijeoma Gloria, MD Atrial fibrillation with RVR (HCC) (Primary Dx); Contusion of scalp, initial encounter; Contusion of right hip, initial encounter; Contusion of right elbow, initial encounter; Facial contusion, initial encounter Discharge Disposition: Discharge to home or self care 02/25/2025 2:15 PM CDT Ancillary Procedure [facility] Medical [facility] Cardiology [address] [place] [address] [address] [place] [address] Atrial fibrillation, unspecified type (HCC) (Primary Dx) 02/25/2025 Telephone [facility] Cardiology [address] [facility] [address] [place] [address] Vera Goetz MA EKG 02/25/25 02/20/2025 Orders Only [facility] Cardiology [address] [facility] [address] [place] [phone] Kerrie Gann MD 02/18/2025 Orders Only [facility] Cardiology [address] [place] [address] [address] [place] [phone] Marcelino Sheriff MD from Last 3 Months Immunizations Immunization Administration Dates Next Due Tdap 02/26/2025 Surgical History Surgery Date Site/Laterality Comments TONSILLECTOMY EYE SURGERY Medical History Medical History Date Comments Hypertension Diabetes mellitus Hyperlipidemia Family History Medical History Relation Name Comments [...] Date Smoking Tobacco: Never Smokeless Tobacco: Never Social Connection and Isolation Panel Answer Date Recorded In a typical week, how many times do you talk on the phone with family, friends, or neighbors? More than three times a week 02/27/2025 How often do you get togethe r with friends or relatives? More than three times a week 02/27/2025 How often do you attend chur ch or voodoo services? Never 02/27/2025 Do you belong to any clubs o r organizations such as episcopal groups, unions, fraternal or athletic groups, or school groups? No 02/27/2025 How often do you attend meet ings of the clubs or organizations you belong to? Never 02/27/2025 Are you , , di vorced, , never , or living with a partner? 02/27/2025 AUDIT-C Answer Date Recorded Frequency of Alcohol Consumption Not on file 02/26/2025 Q2: How many drinks containi ng alcohol do you have on a typical day when you are drinking? Patient does not drink Q3: How often do you have si x or more drinks on one occasion? Never 02/26/2025 Overall Financial Resource Strain (CARDIA) Answe r Date Recorded How hard is it for you to pa y for the very basics like food, housing, medical care, and heating? Not very hard 02/27/2025 Hunger Vital Sign Answer Date Recorded Within the past 12 months, y ou worried that your food would run out before you got the money to buy more. Never true 02/28/20 25 Within the past 12 months, t he food you bought just didn't last and you didn't have money to get more. Never true 02/27/2025 PRAPARE - Transportation Answer Date Re corded In the past 12 months, has l ack of transportation kept you from medical appointments or from getting medications? No 07/2024 In the past 12 months, has l ack of transportation kept you from meetings, work, or from getting things needed for daily living? No 02/27/2025 Housing Stability Vital Sign Answer Yeison e Recorded In the last 12 months, was t here a time when you were not able to pay the mortgage or rent on time? No 02/27/2025 In the past 12 months, how m any times have you moved where you were living? 0 02/27/2025 At any time in the past 12 m [facility], were you homeless or living in a chcf (including now)? No 02/27/2025 [facility] Utilities Answer Date Recorded In the past 12 months has th [employer], gas, oil, or water company threatened to shut off services in your home? No 02/27/2025 Personal Safety Answer Date Recorded Have you ever been in or are you currently in a harmful physical or emotional relationship or is someone making you feel afraid or unsafe? Denies 02/26/2025 Sex and Gender Information Value Date Recorded Sex Assigned at Not on file Legal Sex Male 5:29 PM PROJECT BUYER Gender Identity Not on file Sexual Orientation Not on file Last Filed Vital Signs Vital Sign Reading Time Taken Comments Blood Pressure 98/58 03/25/2025 10:42 AM CDT Pulse 109 03/25/2025 10:42 AM CDT Temperature 36.6 C (97.9 F) 02/27/2025 8:00 AM CDT Respiratory Rate 16 02/27/2025 12:01 PM CDT Oxygen Saturation 97% 03/02/2025 10:26 AM CDT Inhaled Oxygen Concentration - - Weight 83.5 kg (184 lb) 03/02/2025 10:26 AM CDT Height 167.6 cm (5' 6) 03/02/2025 10:26 AM CDT Body Mass Index 29.7 03/02/2025 10:26 AM CDT Plan of Treatment Health Maintenance Due Date Last Done Comments Albumin Creatinine Ratio, Urine 1953 Colon Cancer Screening-Colonoscopy 1955 Depression Screening 1955 Hepatitis C Screening 1955 Dilated Eye Exam 1953 Foot Exam 1953 Hepatitis B Screening 08/10/1971 Pneumococcal vaccine 65+ (1 of 2 - PCV) 1972 Zoster Vaccine (1 of 2) 08/10/2003 Hemoglobin A1C 02/16/2017 08/16/2016 Well Visit 65+ 2018 Covid-19 Vaccine ( season) 2025 04/29/2021, 08/31/2020, 08/10/2020 Influenza Vaccine (#1) 2025 04/15/2024 Lipid Panel 01/30/2026 01/30/2025, 08/16/2016 Fall Risk Assessment 02/27/2026 02/27/2025 eGFR 02/27/2026 02/27/2025, 02/26/2025 DTaP/Tdap/Td Vaccine (2 - Td or Tdap) 02/26/203506/2024 Procedures Procedure Name Priority Date/Time Associated Diagnosis Comments ECG 12-LEAD Routine 03/25/2025 10:59 AM CDT Atrial fibrillation, unspecified type (HCC) CARDIOLOGY DOCUMENT SCAN Routine 4:58 PM CDT ECG 12-LEAD Routine 03/16/2025 Atrial fibrillation with RVR (HCC) ELECTROCARDIOGRAM REPORT Routine 10:18 AM CDT Persistent atrial fibrillation (HCC) POCT GLUCOSE DEVICE Routine 02/27/2025 1 2:00 PM CDT POCT GLUCOSE DEVICE Routine 02/27/2025 7 :58 AM CDT EGFR Routine 02/27/2025 4:15 AM CDT DIFFERENTIAL AUTO Routine 02/27/2025 4:1 5 AM CDT MAGNESIUM Routine 02/27/2025 4:15 AM CDT COMPREHENSIVE METABOLIC PANEL Routine 02/27/2025 4:15 AM CDT CBC WITH AUTO DIFFERENTIAL Routine 02/27/2025 4:15 AM CDT TROPONIN T HIGH-SENSITIVITY 6-HOUR Timed 02/26/2025 9:06 PM CDT POCT GLUCOSE DEVICE Routine 02/26/2025 8 :30 PM CDT POCT GLUCOSE DEVICE Routine 02/26/2025 6 :46 PM CDT TROPONIN T HIGH-SENSITIVITY 4-HR Timed 02/26/2025 6:27 PM CDT TROPONIN T HIGH-SENSITIVITY 2-HOUR Timed 02/26/2025 2:58 PM CDT POCT GLUCOSE DEVICE Routine 02/26/2025 2 :[address] CHEST PE ABDOMEN PELVIS W CONTRAST ED 02/26/2025 2:40 PM CDT SEPSIS LACTATE WITH REFLEX STAT 02/26/2025 1:35 PM CDT XR CHEST 1 VIEW ED 02/26/2025 1:21 PM CDT THYROID FUNCTION CASCADE STAT 025 1:09 PM CDT PRO B-TYPE NATRIURETIC PEPTIDE STAT 02/26/2025 1:09 PM CDT MAGNESIUM STAT 02/26/2025 1:09 PM CDT PHOSPHORUS STAT 02/26/2025 1:09 PM CDT EGFR STAT 02/26/2025 1:09 PM CDT DIFFERENTIAL AUTO STAT 02/26/2025 1:0 9 PM CDT TROPONIN T HIGH-SENSITIVITY SERIES (BASELINE, 2HR, 4HR, 6HR) STAT 02/26/2025 1:09 PM CDT CBC WITH AUTO DIFFERENTIAL STAT 02/26/2025 1:09 PM CDT COMPREHENSIVE METABOLIC PANEL STAT 02/26/2025 1:09 PM CDT ECG 12-LEAD STAT 02/26/2025 1:[address] CERVICAL SPINE WO CONTRAST ED 02/26/2025 12:[address] FACIAL BONES WO CONTRAST ED 02/26/2025 12:[address] HEAD WO CONTRAST ED 02/26/2025 1 2:20 PM CDT XR HIP RIGHT 2 OR 3 VIEWS ED 02/26/2025 12:12 PM CDT ELECTROCARDIOGRAM REPORT Routine 025 1:43 PM CDT Atrial fibrillation, unspecified type (HCC) SCAN - LABS Routine 02/18/2025 5:19 PM CDT CARDIOLOGY DOCUMENT SCAN Routine 025 12:44 PM CDT POCT LIPID PANEL Routine 01/30/2025 1:14 PM CDT Lipid screening HEMOGLOBIN A1C Routine 08/16/2016 8:50 AM CDT from Last 3 Months or Most Recently Relevant to Health Maintenance Results * ECG 12 lead (03/25/2025 10:59 AM CDT) Marcelino Sheriff MD ECG ORDERABLES Final Re sult * Cardiology Document Scan (03/18/2025 4:58 PM CDT) Anatomical Region Laterality Modality Other Marcelino Sheriff MD CV CARDIAC SERVICES PROC EDURES Final Result * ECG 12 lead (03/16/2025) 03/16/2025 Onelia Boss NP ECG ORDERABLES Final Res ult * Electrocardiogram Report (03/03/2025 10:18 AM CDT) Onelia Boss CERTIFIED ANESTHESIOLOGIST ASSISTANT ECG ORDERABLES Final Res ult * (ABNORMAL) POCT glucose (02/27/2025 12:00 PM CDT) [facility] Signature Glucose, POC 217(H) 70 - 199 mg/dL Comment:Testing performed by : [address] [address] Glucose comment 1 RN/MD Notified RIDDHI Comment:Testing performed by : [address] [address] Blood 02/27/2025 12:0 0 PM CDT 02/27/2025 12:00 PM CDT us Lisa Taylor MD LAB POCT ORDERABLES - DEV ICE Final Result Performing Organization Address [facility] de Phone Number [address] [place] [address] * (ABNORMAL) POCT glucose (02/27/2025 7:58 AM CDT) [facility] Glucose, POC 220(H) 70 - 199 mg/dL Comment:Testing performed by : [address] [address] Glucose comment 1 RN/ Notified RIDDHI Comment:Testing performed by : [address] [address] Blood 02/27/2025 7:58 AM CDT 02/27/2025 7:58 AM CDT us Lisa Taylor MD LAB POCT ORDERABLES - DEV ICE Final Result Performing Organization Address [facility] de Phone Number [address] [place] [address] * eGFR (02/27/2025 4:15 AM CDT) eGFR 80 >=60 mL/min/1. 73 m2 Comment: Interpretive Data Reference Interval Normal >/= 90 mL/min/1.73m2 Mildly decreased* 60 - 89 mL/min/1.73m2 Mildly to moderately decreased 45 - 59 mL/min/1.73m2 Moderately to severely decreased 30 - 44 mL/min/1.73m2 Severely decreased 15 - 29 mL/min/1.73m2 Kidney Failure < 15 mL/min/1.73m2 *Relative to young adult level Estimated glomerular filtration rate is determined by the 2020 CKD-EPI equation recommended by the National Kidney Foundation (A Unifying Approach to GFR Estimation: Recommendations of the NKF-ASK Task Force on Reassessing the Inclusion of Race in Diagnosing Kidney Disease, JASN 2020). The CKD-EPI equation should not be used for patients with unstable renal function and has not been validated in children and those over 70. Current interpretive data was last reviewed 2021. Testing performed by: [address] [address] Blood 02/27/2025 4:15 AM CDT 02/27/2025 4:39 AM CDT us Lisa Taylor MD LAB BLOOD ORDERABLES Claudia gordon Result [place] [id number] [facility] Department [place] [address] * (ABNORMAL) Differential, auto (02/27/2025 4:15 AM CDT) Neutrophil abs 5.63 1.50 - 6.50 K/cumm Comment:Testing performed by : [address] [address] Imm gran abs 0.04 0.00 - 0.10 K/cumm RIDDHI Comment:Testing performed by : [address] [address] Lymphocyte abs 1.39 0.80 - 3.30 K/cumm RIDDHI Comment:Testing performed by : [address] [address] Monocyte abs 0.98(H) 0.20 - 0.80 K/cumm RIDDHI Comment:Testing performed by : [address] [address] Eosinophil abs 0.16 0.00 - 0.50 K/cumm RIDDHI Comment:Testing performed by : [address] [address] Basophil abs 0.08 0.00 - 0.10 K/cumm RIDDHI Comment:Testing performed by : [address] [address] Neutrophil pct 68.0 % RIDDHI Comment: Interpretive Data Percent cell count reference ranges are not reported, since discordance with absolute values may lead to misinterpretation of CBC data. Current Interpretive Data was last revised on 2017. Testing performed by: [address] [address] Imm gran pct 0.5 % RIDDHI Comment: Interpretive Data Percent cell count reference ranges are not reported, since discordance with absolute values may lead to misinterpretation of CBC data. Current Interpretive Data was last revised on 2017. Testing performed by: [address] [address] Lymphocyte pct 16.8 % [facility] Comment: Interpretive Data Percent cell count reference ranges are not reported, since discordance with absolute values may lead to misinterpretation of CBC data. Current Interpretive Data was last revised on 2017. Testing performed by: [address] [address] Monocyte pct 11.8 % [facility] Comment: Interpretive Data Percent cell count reference ranges are not reported, since discordance with absolute values may lead to misinterpretation of CBC data. Current Interpretive Data was last revised on 2017. Testing performed by: [address] [address] Eosinophil pct 1.9 % [facility] Comment: Interpretive Data Percent cell count reference ranges are not reported, since discordance with absolute values may lead to misinterpretation of CBC data. Current Interpretive Data was last revised on 2017. Testing performed by: [address] [address] Basophil pct 1.0 % [facility] Comment: Interpretive Data Percent cell count reference ranges are not reported, since discordance with absolute values may lead to misinterpretation of CBC data. Current Interpretive Data was last revised on 2017. Testing performed by: [address] [address] Blood 02/27/2025 4:15 AM CDT 02/27/2025 4:39 AM CDT us Lisa Taylor MD LAB BLOOD ORDERABLES Claudia evan Result RIDDHI [address] [facility] Department [place] [address] * (ABNORMAL) CBC with auto differential (02/27/2025 4:15 AM CDT) Pathologist [facility] WBC 8.28 3.80 - 9.90 K/cumm Comment:Testing performed by : [address] [address] Hgb 13.1 13.0 - 17.5 g/dL RIDDHI Comment:Testing performed by : [address] [address] Hct 38.7(L) 38.9 - 50.3 % RIDDHI Comment:Testing performed by : [address] [address] Plt 309 150 - 400 K/cumm RIDDHI Comment:Testing performed by : [address] [address] MPV 9.1 9.1 - 12.3 fL RIDDHI Comment:Testing performed by : [address] [address] RBC 4.53 4.30 - 5.80 M/cumm RIDDHI Comment:Testing performed by : [address] [address] MCV 85.4 81.3 - 96.4 fL RIDDHI Comment:Testing performed by : [address] [address] MCH 28.9 27.1 - 33.3 pg RIDDHI SHELBY Comment:Testing performed by : [address] [address] MCHC 33.9 32.3 - 35.7 g/dL RIDDHI Comment:Testing performed by : [address] [address] RDW CV 13.8 11.1 - 14.9 % RIDDHI Comment:Testing performed by : [address] [address] RDW SD 42.9 35.7 - 48.1 fL RIDDHI Comment:Testing performed by : [address] [address] NRBC abs 0.00 0.00 - 0.01 K/cumm RIDDHI SHELBY Comment:Testing performed by : [address] [address] Blood 02/27/2025 4:15 AM CDT 02/27/2025 4:39 AM CDT us Lisa Taylor MD LAB BLOOD ORDERABLES Claudia l Result Performing Organization Address City/[facility]/ZIP Co de Phone Number [address] [email or web address] [address] * Magnesium (02/27/2025 4:15 AM CDT) [facility] Magnesium 2.1 1.4 - 2.5 mg/dL Comment:Testing performed by : [address] [address] Blood 02/27/2025 4:15 AM CDT 02/27/2025 4:39 AM CDT us Lisa Taylor MD LAB BLOOD ORDERABLES Claudia l Result Performing Organization Address City/[facility]/ZIP Co de Phone Number [address] [address] * (ABNORMAL) Comprehensive metabolic panel (02/27/2025 4:15 AM CDT) [facility] Sodium 133(L) 135 - 145 mmol/L Comment:Testing performed by : [address] [address] Potassium, pl 3.7 3.3 - 4.9 mmol/L RIDDHI SHELBY Comment:Testing performed by : [address] [address] Chloride 99 97 - 110 mmol/L RIDDHI Comment:Testing performed by : [address] [address] CO2 21(L) 22 - 32 mmol/L RIDDHI Comment:Testing performed by : [address] [address] Anion gap 13 2 - 15 mmol/L RIDDHI Comment:Testing performed by : [address] [address] BUN 18 6 - 25 mg/dL [facility] Comment:Testing performed by : [address], [place]., [address] Creatinine 1.01 0.80 - 1.30 mg/dL RIDDHI Comment:Testing performed by : [address] [address] [address] Glucose 221(H) 70 - 199 mg/dL [facility] Comment: Delta - Results Reviewed Interpretive Data Fasting glucose >/= 126 mg/dl is diagnostic for diabetes. Fasting is defined as no caloric intake for at least 8 hours. Fasting glucose between 100 mg/dl to 125 mg/dl is diagnostic of prediabetes. In a patient with classic symptoms of hyperglycemia or hyperglycemic crisis, a random glucose >/= 200 mg/dl is diagnostic for diabetes. In the absence of unequivocal hyperglycemia, results should be confirmed by repeat testing. The classification and Diagnosis of Diabetes Diabetes Care 202; 46: S19-S40. Current interpretive data was last revised 2022. Testing performed by: [address] [address] Calcium 9.6 8.5 - 10.3 mg/dL [facility] Comment:Testing performed by : [address] [address] Bilirubin, total 1.7(H) 0.1 - 1.2 mg/dL [facility] Comment:Testing performed by : [address] [address] Protein, pl 6.8 6.5 - 8.5 g/dL [facility] Comment:Testing performed by : [address] [address] Albumin 3.7 3.5 - 5.0 g/dL [facility] Comment:Testing performed by : [address] [address] Alk phos 88 40 - 130 Units/L [facility] Comment:Testing performed by : [address] [address] ALT 8 7 - 55 Units/L [facility] Comment:Testing performed by : [address] [address] AST 16 10 - 50 Units/L [facility] Comment:Testing performed by : [address], [place]., [address] Blood 02/27/2025 4:15 AM CDT 02/27/2025 4:39 AM CDT us Lisa Taylor MD LAB BLOOD ORDERABLES Claudia l Result RID[facility] [address] [facility] Department [place] [address] * (ABNORMAL) Troponin T high-sensitivity 6-hour (02/26/2025 9:06 PM CDT) Trop T hs 31(H) <=22 ng/L Comment: Interpretive Data For further hscTnT resources including the diagnostic algorithm and an aid in interpretation, copy and paste this link: [email or web address].[email or web address]/show/hsTrop Current Interpretive Data last revised 2020. Testing performed by: [address] [address] Trop T hs delta See Comment ng/L [facility] Comment: Inappropriate collection time to report a delta. Testing performed by: [address] [address] Trop T hs pct delta See Comment % RIDDHI SHELBY Comment: Inappropriate collection time to report a delta. Testing performed by: [address] [address] Trop T hs interp See Comment RIDDHI SHELBY Comment: Inappropriate collection time to report a delta. Testing performed by: [address] [place] [address] Blood 02/26/2025 9:06 PM CDT 02/26/2025 9:40 PM CDT us Юлия Ardon MD LAB BLOOD ORDERABLES F inal Result Performing Organization Address [facility] Co de Phone Number [address] [place] [address] * POCT glucose (02/26/2025 8:30 PM CDT) Glucose, POC 130 70 - 199 mg/dL Comment:Testing performed by : [address] [address] Blood 02/26/2025 8:30 PM CDT 02/26/2025 8:30 PM CDT us Lisa Taylor MD LAB POCT ORDERABLES - DEV ICE Final Result Performing Organization Address [facility] Co de Phone Number [address] [address] * POCT glucose (02/26/2025 6:46 PM CDT) Glucose, POC 121 70 - 199 mg/dL Comment:Testing performed by : [address] [address] Blood 02/26/2025 6:46 PM CDT 02/26/2025 6:46 PM CDT Lisa Taylor MD LAB POCT ORDERABLES - DEV ICE Final Result Performing Organization Address [facility] Co de Phone Number [address] [address] * (ABNORMAL) Troponin T high-sensitivity 4-hour (02/26/2025 6:27 PM CDT) Trop T hs 31(H) <=22 ng/L Comment: Interpretive Data For further hscTnT resources including the diagnostic algorithm and an aid in interpretation, copy and paste this link: [email or web address]/show/[email or web address] Current Interpretive Data last revised 2020. Testing performed by: [address] [address] Trop T hs delta See Comment ng/L [facility] Comment: Inappropriate collection time to report a delta. Testing performed by: [address] [address] Trop T hs pct delta See Comment % RIDDHI SHELBY Comment: Inappropriate collection time to report a delta. Testing performed by: [address] [address] Trop T hs interp See Comment RIDDHI SHELBY Comment: Inappropriate collection time to report a delta. Testing performed by: [address] [address] Blood 02/26/2025 6:27 PM CDT 02/26/2025 6:58 PM CDT us Юлия Ardon MD LAB BLOOD ORDERABLES F inal Result RIDDHI [address] [facility] Department [place] [address] * (ABNORMAL) Troponin T high-sensitivity 2-hour (02/26/2025 2:58 PM CDT) Trop T hs 29(H) <=22 ng/L Comment: Interpretive Data For further hscTnT resources including the diagnostic algorithm and an aid in interpretation, copy and paste this link: [email or web address]/show/[email or web address] Current Interpretive Data last revised 2020. Testing performed by: [address] [address] Trop T hs delta -3 ng/L [facility]BY Comment:Testing performed by : [address] [address] Trop T hs interp Insignificant [facility] SHELBY Comment:Testing performed by : [address], [place]., [address] Blood 02/26/2025 2:58 PM CDT 02/26/2025 3:01 PM CDT us Юлия Ardon MD LAB BLOOD ORDERABLES F inal Result RIDDHI [address] [facility] Department [place] [address] * CT Chest PE (CTA) Abdomen Pelvis W Contrast (02/26/2025 2:40 PM CDT) Anatomical Region Laterality Modality Body N/A Computed Tomogra phy 02/26/2025 3:04 PM CDT Narrative 02/26/2025 3:09 PM CDT EXAM DESCRIPTION: CT CHEST PE (CTA) ABDOMEN PELVIS W CONTRAST REASON FOR STUDY: Hx of PE; afib with RVR; Pt fell earlier today. Has hx of PE Afib with RVR TECHNIQUE: CT angiogram of the chest with routine abdomen and pelvis performed with intravenous and without oral contrast using helical scanning technique with dynamic intravenous contrast injection. Reconstructed coronal and sagittal MPR images reviewed. All images stored on PACS. 3D MIP images of the chest rendered on scanning unit and reviewed at time of interpretation. Automated exposure control was used as a dose optimization technique for this examination. CONTRAST TYPE/DOSE: 100mL of IOVERSOL 350 MG IODINE/ML INTRAVENOUS SYRINGE injected via intravenous COMPARISON: Chest radiograph 02/26/2025 FINDINGS: CHEST CHEST VASCULATURE: No identified acute pulmonary emboli. Atheromatous disease of the aorta with coronary artery calcification. No aneurysms of the aorta. LUNGS: Small bibasilar atelectasis. No nodules or masses. No pneumonia. PLEURA: No effusion. No pneumothorax. MEDIASTINUM/MONTSERRAT: Nodular thyroid gland with a 1.6 cm left thyroid nodule. No adenopathy. HEART: Heart size is normal with no pericardial effusion. AXILLA: No adenopathy. CHEST WALL: No masses. No subcutaneous air. HARDWARE/LINES/TUBES: None. MUSCULOSKELETAL CHEST: No significant abnormality. ABDOMEN/PELVIS LIVER: Normal size. No identified cystic or solid masses. GALLBLADDER: Stones. No wall thickening or pericholecystic fluid BILE DUCTS: No intrahepatic or extrahepatic ductal dilatation. SPLEEN: Normal size. No focal lesions. PANCREAS: No identified cystic or solid masses. No significant calcifications. No adjacent inflammation or peripancreatic fluid collections. Pancreatic duct not dilated. ADRENALS: Normal. KIDNEYS/URINARY TRACT: No identified significant cystic or solid masses. 8 mm left renal calculus. No hydronephrosis or hydroureter. Symmetric enhancement. Urinary bladder is unremarkable. GI: No dilated bowel loops. No obvious wall thickening. Normal appendix. No significant diverticular disease. PERITONEUM: No ascites or free air. RETROPERITONEUM: No mass or adenopathy. REPRODUCTIVE: No significant abnormality. VASCULATURE ABDOMEN: Atherosclerotic disease in the aorta, iliacs, and coronary arteries MUSCULOSKELETAL ABDOMEN PELVIS: No acute finding. OTHER: No significant abnormality. IMPRESSION: 1. No evidence of acute pulmonary embolism. 2. No acute findings in the chest abdomen or pelvis. 3. 1.6 cm left thyroid nodule. Further evaluation with nonemergent thyroid ultrasound 4. Cholelithiasis without evidence of acute cholecystitis. 5. 8 mm nonobstructing left renal calculus THIS IS AN ELECTRONICALLY VERIFIED FINAL REPORT 02/26/2025 3:09 PM - Electronically signed by Kriss Mak M.D. FT: FT Report ID: [id number] Reading Location: [place] [address] Procedure Note Kriss Paiz MD - 02/26/2025 EXAM DESCRIPTION: CT CHEST PE (CTA) ABDOMEN PELVIS W CONTRAST REASON FOR STUDY: Hx of PE; afib with RVR; Pt fell earlier today. Has hx of PE Afib with RVR TECHNIQUE: CT angiogram of the chest with routine abdomen and pelvisperformed with intravenous and without oral contrast using helical scanningtechnique with dynamic intravenous contrast injection. Reconstructed coronal and sagittal MPR images reviewed. All images stored on PACS. 3D MIP images ofthe chest rendered on scanning unit and reviewed at time of interpretation. Automated exposure control was used as a dose optimization technique forthis examination. CONTRAST TYPE/DOSE: 100mL of IOVERSOL 350 MG IODINE/ML INTRAVENOUS SYRINGE injected via intravenous COMPARISON: Chest radiograph 02/26/2025 FINDINGS: CHEST CHEST VASCULATURE: No identified acute pulmonary emboli. Atheromatousdisease of the aorta with coronary artery calcification. No aneurysms of theaorta. LUNGS: Small bibasilar atelectasis. No nodules or masses. No pneumonia. PLEURA: No effusion. No pneumothorax. MEDIASTINUM/MONTSERRAT: Nodular thyroid gland with a 1.6 cm left thyroidnodule. No adenopathy. HEART: Heart size is normal with no pericardial effusion. AXILLA: No adenopathy. CHEST WALL: No masses. No subcutaneous air. HARDWARE/LINES/TUBES: None. MUSCULOSKELETAL CHEST: No significant abnormality. ABDOMEN/PELVIS LIVER: Normal size. No identified cystic or solid masses. GALLBLADDER: Stones. No wall thickening or pericholecystic fluid BILE DUCTS: No intrahepatic or extrahepatic ductal dilatation. SPLEEN: Normal size. No focal lesions. PANCREAS: No identified cystic or solid masses. No significant calcifications. No adjacent inflammation or peripancreatic fluidcollections. Pancreatic duct not dilated. ADRENALS: Normal. KIDNEYS/URINARY TRACT: No identified significant cystic or solid masses.8 mm left renal calculus. No hydronephrosis or hydroureter. Symmetric enhancement. Urinary bladder is unremarkable. GI: No dilated bowel loops. No obvious wall thickening. Normal appendix.No significant diverticular disease. PERITONEUM: No ascites or free air. RETROPERITONEUM: No mass or adenopathy. REPRODUCTIVE: No significant abnormality. VASCULATURE ABDOMEN: Atherosclerotic disease in the aorta, iliacs, and coronary arteries MUSCULOSKELETAL ABDOMEN PELVIS: No acute finding. OTHER: No significant abnormality. IMPRESSION: 1. No evidence of acute pulmonary embolism. 2. No acute findings in the chest abdomen or pelvis. 3. 1.6 cm left thyroid nodule. Further evaluation with nonemergentthyroid ultrasound 4. Cholelithiasis without evidence of acute cholecystitis. 5. 8 mm nonobstructing left renal calculus THIS IS AN ELECTRONICALLY VERIFIED FINAL REPORT 02/26/2025 3:09 PM - Electronically signed by Kriss Mak M.D. FT: FT Report ID: [id number] Reading Location: [place] [address] Юлия Ardon MD IMG CT PROCEDURES Claudia l Result * POCT glucose (02/26/2025 2:40 PM CDT) Glucose, POC 82 70 - 199 mg/dL Comment:Testing performed by : [address] [address] Blood 02/26/2025 2:40 PM CDT 02/26/2025 2:40 PM CDT Юлия Ardon MD LAB POCT ORDERABLES - DEVICE Final Result Performing Organization Address [facility] Co de Phone Number [address] [place] [address] * Sepsis Lactate w/ Reflex (02/26/2025 1:35 PM CDT) Pathologist [facility] Sepsis Lactate 2.0 0.7 - 2.0 mmol/L Comment:Testing performed by : [address] [address] Blood 02/26/2025 1:35 PM CDT 02/26/2025 1:40 PM CDT Юлия Ardon MD LAB BLOOD ORDERABLES F inal Result Performing Organization Address [facility] Co de Phone Number [address] [place], [place] [id number] * XR Chest 1 Vw Portable (If patient hemodynamically UNstable or UNable to ambulate) (02/26/2025 1:21PM CDT) Anatomical Region Laterality Modality Body, Chest N/A Computed Radiogr aphy 02/26/2025 1:30 PM CDT Narrative 02/26/2025 1:31 PM CDT EXAM DESCRIPTION: XR CHEST 1 VIEW REASON FOR STUDY: Shortness of breath Pt states he fell off his back porch on Sat. Multiple bruises and abrasions noted. TECHNIQUE: Single radiographic view(s) of the chest. COMPARISON: None FINDINGS: LUNGS: No focal opacity, pleural effusion, or pneumothorax. HEART/MEDIASTINUM: Cardiac silhouette normal in size. Mediastinal and hilar contours appear normal. LINES/TUBES: None. BONES: No acute osseous abnormality. IMPRESSION: No acute cardiopulmonary abnormality. THIS IS AN ELECTRONICALLY VERIFIED FINAL REPORT 02/26/2025 1:31 PM - Electronically signed by Kriss Mak M.D. FT: FT Report ID: [id number] Reading Location: [id number] Procedure Note Kriss Paiz MD - 02/26/2025 EXAM DESCRIPTION: XR CHEST 1 VIEW REASON FOR STUDY: Shortness of breath Pt states he fell off his back porch on Sat. Multiple bruises andabrasions noted. TECHNIQUE: Single radiographic view(s) of the chest. COMPARISON: None FINDINGS: LUNGS: No focal opacity, pleural effusion, or pneumothorax. HEART/MEDIASTINUM: Cardiac silhouette normal in size. Mediastinal andhilar contours appear normal. LINES/TUBES: None. BONES: No acute osseous abnormality. IMPRESSION: No acute cardiopulmonary abnormality. THIS IS AN ELECTRONICALLY VERIFIED FINAL REPORT 02/26/2025 1:31 PM - Electronically signed by Kriss Mak M.D. FT: FT Report ID: [id number] Reading Location: [id number] Юлия Ardon MD IMG XR PROCEDURES Claudia l Result * (ABNORMAL) Troponin T high-sensitivity series (baseline, 2hr, 4hr, 6hr) (02/26/2025 1:09 PM CDT) Trop T hs 32(H) <=22 ng/L Comment: Interpretive Data For further hscTnT resources including the diagnostic algorithm and an aid in interpretation, copy and paste this link: https://nrl.testcatalog.org/show/hsTrop Current Interpretive Data last revised 2020. Testing performed by: [address] [address] Blood 02/26/2025 1:09 PM CDT 02/26/2025 1:11 PM CDT us Юлия Ardon MD LAB BLOOD ORDERABLES F inal Result Performing Organization Address City/[facility]/ZIP Co de Phone Number RIDDHI [address] [place] [address] * eGFR (02/26/2025 1:09 PM CDT) eGFR 73 >=60 mL/min/1. 73 m2 Comment: Interpretive Data Reference Interval Normal >/= 90 mL/min/1.73m2 Mildly decreased* 60 - 89 mL/min/1.73m2 Mildly to moderately decreased 45 - 59 mL/min/1.73m2 Moderately to severely decreased 30 - 44 mL/min/1.73m2 Severely decreased 15 - 29 mL/min/1.73m2 Kidney Failure < 15 mL/min/1.73m2 *Relative to young adult level Estimated glomerular filtration rate is determined by the 2020 CKD-EPI equation recommended by the National Kid[employer] (A Unifying Approach to GFR Estimation: Recommendations of the NKF-ASK Task Force on Reassessing the Inclusion of Race in Diagnosing Kidney Disease, JASN 2020). The CKD-EPI equation should not be used for patients with unstable renal function and has not been validated in children and those over 70. Current interpretive data was last reviewed 2021. Testing performed by: [facility], [address] [place] [address]., [address] Blood 02/26/2025 1:09 PM CDT 02/26/2025 1:11 PM CDT us Юлия Ardon MD LAB BLOOD ORDERABLES F inal Result RIDDHI [address] [place] [address] * (ABNORMAL) Differential, auto (02/26/2025 1:09 PM CDT) Neutrophil abs 6.17 1.50 - 6.50 K/cumm Comment:Testing performed by : [address] [address] Imm gran abs 0.06 0.00 - 0.10 K/cumm RIDDHI Comment:Testing performed by : [address] [address] Lymphocyte abs 1.40 0.80 - 3.30 K/cumm R[facility]I Comment:Testing performed by : [address] [address] Monocyte abs 0.94(H) 0.20 - 0.80 K/cumm [facility] Comment:Testing performed by : [address] [address] Eosinophil abs 0.16 0.00 - 0.50 K/cumm R[facility]I Comment:Testing performed by : [address] [address] Basophil abs 0.06 0.00 - 0.10 K/cumm [facility] Comment:Testing performed by : [address] [address] Neutrophil pct 70.2 % [facility] Comment: Interpretive Data Percent cell count reference ranges are not reported, since discordance with absolute values may lead to misinterpretation of CBC data. Current Interpretive Data was last revised on 2017. Testing performed by: [address] [address] Imm gran pct 0.7 % [facility] Comment: Interpretive Data Percent cell count reference ranges are not reported, since discordance with absolute values may lead to misinterpretation of CBC data. Current Interpretive Data was last revised on 2017. Testing performed by: [address] [address] Lymphocyte pct 15.9 % [facility] Comment: Interpretive Data Percent cell count reference ranges are not reported, since discordance with absolute values may lead to misinterpretation of CBC data. Current Interpretive Data was last revised on 2017. Testing performed by: [address] [address] Monocyte pct 10.7 % [facility] Comment: Interpretive Data Percent cell count reference ranges are not reported, since discordance with absolute values may lead to misinterpretation of CBC data. Current Interpretive Data was last revised on 2017. Testing performed by: [facility], [address] [place] [address], [place]., [address] Eosinophil pct 1.8 % [facility] Comment: Interpretive Data Percent cell count reference ranges are not reported, since discordance with absolute values may lead to misinterpretation of CBC data. Current Interpretive Data was last revised on 2017. Testing performed by: [address], [place]., [address] Basophil pct 0.7 % [facility] Comment: Interpretive Data Percent cell count reference ranges are not reported, since discordance with absolute values may lead to misinterpretation of CBC data. Current Interpretive Data was last revised on 2017. Testing performed by: [address] [address] Blood 02/26/2025 1:09 PM CDT 02/26/2025 1:11 PM CDT us Юлия Ardon MD LAB BLOOD ORDERABLES F inal Result RIDDHI [address] [facility] Department [place] [address] * (ABNORMAL) Pro B-type natriuretic peptide (02/26/2025 1:09 PM CDT) NT-proBNP 854(H) <=300 pg/mL Comment: Interpretive Comments: A. Dyspnea in Acute Care Setting All Ages: < 300 pg/ml, acute heart failure unlikely. < 50 yrs: 300 - 450 pg/ml, further investigation warranted. > 450 pg/ml, acute heart failure likely. 50 - 74 yrs: 300 - 900 pg/ml, further investigation warranted. > 900 pg/ml, acute heart failure likely . > or = 75 yrs: 450 - 1800 pg/ml, further investigation warranted. > 1800 pg/ml, acute heart failure likely. B. Non-acute Setting < 75 yrs < 125 pg/ml, rules out heart failure. > or = 125 pg/ml, further investigation warranted. > or = 75 yrs < 450 pg/ml, rules out heart failure. > or = 450 pg/ml, further investigation warranted. - Knowledge of each individual patient's NT-proBNP range may be more useful than using similar cut-points for every patient. Please note that marked elevations in NT-proBNP levels may be observed in state other than Left Ventricular Congestive Failure, including: acute coronary syndromes, right heart strain/failure (including pulmonary embolism and cor pulmonale), critical illness, renal failure, as well as advanced age. - References: 1. Greyson COLEMAN et.al. Eur Heart J. 2006:27:330-337. 2. Leyda BHATTI, Gabo FIGUEROA. J. AM Khari Cardiol: Cardiovasc Imag. 2009;2: 216- 225. Interpretive Data Last Revised Date: 2018. Testing performed by: [address] [address] Blood 02/26/2025 1:09 PM CDT 02/26/2025 1:11 PM CDT us Юлия Ardon MD LAB BLOOD ORDERABLES F inal Result Performing Organization Address [facility] Co de Phone Number [place] [phone] [facility] [place] [address] * Thyroid Function [place] (02/26/2025 1:09 PM CDT) TSH 1.35 0.30 - 4.20 mcIUnit/mL Comment:Testing performed by : [address] [address] Blood 02/26/2025 1:09 PM CDT 02/26/2025 1:11 PM CDT Юлия Ardon MD LAB BLOOD ORDERABLES F inal Result Performing Organization Address City/[facility]/ZIP Co de Phone Number [place] [phone] [facility] [email or web address] [address] * (ABNORMAL) CBC with auto differential (02/26/2025 1:09 PM CDT) [facility] WBC 8.79 3.80 - 9.90 K/cumm Comment:Testing performed by : [address] [address] Hgb 13.9 13.0 - 17.5 g/dL RIDDHI Comment:Testing performed by : [address] [address] Hct 41.2 38.9 - 50.3 % RID[facility]I Comment:Testing performed by : [address], [address] Plt 318 150 - 400 K/cumm RIDDHI Comment:Testing performed by : [address] [address] MPV 8.5(L) 9.1 - 12.3 fL RID[facility]I Comment:Testing performed by : [address], [address] RBC 4.82 4.30 - 5.80 M/cumm RID[facility]I Comment:Testing performed by : [address], [address] MCV 85.5 81.3 - 96.4 fL R[facility]I Comment:Testing performed by : [address] [address] MCH 28.8 27.1 - 33.3 pg RID[facility]I Comment:Testing performed by : [address], [address] MCHC 33.7 32.3 - 35.7 g/dL R[facility]I Comment:Testing performed by : [address] [address] RDW CV 14.0 11.1 - 14.9 % RID[facility]I Comment:Testing performed by : [address], [address] RDW SD 43.5 35.7 - 48.1 fL RIDDHI Comment:Testing performed by : [address], [address] NRBC abs 0.00 0.00 - 0.01 K/cumm RIDDHI Comment:Testing performed by : [facility], [address] [place] [address]., [address] Blood 02/26/2025 1:09 PM CDT 02/26/2025 1:11 PM CDT Юлия Ardon MD LAB BLOOD ORDERABLES F inal Result [address] [place] [address] * Phosphorus (02/26/2025 1:09 PM CDT) Phosphorus, pl 3.1 2.3 - 4.5 mg/dL Comment:Testing performed by : [facility], [address] [place] [address]., [address] Blood 02/26/2025 1:09 PM CDT 02/26/2025 1:11 PM CDT Юлия Ardon MD LAB BLOOD ORDERABLES F inal Result Performing Organization Address [facility] Co de Phone Number [address] [address] * Magnesium (02/26/2025 1:09 PM CDT) Pathologist [facility] [place] Magnesium 2.1 1.4 - 2.5 mg/dL Comment:Testing performed by : [address] [address] Blood 02/26/2025 1:09 PM CDT 02/26/2025 1:11 PM CDT Юлия Ardon MD LAB BLOOD ORDERABLES F inal Result ANGIE[address] [address] * (ABNORMAL) Comprehensive metabolic panel (02/26/2025 1:09 PM CDT) Sodium 136 135 - 145 mmol/L Comment:Testing performed by : [address] [address] Potassium, pl 3.9 3.3 - 4.9 mmol/L [facility] Comment: Hemolyzed; Potassium value may be falsely elevated by as much as 1.0 mmol/L. Suggest redraw and reanalysis. Testing performed by: [address], [place]., [address] Chloride 102 97 - 110 mmol/L [facility] Comment:Testing performed by : [address], [place]., [address] CO2 20(L) 22 - 32 mmol/L [facility] Comment:Testing performed by : [address], [place]., [address] Anion gap 14 2 - 15 mmol/L [facility] Comment:Testing performed by : [address], [place]., [address] BUN 21 6 - 25 mg/dL [facility] Comment:Testing performed by : [address], [place]., [address] Creatinine 1.08 0.80 - 1.30 mg/dL [facility] Comment:Testing performed by : [address] [address] Glucose 116 70 - 199 mg/dL [facility] Comment: Interpretive Data Fasting glucose >/= 126 mg/dl is diagnostic for diabetes. Fasting is defined as no caloric intake for at least 8 hours. Fasting glucose between 100 mg/dl to 125 mg/dl is diagnostic of prediabetes. In a patient with classic symptoms of hyperglycemia or hyperglycemic crisis, a random glucose >/= 200 mg/dl is diagnostic for diabetes. In the absence of unequivocal hyperglycemia, results should be confirmed by repeat testing. The classification and Diagnosis of Diabetes Diabetes Care 202; 46: S19-S40. Current interpretive data was last revised 2022. Testing performed by: [address] [address] Calcium 10.0 8.5 - 10.3 mg/dL [facility] Comment:Testing performed by : [address] [address] Bilirubin, total 1.7(H) 0.1 - 1.2 mg/dL [facility] Comment:Testing performed by : [address] [address] Protein, pl 7.3 6.5 - 8.5 g/dL [facility] Comment:Testing performed by : [address] [address] Albumin 4.0 3.5 - 5.0 g/dL [facility] Comment:Testing performed by : [address] [address] Alk phos 97 40 - 130 Units/L [facility] Comment:Testing performed by : [address], [address] ALT 11 7 - 55 Units/L [facility] Comment:Testing performed by : [address], [address] AST 22 10 - 50 Units/L [facility] Comment: Hemolyzed; result may be falsely elevated Testing performed by: [address] [address] Blood 02/26/2025 1:09 PM CDT 02/26/2025 1:11 PM CDT us Юлия Ardon MD LAB BLOOD ORDERABLES F inal Result [facility] [address] [facility] Department of Laboratories [place], [place] [id number] * ECG 12 lead (02/26/2025 1:08 PM CDT) Ventricular Rate EKG/Min 132 BPM [facility] Atrial Rate 133 BPM [facility] QRS-Interval (MSEC) 110 ms [facility] QT-Interval (MSEC) 294 ms [facility] QTc 435 ms [facility] R [place] -61 degrees [facility] T [place] 98 degrees [facility] Diagnosis Atrial fib/flutter with rapid ventricular response Left anterior fascicular block Abnormal QRS-T angle, consider primary T wave abnormality Abnormal ECG No previous ECGs available Confirmed by TAM JOYNER M.D. ([id number]) on 02/26/2025 3:16:13 PM [facility] 02/26/2025 1:08 PM CDT 02/26/2025 3:16 PM CDT us Юлия Ardon MD ECG ORDERABLES Final Result [facility] * CT Cervical Spine WO Contrast (02/26/2025 12:20 PM CDT) Anatomical Region Laterality Modality Spine N/A Computed Tomogra phy 02/26/2025 12:2 5 PM CDT Addenda Addendum by Barrett Valle MD on 02/26/2025 12:41 PM CDT ADDENDUM: This addendum report supersedes the original report dated 02/26/2025 Congenital nonunion of the posterior arch of C1. END OF ADDENDUM REPORT THIS IS AN ELECTRONICALLY VERIFIED FINAL REPORT 02/26/2025 12:41 PM Addendum Electronically signed by Barrett Valle M.D. GUILLE: GUILLE Report ID: [id number] Reading Location: [id number] Narrative 02/26/2025 12:34 PM CDT EXAM DESCRIPTION: CT HEAD WITHOUT CONTRAST; CT MAXILLOFACIAL BONES WITHOUT CONTRAST; CT CERVICAL SPINE WITHOUT CONTRAST REASON FOR STUDY: Fall from unspecified height with acute closed head injury, laceration of unspecified site, and unspecified laterality jaw pain. No provided history of LOC. No provided focal neurologic deficits. No provided history of cervical spine/neck injury or complaints pursuant to event. Provided past medical or surgical history, though patient reportedly anticoagulated Xarelto. TECHNIQUE: Axial images through the head, maxillofacial bones, and cervical spine, with sagittal and coronal reformatted images. Automated exposure control was used as a dose optimization technique for this examination. COMPARISON: No prior relevant imaging available at time of interpretation. FINDINGS: BRAIN: No acute intra-axial hemorrhage. No edema, mass effect, midline shift, or herniation. No evidence of acute territorial ischemia or infarct. There is periventricular-subcortical hypoattenuating white matter disease, nonspecific, though likely secondary to chronic microvascular ischemia. EXTRA-AXIAL SPACES: No extra-axial fluid collections. No unenhanced CT evidence of extra-axial mass. There is cerebral and cerebellar volume loss. There is intracranial calcific atherosclerotic disease. CALVARIUM: Diffuse osteopenia. No acute calvarial fracture. SINUSES/MASTOIDS: As below. ORBITS: No acute abnormality. [place] ocular lenses replaced bilaterally. OTHER: No other significant abnormality. MAXILLOFACIAL: BONES: Diffuse osteopenia. No acute fracture. No suspicious osseous lesions. SOFT TISSUES: Slight right temporal contusion. SINUSES: Clear. NASAL CAVITY: Mild leftward bowing of the bony nasal septum with left-directed bony nasal septal spur. ORBITS: As above. TMJ: No acute abnormality. MASTOIDS: Well-developed and well aerated. IACs symmetric, grossly normal. OTHER: No other significant finding. CERVICAL SPINE: ALIGNMENT: Normal. VERTEBRAE: Diffuse osteopenia. No acute fracture. Vertebral body heights maintained. DISCS: Multilevel variable loss of intervertebral disc height of the visualized cervicothoracic spine. HARDWARE: None in the cervical spine. INDIVIDUAL DISC LEVELS: Constellation of posterior disc osteophyte complexes, annular disc bulges and/or focal herniations, facet arthropathy, and uncovertebral joint disease produces multilevel variable spinal canal stenosis and neural foraminal stenosis. UPPER THORACIC: Incompletely imaged. No significant osseous spinal stenosis or osseous neural foraminal stenosis. LUNG APICES: No acute abnormality. NECK SOFT TISSUES: Partial incidental visualization of approximately 2 cm AP hypoattenuating left thyroid lobe nodule. OTHER: No other significant findings. IMPRESSION: 1. No acute intracranial process. 2. No acute calvarial or maxillofacial bones fracture with soft tissue injury as above. 3. No acute fracture or subluxation of the cervical spine. 4. Partial incidental visualization of left thyroid lobe nodule as above. Routine outpatient thyroid ultrasound recommended for further evaluation. According to guidelines published in the White Paper of the ACR Incidental Thyroid Findings Committee, follow-up recommendations for incidentally detected thyroid nodules are as follows: 1. In patients <35 years with an incidental thyroid nodule (ITN) detected on CT, MRI, or extrathyroidal ultrasound, the committee recommends further evaluation with dedicated thyroid ultrasound if the nodule is 1 cm, without suspicious imaging features and the patient has normal life expectancy. 2. In patients 35 years with an incidental thyroid nodule ITN detected on CT, MRI, or extrathyroidal ultrasound, the committee recommends further evaluation with dedicated thyroid ultrasound if the nodule is 1.5 cm, without suspicious imaging features, and the patient has normal life expectancy. THIS IS AN ELECTRONICALLY VERIFIED FINAL REPORT 02/26/2025 12:34 PM - Electronically signed by Barrett Valle M.D. GUILLE: GUILLE Report ID: [id number] Reading Location: [id number] Procedure Note Barrett Valle MD - 02/26/2025 EXAM DESCRIPTION: CT HEAD WITHOUT CONTRAST; CT MAXILLOFACIAL BONES WITHOUT CONTRAST; CT CERVICAL SPINE WITHOUT CONTRAST REASON FOR STUDY: Fall from unspecified height with acute closed headinjury, laceration of unspecified site, and unspecified laterality jaw pain. No provided history of LOC. No provided focal neurologic deficits. Noprovided history of cervical spine/neck injury or complaints pursuant to event. Provided past medical or surgical history, though patient reportedly anticoagulated Xarelto. TECHNIQUE: Axial images through the head, maxillofacial bones, andcervical spine, with sagittal and coronal reformatted images. Automated exposure control was used as a dose optimization technique for this examination. COMPARISON: No prior relevant imaging available at time ofinterpretation. FINDINGS: BRAIN: No acute intra-axial hemorrhage. No edema, mass effect, midlineshift, or herniation. No evidence of acute territorial ischemia or infarct.There is periventricular-subcortical hypoattenuating white matter disease, nonspecific, though likely secondary to chronic microvascular ischemia. EXTRA-AXIAL SPACES: No extra-axial fluid collections. No unenhanced CT evidence of extra-axial mass. There is cerebral and cerebellar volumeloss. There is intracranial calcific atherosclerotic disease. CALVARIUM: Diffuse osteopenia. No acute calvarial fracture. SINUSES/MASTOIDS: As below. ORBITS: No acute abnormality. [place] ocular lenses replaced bilaterally. OTHER: No other significant abnormality. MAXILLOFACIAL: BONES: Diffuse osteopenia. No acute fracture. No suspicious osseous lesions. SOFT TISSUES: Slight right temporal contusion. SINUSES: Clear. NASAL CAVITY: Mild leftward bowing of the bony nasal septum with left-directed bony nasal septal spur. ORBITS: As above. TMJ: No acute abnormality. MASTOIDS: Well-developed and well aerated. IACs symmetric, grosslynormal. OTHER: No other significant finding. CERVICAL SPINE: ALIGNMENT: Normal. VERTEBRAE: Diffuse osteopenia. No acute fracture. Vertebral bodyheights maintained. DISCS: Multilevel variable loss of intervertebral disc height of the visualized cervicothoracic spine. HARDWARE: None in the cervical spine. INDIVIDUAL DISC LEVELS: Constellation of posterior disc osteophytecomplexes, annular disc bulges and/or focal herniations, facet arthropathy, and uncovertebral joint disease produces multilevel variable spinal canalstenosis and neural foraminal stenosis. UPPER THORACIC: Incompletely imaged. No significant osseous spinalstenosis or osseous neural foraminal stenosis. LUNG APICES: No acute abnormality. NECK SOFT TISSUES: Partial incidental visualization of approximately 2 cmAP hypoattenuating left thyroid lobe nodule. OTHER: No other significant findings. IMPRESSION: 1. No acute intracranial process. 2. No acute calvarial or maxillofacial bones fracture with soft tissue injury as above. 3. No acute fracture or subluxation of the cervical spine. 4. Partial incidental visualization of left thyroid lobe nodule asabove. Routine outpatient thyroid ultrasound recommended for further evaluation. According to guidelines published in the White Paper of the ACRIncidental Thyroid Findings Committee, follow-up recommendations for incidentally detected thyroid nodules are as follows: 1. In patients <35 years with an incidental thyroid nodule (ITN)detected on CT, MRI, or extrathyroidal ultrasound, the committee recommends further evaluation with dedicated thyroid ultrasound if the nodule is 1 cm,without suspicious imaging features and the patient has normal life expectancy. 2. In patients 35 years with an incidental thyroid nodule ITN detectedon CT, MRI, or extrathyroidal ultrasound, the committee recommends further evaluation with dedicated thyroid ultrasound if the nodule is 1.5 cm,without suspicious imaging features, and the patient has normal life expectancy. THIS IS AN ELECTRONICALLY VERIFIED FINAL REPORT 02/26/2025 12:34 PM - Electronically signed by Barrett Valle M.D. GUILLE: GUILLE Report ID: [id number] Reading Location: [id number] [facility] IMG CT PROCEDURES Edit ed Result - Final * CT Facial Bones WO Contrast (02/26/2025 12:20 PM CDT) Anatomical Region Laterality Modality Head and Neck N/A Computed Tomogra phy 02/26/2025 12:2 5 PM CDT Addenda Addendum by Barrett Valle MD on 02/26/2025 12:41 PM CDT ADDENDUM: This addendum report supersedes the original report dated 02/26/2025 Congenital nonunion of the posterior arch of C1. END OF ADDENDUM REPORT THIS IS AN ELECTRONICALLY VERIFIED FINAL REPORT 02/26/2025 12:41 PM Addendum Electronically signed by Barrett Valle M.D. GUILLE: GUILLE Report ID: [id number] Reading Location: [id number] Narrative 02/26/2025 12:34 PM CDT EXAM DESCRIPTION: CT HEAD WITHOUT CONTRAST; CT MAXILLOFACIAL BONES WITHOUT CONTRAST; CT CERVICAL SPINE WITHOUT CONTRAST REASON FOR STUDY: Fall from unspecified height with acute closed head injury, laceration of unspecified site, and unspecified laterality jaw pain. No provided history of LOC. No provided focal neurologic deficits. No provided history of cervical spine/neck injury or complaints pursuant to event. Provided past medical or surgical history, though patient reportedly anticoagulated Xarelto. TECHNIQUE: Axial images through the head, maxillofacial bones, and cervical spine, with sagittal and coronal reformatted images. Automated exposure control was used as a dose optimization technique for this examination. COMPARISON: No prior relevant imaging available at time of interpretation. FINDINGS: BRAIN: No acute intra-axial hemorrhage. No edema, mass effect, midline shift, or herniation. No evidence of acute territorial ischemia or infarct. There is periventricular-subcortical hypoattenuating white matter disease, nonspecific, though likely secondary to chronic microvascular ischemia. EXTRA-AXIAL SPACES: No extra-axial fluid collections. No unenhanced CT evidence of extra-axial mass. There is cerebral and cerebellar volume loss. There is intracranial calcific atherosclerotic disease. CALVARIUM: Diffuse osteopenia. No acute calvarial fracture. SINUSES/MASTOIDS: As below. ORBITS: No acute abnormality. [place] ocular lenses replaced bilaterally. OTHER: No other significant abnormality. MAXILLOFACIAL: BONES: Diffuse osteopenia. No acute fracture. No suspicious osseous lesions. SOFT TISSUES: Slight right temporal contusion. SINUSES: Clear. NASAL CAVITY: Mild leftward bowing of the bony nasal septum with left-directed bony nasal septal spur. ORBITS: As above. TMJ: No acute abnormality. MASTOIDS: Well-developed and well aerated. IACs symmetric, grossly normal. OTHER: No other significant finding. CERVICAL SPINE: ALIGNMENT: Normal. VERTEBRAE: Diffuse osteopenia. No acute fracture. Vertebral body heights maintained. DISCS: Multilevel variable loss of intervertebral disc height of the visualized cervicothoracic spine. HARDWARE: None in the cervical spine. INDIVIDUAL DISC LEVELS: Constellation of posterior disc osteophyte complexes, annular disc bulges and/or focal herniations, facet arthropathy, and uncovertebral joint disease produces multilevel variable spinal canal stenosis and neural foraminal stenosis. UPPER THORACIC: Incompletely imaged. No significant osseous spinal stenosis or osseous neural foraminal stenosis. LUNG APICES: No acute abnormality. NECK SOFT TISSUES: Partial incidental visualization of approximately 2 cm AP hypoattenuating left thyroid lobe nodule. OTHER: No other significant findings. IMPRESSION: 1. No acute intracranial process. 2. No acute calvarial or maxillofacial bones fracture with soft tissue injury as above. 3. No acute fracture or subluxation of the cervical spine. 4. Partial incidental visualization of left thyroid lobe nodule as above. Routine outpatient thyroid ultrasound recommended for further evaluation. According to guidelines published in the White Paper of the ACR Incidental Thyroid Findings Committee, follow-up recommendations for incidentally detected thyroid nodules are as follows: 1. In patients <35 years with an incidental thyroid nodule (ITN) detected on CT, MRI, or extrathyroidal ultrasound, the committee recommends further evaluation with dedicated thyroid ultrasound if the nodule is 1 cm, without suspicious imaging features and the patient has normal life expectancy. 2. In patients 35 years with an incidental thyroid nodule ITN detected on CT, MRI, or extrathyroidal ultrasound, the committee recommends further evaluation with dedicated thyroid ultrasound if the nodule is 1.5 cm, without suspicious imaging features, and the patient has normal life expectancy. THIS IS AN ELECTRONICALLY VERIFIED FINAL REPORT 02/26/2025 12:34 PM - Electronically signed by Barrett Valle M.D. GUILLE: GUILLE Report ID: [id number] Reading Location: [place] [address] Procedure Note Barrett Valle MD - 02/26/2025 EXAM DESCRIPTION: CT HEAD WITHOUT CONTRAST; CT MAXILLOFACIAL BONES WITHOUT CONTRAST; CT CERVICAL SPINE WITHOUT CONTRAST REASON FOR STUDY: Fall from unspecified height with acute closed headinjury, laceration of unspecified site, and unspecified laterality jaw pain. No provided history of LOC. No provided focal neurologic deficits. Noprovided history of cervical spine/neck injury or complaints pursuant to event. Provided past medical or surgical history, though patient reportedly anticoagulated Xarelto. TECHNIQUE: Axial images through the head, maxillofacial bones, andcervical spine, with sagittal and coronal reformatted images. Automated exposure control was used as a dose optimization technique for this examination. COMPARISON: No prior relevant imaging available at time ofinterpretation. FINDINGS: BRAIN: No acute intra-axial hemorrhage. No edema, mass effect, midlineshift, or herniation. No evidence of acute territorial ischemia or infarct.There is periventricular-subcortical hypoattenuating white matter disease, nonspecific, though likely secondary to chronic microvascular ischemia. EXTRA-AXIAL SPACES: No extra-axial fluid collections. No unenhanced CT evidence of extra-axial mass. There is cerebral and cerebellar volumeloss. There is intracranial calcific atherosclerotic disease. CALVARIUM: Diffuse osteopenia. No acute calvarial fracture. SINUSES/MASTOIDS: As below. ORBITS: No acute abnormality. [place] ocular lenses replaced bilaterally. OTHER: No other significant abnormality. MAXILLOFACIAL: BONES: Diffuse osteopenia. No acute fracture. No suspicious osseous lesions. SOFT TISSUES: Slight right temporal contusion. SINUSES: Clear. NASAL CAVITY: Mild leftward bowing of the bony nasal septum with left-directed bony nasal septal spur. ORBITS: As above. TMJ: No acute abnormality. MASTOIDS: Well-developed and well aerated. IACs symmetric, grosslynormal. OTHER: No other significant finding. CERVICAL SPINE: ALIGNMENT: Normal. VERTEBRAE: Diffuse osteopenia. No acute fracture. Vertebral bodyheights maintained. DISCS: Multilevel variable loss of intervertebral disc height of the visualized cervicothoracic spine. HARDWARE: None in the cervical spine. INDIVIDUAL DISC LEVELS: Constellation of posterior disc osteophytecomplexes, annular disc bulges and/or focal herniations, facet arthropathy, and uncovertebral joint disease produces multilevel variable spinal canalstenosis and neural foraminal stenosis. UPPER THORACIC: Incompletely imaged. No significant osseous spinalstenosis or osseous neural foraminal stenosis. LUNG APICES: No acute abnormality. NECK SOFT TISSUES: Partial incidental visualization of approximately 2 cmAP hypoattenuating left thyroid lobe nodule. OTHER: No other significant findings. IMPRESSION: 1. No acute intracranial process. 2. No acute calvarial or maxillofacial bones fracture with soft tissue injury as above. 3. No acute fracture or subluxation of the cervical spine. 4. Partial incidental visualization of left thyroid lobe nodule asabove. Routine outpatient thyroid ultrasound recommended for further evaluation. According to guidelines published in the White Paper of the ACRIncidental Thyroid Findings Committee, follow-up recommendations for incidentally detected thyroid nodules are as follows: 1. In patients <35 years with an incidental thyroid nodule (ITN)detected on CT, MRI, or extrathyroidal ultrasound, the committee recommends further evaluation with dedicated thyroid ultrasound if the nodule is 1 cm,without suspicious imaging features and the patient has normal life expectancy. 2. In patients 35 years with an incidental thyroid nodule ITN detectedon CT, MRI, or extrathyroidal ultrasound, the committee recommends further evaluation with dedicated thyroid ultrasound if the nodule is 1.5 cm,without suspicious imaging features, and the patient has normal life expectancy. THIS IS AN ELECTRONICALLY VERIFIED FINAL REPORT 02/26/2025 12:34 PM - Electronically signed by Barrett Valle M.D. GUILLE: GUILLE Report ID: [id number] Reading Location: [place] [address] [address] PROCEDURES Edit ed Result - Final * CT Head WO Contrast (02/26/2025 12:20 PM CDT) Anatomical Region Laterality Modality Head and Neck N/A Computed Tomogra phy 02/26/2025 12:2 5 PM CDT Addenda Addendum by Barrett Valle MD on 02/26/2025 12:41 PM CDT ADDENDUM: This addendum report supersedes the original report dated 02/26/2025 Congenital nonunion of the posterior arch of C1. END OF ADDENDUM REPORT THIS IS AN ELECTRONICALLY VERIFIED FINAL REPORT 02/26/2025 12:41 PM Addendum Electronically signed by Barrett Valle M.D. GUILLE: GUILLE Report ID: [id number] Reading Location: [id number] [facility] 02/26/2025 12:34 PM CDT EXAM DESCRIPTION: CT HEAD WITHOUT CONTRAST; CT MAXILLOFACIAL BONES WITHOUT CONTRAST; CT CERVICAL SPINE WITHOUT CONTRAST REASON FOR STUDY: Fall from unspecified height with acute closed head injury, laceration of unspecified site, and unspecified laterality jaw pain. No provided history of LOC. No provided focal neurologic deficits. No provided history of cervical spine/neck injury or complaints pursuant to event. Provided past medical or surgical history, though patient reportedly anticoagulated Xarelto. TECHNIQUE: Axial images through the head, maxillofacial bones, and cervical spine, with sagittal and coronal reformatted images. Automated exposure control was used as a dose optimization technique for this examination. COMPARISON: No prior relevant imaging available at time of interpretation. FINDINGS: BRAIN: No acute intra-axial hemorrhage. No edema, mass effect, midline shift, or herniation. No evidence of acute territorial ischemia or infarct. There is periventricular-subcortical hypoattenuating white matter disease, nonspecific, though likely secondary to chronic microvascular ischemia. EXTRA-AXIAL SPACES: No extra-axial fluid collections. No unenhanced CT evidence of extra-axial mass. There is cerebral and cerebellar volume loss. There is intracranial calcific atherosclerotic disease. CALVARIUM: Diffuse osteopenia. No acute calvarial fracture. SINUSES/MASTOIDS: As below. ORBITS: No acute abnormality. [place] ocular lenses replaced bilaterally. OTHER: No other significant abnormality. MAXILLOFACIAL: BONES: Diffuse osteopenia. No acute fracture. No suspicious osseous lesions. SOFT TISSUES: Slight right temporal contusion. SINUSES: Clear. NASAL CAVITY: Mild leftward bowing of the bony nasal septum with left-directed bony nasal septal spur. ORBITS: As above. TMJ: No acute abnormality. MASTOIDS: Well-developed and well aerated. IACs symmetric, grossly normal. OTHER: No other significant finding. CERVICAL SPINE: ALIGNMENT: Normal. VERTEBRAE: Diffuse osteopenia. No acute fracture. Vertebral body heights maintained. DISCS: Multilevel variable loss of intervertebral disc height of the visualized cervicothoracic spine. HARDWARE: None in the cervical spine. INDIVIDUAL DISC LEVELS: Constellation of posterior disc osteophyte complexes, annular disc bulges and/or focal herniations, facet arthropathy, and uncovertebral joint disease produces multilevel variable spinal canal stenosis and neural foraminal stenosis. UPPER THORACIC: Incompletely imaged. No significant osseous spinal stenosis or osseous neural foraminal stenosis. LUNG APICES: No acute abnormality. NECK SOFT TISSUES: Partial incidental visualization of approximately 2 cm AP hypoattenuating left thyroid lobe nodule. OTHER: No other significant findings. IMPRESSION: 1. No acute intracranial process. 2. No acute calvarial or maxillofacial bones fracture with soft tissue injury as above. 3. No acute fracture or subluxation of the cervical spine. 4. Partial incidental visualization of left thyroid lobe nodule as above. Routine outpatient thyroid ultrasound recommended for further evaluation. According to guidelines published in the White Paper of the ACR Incidental Thyroid Findings Committee, follow-up recommendations for incidentally detected thyroid nodules are as follows: 1. In patients <35 years with an incidental thyroid nodule (ITN) detected on CT, MRI, or extrathyroidal ultrasound, the committee recommends further evaluation with dedicated thyroid ultrasound if the nodule is 1 cm, without suspicious imaging features and the patient has normal life expectancy. 2. In patients 35 years with an incidental thyroid nodule ITN detected on CT, MRI, or extrathyroidal ultrasound, the committee recommends further evaluation with dedicated thyroid ultrasound if the nodule is 1.5 cm, without suspicious imaging features, and the patient has normal life expectancy. THIS IS AN ELECTRONICALLY VERIFIED FINAL REPORT 02/26/2025 12:34 PM - Electronically signed by Barrett Valle M.D. GUILLE: GUILLE Report ID: [id number] Reading Location: [id number] Procedure Note Barrett Valle MD - 02/26/2025 EXAM DESCRIPTION: CT HEAD WITHOUT CONTRAST; CT MAXILLOFACIAL BONES WITHOUT CONTRAST; CT CERVICAL SPINE WITHOUT CONTRAST REASON FOR STUDY: Fall from unspecified height with acute closed headinjury, laceration of unspecified site, and unspecified laterality jaw pain. No provided history of LOC. No provided focal neurologic deficits. Noprovided history of cervical spine/neck injury or complaints pursuant to event. Provided past medical or surgical history, though patient reportedly anticoagulated Xarelto. TECHNIQUE: Axial images through the head, maxillofacial bones, andcervical spine, with sagittal and coronal reformatted images. Automated exposure control was used as a dose optimization technique for this examination. COMPARISON: No prior relevant imaging available at time ofinterpretation. FINDINGS: BRAIN: No acute intra-axial hemorrhage. No edema, mass effect, midlineshift, or herniation. No evidence of acute territorial ischemia or infarct.There is periventricular-subcortical hypoattenuating white matter disease, nonspecific, though likely secondary to chronic microvascular ischemia. EXTRA-AXIAL SPACES: No extra-axial fluid collections. No unenhanced CT evidence of extra-axial mass. There is cerebral and cerebellar volumeloss. There is intracranial calcific atherosclerotic disease. CALVARIUM: Diffuse osteopenia. No acute calvarial fracture. SINUSES/MASTOIDS: As below. ORBITS: No acute abnormality. [place] ocular lenses replaced bilaterally. OTHER: No other significant abnormality. MAXILLOFACIAL: BONES: Diffuse osteopenia. No acute fracture. No suspicious osseous lesions. SOFT TISSUES: Slight right temporal contusion. SINUSES: Clear. NASAL CAVITY: Mild leftward bowing of the bony nasal septum with left-directed bony nasal septal spur. ORBITS: As above. TMJ: No acute abnormality. MASTOIDS: Well-developed and well aerated. IACs symmetric, grosslynormal. OTHER: No other significant finding. CERVICAL SPINE: ALIGNMENT: Normal. VERTEBRAE: Diffuse osteopenia. No acute fracture. Vertebral bodyheights maintained. DISCS: Multilevel variable loss of intervertebral disc height of the visualized cervicothoracic spine. HARDWARE: None in the cervical spine. INDIVIDUAL DISC LEVELS: Constellation of posterior disc osteophytecomplexes, annular disc bulges and/or focal herniations, facet arthropathy, and uncovertebral joint disease produces multilevel variable spinal canalstenosis and neural foraminal stenosis. UPPER THORACIC: Incompletely imaged. No significant osseous spinalstenosis or osseous neural foraminal stenosis. LUNG APICES: No acute abnormality. NECK SOFT TISSUES: Partial incidental visualization of approximately 2 cmAP hypoattenuating left thyroid lobe nodule. OTHER: No other significant findings. IMPRESSION: 1. No acute intracranial process. 2. No acute calvarial or maxillofacial bones fracture with soft tissue injury as above. 3. No acute fracture or subluxation of the cervical spine. 4. Partial incidental visualization of left thyroid lobe nodule asabove. Routine outpatient thyroid ultrasound recommended for further evaluation. According to guidelines published in the White Paper of the ACRIncidental Thyroid Findings Committee, follow-up recommendations for incidentally detected thyroid nodules are as follows: 1. In patients <35 years with an incidental thyroid nodule (ITN)detected on CT, MRI, or extrathyroidal ultrasound, the committee recommends further evaluation with dedicated thyroid ultrasound if the nodule is 1 cm,without suspicious imaging features and the patient has normal life expectancy. 2. In patients 35 years with an incidental thyroid nodule ITN detectedon CT, MRI, or extrathyroidal ultrasound, the committee recommends further evaluation with dedicated thyroid ultrasound if the nodule is 1.5 cm,without suspicious imaging features, and the patient has normal life expectancy. THIS IS AN ELECTRONICALLY VERIFIED FINAL REPORT 02/26/2025 12:34 PM - Electronically signed by Barrett Valle M.D. GUILLE: GUILLE Report ID: [id number] Reading Location: [id number] [facility]MM[facility] CT PROCEDURES Edit ed Result - Final * XR Hip Right 2 or 3 Views (02/26/2025 12:12 PM CDT) Anatomical Region Laterality Modality Lower Extremities, Hip, Pelvis Right C omputed Radiography 02/26/2025 12:1 5 PM CDT Narrative 02/26/2025 12:17 PM CDT EXAM DESCRIPTION: XR HIP RIGHT 2 OR 3 VIEWS REASON FOR STUDY: Right hip pain after fall 1 week ago. TECHNIQUE: AP and lateral views of the right hip COMPARISON: None FINDINGS: BONES/JOINTS: No acute fracture or dislocation. Mild hip osteoarthritis. 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 The iliopectineal and ilioischial lines are intact. SOFT TISSUES: Atherosclerotic calcification of the visualized vasculature. IMPRESSION: 1. No acute osseous abnormality. 2. Mild right hip osteoarthritis. THIS IS AN ELECTRONICALLY VERIFIED FINAL REPORT 02/26/2025 12:17 PM - Electronically signed by Nithin Addison M.D. LB: LB Report ID: [id number] Reading Location: [id number] Procedure Note Nithin Addison MD - 02/26/2025 EXAM DESCRIPTION: XR HIP RIGHT 2 OR 3 VIEWS REASON FOR STUDY: Right hip pain after fall 1 week ago. TECHNIQUE: AP and lateral views of the right hip COMPARISON: None FINDINGS: BONES/JOINTS: No acute fracture or dislocation. Mild hip osteoarthritis. 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 The iliopectineal and ilioischial lines are intact. SOFT TISSUES: Atherosclerotic calcification of the visualizedvasculature. IMPRESSION: 1. No acute osseous abnormality. 2. Mild right hip osteoarthritis. THIS IS AN ELECTRONICALLY VERIFIED FINAL REPORT 02/26/2025 12:17 PM - Electronically signed by Nithin Addison M.D. LB: LB Report ID: [id number] Reading Location: [id number] [facility] IMG XR PROCEDURES Claudia l Result * Electrocardiogram Report (02/25/2025 1:43 PM CDT) Marcelino Sheriff MD ECG ORDERABLES Edited R esult - Final * SCAN - LABS (02/18/2025 5:19 PM CDT) Result [facility] Historical Provider Final Res ult * Cardiology Document Scan (02/18/2025 12:44 PM CDT) Anatomical Region Laterality Modality Other Result [facility] Marcelino Sheriff MD CV CARDIAC SERVICES PROC EDURES Final Result * (ABNORMAL) POCT lipid panel (01/30/2025 1:14 PM CDT) Cholesterol, POC 112 <200 MG/DL HDL, POC 31(A) >=40 mg/dL Triglycerides, POC 200(A) <=149 mg/dL LDL Cholesterol POC 41 <=129 mg/dL Chol/HDL Ratio, POC 1.3 NONE Non-HDL Cholesterol, POC 82 NONE mg/dL Cholesterol Total, POC 112 30 - 199 mg/dL Capillary blood 01/30/2025 1 :14 PM CDT Result [facility] Onelia Boss NP POINT OF CARE TEST ORDERA BLES Final Result * (ABNORMAL) Hemoglobin A1c (08/16/2016 8:50 AM CDT) Hemoglobin A1c % 8.2(H) 4.8 - 5.9 % Comment: [place] [employer] recommends that the goal of therapy should be an A1C hemoglobin of <7%. Reevaluate the treatment regimen in patients with an A1C >8%. 08/16/2016 8:50 AM CDT 08/16/2016 10:21 AM CDT Result [facility] Armando Larios MD LAB BLOOD ORDERABLES Final Re sult [facility] HISTORICAL RESULTS from Last 3 Months or Most Recently Relevant to Health Maintenance Insurance [id number] MDCR HMO REF [facility] MEDICARE ADVANTAGE Member Subscriber Plan / Payer (Ef fective 2024-Present) Name:Dylan Noel Relation to Subscriber:Self Name:Dylan Noel Payer ID:[id number] (NAIC) Type:[facility] MEDICARE Address: [place] [phone] Advance Directives For more information, please contact: [phone] * LIMITED - No CPR (Latest Code Status on File) Date Activated Date Inactivated Comments 02/26/2025 4:18 PM 02/27/2025 7:11 PM Question Answer Comments Provide aggressive medical m anagement before a full cardiopulmonary arrest occurs. Use antibiotics, IV Fluids, and medical treatment unless specifically selected below: No intubation Care Teams Slps Relationship Specialty Start Date End Date Armando Larios MD PCP - General Internal Medicine 07/07/21
--- OUTSIDE RECORDS SUMMARY | 2025-05-13 07:12 | XMS_ITS | Clinical Summary ---
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 Gender Identity Not on file Sexual [...] Wellness Visit 2018 COVID-19 Vaccine (4 - 2024-2 6 season) 2025 04/29/2021, 08/31/2020, 08/10/2020 Influenza Adult (#1) 2025 RSV Immunization or 60+ Years (1 - 1-dose 75+ series) 2028 Hepatitis A Vaccines Aged Out No long er eligible based on patient's age to complete this topic Meningococcal B Vaccine Aged Out No l onger eligible based on patient's age to complete this topic Meningococcal Vaccine Aged Out No arturo alpesh eligible based on patient's age to complete this topic RSV Immunizations Under 20 Months Aged Out No longer eligible b ased on patient's age to complete this topic Insurance [facility] MEDICARE Care Teams Six [employer] Project Manager Relationship Specialty Start Date End Date Armando Larios MD [id number] [address] PCP - General INTERNAL MEDICINE 04/26/21
[2025-05-13 07:48] LABS: Estimated Glomerular Filt Rate 37
== END 2025-05-13 07:10 | disposition home or self-care (01) ==
PROVIDERS: PCP Internal Medicine; Visit Provider Internal Medicine
DX: N39.0 Urinary tract infection, site not specified (principal)
CPT/HCPCS: 74178; Q9967